=== PATIENT | female | born 1950 | race Caucasian/White ===

== ENCOUNTER 2017-02-10 11:23 | Emergency (ER) | payer MEDICARE ==
[~2017-02-10 11:23] MED LIST: LSNP10T PO
[2017-02-10 11:30] VITALS: BP 0/0
[2017-02-10] MEDS ORDERED: NS IV 1000 ML 1,000 ML ONE (12:08)
[2017-02-10] MEDS ORDERED: ALPR0.25 PO (13:18)
== END 2017-02-10 11:30 | disposition left against medical advice (07) ==
LOC: EDUNIT# 11:23 → ER 11:26
DX: I49.9 Cardiac arrhythmia, unspecified (principal); Z53.21 Procedure and treatment not carried out due to patient leaving prior to being seen by health care provider

== ENCOUNTER 2017-02-10 11:39 | Emergency (ER) | payer MEDICARE ==
[~2017-02-10] VITALS: Ht 175.3 cm; Wt 44.5 kg
--- NOTE | 2017-02-10 12:07 | ED General ---
General Chief Complaint: Cardiac/General Problems Stated Complaint: IRREG HEART RATE/STRESS Source of Information: Patient Exam Limitations: No Limitations History of Present Illness Time Seen by Provider: 12:03 Initial Comments Patient has multiple complaints over a long period of time but what brought her to the emergency department today is her elevated heart rate. She reports being under a lot of stress due to the apartment which she lives. She is on no prescription medicine. She reports 5-10 runny bowel movements per day. She denies hematochezia. She reports significant weight loss of the past year but is uncertain how much. She denies chest pain or abdominal pain. She denies fevers or chills. She denies drug or alcohol use. Allergies and Home Medications Allergies Coded Allergies: Codeine (Verified Allergy, Mild, N/V, PT HAS RECEIVED MORPHINE WITHOUT ISSUE, 02/14/12) PER [facility] (ICU) PT HAS RECEIVED MORPHINE WITHOUT PROBLEMS Cephalexin (Verified Allergy, Unknown, 01/16/06) Diphenhydramine (Verified Allergy, Unknown, 01/16/06) IV Dye, Iodine Containing Contrast (Verified Allergy, Unknown, 01/16/06) Levofloxacin (Verified Allergy, Unknown, 01/16/06) Nitrofurantoin (Verified Allergy, Unknown, 01/16/06) Penicillins (Verified Allergy, Unknown, 01/16/06) Prochlorperazine (Verified Allergy, Unknown, 01/16/06) Sulfa(Sulfonamide Antibiotics) (Verified Allergy, Unknown, 01/16/06) ciprofloxacin (Verified Allergy, Unknown, 01/16/06) citalopram (Verified Allergy, Unknown, 01/16/06) lorazepam (Verified Allergy, Unknown, 01/16/06) metronidazole (Verified Allergy, Unknown, 01/16/06) pseudoephedrine (Verified Allergy, Unknown, 01/16/06) zinc acetate (Verified Allergy, Unknown, 01/16/06) Uncoded Allergies: SOY BEANS (Allergy, 02/10/12) Home Medications Lisinopril 10 Mg Tab, 10 MG PO DAILY, #30 (Reported) Constitutional: No fever, malaise, weakness Respiratory: no symptoms reported Cardiovascular: No chest pain, palpitations Gastrointestinal: No abdominal pain, diarrhea Musculoskeletal: no symptoms reported All Other Systems Reviewed Negative Unless Noted: Yes Past Ahipdle-Wtyxjj-Axhndg Hx Patient Social History Alcohol Use: Denies Use Recreational Drug Use: No Smoking Status: Never a Smoker 2nd Hand Smoke Exposure: No Recent Foreign Travel: No Contact w/Someone Who Travel: No Recent Hopitalizations: No Seasonal Allergies Seasonal Allergies: No Surgeries Surgeries: Section, Gallbladder Cardiovascular Hx Cardiac Disorders: No Gastrointestinal Gastrointestinal Disorders: Gastroesophageal Reflux, Obstructive Bowel HEENT HX ENT Disorders: No Cancer Cancer: Cervical Psychosocial Hx Psychiatric Problems: No Behavioral Health Disorders: Anxiety, Depression Blood Transfusions Adverse Reaction to a Blood Tr: No Reviewed Nursing Assessment Reviewed/Agree w Nursing PMH: Yes Physical Exam Vital Signs Vital Sign - Last 12Hours 02/10/17 11:58 Temp 97.1 Pulse 110 Resp 20 B/P (MAP) 171/117 Pulse Ox 98 O2 Delivery Room Air Capillary Refill : General Appearance: Anxious, Cachetic Eyes: Bilateral Eye EOMI, Bilateral Eye Normal Inspection, Bilateral Eye PERRL HEENT: Pharynx Normal Neck: Supple Respiratory: Lungs Clear, Normal Breath Sounds Cardiovascular: Tachycardia Gastrointestinal: Non Tender, Soft, No Mass Rectal: Deferred Extremity: Normal Inspection, Normal Range of Motion, Non Tender Neurologic/Psychiatric: Alert, No Motor/Sensory Deficits, cocoa bean cleaner II-XII Norm as Tested Skin: Normal Color, Warm/Dry Progress/Results/Core Measures Results/Orders Lab Results Laboratory Tests Test 02/10/17 11:50 02/10/17 12:53 Range/Units White Blood Count 7.4 4.3-11.0 10^3/uL Red Blood Count 4.42 4.35-5.85 10^6/uL Hemoglobin 13.3 11.5-16.0 G/DL Hematocrit 40 35-52 % Mean Corpuscular Volume 91 80-99 FL Mean Corpuscular Hemoglobin 30 25-34 PG Mean Corpuscular Hemoglobin Concent 33 32-36 G/DL Red Cell Distribution Width 13.5 10.0-14.5 % Platelet Count 273 130-400 10^3/uL Mean Platelet Volume 10.7 H 7.4-10.4 FL Neutrophils (%) (Auto) 65 42-75 % Lymphocytes (%) (Auto) 23 12-44 % Monocytes (%) (Auto) 11 0-12 % Eosinophils (%) (Auto) 0 0-10 % Basophils (%) (Auto) 1 0-10 % Neutrophils # (Auto) 4.8 1.8-7.8 X 10^3 Lymphocytes # (Auto) 1.7 1.0-4.0 X 10^3 Monocytes # (Auto) 0.8 0.0-1.0 X 10^3 Eosinophils # (Auto) 0.0 0.0-0.3 10^3/uL Basophils # (Auto) 0.0 0.0-0.1 10^3/uL Prothrombin Time 11.9 L 12.2-14.7 SEC INR Comment 0.9 0.8-1.4 Activated Partial Thromboplast Time 26 24-35 SEC Sodium Level 138 135-145 MMOL/L Potassium Level 3.0 L 3.6-5.0 MMOL/L Chloride Level 97 L 98-107 MMOL/L Carbon Dioxide Level 30 21-32 MMOL/L Anion Gap 11 5-14 MMOL/L Blood Urea Nitrogen 15 7-18 MG/DL Creatinine 1.06 0.60-1.30 MG/DL Estimat Glomerular Filtration Rate 52 BUN/Creatinine Ratio 14 Glucose Level 123 H 70-105 MG/DL Calcium Level 10.0 8.5-10.1 MG/DL Magnesium Level 1.5 L 1.8-2.4 MG/DL Total Bilirubin 0.7 0.1-1.0 MG/DL Aspartate Amino Transf (AST/SGOT) 21 5-34 U/L Alanine Aminotransferase (ALT/SGPT) 16 0-55 U/L Alkaline Phosphatase 71 40-136 U/L Total Protein 7.7 6.4-8.2 G/DL Albumin 4.3 3.2-4.5 G/DL Thyroid Stimulating Hormone (TSH) 2.14 0.35-4.94 UIU/ML Urine Color YELLOW Urine Clarity SLIGHTLY CLOUDY Urine pH 6.5 5-9 Urine Specific Belt 1.010 L 1.016-1.022 Urine Protein NEGATIVE NEGATIVE Urine Glucose (UA) NEGATIVE NEGATIVE Urine Ketones NEGATIVE NEGATIVE Urine Nitrite NEGATIVE NEGATIVE Urine Bilirubin NEGATIVE NEGATIVE Urine Urobilinogen NORMAL NORMAL MG/DL Urine Leukocyte Esterase NEGATIVE NEGATIVE Urine RBC (Auto) 1+ H NEGATIVE Urine RBC RARE /HPF Urine WBC NONE /HPF Urine Squamous Epithelial Cells 0-2 /HPF Urine Crystals NONE /LPF Urine Bacteria NEGATIVE /HPF Urine Casts NONE /LPF Urine Mucus NEGATIVE /LPF Urine Culture Indicated NO My Orders Orders - JUAN WHITFIELD MD Cbc With Automated Diff (02/10/17 11:42) Comprehensive Metabolic Panel (02/10/17 11:42) Magnesium (02/10/17 11:42) Ekg Tracing (02/10/17 11:42) Continuous Ekg Monitoring (02/10/17 11:42) Thyroid Stimulating Hormone (02/10/17 11:48) Chest 1 View, Ap/Pa Only (02/10/17 12:00) Ns Iv 1000 Ml (Sodium Chloride 0.9%) (02/10/17 12:15) Protime With Inr (02/10/17 12:02) Partial Thromboplastin Time (02/10/17 12:02) Ua Culture If Indicated (02/10/17 12:02) Potassium Chloride (Tablet) (Klor Con Ta (02/10/17 13:15) Vital Signs/I&O Vital Sign - Last 12Hours 02/10/17 11:58 Temp 97.1 Pulse 110 Resp 20 B/P (MAP) 171/117 Pulse Ox 98 O2 Delivery Room Air Progress Note : Time: 13:08 Progress Note Heart rate down in the 80s after IV hydration. Patient and daughter advised of test results. Potassium replenished. I strongly advised patient to see a doctor as soon as possible given her history of cancer and weight loss. ECG Initial ECG Rhythm: S.Tach Initial ECG Intervals: Normal Initial ECG Impression: Nonspecific Changes Diagnostic Imaging Comments Date of Exam:02/10/17 CHEST 1 VIEW, AP/PA ONLY EXAMINATION: Portable erect AP chest obtained at 1206h. INDICATION: Irregular heartbeat Heart size is within normal limits and stable when compared to 02/14/12. The chronic pulmonary changes noted on the prior study are again evident and no different. The small area of increased density in the left hemidiaphragm seen previously is also again visualized and unchanged. There is no evidence for failure, pneumonia or for a pleural effusion to suggest an acute abnormality. The mediastinum is not widened. The osseous structures are intact. The NG line and central venous catheter on the left seen on previous exam have been removed. IMPRESSION: There is chronic pulmonary disease but there is no evidence for acute cardiopulmonary abnormality. Departure Impression Impression: Primary Impression: Dehydration Additional Impressions: Malnutrition Hypokalemia Anxiety Disposition: 01 HOME, SELF-CARE Condition: Stable Departure-Patient Inst. Decision time for Depature: 13:16 Referrals: NO,LOCAL PHYSICIAN (PCP/Family) Primary Care Physician Patient Instructions: Dehydration, Adult (DC) Add. Discharge Instructions: Follow-up with a primary care physician as soon as possible. All discharge instructions reviewed with patient and/or family. Voiced understanding. Scripts Alprazolam (Xanax) 0.25 Mg Tablet 0.25 MG PO BID Y for ANXIETY, #20 TAB Prov: JUAN WHITFIELD MD 02/10/17 JUAN WHITFIELD MD Feb 10, 2017 12:07
[2017-02-10 12:09] LABS: BASOPHILS % (AUTO) 1 % (0-10); EOSINOPHILS % (AUTO) 0 % (0-10); LYMPHOCYTES # (AUTO) 1.7 X 10^3 (1.0-4.0); LYMPHOCYTES % (AUTO) 23 % (12-44); MEAN CORPUSCULAR HEMOGLOBIN 30 PG (25-34); MEAN CORPUSCULAR HGB CONC 33 G/DL (32-36); MEAN CORPUSCULAR VOLUME 91 FL (80-99); MEAN PLATELET VOLUME 10.7 FL (7.4-10.4); MONOCYTES # (AUTO) 0.8 X 10^3 (0.0-1.0); MONOCYTES % (AUTO) 11 % (0-12); NEUTROPHILS # (AUTO) 4.8 X 10^3 (1.8-7.8); NEUTROPHILS % (AUTO) 65 % (42-75); PLATELET COUNT 273 10^3/uL (130-400); RED BLOOD COUNT 4.42 10^6/uL (4.35-5.85); RED CELL DISTRIBUTION WIDTH 13.5 % (10.0-14.5); WHITE BLOOD COUNT 7.4 10^3/uL (4.3-11.0)
[2017-02-10] MEDS ORDERED: NS IV 1000 ML 1,000 ML IV SCH (12:15)
[2017-02-10 12:19] LABS: INR 0.9 (0.8-1.4); PROTHROMBIN TIME PATIENT 11.9 SEC (12.2-14.7)
--- NOTE | 2017-02-10 12:26 | Diagnostic Imaging Report ---
EXAMINATION: Portable erect AP chest obtained at 1206h. INDICATION: Irregular heartbeat Heart size is within normal limits and stable when compared to 02/14/12. The chronic pulmonary changes noted on the prior study are again evident and no different. The small area of increased density in the left hemidiaphragm seen previously is also again visualized and unchanged. There is no evidence for failure, pneumonia or for a pleural effusion to suggest an acute abnormality. The mediastinum is not widened. The osseous structures are intact. The NG line and central venous catheter on the left seen on previous exam have been removed. IMPRESSION: There is chronic pulmonary disease but there is no evidence for an acute cardiopulmonary abnormality. Dictated by: Dictated on workstation # [id number]
[2017-02-10 12:29] LABS: ALBUMIN 4.3 G/DL (3.2-4.5); BILIRUBIN,TOTAL 0.7 MG/DL (0.1-1.0); CREATININE SERUM 1.06 MG/DL (0.60-1.30); MAGNESIUM 1.5 MG/DL (1.8-2.4); TOTAL PROTEIN 7.7 G/DL (6.4-8.2)
[2017-02-10 12:48] LABS: THYROID STIMULATING HORMONE 2.14 UIU/ML (0.35-4.94)
[2017-02-10 13:06] LABS: BILIRUBIN,URINE NEGATIVE (NEGATIVE); KETONES,URINE NEGATIVE (NEGATIVE); LEUKOCYTE ESTERASE ,URINE NEGATIVE (NEGATIVE); NITRITE,URINE NEGATIVE (NEGATIVE); PH,URINE 6.5 (5-9); PROTEIN,URINE NEGATIVE (NEGATIVE); UROBILINOGEN,URINE NORMAL (NORMAL)
[2017-02-10 13:12] LABS: SQUAMOUS EPITHELIAL CELL,UR 0-2 /HPF
[2017-02-10] MEDS ORDERED: KCL 10 MEQ TAB (MICRO K) PO ONE (13:15)
[2017-02-10] MEDS ORDERED: ALPR0.25 PO (13:18)
[2017-02-10 13:30] VITALS: BP 156/98
== END 2017-02-10 13:30 | disposition home or self-care (01) ==
LOC: EDUNIT# 11:39 → ER 11:40
DX: E86.0 Dehydration (principal); E46 Unspecified protein-calorie malnutrition; E87.6 Hypokalemia; F41.9 Anxiety disorder, unspecified; R63.4 Abnormal weight loss; K92.9 Disease of digestive system, unspecified; Z85.41 Personal history of malignant neoplasm of cervix uteri
CPT/HCPCS: 36415; 71010; 80053; 81000; 83735; 84443; 85025; 85610; 85730; 93005

== ENCOUNTER 2018-12-26 13:48 | Emergency (ER) | payer MEDICARE, MEDICAID ==
[~2018-12-26] VITALS: Ht 175.3 cm; Wt 57.6 kg
[~2018-12-26 13:48] MED LIST changes: +ALPR0.25 PO
--- OUTSIDE RECORDS SUMMARY | 2018-12-26 13:53 | XMS REPORT | Clinical Summary ---
Author Author [facility] Organization [facility] Address Unknown Phone Unavailable Care Team Providers Care Fire Loss Prevention Engineer Name Role Phone Fadi Moe MD Unavailable Kimber Kendrick MD Unavailable Richard Briseno MD Unavailable Mary Cruz MD PCP Source Comments Some departments are not documenting in the electronic medical record. If you do not see the information that you expected, contact Release of Information in the Health Information Management department at [phone] for further assistance in locating additional records.[facility] Allergies Comments Active Allergy Reactions Severity Noted Date Diphenhydramine-Zinc SHORTNESS OF Medium 12/23/2014 Acetate BREATH Citalopram UNKNOWN Low 12/23/2014 Cephalexin NAUSEA AND Low 12/23/2014 VOMITING Allergy recorded in SMS: Cipro Ciprofloxacin 05/10/2005 Loratadine ANAPHYLAXIS High 12/23/2014 Codeine NAUSEA AND Low 12/23/2014 VOMITING Allergy recorded in SMS: Valium Diazepam 05/10/2005 Iodinated Contrast- Oral VOMITING Low 12/23/2014 And Iv Dye "bleeding" Levofloxacin SEE COMMENTS Low 12/23/2014 Lorazepam UNKNOWN Low 12/23/2014 Nitrofurantoin DIARRHEA Low 12/23/2014 Monohyd/M-Cryst Allergy recorded in SMS: FLAGYL Metronidazole 05/10/2005 "coma" Morphine ANAPHYLAXIS High 12/23/2014 Allergy recorded in SMS: MACROBID Nitrofurantoin 05/10/2005 Macrocrystalline Allergy recorded in SMS: PCN Penicillins HIVES Medium 05/10/2005 Allergy recorded in SMS: Compazine Prochlorperazine ANAPHYLAXIS High 05/10/2005 Soy UNKNOWN Low 12/23/2014 Sulfa (Sulfonamide HIVES Medium 12/23/2014 Antibiotics) Allergy recorded in SMS: TIGAN Trimethobenzamide 05/10/2005 Zinc UNKNOWN Low 12/23/2014 Medications End Date Status Medication Sig Dispensed Refills Start Date Active famotidine (PEPCID) 20 mg Take 20 mg by 0 tablet mouth daily as needed. Active ranitidine(+) (ZANTAC) Take 1 Tab by 180 Tab 3 150 mg tabletIndications: mouth twice 5 Abdominal pain, daily. unspecified abdominal location, Peptic ulcer disease, Weight loss, Diarrhea Active ondansetron (ZOFRAN) 4 mg Take 1 Tab by 30 Tab 0 tabletIndications: mouth every 8 5 Abdominal pain, hours as unspecified abdominal needed for location, Peptic ulcer Nausea. disease, Weight loss, Diarrhea Active ergocalciferol (VITAMIN Take 1 Cap by 12 Cap 0 D-2) 50,000 unit capsule mouth every 7 5 days. Please give her a dye-free formulation if possible Active Miscellaneous Medical Check bp 1 Each 0 Supply misc weekly 5 Active Problems Problem Noted Date Abdominal pain 12/23/2014 Peptic ulcer disease 12/23/2014 Weight loss 12/23/2014 Diarrhea 12/23/2014 Intestinal malabsorption 12/23/2014 Family History Medical History Relation Name Comments Heart Disease Brother Heart Disease Father Cancer Mother breast Diabetes Mother Heart Disease Mother Stroke Mother Relation Name Status Comments Brother heart attack (Age 56) Father heart attack (Age 61) Mother renal failure/diabetes (Age 81) Social History Date Tobacco Use Types Packs/Day Years Used Never Smoker Smokeless Tobacco: Never Used Sex Assigned at Date Recorded Not on file Industry Job Start Date Occupation Not on file Not on file Not on file Travel End Travel History Travel Start No recent travel history available. Last Filed Vital Signs Time Taken Vital Sign Reading 07/04/2015 2:15 PM CDT Blood Pressure 128/88 07/04/2015 2:15 PM CDT Pulse 98 07/04/2015 2:15 PM CDT Temperature 37.1 C (98.8 F) 07/04/2015 2:15 PM CDT Respiratory Rate 20 - Oxygen Saturation - - Inhaled Oxygen - Concentration 07/04/2015 2:15 PM CDT Weight 55.9 kg (123 lb 3.2 oz) 07/04/2015 2:15 PM CDT Height 177.8 cm (5' 10") 07/04/2015 2:15 PM CDT Body Mass Index 17.68 Plan of Treatment Health Maintenance Due Date Last Done Comments HEPATITIS C SCREENING 1950 DTAP/TDAP VACCINES (1 - 1967 Tdap) BREAST CANCER SCREENING 1989 SHINGLES RECOMBINANT 1999 VACCINE (1 of 2) OSTEOPOROSIS 2014 SCREENING/MONITORING PNEUMONIA (PCV13/PPSV23) 2014 VACCINES (1 of 2 - PCV13) PHYSICAL (COMPREHENSIVE) 12/24/2015 12/23/2014 EXAM INFLUENZA VACCINE 04/09/2019 COLORECTAL CANCER 02/07/2022 02/08/2012 (Previously completed) SCREENING Results Not on filefrom Last 3 Months Insurance Type Payer Benefit Subscriber ID Effective Phone Address Plan / Dates Group Medicare MEDICARE MEDICARE xxxxxxxxxx 1996-P PART A AND resent B Medicaid [facility] MEDICAID [facility] xxxxxxxxxxx 2014-P [place]AN [place] Advance Directives Patient has advance care planning documents on file. For more information, please contact: [facility] [address] [place] [address]
--- OUTSIDE RECORDS SUMMARY | 2018-12-26 13:54 | XMS REPORT | Clinical Summary ---
Author Author [facility] Organization [facility] Address Unknown Phone Unavailable Care Team Providers Care Emergency Vehicle Technician Name Role Phone Raciel Epps MD PCP Allergies Active Allergy Reactions Severity Noted Date Comments Lorazepam 03/06/2017 Diphenhydramine Hcl 03/06/2017 Citalopram 03/06/2017 Loratadine-Pseudoephedrin Low 03/12/2017 Pt tolerated regular e claritin Codeine 03/06/2017 Prochlorperazine Anaphylaxis, Shortness Of High 03/06/2017 Breath Reatmqkxqjgtauk-Bh-Aoktdm 03/06/2017 nesin Metronidazole 03/06/2017 Cephalexin 03/06/2017 Levofloxacin 03/06/2017 Nitrofurantoin 03/06/2017 Monohyd/M-Cryst Morphine Hives, Nausea Only 03/06/2017 Other 03/06/2017 IV contrast Penicillins 03/06/2017 Sulfa (Sulfonamide 03/06/2017 Antibiotics) Cetirizine 03/06/2017 Current Medications Prescription Sig. Disp. Refills Start End Date Status Date acetaminophen (TYLENOL) Take 650 mg by mouth Active 325 MG tablet every 4 (four) hours as needed for pain. hydrocortisone (HYTONE) Apply topically 3 (three) Active 2.5 % cream times a day. rectal famotidine (PEPCID) 20 MG Take 20 mg by mouth 2 Active tablet (two) times a day. ondansetron (ZOFRAN) 4 MG Take 4 mg by mouth every Active tablet 8 (eight) hours as needed for nausea. potassium 99 mg Tab Take 1 tablet by mouth Active daily. Active Problems Problem Noted Date Severe protein-calorie malnutrition (HCC) 03/08/2017 Last Assessment & Plan: Acute on chronic Continue supplements Ileus (HCC) 03/08/2017 Last Assessment & Plan: Improved Impaired mobility and ADLs 03/08/2017 Last Assessment & Plan: PT and OT evaluation for discharge planning Anemia 03/07/2017 Last Assessment & Plan: With hematochezia Hgb stable Enterocolitis 03/06/2017 Last Assessment & Plan: Improving slowly Recently treated for Shigella infection Complicated by ileus and hematochezia C diff negative Surgery consulted, no intervention needed. Appears more resolving shigella/improving ileus rather than obstruction Had diarrhea with gatorade but is willing to advance to bland diet. Discharge when tolerating regular diet Hyponatremia 03/06/2017 Last Assessment & Plan: Persistent Improving with IVF Serum osm low, urine osm 178 Urine Na elevated COPD (chronic obstructive pulmonary disease) (HCC) 03/06/2017 Last Assessment & Plan: Continue RT GERD (gastroesophageal reflux disease) 03/06/2017 Last Assessment & Plan: Continue Pepcid Resolved Problems Problem Noted Date Resolved Date Hypokalemia 03/06/2017 03/09/2017 Last Assessment & Plan: Resolved Social History Tobacco Use Types Packs/Day Years Used Date Never Smoker Smokeless Tobacco: Never Used Sex Assigned at Date Recorded Not on file Last Filed Vital Signs Vital Sign Reading Time Taken Blood Pressure 129/79 03/16/2017 5:47 PM CDT Pulse 95 03/16/2017 5:47 PM CDT Temperature 37.3 C (99.1 F) 03/16/2017 5:47 PM CDT Respiratory Rate 16 03/16/2017 5:47 PM CDT Oxygen Saturation 100% 03/16/2017 5:47 PM CDT Inhaled Oxygen - - Concentration Weight 49 kg (108 lb) 03/16/2017 5:47 PM CDT Height 175.3 cm (5' 9") 03/16/2017 5:47 PM CDT Body Mass Index 15.95 03/16/2017 5:47 PM CDT Plan of Treatment Health Maintenance Due Date Last Done Comments Hepatitis C Screen 1950 Medicare Annual Wellness 1950 Spirometry # 1950 Td # 1950 Colorectal Screening via 1999 Colonoscopy Mammogram Screening 1999 Zoster Vaccine# (1 of 2) 1999 Depression Screening 2014 PHQ-9 # Osteoporosis Screening 2014 Pneumococcal Immunization 2014 65+ (1 of 2 - PCV13) Fall Risk Assessment # 03/16/2018 03/16/2017 Influenza Vaccine (Season 07/10/2019 Ended) Results Not on filefrom Last 3 Months
[2018-12-26 14:29] LABS: BASOPHILS # (AUTO) 0.1 10^3/uL (0.0-0.1); BASOPHILS % (AUTO) 1 % (0-10); EOSINOPHILS % (AUTO) 0 % (0-10); HEMATOCRIT 50 % (35-52); HEMOGLOBIN 16.5 G/DL (11.5-16.0); LYMPHOCYTES # (AUTO) 1.4 X 10^3 (1.0-4.0); LYMPHOCYTES % (AUTO) 14 % (12-44); MEAN CORPUSCULAR HEMOGLOBIN 30 PG (25-34); MEAN CORPUSCULAR HGB CONC 33 G/DL (32-36); MEAN CORPUSCULAR VOLUME 92 FL (80-99); MEAN PLATELET VOLUME 10.8 FL (7.4-10.4); MONOCYTES # (AUTO) 1.1 X 10^3 (0.0-1.0); MONOCYTES % (AUTO) 11 % (0-12); NEUTROPHILS # (AUTO) 7.4 X 10^3 (1.8-7.8); NEUTROPHILS % (AUTO) 74 % (42-75); PLATELET COUNT 266 10^3/uL (130-400); RED CELL DISTRIBUTION WIDTH 13.7 % (10.0-14.5)
[2018-12-26] MEDS ORDERED: ONDANSETRON 4 MG/2 ML (SDV) Z0FRAN IVP ONE (14:30)
[2018-12-26] MEDS ORDERED: NS IV 1000 ML 1,000 ML IV SCH (14:45)
[2018-12-26 14:50] LABS: BUN/CREATININE RATIO 27; CARBON DIOXIDE 24 MMOL/L (21-32); CHLORIDE 96 MMOL/L (98-107); CREATININE SERUM 0.94 MG/DL (0.60-1.30); GFR ESTIMATED 59; SODIUM 139 MMOL/L (135-145)
[2018-12-26 14:51] LABS: ALANINE AMINOTRANSFERASE 156 U/L (0-55); ALBUMIN 4.8 GM/DL (3.2-4.5); ALKALINE PHOSPHATASE 100 U/L (40-136); CALCIUM 10.1 MG/DL (8.5-10.1); GLUCOSE 159 MG/DL (70-105); LIPASE 41 U/L (8-78)
--- NOTE | 2018-12-26 14:52 | ED Abdominal Pain ---
General Chief Complaint: Abdominal/GI Problems Stated Complaint: VOMITING Nursing Triage Note: REPORTS SHE HAS HAD A FEW EPIOSODES OF VOMTING OFF AND ON LAST COUPLE DAYS. SHE TOOK A CAB OUT HERE FROM THE CARE HOME. NH ADVISED OF HER PRESENCE. SHE WAS SUPPOSE TO BE AT A DR APPT BUT WAS SENT TO ER THE PT STATES. Sepsis Screen: No Definite Risk Source of Information: Patient History of Present Illness Date Seen by Provider: Dec 26, 2018 Time Seen by Provider: 13:30 Initial Comments Patient is a 68-year-old has no patient presents with multiple medical complaints. Patient reports. Nausea and vomiting since yesterday after eating sour balls and garlic chicken at a local intermediate facility. Patient had an appointment with her primary care physician today but instead took a cab ride to the emergency department. Patient denies chest pain, palpitations, shortness of breath. Denies fevers, chills, sweats. She does report feeling dizzy or lightheaded. No lower abdominal pain, urinary frequency urgency or dysuria. Denies diarrhea. Patient states she has had prior episodes of nausea and vomiting after foods that don't agree with her. Patient resting comfortably at this time. Prior colon surgery due to diverticulitis. Timing/Duration: 12-24 Hours Severity/Quality: Mild Location: Generalized Abdomen Radiation: No Radiation Activities at Onset: None Modifying Factors: Improves With Eating Associated Symptoms: Denies Symptoms Allergies and Home Medications Allergies Coded Allergies: codeine (Verified Allergy, Mild, N/V, PT HAS RECEIVED MORPHINE WITHOUT ISSUE, 12/31/18) PER [facility] (ICU) PT HAS RECEIVED MORPHINE WITHOUT PROBLEMS red (food color) (Verified Allergy, Mild, Shortness of Breath, 01/04/19) Iodinated Contrast- Oral and IV Dye (Verified Allergy, Unknown, 12/31/18) Penicillins (Verified Allergy, Unknown, 12/31/18) Sulfa (Sulfonamide Antibiotics) (Verified Allergy, Unknown, 12/31/18) cephalexin (Verified Allergy, Unknown, 12/31/18) ciprofloxacin (Verified Allergy, Unknown, 12/31/18) citalopram (Verified Allergy, Unknown, 01/16/06) diazepam (Verified Allergy, Unknown, 12/31/18) diphenhydramine (Verified Allergy, Unknown, 01/16/06) hydrocodone (Verified Allergy, Unknown, 12/31/18) levofloxacin (Verified Allergy, Unknown, 01/16/06) loratadine (Verified Allergy, Unknown, 12/31/18) lorazepam (Verified Allergy, Unknown, 01/16/06) metronidazole (Verified Allergy, Unknown, 01/16/06) morphine (Verified Allergy, Unknown, 01/01/19) nitrofurantoin (Verified Allergy, Unknown, 01/16/06) prochlorperazine (Verified Allergy, Unknown, 01/16/06) pseudoephedrine (Verified Allergy, Unknown, 01/16/06) zinc acetate (Verified Allergy, Unknown, 01/16/06) Uncoded Allergies: SOY BEANS (Allergy, Unknown, 12/31/18) Home Medications Acetaminophen 325 Mg Tablet, 650 MG PO Q4H PRN for PAIN-MILD, (Reported) TAKES 2 (325MG) TABLETS Alprazolam 0.5 Mg Tablet, 0.5 MG PO HS, (Reported) Alprazolam 0.5 Mg Tablet, 0.5 MG PO Q8H PRN for ANXIETY, (Reported) Amitriptyline HCl 10 Mg Tablet, 20 MG PO HS, (Reported) TAKES 2 (10MG) TABLETS Apixaban 5 Mg Tablet, 5 MG PO DAILY, (Reported) B Complex with Vitamin C 1 Each Tablet.er, 1 TAB PO DAILY, (Reported) Cefdinir 300 Mg Capsule, 300 MG PO BID Prescribed by: ALONSO VASQUEZ on 01/05/19 1203 Cyanocobalamin (Vitamin B-12) 1,000 Mcg Tablet, 1,000 MCG PO 1700, (Reported) Famotidine 20 Mg Tablet, 20 MG PO 1900, (Reported) Fluticasone/Vilanterol 1 Each Blst.w.dev, 1 PUFF INH DAILY, (Reported) Folic Acid 1 Mg Tablet, 1 MG PO DAILY, (Reported) L.acidoph & Paracasei,B.lactis 1 Each Capsule, 1 CAP PO DAILY, (Reported) Mag Hydrox/Al Hydrox/Simeth 30 Ml Oral.susp, 15 ML PO Q8H PRN for STOMACH UPSET, (Reported) Melatonin 5 Mg Capsule, 5 MG PO HS, (Reported) Metoprolol Tartrate 25 Mg Tablet, 12.5 MG PO BID, (Reported) TAKES 1/2 (25MG) TABLET Multivitamin 1 Each Tablet, 1 TAB PO 1200, (Reported) Ondansetron HCl 4 Mg Tab, 4 MG PO Q8H PRN for NAUSEA/VOMITING-1ST LINE, ( Reported) Potassium Chloride 20 Meq Tab.er.prt, 20 MEQ PO DAILY, (Reported) Patient Home Medication List Home Medication List Reviewed: Yes Review of Systems Review of Systems Constitutional: see HPI EENTM: See HPI Respiratory: See HPI Cardiovascular: See HPI Gastrointestinal: See HPI Genitourinary: See HPI Musculoskeletal: see HPI Skin: see HPI Psychiatric/Neurological: See HPI Endocrine: See HPI Hematologic/Lymphatic: See HPI Past Rjethwt-Xsgdql-Ekapje Hx Patient Social History Alcohol Use: Denies Use Recreational Drug Use: No 2nd Hand Smoke Exposure: No Recent Foreign Travel: No Contact w/Someone Who Travel: No Recent Infectious Disease Expo: No Recent Hopitalizations: No Physical Abuse: No Sexual Abuse: No Mistreated: No Fear: No Seasonal Allergies Seasonal Allergies: No Past Medical History Surgeries: Yes (ORAL, COLON RESECTION) Section, Gallbladder Respiratory: No Cardiac: No Neurological: No Genitourinary: No Gastrointestinal: Yes Gastroesophageal Reflux, Obstructive Bowel Musculoskeletal: No Endocrine: No HEENT: No Cancer: Yes Cervical Did You Recieve Any Treatments: No Psychosocial: Yes Anxiety, Depression Blood Disorders: No Adverse Reaction/Blood Tranf: No Physical Exam Vital Signs Capillary Refill : Less Than 3 Seconds Height/Weight/BMI Height: 5'9.00" Weight: 127lbs. 0.6oz. 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, no motor/sensory deficits, oriented x 3, other (anxious) Focused Exam Sepsis Stage: Ruled Out Progress/Results/Core Measures Results/Orders Lab Results Laboratory Tests Test 12/26/18 14:15 12/26/18 15:57 Range/Units White Blood Count 10.0 4.3-11.0 10^3/uL Red Blood Count 5.45 4.35-5.85 10^6/uL Hemoglobin 16.5 H 11.5-16.0 G/DL Hematocrit 50 35-52 % Mean Corpuscular Volume 92 80-99 FL Mean Corpuscular Hemoglobin 30 25-34 PG Mean Corpuscular Hemoglobin Concent 33 32-36 G/DL Red Cell Distribution Width 13.7 10.0-14.5 % Platelet Count 266 130-400 10^3/uL Mean Platelet Volume 10.8 H 7.4-10.4 FL Neutrophils (%) (Auto) 74 42-75 % Lymphocytes (%) (Auto) 14 12-44 % Monocytes (%) (Auto) 11 0-12 % Eosinophils (%) (Auto) 0 0-10 % Basophils (%) (Auto) 1 0-10 % Neutrophils # (Auto) 7.4 1.8-7.8 X 10^3 Lymphocytes # (Auto) 1.4 1.0-4.0 X 10^3 Monocytes # (Auto) 1.1 H 0.0-1.0 X 10^3 Eosinophils # (Auto) 0.0 0.0-0.3 10^3/uL Basophils # (Auto) 0.1 0.0-0.1 10^3/uL Sodium Level 139 135-145 MMOL/L Potassium Level 5.0 3.6-5.0 MMOL/L Chloride Level 96 L 98-107 MMOL/L Carbon Dioxide Level 24 21-32 MMOL/L Anion Gap 19 H 5-14 MMOL/L Blood Urea Nitrogen 25 H 7-18 MG/DL Creatinine 0.94 0.60-1.30 MG/DL Estimat Glomerular Filtration Rate 59 BUN/Creatinine Ratio 27 Glucose Level 159 H 70-105 MG/DL Calcium Level 10.1 8.5-10.1 MG/DL Corrected Calcium 8.5-10.1 MG/DL Total Bilirubin 1.0 0.1-1.0 MG/DL Aspartate Amino Transf (AST/SGOT) 148 H 5-34 U/L Alanine Aminotransferase (ALT/SGPT) 156 H 0-55 U/L Alkaline Phosphatase 100 40-136 U/L Troponin T 21 H 18 H <=10 NG/L Total Protein 9.0 H 6.4-8.2 GM/DL Albumin 4.8 H 3.2-4.5 GM/DL Lipase 41 8-78 U/L My Orders Orders - BREE ORTIZ DO Cbc With Automated Diff (12/26/18 14:16) Comprehensive Metabolic Panel (12/26/18 14:16) Troponin T (12/26/18 14:16) Lipase (12/26/18 14:16) Ekg Tracing (12/26/18 14:16) Ondansetron Injection (Zofran Injectio (12/26/18 14:30) Ns Iv 1000 Ml (Sodium Chloride 0.9%) (12/26/18 14:45) Troponin T (12/26/18 15:58) Iv Push End [place] Ed (12/26/18 ) Medications Given in ED Vital Signs/I&O Blood Pressure Mean: 112 Departure Communication (Admissions) Abdominal discomfort, nausea improved with treatment. Abdomen soft, nontender. Denies chest pain shortness of breath palpitations. Reports 3 troponins negative. Recommend supportive care with PCP follow-up. Impression Primary Impression: Acute gastritis Disposition: 01 HOME, SELF-CARE Condition: Improved Departure-Patient Inst. Referrals: SELFNEYDA MD (PCP/Family) Primary Care Physician Patient Instructions: Gastritis Add. Discharge Instructions: Please avoid spicy, sour foods and caffeine. Continue home nausea medications and antacids. Follow-up with PCP early next week for reevaluation All discharge instructions reviewed with patient and/or family. Voiced understanding. BREE ORTIZ DO Dec 26, 2018 14:52
[2018-12-26 16:55] VITALS: BP 119/72
[2018-12-31] MEDS ORDERED: AMIT10TA6 PO (19:50)
[2018-12-31] MEDS ORDERED: ALPR0.5T7 PO (19:50)
[2019-01-01] MEDS ORDERED: ONDN4T PO (10:15)
[2019-01-01] MEDS ORDERED: DICY10CA12 PO (10:15)
[2019-01-01] MEDS ORDERED: MELA5CAP PO (10:15)
[2019-01-01] MEDS ORDERED: APIX5TAB PO (10:15)
[2019-01-01] MEDS ORDERED: ALPR0.5T PO (10:15)
[2019-01-01] MEDS ORDERED: LOPE-145 PO (10:15)
[2019-01-01] MEDS ORDERED: ACET325T38 PO (10:15)
[2019-01-01] MEDS ORDERED: FLUT1AER INH (10:15)
[2019-01-01] MEDS ORDERED: MULT1TAB69 PO (10:15)
[2019-01-01] MEDS ORDERED: CYAN10006 PO (10:15)
[2019-01-01] MEDS ORDERED: METO-333 PO (10:15)
[2019-01-01] MEDS ORDERED: FOLI1TAB24 PO (10:15)
[2019-01-01] MEDS ORDERED: VITA1TAB44 PO (10:15)
[2019-01-01] MEDS ORDERED: MAG30ORA2 PO (10:15)
[2019-01-01] MEDS ORDERED: FAMO20TA5 PO (10:15)
[2019-01-01] MEDS ORDERED: POTA20TA15 PO (10:15)
[2019-01-01] MEDS ORDERED: L.AC1CAP6 PO (10:15)
[2019-01-05] MEDS ORDERED: CEFD300C3 PO (12:03)
== END 2018-12-26 16:55 | disposition home or self-care (01) ==
LOC: EDUNIT# 13:48 → ER FS 13:50
DX: K29.00 Acute gastritis without bleeding (principal); K21.9 Gastro-esophageal reflux disease without esophagitis; F41.9 Anxiety disorder, unspecified; F32.9 Major depressive disorder, single episode, unspecified; Z85.41 Personal history of malignant neoplasm of cervix uteri; Z88.5 Allergy status to narcotic agent; Z88.1 Allergy status to other antibiotic agents; Z88.8 Allergy status to other drugs, medicaments and biological substances; Z91.041 Radiographic dye allergy status; Z88.2 Allergy status to sulfonamides; Z88.0 Allergy status to penicillin; Z88.6 Allergy status to analgesic agent; Z87.19 Personal history of other diseases of the digestive system; Z90.49 Acquired absence of other specified parts of digestive tract; Z98.890 Other specified postprocedural states
CPT/HCPCS: 36415; 80053; 83690; 84484; 85025; 93005; 96361; 96374

== ENCOUNTER 2018-12-31 10:53 | Inpatient (IN) | payer MEDICARE, MEDICAID | END 2019-01-05 15:46 | LOC: ER FS 10:53 → 4TH 13:52 | DX: K91.30 Postprocedural intestinal obstruction, unspecified as to partial versus complete (principal); N17.9 Acute kidney failure, unspecified; E87.1 Hypo-osmolality and hyponatremia; E87.8 Other disorders of electrolyte and fluid balance, not elsewhere classified; K21.9 Gastro-esophageal reflux disease without esophagitis; F41.9 Anxiety disorder, unspecified; F32.9 Major depressive disorder, single episode, unspecified; Z90.49 Acquired absence of other specified parts of digestive tract; Z85.41 Personal history of malignant neoplasm of cervix uteri ==

== ENCOUNTER 2019-01-08 13:13 | Inpatient (IN) | payer MEDICARE, MEDICAID ==
[~2019-01-08] VITALS: Ht 175.3 cm; Wt 57.6 kg
[~2019-01-08 13:13] MED LIST changes: +ACET325T38 PO; +ALPR0.5T PO; +ALPR0.5T7 PO; +AMIT10TA6 PO; +APIX5TAB PO; +CEFD300C3 PO; +CYAN10006 PO; +DICY10CA12 PO; +FAMO20TA5 PO; +FLUT1AER INH; +FOLI1TAB24 PO; +L.AC1CAP6 PO; +LOPE-145 PO; +MAG30ORA2 PO; +MELA5CAP PO; +METO-333 PO; +MULT1TAB69 PO; +ONDN4T PO; +POTA20TA15 PO; +VITA1TAB44 PO
[2019-01-08] MEDS ORDERED: FAMOTIDINE 20MG/2ML IV (PEPCID) IVP ONE (13:45)
[2019-01-08] MEDS ORDERED: ONDANSETRON 4 MG/2 ML (SDV) Z0FRAN IVP ONE (13:45)
[2019-01-08 13:50] LABS: HEMATOCRIT 40 % (35-52); HEMOGLOBIN 13.7 G/DL (11.5-16.0); MEAN CORPUSCULAR HEMOGLOBIN 30 PG (25-34); MEAN CORPUSCULAR HGB CONC 34 G/DL (32-36); MEAN CORPUSCULAR VOLUME 89 FL (80-99); MEAN PLATELET VOLUME 9.9 FL (7.4-10.4); PLATELET COUNT 360 10^3/uL (130-400); RED CELL DISTRIBUTION WIDTH 12.8 % (10.0-14.5); WHITE BLOOD COUNT 13.9 10^3/uL (4.3-11.0)
[2019-01-08 13:51] LABS: BASOPHILS # (AUTO) 0.1 10^3/uL (0.0-0.1); BASOPHILS % (AUTO) 1 % (0-10); EOSINOPHILS # (AUTO) 0.1 10^3/uL (0.0-0.3); EOSINOPHILS % (AUTO) 1 % (0-10); LYMPHOCYTES # (AUTO) 1.6 X 10^3 (1.0-4.0); LYMPHOCYTES % (AUTO) 11 % (12-44); MONOCYTES # (AUTO) 1.7 X 10^3 (0.0-1.0); MONOCYTES % (AUTO) 12 % (0-12); NEUTROPHILS # (AUTO) 10.4 X 10^3 (1.8-7.8); NEUTROPHILS % (AUTO) 75 % (42-75)
[2019-01-08] MEDS: NS IV 1000 ML 1,000 ML IV SCH ×2 (13:57→15:11)
[2019-01-08 14:34] LABS: CREATININE SERUM 1.93 MG/DL (0.60-1.30)
[2019-01-08 14:35] LABS: ALBUMIN 3.5 GM/DL (3.2-4.5); BILIRUBIN,TOTAL 0.4 MG/DL (0.1-1.0); CALCIUM 9.4 MG/DL (8.5-10.1); TOTAL PROTEIN 7.5 GM/DL (6.4-8.2)
--- NOTE | 2019-01-08 14:37 | ED Abdominal Pain ---
General Chief Complaint: Abdominal/GI Problems Stated Complaint: VOMITING & DIARRHEA Nursing Triage Note: Started having vomiting, diarrhea, and abdominal pain yesterday. Just got out of the hospital 4 days ago after having a small bowel obstruction. Has not vomited today, but is still having diarrhea. Is rating abdominal pain at 8/10. Sepsis Screen: No Definite Risk Source of Information: Patient Exam Limitations: No Limitations History of Present Illness Date Seen by Provider: January 08, 2019 Time Seen by Provider: 14:20 Initial Comments Patient is a 68-year-old fpc patient easily treated and released from [facility] several days ago for treatment of a small bowel obstruction. Patient reports persistent nausea vomiting, abdominal distention and diarrhea since discharge. No fever chills, sweats. No chest pain shortness of breath. No bloody stools, dark tarry stools. Symptoms feel similar to previous bowel obstruction. Timing/Duration: 1 Week Severity/Quality: Moderate Location: Generalized Abdomen Radiation: No Radiation Activities at Onset: None Modifying Factors: Improves With Eating, Improves With Lying down Associated Symptoms: Nausea/Vomiting Allergies and Home Medications Allergies Coded Allergies: codeine (Verified Allergy, Mild, N/V, PT HAS RECEIVED MORPHINE WITHOUT ISSUE, 12/31/18) PER [facility] (ICU) PT HAS RECEIVED MORPHINE WITHOUT PROBLEMS red (food color) (Verified Allergy, Mild, Shortness of Breath, 01/04/19) Iodinated Contrast- Oral and IV Dye (Verified Allergy, Unknown, 12/31/18) Penicillins (Verified Allergy, Unknown, 12/31/18) Sulfa (Sulfonamide Antibiotics) (Verified Allergy, Unknown, 12/31/18) cephalexin (Verified Allergy, Unknown, 12/31/18) ciprofloxacin (Verified Allergy, Unknown, 12/31/18) citalopram (Verified Allergy, Unknown, 01/16/06) diazepam (Verified Allergy, Unknown, 12/31/18) diphenhydramine (Verified Allergy, Unknown, 01/16/06) hydrocodone (Verified Allergy, Unknown, 12/31/18) levofloxacin (Verified Allergy, Unknown, 01/16/06) loratadine (Verified Allergy, Unknown, 12/31/18) lorazepam (Verified Allergy, Unknown, 01/16/06) metronidazole (Verified Allergy, Unknown, 01/16/06) morphine (Verified Allergy, Unknown, 01/01/19) nitrofurantoin (Verified Allergy, Unknown, 01/16/06) prochlorperazine (Verified Allergy, Unknown, 01/16/06) pseudoephedrine (Verified Allergy, Unknown, 01/16/06) zinc acetate (Verified Allergy, Unknown, 01/16/06) Uncoded Allergies: SOY BEANS (Allergy, Unknown, 12/31/18) Home Medications Acetaminophen 325 Mg Tablet, 650 MG PO Q4H PRN for PAIN-MILD, (Reported) TAKES 2 (325MG) TABLETS Alprazolam 0.5 Mg Tablet, 0.5 MG PO HS, (Reported) Alprazolam 0.5 Mg Tablet, 0.5 MG PO Q8H PRN for ANXIETY, (Reported) Amitriptyline HCl 10 Mg Tablet, 20 MG PO HS, (Reported) TAKES 2 (10MG) TABLETS Apixaban 5 Mg Tablet, 5 MG PO DAILY, (Reported) B Complex with Vitamin C 1 Each Tablet.er, 1 TAB PO DAILY, (Reported) Cefdinir 300 Mg Capsule, 300 MG PO BID Prescribed by: ALONSO VASQUEZ on 01/05/19 1203 Cyanocobalamin (Vitamin B-12) 1,000 Mcg Tablet, 1,000 MCG PO 1700, (Reported) Famotidine 20 Mg Tablet, 20 MG PO 1900, (Reported) Fluticasone/Vilanterol 1 Each Blst.w.dev, 1 PUFF INH DAILY, (Reported) Folic Acid 1 Mg Tablet, 1 MG PO DAILY, (Reported) L.acidoph & Paracasei,B.lactis 1 Each Capsule, 1 CAP PO DAILY, (Reported) Mag Hydrox/Al Hydrox/Simeth 30 Ml Oral.susp, 15 ML PO Q8H PRN for STOMACH UPSET, (Reported) Melatonin 5 Mg Capsule, 5 MG PO HS, (Reported) Metoprolol Tartrate 25 Mg Tablet, 12.5 MG PO BID, (Reported) TAKES 1/2 (25MG) TABLET Multivitamin 1 Each Tablet, 1 TAB PO 1200, (Reported) Ondansetron HCl 4 Mg Tab, 4 MG PO Q8H PRN for NAUSEA/VOMITING-1ST LINE, ( Reported) Potassium Chloride 20 Meq Tab.er.prt, 20 MEQ PO DAILY, (Reported) Patient Home Medication List Home Medication List Reviewed: Yes Review of Systems Review of Systems Constitutional: see HPI EENTM: See HPI Cardiovascular: See HPI Gastrointestinal: See HPI Genitourinary: See HPI Musculoskeletal: see HPI Skin: see HPI Psychiatric/Neurological: See HPI Endocrine: See HPI Hematologic/Lymphatic: See HPI Past Jfgdlhs-Mlszei-Mwmftj Hx Past Med/Social Hx: Reviewed Nursing Past Med/Soc Hx Patient Social History Alcohol Use: Denies Use Recreational Drug Use: No Smoking Status: Never a Smoker 2nd Hand Smoke Exposure: No Recent Foreign Travel: No Contact w/Someone Who Travel: No Recent Infectious Disease Expo: No Recent Hopitalizations: No Physical Abuse: No Sexual Abuse: No Mistreated: No Fear: No Seasonal Allergies Seasonal Allergies: No Past Medical History Surgeries: Yes (ORAL, COLON RESECTION) Section, Gallbladder Respiratory: No Cardiac: No Neurological: No Genitourinary: No Gastrointestinal: Yes Gastroesophageal Reflux, Obstructive Bowel Musculoskeletal: No Endocrine: No HEENT: No Cancer: Yes Cervical Did You Recieve Any Treatments: No Psychosocial: Yes Anxiety, Depression Integumentary: No Blood Disorders: No Adverse Reaction/Blood Tranf: No Family Medical History Heart Disease, Cancer, Diabetes Physical Exam Vital Signs Vital Signs - First Documented 01/08/19 13:25 Temp 97.0 Pulse 120 Resp 14 B/P (MAP) 100/72 (81) Pulse Ox 94 Capillary Refill : Less Than 3 Seconds Height/Weight/BMI Height: 5'9.00" Weight: 126lbs. 5.0oz. 57.823857op; 19.9 BMI Method:Stated General Appearance: WD/WN, no apparent distress HEENT: PERRL/EOMI, normal ENT inspection Neck: non-tender, full range of motion Respiratory: chest non-tender, lungs clear, normal breath sounds Cardiovascular: normal peripheral pulses, regular rate, rhythm Gastrointestinal: soft, abnormal bowel sounds, distended; No guarding, No rebound, No hernia, No mass; other (quite bowel sounds) Extremities: normal range of motion, non-tender, normal inspection Pelvic: normal external exam, normal adnexa Skin: normal color, warm/dry Progress/Results/Core Measures Results/Orders Lab Results Laboratory Tests Test 01/08/19 13:40 01/08/19 14:39 Range/Units White Blood Count 13.9 H 4.3-11.0 10^3/uL Red Blood Count 4.55 4.35-5.85 10^6/uL Hemoglobin 13.7 11.5-16.0 G/DL Hematocrit 40 35-52 % Mean Corpuscular Volume 89 80-99 FL Mean Corpuscular Hemoglobin 30 25-34 PG Mean Corpuscular Hemoglobin Concent 34 32-36 G/DL Red Cell Distribution Width 12.8 10.0-14.5 % Platelet Count 360 130-400 10^3/uL Mean Platelet Volume 9.9 7.4-10.4 FL Neutrophils (%) (Auto) 75 42-75 % Lymphocytes (%) (Auto) 11 L 12-44 % Monocytes (%) (Auto) 12 0-12 % Eosinophils (%) (Auto) 1 0-10 % Basophils (%) (Auto) 1 0-10 % Neutrophils # (Auto) 10.4 H 1.8-7.8 X 10^3 Lymphocytes # (Auto) 1.6 1.0-4.0 X 10^3 Monocytes # (Auto) 1.7 H 0.0-1.0 X 10^3 Eosinophils # (Auto) 0.1 0.0-0.3 10^3/uL Basophils # (Auto) 0.1 0.0-0.1 10^3/uL Sodium Level 127 L 135-145 MMOL/L Potassium Level 4.0 3.6-5.0 MMOL/L Chloride Level 78 L 98-107 MMOL/L Carbon Dioxide Level 35 H 21-32 MMOL/L Anion Gap 14 5-14 MMOL/L Blood Urea Nitrogen 51 H 7-18 MG/DL Creatinine 1.93 H 0.60-1.30 MG/DL Estimat Glomerular Filtration Rate 26 BUN/Creatinine Ratio 26 Glucose Level 138 H 70-105 MG/DL Calcium Level 9.4 8.5-10.1 MG/DL Corrected Calcium 9.8 8.5-10.1 MG/DL Total Bilirubin 0.4 0.1-1.0 MG/DL Aspartate Amino Transf (AST/SGOT) 35 H 5-34 U/L Alanine Aminotransferase (ALT/SGPT) 48 0-55 U/L Alkaline Phosphatase 139 H 40-136 U/L Total Protein 7.5 6.4-8.2 GM/DL Albumin 3.5 3.2-4.5 GM/DL Lipase 135 H 8-78 U/L Urine Color YELLOW Urine Clarity CLEAR Urine pH 5.5 5-9 Urine Specific [place] 1.020 1.016-1.022 Urine Protein NEGATIVE NEGATIVE Urine Glucose (UA) NEGATIVE NEGATIVE Urine Ketones NEGATIVE NEGATIVE Urine Nitrite NEGATIVE NEGATIVE Urine Bilirubin NEGATIVE NEGATIVE Urine Urobilinogen 0.2 NORMAL MG/DL Urine Leukocyte Esterase NEGATIVE NEGATIVE Urine RBC (Auto) NEGATIVE NEGATIVE Urine RBC 0-2 /HPF Urine WBC 5-10 H /HPF Urine Squamous Epithelial Cells 0-2 /HPF Urine Crystals NONE /LPF Urine Bacteria FEW H /HPF Urine Casts PRESENT /LPF Urine Hyaline Casts 2-5 H /LPF Urine Granular Casts 0-2 H /LPF Urine Mucus NONE /LPF Urine Culture Indicated YES My Orders Orders - BREE ORTIZ DO Cbc With Automated Diff (01/08/19 13:35) Comprehensive Metabolic Panel (01/08/19 13:35) Lipase (01/08/19 13:35) Ua Culture If Indicated (01/08/19 13:35) Ns Iv 1000 Ml (Sodium Chloride 0.9%) (01/08/19 13:45) Ondansetron Injection (Zofran Injectio (01/08/19 13:45) Famotidine Injection (Pepcid Injection) (01/08/19 13:45) Ct Abdomen/Pelvis Wo (01/08/19 14:38) Urine Culture (01/08/19 14:39) Ng/Feeding Tube Insertertion (01/08/19 15:39) Fentanyl Injection (Sublimaze Injection (01/08/19 15:45) Medications Given in ED Current Medications Medications Dose Ordered Sig/Bhavna Route Start Time Stop Time Status Last Admin Dose Admin Famotidine 20 mg ONCE ONCE IVP 01/08/19 13:45 01/08/19 13:46 DC 01/08/19 13:57 20 MG Ondansetron HCl 8 mg ONCE ONCE IVP 01/08/19 13:45 01/08/19 13:46 DC 01/08/19 13:57 8 MG Vital Signs/I&O 01/08/19 13:25 Temp 97.0 Pulse 120 Resp 14 B/P (MAP) 100/72 (81) Pulse Ox 94 Blood Pressure Mean: 81 Departure Communication (Admissions) CT abdomen and pelvis shows recurrent small bowel obstruction. NG tube placed connected to wall suction. IV fluids, antiemetics and pain medications given. Dr. Vasquez excepts patient for admission to [facility]. Dr. Batres on- call for general surgery to see in consult. Patient stable at time of transfer. Impression Primary Impression: Small bowel obstruction Additional Impressions: Acute kidney injury Hyponatremia Disposition: ADMITTED INPATIENT Condition: Stable Admissions Decision to Admit Reason: Admit from ER (General) Departure-Patient Inst. Referrals: NEYDA ANDRES MD (PCP/Family) Primary Care Physician BREE ORTIZ DO January 08, 2019 14:37
[2019-01-08 14:54] LABS: BILIRUBIN,URINE NEGATIVE (NEGATIVE); CLARITY,URINE CLEAR; COLOR,URINE YELLOW; GLUCOSE, URINE (UA) NEGATIVE (NEGATIVE); KETONES,URINE NEGATIVE (NEGATIVE); LEUKOCYTE ESTERASE ,URINE NEGATIVE (NEGATIVE); NITRITE,URINE NEGATIVE (NEGATIVE); PH,URINE 5.5 (5-9); PROTEIN,URINE NEGATIVE (NEGATIVE); UROBILINOGEN,URINE 0.2 MG/DL (NORMAL)
[2019-01-08 14:55] LABS: BACTERIA,URINE FEW /HPF; GRANULAR CASTS,URINE 0-2 /LPF; RBC,URINE 0-2 /HPF; SQUAMOUS EPITHELIAL CELL,UR 0-2 /HPF
[2019-01-08] MEDS ORDERED: fentaNYL INJECTION 100 MCG/2 ML AMP IVP ONE (15:45)
--- NOTE | 2019-01-08 15:55 | Diagnostic Imaging Report ---
PROCEDURE: CT abdomen and pelvis without contrast. TECHNIQUE: Multiple contiguous axial images were obtained through the abdomen and pelvis without the use of intravenous contrast. Auto Exposure Controls were utilized during the CT exam to meet ALARA standards for radiation dose reduction. INDICATION: Abdominal pain. FINDINGS: The recent CT abdomen/pelvis exam of 12/31/2018 noted a high-grade distal small bowel obstruction with the transition point at the level of the umbilicus midline adjacent to a surgical opacity. The distal ileum did appear to be decompressed. On this exam, there is still considerable distention of the small bowel by gas and fluid. The transition point noted previously is again evident and does not appear to have changed significantly. The distal ileum remains decompressed. No new abnormality has developed otherwise. The lung bases remain generally clear. The scar formation in the left lung base and the pleural calcification in this area seen previously are again evident and no different. The pulmonary nodules near the right hemidiaphragm seen previously also seem stable. The bone windows show no sign of a fracture or of a destructive lesion. IMPRESSION: 1. There is persistent obstruction of the small bowel. The transition point noted previously is unchanged, and the distal ileum remains decompressed. 2. No new abnormality has developed otherwise. 3. These results were discussed with Dr. Shahram Michele At the time of this dictation. Critical finding Dictated by: Dictated on workstation # [id number]
[2019-01-08] MEDS ORDERED: NS IV 1000 ML 1,000 ML IV SCH (17:15)
--- OUTSIDE RECORDS SUMMARY | 2019-01-08 17:22 | XMS REPORT | Clinical Summary ---
Author Author [facility] Organization 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 If you do not see the information that you expected, contact Release of Information in the Health Information Management department at [phone] for further assistance in locating additional records.[facility] Allergies Comments Active Allergy Reactions Severity Noted [...] PHYSICAL (COMPREHENSIVE) 12/24/2015 12/23/2014 EXAM INFLUENZA VACCINE 06/09/2019 COLORECTAL CANCER 02/07/2022 02/08/2012 (Previously completed) SCREENING Results Not on filefrom Last 3 Months Insurance Type Payer Benefit Subscriber ID Effective Phone Address Plan / Dates Group Medicare MEDICARE MEDICARE xxxxxxxxxx [id number] PART A AND resent B Medicaid [facility] MEDICAID [facility] xxxxxxxxxxx [id number] [employer] [place] Advance Directives Patient has advance care planning documents on file. For more information, please contact: [facility] [address] [place] [address]
--- OUTSIDE RECORDS SUMMARY | 2019-01-08 17:23 | XMS REPORT | Clinical Summary ---
Author Author [facility] Organization [facility] Address Unknown Phone Unavailable Care Team Providers Care Felled Seam Operator Name Role Phone Raciel Epps MD PCP Allergies Active Allergy Reactions Severity Noted Date Comments Lorazepam 03/06/2017 Diphenhydramine Hcl 03/06/2017 Citalopram 03/06/2017 Loratadine-Pseudoephedrin Low 03/12/2017 Pt tolerated regular e claritin Codeine 03/06/2017 Prochlorperazine Anaphylaxis, Shortness Of High 03/06/2017 Breath [id number]-Gawvvk 03/06/2017 nesin Metronidazole 03/06/2017 Cephalexin 03/06/2017 Levofloxacin [...]
--- OUTSIDE RECORDS SUMMARY | 2019-01-08 17:24 | XMS REPORT | Continuity of Care Document ---
Author Organization Unknown Address Unknown Allergies Active Description Code Type Severity Reaction Onset Reported/Identified Relationship to Patient Clinical Status Yes citalopram [id number] Drug Allergy Unknown N/A 01/16/2006 Yes diphenhydramine [id number] Drug Allergy Unknown N/A 01/16/2006 Yes Iodinated Contrast Media - Oral and [id number] Drug Allergy Unknown N/A 06/2006 Yes levofloxacin [id number] Drug Allergy Unknown N/A 01/16/2006 Yes lorazepam [id number] Drug Allergy Unknown N/A 01/16/2006 Yes metronidazole [id number] Drug Allergy Unknown N/A 01/16/2006 Yes nitrofurantoin [id number] Drug Allergy Unknown N/A 01/16/2006 Yes prochlorperazine [id number] Drug Allergy Unknown N/A 01/16/2006 Yes pseudoephedrine [id number] Drug Allergy Unknown N/A 01/16/2006 Yes zinc acetate [id number] Drug Allergy Unknown N/A 01/16/2006 Yes codeine [id number] Drug Allergy Mild N/V, PT HAS REC 12/31/2018 Yes cephalexin [id number] Drug Allergy Unknown N/A 12/31/2018 Yes ciprofloxacin [id number] Drug Allergy Unknown N/A 12/31/2018 Yes diazepam [id number] Drug Allergy Unknown N/A 12/31/2018 Yes hydrocodone [id number] Drug Allergy Unknown N/A 12/31/2018 Yes Iodinated Contrast- Oral and IV Dye [id number] Drug Allergy Unknown N/A Yes loratadine [id number] Drug Allergy Unknown N/A 12/31/2018 Yes Penicillins [id number] Drug Allergy Unknown N/A 12/31/2018 Yes SOY BEANS SOY BEANS Unknown N/A 12/31/2018 Yes Sulfa (Sulfonamide Antibiotics) [id number] Drug Allergy Unknown N/A 2018 Yes morphine [id number] Drug Allergy Unknown N/A 01/01/2019 Medications There is no data. Problems Date Dx Coded Attending Type Code Diagnosis Diagnosed By 02/22/2012 Ot 275.2 DIS MAGNESIUM METABOLISM 02/22/2012 Ot 275.41 HYPOCALCEMIA 02/22/2012 Ot 276.1 HYPOSMOLALITY 02/22/2012 Ot 276.8 HYPOPOTASSEMIA 02/22/2012 Ot 285.9 ANEMIA NOS 02/22/2012 Ot 558.1 RADIATION GASTROENTERIT 02/22/2012 Ot 560.9 INTESTINAL OBSTRUCT NOS 02/22/2012 Ot 783.21 LOSS OF WEIGHT 02/22/2012 Ot V10.41 HX-CERVICAL MALIGNANCY 02/22/2012 Ot V15.3 HX OF IRRADIATION 02/22/2012 Ot V64.41 LAPAROSCOPIC SURGICAL PROC CONVERTED TO 02/22/2012 Ot V87.41 PERSONAL HISTORY OF ANTINEOPLASTIC CHEMO 02/10/2017 JUAN WHITFIELD MD Ot I49.9 CARDIAC ARRHYTHMIA, UNSPECIFIED 02/10/2017 JUAN WHITFIELD MD Ot Z53.21 PROC/TRTMT NOT CRD OUT D/T PT LV BEF SEE 02/10/2017 JUAN WHITFIELD MD Ot E46 UNSPECIFIED PROTEIN-CALORIE MALNUTRITION 02/10/2017 JUAN WHITFIELD MD Ot E86.0 DEHYDRATION 02/10/2017 JUAN WHITFIELD MD Ot E87.6 HYPOKALEMIA 02/10/2017 JUAN WHITFIELD MD Ot F41.9 ANXIETY DISORDER, UNSPECIFIED 02/10/2017 JUAN WHITFIELD MD Ot I49.9 CARDIAC ARRHYTHMIA, UNSPECIFIED 02/10/2017 JUAN WHITFIELD MD Ot K92.9 DISEASE OF DIGESTIVE SYSTEM, UNSPECIFIED 02/10/2017 JUAN WHITFIELD MD Ot R63.4 ABNORMAL WEIGHT LOSS 02/10/2017 JUAN WHITFIELD MD Ot Z85.41 PERSONAL HISTORY OF MALIGNANT NEOPLASM O 02/14/2017 JUAN WHITFIELD MD Ot E46 UNSPECIFIED PROTEIN-CALORIE MALNUTRITION 02/14/2017 JUAN WHITFIELD MD Ot E86.0 DEHYDRATION 02/14/2017 JUAN WHITFIELD MD Ot E87.6 HYPOKALEMIA 02/14/2017 JUAN WHITFIELD MD Ot F41.9 ANXIETY DISORDER, UNSPECIFIED 02/14/2017 NAHID MD, JUAN A Ot I49.9 CARDIAC ARRHYTHMIA, UNSPECIFIED 02/14/2017 NAHID GONZALEZ, JAUN A Ot K92.9 DISEASE OF DIGESTIVE SYSTEM, UNSPECIFIED 02/14/2017 NAHID GONZALEZ, JUAN A Ot R63.4 ABNORMAL WEIGHT LOSS 02/14/2017 NAHID GONZALEZ, JUAN A Ot Z85.41 PERSONAL HISTORY OF MALIGNANT NEOPLASM O 02/21/2017 NAHID GONZALEZ, JUAN A Ot E46 UNSPECIFIED PROTEIN-CALORIE MALNUTRITION 02/21/2017 JUAN WHITFIELD MD A Ot E86.0 DEHYDRATION 02/21/2017 NAHID GONZALEZ, JUAN A Ot E87.6 HYPOKALEMIA 02/21/2017 NAHID GONZALEZ, JUAN A Ot F41.9 ANXIETY DISORDER, UNSPECIFIED 02/21/2017 JUAN WHITFIELD MD A Ot I49.9 CARDIAC ARRHYTHMIA, UNSPECIFIED 02/21/2017 JUAN WHITFIELD MD A Ot K92.9 DISEASE OF DIGESTIVE SYSTEM, UNSPECIFIED 02/21/2017 JUAN WHITFIELD MD A Ot R63.4 ABNORMAL WEIGHT LOSS 02/21/2017 JUAN WHITFIELD MD A Ot Z85.41 PERSONAL HISTORY OF MALIGNANT NEOPLASM O 12/26/2018 ANGEL SAMANO, BREE Ot F32.9 MAJOR DEPRESSIVE DISORDER, SINGLE EPISOD 12/26/2018 ANGEL DO, BREE Ot F41.9 ANXIETY DISORDER, UNSPECIFIED 12/26/2018 ANGEL SAMANO, BREE Ot K21.9 GASTRO-ESOPHAGEAL REFLUX DISEASE WITHOUT 12/26/2018 ANGEL DO, BREE Ot K29.00 ACUTE GASTRITIS WITHOUT BLEEDING 12/26/2018 ANGEL SAMANO, BREE Ot R11.2 NAUSEA WITH VOMITING, UNSPECIFIED 12/26/2018 ANGEL SAMANO, BREE Ot Z85.41 PERSONAL HISTORY OF MALIGNANT NEOPLASM O 12/26/2018 ANGEL SAMANO, BREE Ot Z87.19 PERSONAL HISTORY OF OTHER DISEASES OF TH 12/26/2018 ANGEL SAMANO, BREE Ot Z88.0 ALLERGY STATUS TO PENICILLIN 12/26/2018 ANGEL SAMANO, BREE Ot Z88.1 ALLERGY STATUS TO OTHER ANTIBIOTIC AGENT 12/26/2018 ANGEL SAMANO, BREE Ot Z88.2 ALLERGY STATUS TO SULFONAMIDES STATUS 12/26/2018 ANGEL SAMANO, BREE Ot Z88.5 ALLERGY STATUS TO NARCOTIC AGENT STATUS 12/26/2018 ANEGL SAMANO, BREE Ot Z88.6 ALLERGY STATUS TO ANALGESIC AGENT STATUS 12/26/2018 BREE ORTIZ DO Ot Z88.8 ALLERGY STATUS TO OTH DRUG/MEDS/BIOL SUB 12/26/2018 BREE ORTIZ DO, Ot Z90.49 ACQUIRED ABSENCE OF OTHER SPECIFIED PART 12/26/2018 BREE ORTIZ DO, Ot Z91.041 RADIOGRAPHIC DYE ALLERGY STATUS 12/26/2018 BREE ORTIZ DO, Ot Z98.890 OTHER SPECIFIED POSTPROCEDURAL STATES Procedures Code Description Performed By Performed On 38.93 VENOUS CATHETERIZATION NEC 02/14/2012 45.24 FLEXIBLE SIGMOIDOSCOPY 02/14/2012 45.62 PART SM BOWEL RESECT NEC 02/14/2012 45.90 INTESTINAL ANASTOM NOS 02/14/2012 Results Test Result Range Complete blood count (CBC) with automated white blood cell (WBC) differential - 02/10/17 11:50 Blood leukocytes automated count (number/volume) 7.4 10*3/uL 4.3-11.0 Blood erythrocytes automated count (number/volume) 4.42 10*6/uL 4.35-5.85 Venous blood hemoglobin measurement (mass/volume) 13.3 g/dL 11.5-16.0 Blood hematocrit (volume fraction) 40 % 35-52 Automated erythrocyte mean corpuscular volume 91 [foz_us] 80-99 Automated erythrocyte mean corpuscular hemoglobin (mass per erythrocyte) 30 pg 25-34 Automated erythrocyte mean corpuscular hemoglobin concentration measurement ( mass/volume) 33 g/dL 32-36 Automated erythrocyte distribution width ratio 13.5 % 10.0-14.5 Automated blood platelet count (count/volume) 273 10*3/uL 130-400 Automated blood platelet mean volume measurement 10.7 [foz_us] 7.4-10.4 Automated blood neutrophils/100 leukocytes 65 % 42-75 Automated blood lymphocytes/100 leukocytes 23 % 12-44 Blood monocytes/100 leukocytes 11 % 0-12 Automated blood eosinophils/100 leukocytes 0 % 0-10 Automated blood basophils/100 leukocytes 1 % 0-10 Blood neutrophils automated count (number/volume) 4.8 10*3 1.8-7.8 Blood lymphocytes automated count (number/volume) 1.7 10*3 1.0-4.0 Blood monocytes automated count (number/volume) 0.8 10*3 0.0-1.0 Automated eosinophil count 0.0 10*3/uL 0.0-0.3 Automated blood basophil count (count/volume) 0.0 10*3/uL 0.0-0.1 PT panel in platelet poor plasma by coagulation assay - 02/10/17 11:50 Prothrombin time (PT) in platelet poor plasma by coagulation assay 11.9 s 12.2-14.7 INR in platelet poor plasma or blood by coagulation assay 0.9 0.8-1.4 Activated partial thromboplastin time (aPTT) in platelet poor plasma bycoagulation assay - 02/10/17 11:50 Activated partial thromboplastin time (aPTT) in platelet poor plasma bycoagulation assay 26 s 24-35 Comprehensive metabolic panel - 02/10/17 11:50 Serum or plasma sodium measurement (moles/volume) 138 mmol/L 135-145 Serum or plasma potassium measurement (moles/volume) 3.0 mmol/L 3.6-5.0 Serum or plasma chloride measurement (moles/volume) 97 mmol/L 98-107 Carbon dioxide 30 mmol/L 21-32 Serum or plasma anion gap determination (moles/volume) 11 mmol/L 5-14 Serum or plasma urea nitrogen measurement (mass/volume) 15 mg/dL 7-18 Serum or plasma creatinine measurement (mass/volume) 1.06 mg/dL 0.60-1.30 Serum or plasma urea nitrogen/creatinine mass ratio 14 NRG Serum or plasma creatinine measurement with calculation of estimated glomerular filtration rate 52 NRG Serum or plasma glucose measurement (mass/volume) 123 mg/dL 70-105 Serum or plasma calcium measurement (mass/volume) 10.0 mg/dL 8.5-10.1 Serum or plasma total bilirubin measurement (mass/volume) 0.7 mg/dL 0.1-1.0 Serum or plasma alkaline phosphatase measurement (enzymatic activity/volume) 71 U/L 40-136 Serum or plasma aspartate aminotransferase measurement (enzymatic activity/ volume) 21 U/L 5-34 Serum or plasma alanine aminotransferase measurement (enzymatic activity/volume ) 16 U/L 0-55 Serum or plasma protein measurement (mass/volume) 7.7 g/dL 6.4-8.2 Serum or plasma albumin measurement (mass/volume) 4.3 g/dL 3.2-4.5 Magnesium - 02/10/17 11:50 Magnesium 1.5 mg/dL 1.8-2.4 THYROID STIMULATING HORMONE - 02/10/17 11:50 THYROID STIMULATING HORMONE 2.14 u[iU]/mL 0.35-4.94 Complete urinalysis with reflex to culture - 02/10/17 12:53 Urine color determination YELLOW NRG Urine clarity determination SLIGHTLY CLOUDY NRG Urine pH measurement by test strip 6.5 5-9 Specific gravity of urine by test strip 1.010 1.016- 1.022 Urine protein assay by test strip, semi-quantitative NEGATIVE NEGATIVE Urine glucose detection by automated test strip NEGATIVE NEGATIVE Erythrocytes detection in urine sediment by light microscopy 1+ NEGATIVE Urine ketones detection by automated test strip NEGATIVE NEGATIVE Urine nitrite detection by test strip NEGATIVE NEGATIVE Urine total bilirubin detection by test strip NEGATIVE NEGATIVE Urine urobilinogen measurement by automated test strip (mass/volume) NORMAL NORMAL Urine leukocyte esterase detection by dipstick NEGATIVE NEGATIVE Automated urine sediment erythrocyte count by microscopy (number/high power field) RARE NRG Automated urine sediment leukocyte count by microscopy (number/high power field ) NONE NRG Bacteria detection in urine sediment by light microscopy NEGATIVE NRG Squamous epithelial cells detection in urine sediment by light microscopy 0-2 NRG Crystals detection in urine sediment by light microscopy NONE NRG Casts detection in urine sediment by light microscopy NONE NRG Mucus detection in urine sediment by light microscopy NEGATIVE NRG Complete urinalysis with reflex to culture NO NRG Complete blood count (CBC) with automated white blood cell (WBC) differential - 12/26/18 14:15 Blood leukocytes automated count (number/volume) 10.0 10*3/uL 4.3-11.0 Blood erythrocytes automated count (number/volume) 5.45 10*6/uL 4.35-5.85 Venous blood hemoglobin measurement (mass/volume) 16.5 g/dL 11.5-16.0 Blood hematocrit (volume fraction) 50 % 35-52 Automated erythrocyte mean corpuscular volume 92 [foz_us] 80-99 Automated erythrocyte mean corpuscular hemoglobin (mass per erythrocyte) 30 pg 25-34 Automated erythrocyte mean corpuscular hemoglobin concentration measurement ( mass/volume) 33 g/dL 32-36 Automated erythrocyte distribution width ratio 13.7 % 10.0-14.5 Automated blood platelet count (count/volume) 266 10*3/uL 130-400 Automated blood platelet mean volume measurement 10.8 [foz_us] 7.4-10.4 Automated blood neutrophils/100 leukocytes 74 % 42-75 Automated blood lymphocytes/100 leukocytes 14 % 12-44 Blood monocytes/100 leukocytes 11 % 0-12 Automated blood eosinophils/100 leukocytes 0 % 0-10 Automated blood basophils/100 leukocytes 1 % 0-10 Blood neutrophils automated count (number/volume) 7.4 10*3 1.8-7.8 Blood lymphocytes automated count (number/volume) 1.4 10*3 1.0-4.0 Blood monocytes automated count (number/volume) 1.1 10*3 0.0-1.0 Automated eosinophil count 0.0 10*3/uL 0.0-0.3 Automated blood basophil count (count/volume) 0.1 10*3/uL 0.0-0.1 Comprehensive metabolic panel - 12/26/18 14:15 Serum or plasma sodium measurement (moles/volume) 139 mmol/L 135-145 Serum or plasma potassium measurement (moles/volume) 5.0 mmol/L 3.6-5.0 Serum or plasma chloride measurement (moles/volume) 96 mmol/L 98-107 Carbon dioxide 24 mmol/L 21-32 Serum or plasma anion gap determination (moles/volume) 19 mmol/L 5-14 Serum or plasma urea nitrogen measurement (mass/volume) 25 mg/dL 7-18 Serum or plasma creatinine measurement (mass/volume) 0.94 mg/dL 0.60-1.30 Serum or plasma urea nitrogen/creatinine mass ratio 27 NRG Serum or plasma creatinine measurement with calculation of estimated glomerular filtration rate 59 NRG Serum or plasma glucose measurement (mass/volume) 159 mg/dL 70-105 Serum or plasma calcium measurement (mass/volume) 10.1 mg/dL 8.5-10.1 Serum or plasma total bilirubin measurement (mass/volume) 1.0 mg/dL 0.1-1.0 Serum or plasma alkaline phosphatase measurement (enzymatic activity/volume) 100 U/L 40-136 Serum or plasma aspartate aminotransferase measurement (enzymatic activity/ volume) 148 U/L 5-34 Serum or plasma alanine aminotransferase measurement (enzymatic activity/volume ) 156 U/L 0-55 Serum or plasma protein measurement (mass/volume) 9.0 g/dL 6.4-8.2 Serum or plasma albumin measurement (mass/volume) 4.8 g/dL 3.2-4.5 TROPONIN T - 12/26/18 14:15 TROPONIN T 21 % <=10 Lipase - 12/26/18 14:15 Lipase 41 U/L 8-78 TROPONIN T - 12/26/18 15:57 TROPONIN T 18 % <=10 Complete blood count (CBC) with automated white blood cell (WBC) differential - 12/31/18 11:22 Blood leukocytes automated count (number/volume) 5.3 10*3/uL 4.3-11.0 Blood erythrocytes automated count (number/volume) 5.18 10*6/uL 4.35-5.85 Venous blood hemoglobin measurement (mass/volume) 15.8 g/dL 11.5-16.0 Blood hematocrit (volume fraction) 45 % 35-52 Automated erythrocyte mean corpuscular volume 87 [foz_us] 80-99 Automated erythrocyte mean corpuscular hemoglobin (mass per erythrocyte) 31 pg 25-34 Automated erythrocyte mean corpuscular hemoglobin concentration measurement ( mass/volume) 35 g/dL 32-36 Automated erythrocyte distribution width ratio 12.9 % 10.0-14.5 Automated blood platelet count (count/volume) 256 10*3/uL 130-400 Automated blood platelet mean volume measurement 11.1 [foz_us] 7.4-10.4 Automated blood neutrophils/100 leukocytes 60 % 42-75 Automated blood lymphocytes/100 leukocytes 22 % 12-44 Blood monocytes/100 leukocytes 16 % 0-12 Automated blood eosinophils/100 leukocytes 0 % 0-10 Automated blood basophils/100 leukocytes 1 % 0-10 Blood neutrophils automated count (number/volume) 3.2 10*3 1.8-7.8 Blood lymphocytes automated count (number/volume) 1.2 10*3 1.0-4.0 Blood monocytes automated count (number/volume) 0.9 10*3 0.0-1.0 Automated eosinophil count 0.0 10*3/uL 0.0-0.3 Automated blood basophil count (count/volume) 0.0 10*3/uL 0.0-0.1 Blood manual differential performed detection - 12/31/18 11:22 Blood monocytes/100 leukocytes 27 % NRG Manual blood segmented neutrophils/100 leukocytes 34 % NRG Blood band neutrophils/100 leukocytes 16 % NRG Manual blood lymphocytes/100 leukocytes 19 % NRG Manual eosinophils/100 leukocytes in nose 1 % NRG Manual blood basophils/100 leukocytes 0 % NRG Manual blood lymphocytes variant/100 leukocytes 2 % NRG Blood lymphocytes variant/100 leukocytes 0 % NRG Manual blood metamyelocytes/100 leukocytes 0 % NRG Manual blood myelocytes/100 leukocytes 0 % NRG Manual blood promyelocytes/100 leukocytes 0 % NRG Blood blasts/100 leukocytes 1 % NRG Manual blood prolymphocytes/100 leukocytes 0 % NRG Comprehensive metabolic panel - 12/31/18 11:22 Serum or plasma sodium measurement (moles/volume) 123 mmol/L 135-145 Serum or plasma potassium measurement (moles/volume) 4.1 mmol/L 3.6-5.0 Serum or plasma chloride measurement (moles/volume) 73 mmol/L 98-107 Carbon dioxide 30 mmol/L 21-32 Serum or plasma anion gap determination (moles/volume) 20 mmol/L 5-14 Serum or plasma urea nitrogen measurement (mass/volume) 104 mg/dL 7-18 Serum or plasma creatinine measurement (mass/volume) 2.22 mg/dL 0.60-1.30 Serum or plasma urea nitrogen/creatinine mass ratio 47 NRG Serum or plasma creatinine measurement with calculation of estimated glomerular filtration rate 22 NRG Serum or plasma glucose measurement (mass/volume) 147 mg/dL 70-105 Serum or plasma calcium measurement (mass/volume) 8.9 mg/dL 8.5-10.1 Serum or plasma total bilirubin measurement (mass/volume) 0.6 mg/dL 0.1-1.0 Serum or plasma alkaline phosphatase measurement (enzymatic activity/volume) 95 U/L 40-136 Serum or plasma aspartate aminotransferase measurement (enzymatic activity/ volume) 43 U/L 5-34 Serum or plasma alanine aminotransferase measurement (enzymatic activity/volume ) 43 U/L 0-55 Serum or plasma protein measurement (mass/volume) 8.1 g/dL 6.4-8.2 Serum or plasma albumin measurement (mass/volume) 4.3 g/dL 3.2-4.5 CALCIUM CORRECTED 8.7 mg/dL 8.5-10.1 TROPONIN T - 12/31/18 11:22 TROPONIN T 29 % <=10 Lipase - 12/31/18 11:22 Lipase 367 U/L 8-78 Complete urinalysis with reflex to culture - 12/31/18 13:39 Urine color determination YELLOW NRG Urine clarity determination SLT CLOUDY NRG Urine pH measurement by test strip 5.5 5-9 Specific gravity of urine by test strip 1.015 1.016- 1.022 Urine protein assay by test strip, semi-quantitative NEGATIVE NEGATIVE Urine glucose detection by automated test strip NEGATIVE NEGATIVE Erythrocytes detection in urine sediment by light microscopy 2+ NEGATIVE Urine ketones detection by automated test strip 1+ NEGATIVE Urine nitrite detection by test strip NEGATIVE NEGATIVE Urine total bilirubin detection by test strip 1+ NEGATIVE Urine urobilinogen measurement by automated test strip (mass/volume) 0.2 mg/dL NORMAL Urine leukocyte esterase detection by dipstick TRACE NEGATIVE Automated urine sediment erythrocyte count by microscopy (number/high power field) [HPF] NRG Automated urine sediment leukocyte count by microscopy (number/high power field ) [HPF] NRG Bacteria detection in urine sediment by light microscopy LARGE NRG Squamous epithelial cells detection in urine sediment by light microscopy 0-2 NRG Crystals detection in urine sediment by light microscopy PRESENT NRG Casts detection in urine sediment by light microscopy NONE NRG Mucus detection in urine sediment by light microscopy NONE NRG Complete urinalysis with reflex to culture YES NRG Amorphous sediment detection in urine sediment by light microscopy FEW TONIA URATES NRG Bacterial urine culture - 12/31/18 13:39 Bacterial urine culture [id number] NRG COLONY COUNT >100,000/ML NRG FTX;REPORTABLE SUSCEPTIBILITY TO FOLLOW NRG FREE TEXT ENTRY 3 ORGANISM ID REPORT RCD 10:05 NRG Whole blood basic metabolic panel - 12/31/18 15:36 Serum or plasma sodium measurement (moles/volume) 128 mmol/L 135-145 Serum or plasma potassium measurement (moles/volume) 3.8 mmol/L 3.6-5.0 Serum or plasma chloride measurement (moles/volume) 79 mmol/L 98-107 Carbon dioxide 31 mmol/L 21-32 Serum or plasma anion gap determination (moles/volume) 18 mmol/L 5-14 Serum or plasma urea nitrogen measurement (mass/volume) 92 mg/dL 7-18 Serum or plasma creatinine measurement (mass/volume) 1.96 mg/dL 0.60-1.30 Serum or plasma urea nitrogen/creatinine mass ratio 47 NRG Serum or plasma creatinine measurement with calculation of estimated glomerular filtration rate 25 NRG Serum or plasma glucose measurement (mass/volume) 102 mg/dL 70-105 Serum or plasma calcium measurement (mass/volume) 8.8 mg/dL 8.5-10.1 Whole blood basic metabolic panel - 12/31/18 21:10 Serum or plasma sodium measurement (moles/volume) 129 mmol/L 135-145 Serum or plasma potassium measurement (moles/volume) 3.7 mmol/L 3.6-5.0 Serum or plasma chloride measurement (moles/volume) 83 mmol/L 98-107 Carbon dioxide 26 mmol/L -32 Serum or plasma anion gap determination (moles/volume) 20 mmol/L 5-14 Serum or plasma urea nitrogen measurement (mass/volume) 85 mg/dL 7-18 Serum or plasma creatinine measurement (mass/volume) 1.64 mg/dL 0.60-1.30 Serum or plasma urea nitrogen/creatinine mass ratio 52 NRG Serum or plasma creatinine measurement with calculation of estimated glomerular filtration rate 31 NRG Serum or plasma glucose measurement (mass/volume) 103 mg/dL 70-105 Serum or plasma calcium measurement (mass/volume) 9.1 mg/dL 8.5-10.1 Whole blood basic metabolic panel - 01/01/19 04:05 Serum or plasma sodium measurement (moles/volume) 133 mmol/L 135-145 Serum or plasma potassium measurement (moles/volume) 3.6 mmol/L 3.6-5.0 Serum or plasma chloride measurement (moles/volume) 87 mmol/L 98-107 Carbon dioxide 27 mmol/L -32 Serum or plasma anion gap determination (moles/volume) 19 mmol/L 5-14 Serum or plasma urea nitrogen measurement (mass/volume) 71 mg/dL 7-18 Serum or plasma creatinine measurement (mass/volume) 1.44 mg/dL 0.60-1.30 Serum or plasma urea nitrogen/creatinine mass ratio 49 NRG Serum or plasma creatinine measurement with calculation of estimated glomerular filtration rate 36 NRG Serum or plasma glucose measurement (mass/volume) 96 mg/dL 70-105 Serum or plasma calcium measurement (mass/volume) 9.1 mg/dL 8.5-10.1 Whole blood basic metabolic panel - 01/01/19 15:50 Serum or plasma sodium measurement (moles/volume) 136 mmol/L 135-145 Serum or plasma potassium measurement (moles/volume) 3.4 mmol/L 3.6-5.0 Serum or plasma chloride measurement (moles/volume) 93 mmol/L 98-107 Carbon dioxide 25 mmol/L - Serum or plasma anion gap determination (moles/volume) 18 mmol/L 5-14 Serum or plasma urea nitrogen measurement (mass/volume) 49 mg/dL 7-18 Serum or plasma creatinine measurement (mass/volume) 1.11 mg/dL 0.60-1.30 Serum or plasma urea nitrogen/creatinine mass ratio 44 NRG Serum or plasma creatinine measurement with calculation of estimated glomerular filtration rate 49 NRG Serum or plasma glucose measurement (mass/volume) 93 mg/dL 70-105 Serum or plasma calcium measurement (mass/volume) 8.6 mg/dL 8.5-10.1 Complete blood count (CBC) with automated white blood cell (WBC) differential - 01/03/19 05:10 Blood leukocytes automated count (number/volume) 7.5 10*3/uL 4.3-11.0 Blood erythrocytes automated count (number/volume) 3.84 10*6/uL 4.35-5.85 Venous blood hemoglobin measurement (mass/volume) 11.6 g/dL 11.5-16.0 Blood hematocrit (volume fraction) 36 % 35-52 Automated erythrocyte mean corpuscular volume 93 [foz_us] 80-99 Automated erythrocyte mean corpuscular hemoglobin (mass per erythrocyte) 30 pg 25-34 Automated erythrocyte mean corpuscular hemoglobin concentration measurement ( mass/volume) 33 g/dL 32-36 Automated erythrocyte distribution width ratio 13.3 % 10.0-14.5 Automated blood platelet count (count/volume) 215 10*3/uL 130-400 Automated blood platelet mean volume measurement 10.5 [foz_us] 7.4-10.4 Automated blood neutrophils/100 leukocytes 61 % 42-75 Automated blood lymphocytes/100 leukocytes 17 % 12-44 Blood monocytes/100 leukocytes 19 % 0-12 Automated blood eosinophils/100 leukocytes 2 % 0-10 Automated blood basophils/100 leukocytes 0 % 0-10 Blood neutrophils automated count (number/volume) 4.6 10*3 1.8-7.8 Blood lymphocytes automated count (number/volume) 1.3 10*3 1.0-4.0 Blood monocytes automated count (number/volume) 1.4 10*3 0.0-1.0 Automated eosinophil count 0.2 10*3/uL 0.0-0.3 Automated blood basophil count (count/volume) 0.0 10*3/uL 0.0-0.1 Comprehensive metabolic panel - 01/03/19 05:10 Serum or plasma sodium measurement (moles/volume) 134 mmol/L 135-145 Serum or plasma potassium measurement (moles/volume) 3.9 mmol/L 3.6-5.0 Serum or plasma chloride measurement (moles/volume) 99 mmol/L 98-107 Carbon dioxide 25 mmol/L 21-32 Serum or plasma anion gap determination (moles/volume) 10 mmol/L 5-14 Serum or plasma urea nitrogen measurement (mass/volume) 22 mg/dL 7-18 Serum or plasma creatinine measurement (mass/volume) 0.77 mg/dL 0.60-1.30 Serum or plasma urea nitrogen/creatinine mass ratio 29 NRG Serum or plasma creatinine measurement with calculation of estimated glomerular filtration rate > NRG Serum or plasma glucose measurement (mass/volume) 147 mg/dL 70-105 Serum or plasma calcium measurement (mass/volume) 8.2 mg/dL 8.5-10.1 Serum or plasma total bilirubin measurement (mass/volume) 0.3 mg/dL 0.1-1.0 Serum or plasma alkaline phosphatase measurement (enzymatic activity/volume) 76 U/L 40-136 Serum or plasma aspartate aminotransferase measurement (enzymatic activity/ volume) 25 U/L 5-34 Serum or plasma alanine aminotransferase measurement (enzymatic activity/volume ) 23 U/L 0-55 Serum or plasma protein measurement (mass/volume) 5.8 g/dL 6.4-8.2 Serum or plasma albumin measurement (mass/volume) 3.1 g/dL 3.2-4.5 CALCIUM CORRECTED 8.9 mg/dL 8.5-10.1 Encounters ACCT No. Visit Date/Time Discharge Status Pt. Type Provider Facility Loc./Unit Complaint [id number] 12/26/2018 13:50:00 12/26/2018 16:55:00 DIS Emergency BREE ORTIZ DO [facility] ER FS VOMITING [id number] 02/10/2017 11:40:00 02/10/2017 13:30:00 DIS Emergency JUAN WHITFIELD MD [facility] ER IRREG HEART RATE/STRESS [id number] 02/10/2017 11:26:00 02/10/2017 11:30:00 DIS Emergency JUAN WHITFIELD MD [facility] ER IRREG HEART RATE [id number] 12/31/2018 13:52:00 ACT Inpatient ELVA MACDONALD DO [facility] 4TH ABD PAIN; N V [id number] 02/10/2017 11:31:00 Document Registration [id number] 02/10/2012 20:08:00 Document Registration
[2019-01-08] MEDS ORDERED: ONDANSETRON 4 MG/2 ML (SDV) Z0FRAN ONE (18:44)
--- NOTE | 2019-01-08 18:47 | CONSULTATION REPORT ---
DATE OF SERVICE: 01/08/2019 ATTENDING PRIMARY CARE PHYSICIAN: Dr. Gamino. ADMITTING PHYSICIAN: Dr. Mckenna. HISTORY OF PRESENT ILLNESS: The patient is a 68-year-old female who was discharged from the hospital approximately one week ago. She had developed abdominal distention, pain, nausea and vomiting. She was treated conservatively with nasogastric decompression and had done well with bowel function with multiple loose bowel movements, abdominal decompression and was started on a clear liquid diet and advanced without any difficulty. The previous CT scan that showed some level of transition point as well as dilated loops of bowel; however, clinically she had resolved. She is status post open colon resection from what she reports as some type of iatrogenic perforation, which sounds like from a colonoscopy requiring surgery and this was approximately two years ago. She has a lower midline incision. She will return to [facility] with similar symptoms of abdominal distention, nausea and vomiting as well as abdominal pain. Another CT scan was performed, which again did show dilated loops of small bowel. PAST MEDICAL HISTORY: Gastroesophageal reflux disease, anxiety, depression, hypertension. PAST SURGICAL HISTORY: section, laparoscopic cholecystectomy, open partial colon resection. ALLERGIES: CODEINE, IODINATED CONTRAST, PENICILLIN, SULFA, CEPHALEXIN, CIPROFLOXACIN, CITALOPRAM, DIAZEPAM, DIPHENHYDRAMINE, HYDROCODONE, LEVOFLOXACIN, LORATADINE, LORAZEPAM, METRONIDAZOLE, MORPHINE, NITROFURANTOIN, PROCHLORPERAZINE, PSEUDOEPHEDRINE, ZINC ACETATE. MEDICATIONS: Alprazolam 0.25 mg b.i.d. p.r.n., lisinopril 10 mg daily. SOCIAL HISTORY: Negative smoke, negative alcohol. FAMILY HISTORY: Mother, heart disease and diabetes. VITAL SIGNS: Temperature 97.0, blood pressure 100/72, pulse 128, respirations 14, pulse ox 94% on room air. REVIEW OF SYSTEMS: A well-nourished female currently guarded secondary to the abdominal distention and nausea. She is not experiencing any shortness of breath or difficulty breathing. No chest pain, palpitations, diaphoresis. She did have an episode of nausea as well as vomiting, undigested food as well as bilious contents. No hematemesis, no coffee ground emesis. She did have bowel movements; however, the last one was greater than 24 hours ago. No previous red blood per rectum, no dark tarry stools. No fever or chills. No recent inadvertent weight loss. All other review of systems negative. PHYSICAL EXAMINATION: CHEST: Clear. Good breath sounds bilaterally. HEART: Regular, no murmurs. EXTREMITIES: No lower extremity edema, negative Homans sign. HEENT: No scleral icterus. NECK: No cervical lymphadenopathy. ABDOMEN: Distended, slightly tympanitic as well with mild diffuse tenderness. No peritoneal signs. No hernias palpable. There were no peritoneal signs. SKIN: Warm and dry. LABORATORY DATA: WBC 13.9, hemoglobin 13.7, hematocrit 40, platelets 360. BUN 51, creatinine 1.93. ASSESSMENT AND PLAN: A 68-year-old female with recurrent partial small-bowel obstruction. At this time, we will again proceed with conservative management with a bowel rest, possible NG tube decompression as well as IV hydration and antipain and nausea medications. It does appear that she most likely does have some transition point likely from adhesion tissue from her colon resection, which seems to be lower end in the pelvis. At some time after she is fully resuscitated, more than likely this does warrant diagnostic laparoscopy as well as possible lysis of adhesions. Job ID: [id number] DocumentID: [id number] Dictated Date: 01/08/2019 18:05:04 Finance Attorney Date: 01/08/2019 18:47:01 Dictated By: YESICA GODINEZ MD
[2019-01-08] MEDS ORDERED: fentaNYL INJECTION 100 MCG/2 ML AMP IVP STA (20:21)
[2019-01-08 21:46] VITALS: BP 140/67
[2019-01-08] MEDS ORDERED: D5 1/2 NS 1000 ML IV SOLUTION 1,000 ML IV SCH ×2 (22:30→22:45)
[2019-01-08] MEDS ORDERED: fentaNYL INJECTION 100 MCG/2 ML AMP IV PRN (22:45)
[2019-01-09 00:46] VITALS: BP 140/67
[2019-01-09 04:00] VITALS: BP 117/58
[2019-01-09 04:55] LABS: BASOPHILS % (AUTO) 0 % (0-10); EOSINOPHILS # (AUTO) 0.1 10^3/uL (0.0-0.3); EOSINOPHILS % (AUTO) 2 % (0-10); HEMATOCRIT 32 % (35-52); HEMOGLOBIN 10.6 G/DL (11.5-16.0); LYMPHOCYTES # (AUTO) 1.3 X 10^3 (1.0-4.0); LYMPHOCYTES % (AUTO) 15 % (12-44); MEAN CORPUSCULAR HEMOGLOBIN 30 PG (25-34); MEAN CORPUSCULAR HGB CONC 33 G/DL (32-36); MEAN CORPUSCULAR VOLUME 92 FL (80-99); MEAN PLATELET VOLUME 10.1 FL (7.4-10.4); MONOCYTES # (AUTO) 1.4 X 10^3 (0.0-1.0); MONOCYTES % (AUTO) 16 % (0-12); NEUTROPHILS % (AUTO) 68 % (42-75); PLATELET COUNT 274 10^3/uL (130-400); RED CELL DISTRIBUTION WIDTH 13.2 % (10.0-14.5); WHITE BLOOD COUNT 8.9 10^3/uL (4.3-11.0)
[2019-01-09 05:16] LABS: ALBUMIN 2.8 GM/DL (3.2-4.5); BILIRUBIN,TOTAL 0.4 MG/DL (0.1-1.0); CREATININE SERUM 1.09 MG/DL (0.60-1.30); POTASSIUM 3.2 MMOL/L (3.6-5.0); TOTAL PROTEIN 5.5 GM/DL (6.4-8.2)
[2019-01-09] MEDS: NS IV 1000 ML 1,000 ML IV SCH ×3 (05:38→21:15)
[2019-01-09] MEDS: ONDANSETRON 4 MG/2 ML (SDV) Z0FRAN IV PRN ×3 (05:38→21:17)
[2019-01-09 08:00] VITALS: BP 108/64
--- NOTE | 2019-01-09 08:09 | History & Physicial (CHS) ---
HPI History of Present Illness: 68 yo female who was just discharged on 01/05 after treatment for SBO. She was tolerating diet and passing stool at that time. She states at home she started having vomiting and diarrhea and thought it was related to the antibiotic for her UTI but it kept getting worse. CT in the ER showed similar findings to prior admission with high grade SBO. This am she feels a little better. Date seen by provider: January 09, 2019 Time Seen by Provider: 06:00 Attending Physician Alonso Mckenna MD PCP Self,Js GONZALEZ Consult Date of Admission January 08, 2019 at 14:00 Home Medications Home Medications Reviewed patient Home Medication Reconciliation performed by pharmacy medication reconciliations community service technician and/or nursing. Patients Allergies have been reviewed. Allergies Coded Allergies: codeine (Verified Allergy, Mild, N/V, PT HAS RECEIVED MORPHINE WITHOUT ISSUE, 12/31/18) PER [facility] (ICU) PT HAS RECEIVED MORPHINE WITHOUT PROBLEMS red (food color) (Verified Allergy, Mild, Shortness of Breath, 01/04/19) Iodinated Contrast- Oral and IV Dye (Verified Allergy, Unknown, 12/31/18) Penicillins (Verified Allergy, Unknown, 12/31/18) Sulfa (Sulfonamide Antibiotics) (Verified Allergy, Unknown, 12/31/18) cephalexin (Verified Allergy, Unknown, 12/31/18) ciprofloxacin (Verified Allergy, Unknown, 12/31/18) citalopram (Verified Allergy, Unknown, 01/16/06) diazepam (Verified Allergy, Unknown, 12/31/18) diphenhydramine (Verified Allergy, Unknown, 01/16/06) hydrocodone (Verified Allergy, Unknown, 12/31/18) levofloxacin (Verified Allergy, Unknown, 01/16/06) loratadine (Verified Allergy, Unknown, 12/31/18) lorazepam (Verified Allergy, Unknown, 01/16/06) metronidazole (Verified Allergy, Unknown, 01/16/06) morphine (Verified Allergy, Unknown, 01/01/19) nitrofurantoin (Verified Allergy, Unknown, 01/16/06) prochlorperazine (Verified Allergy, Unknown, 01/16/06) pseudoephedrine (Verified Allergy, Unknown, 01/16/06) zinc acetate (Verified Allergy, Unknown, 01/16/06) Uncoded Allergies: SOY BEANS (Allergy, Unknown, 12/31/18) XET-Cxdxmy-Rjdhnt Hx Patient Social History Alcohol Use: Denies Use Recreational Drug Use: No Smoking Status: Never a Smoker 2nd Hand Smoke Exposure: No Recent Foreign Travel: No Contact w/other who traveled: No Recent Hopitalizations: Yes Recent Infectious Disease Expo: No Physical Abuse Screen: No Sexual Abuse: No Past Medical History PMHx: Anxiety Recurrent SBO HLD COPD HTN SurgHx: Colon surgery Family Medical History Significant Family History: Heart Disease, Cancer, Diabetes Review of Systems (CHC) Constitutional: see HPI Respiratory: short of breath Cardiovascular: no symptoms reported Gastrointestinal: see HPI Genitourinary: no symptoms reported Musculoskeletal: no symptoms reported Skin: no symptoms reported Psychiatric/Neurological: Anxiety Reviewed Test Results Reviewed Test Results Lab Laboratory Tests Test 01/08/19 13:40 01/08/19 14:39 01/09/19 04:40 Range/Units White Blood Count 13.9 H 8.9 4.3-11.0 10^3/uL Red Blood Count 4.55 3.54 L 4.35-5.85 10^6/uL Hemoglobin 13.7 10.6 #L 11.5-16.0 G/DL Hematocrit 40 32 L 35-52 % Mean Corpuscular Volume 89 92 80-99 FL Mean Corpuscular Hemoglobin 30 30 25-34 PG Mean Corpuscular Hemoglobin Concent 34 33 32-36 G/DL Red Cell Distribution Width 12.8 13.2 10.0-14.5 % Platelet Count 360 274 130-400 10^3/uL Mean Platelet Volume 9.9 10.1 7.4-10.4 FL Neutrophils (%) (Auto) 75 68 42-75 % Lymphocytes (%) (Auto) 11 L 15 12-44 % Monocytes (%) (Auto) 12 16 H 0-12 % Eosinophils (%) (Auto) 1 2 0-10 % Basophils (%) (Auto) 1 0 0-10 % Neutrophils # (Auto) 10.4 H 6.0 1.8-7.8 X 10^3 Lymphocytes # (Auto) 1.6 1.3 1.0-4.0 X 10^3 Monocytes # (Auto) 1.7 H 1.4 H 0.0-1.0 X 10^3 Eosinophils # (Auto) 0.1 0.1 0.0-0.3 10^3/uL Basophils # (Auto) 0.1 0.0 0.0-0.1 10^3/uL Sodium Level 127 L 129 L 135-145 MMOL/L Potassium Level 4.0 3.2 L 3.6-5.0 MMOL/L Chloride Level 78 L 94 L 98-107 MMOL/L Carbon Dioxide Level 35 H 25 21-32 MMOL/L Anion Gap 14 10 5-14 MMOL/L Blood Urea Nitrogen 51 H 35 H 7-18 MG/DL Creatinine 1.93 H 1.09 0.60-1.30 MG/DL Estimat Glomerular Filtration Rate 26 50 BUN/Creatinine Ratio 26 32 Glucose Level 138 H 150 H 70-105 MG/DL Calcium Level 9.4 8.0 L 8.5-10.1 MG/DL Corrected Calcium 9.8 9.0 8.5-10.1 MG/DL Total Bilirubin 0.4 0.4 0.1-1.0 MG/DL Aspartate Amino Transf (AST/SGOT) 35 H 23 5-34 U/L Alanine Aminotransferase (ALT/SGPT) 48 35 0-55 U/L Alkaline Phosphatase 139 H 103 40-136 U/L Total Protein 7.5 5.5 L 6.4-8.2 GM/DL Albumin 3.5 2.8 L 3.2-4.5 GM/DL Lipase 135 H 8-78 U/L Urine Color YELLOW Urine Clarity CLEAR Urine pH 5.5 5-9 Urine Specific [place] 1.020 1.016-1.022 Urine Protein NEGATIVE NEGATIVE Urine Glucose (UA) NEGATIVE NEGATIVE Urine Ketones NEGATIVE NEGATIVE Urine Nitrite NEGATIVE NEGATIVE Urine Bilirubin NEGATIVE NEGATIVE Urine Urobilinogen 0.2 NORMAL MG/DL Urine Leukocyte Esterase NEGATIVE NEGATIVE Urine RBC (Auto) NEGATIVE NEGATIVE Urine RBC 0-2 /HPF Urine WBC 5-10 H /HPF Urine Squamous Epithelial Cells 0-2 /HPF Urine Crystals NONE /LPF Urine Bacteria FEW H /HPF Urine Casts PRESENT /LPF Urine Hyaline Casts 2-5 H /LPF Urine Granular Casts 0-2 H /LPF Urine Mucus NONE /LPF Urine Culture Indicated YES Radiology CT ab/pelvis 01/09: IMPRESSION: 1. There is persistent obstruction of the small bowel. The transition point noted previously is unchanged, and the distal ileum remains decompressed. 2. No new abnormality has developed otherwise. Physical Exam-([facility]) Physical Exam Vital Signs VS - Last 72 Hours, by Label 01/08/19 01/08/19 01/08/19 01/08/19 13:25 17:53 21:46 22:00 Temp 97.0 98.5 Pulse 120 100 103 Resp 14 18 18 B/P (MAP) 100/72 (81) 109/56 (73) 140/67 Pulse Ox 94 96 96 96 O2 Delivery Room Air Room Air 01/09/19 01/09/19 00:46 04:00 Temp 98.5 98.6 Pulse 103 89 Resp 18 18 B/P (MAP) 140/67 (91) 117/58 (77) Pulse Ox 96 97 Capillary Refill : Less Than 3 Seconds General Appearance: no apparent distress Respiratory: lungs clear, normal breath sounds Cardiovascular: regular rate, rhythm, no murmur Gastrointestinal: soft, abnormal bowel sounds (hypoactive) Extremities: no pedal edema Neurologic/Psychiatric: alert, normal mood/affect Skin: normal color, warm/dry Assessment/Plan Assessment/Plan Admission Status: Inpatient Order (span 2 midnights) Reason for Inpatient Admission: Recurrent Significant SBO, need for NG drainage and NPO status, anticipate 2 nights or more for resolution (1) Small bowel obstruction Status: Acute Assessment & Plan: NG tube, NPO, Surgery consulted. IVF. (2) Hyponatremia Status: Acute Assessment & Plan: Suspect hypovolemic, change IVF to NS. (3) Acute kidney injury Status: Resolved Assessment & Plan: Hypovolemic. (4) History of DVT (deep vein thrombosis) Status: Chronic Assessment & Plan: Therapeutic enoxaparin while NPO (5) Anxiety Status: Chronic (6) Hypertension Status: Chronic (7) COPD (chronic obstructive pulmonary disease) Status: Chronic (8) Hyperlipidemia Status: Chronic (9) DVT prophylaxis Status: Acute Assessment & Plan: On chronic anticoagulation, therapeutic enoxaparin while NPO Clinical Quality Measures DVT/VTE Risk/Contraindication: Risk Factor Score Per Nursin RFS Level Per Nursing on Admit: 2=Moderate ALONSO MCKENNA MD January 09, 2019 08:09
[2019-01-09] MEDS ORDERED: ENOXAPARIN 100 MG/1 ML (LOVENOX) SYR SC SCH (08:30)
[2019-01-09] MEDS ORDERED: CATHETER FLUSH 10 ML SYR IV PRN (08:45)
--- NOTE | 2019-01-09 10:50 | NUR ---
REVIEWED MED REC IT WAS ORDERED UPON DISCHARGE. I ALSO VERIFIED WITH THE LIST SENT OVER FROM [facility]. THEY HAD TWO ENTRIES FOR ANTIBIOTICS ON THAT LIST, CEFDINIR 200MG BID X 8 DOSES AND CEFTIN 300MG BID, NO OTHER INFORMATION ON START AND STOP TIMES, THE CEFDINIR WAS THE ONLY ONE ORDERED AT DISCHARGE SO IS THE ONLY ONE I LEFT ON THE MED REC AT THIS TIME. PATIENT WAS NOT ON CEFTIN WHEN SHE WAS ADMITTED LAST TIME.
[2019-01-09 11:33] VITALS: BP 99/65
[2019-01-09] MEDS: ENOXAPARIN 60 MG/0.6 ML (LOVENOX) SYR SC SCH ×2 (11:38→21:15)
--- NOTE | 2019-01-09 12:08 | Diagnostic Imaging Report ---
EXAMINATION: Abdomen supine erect at 710h. INDICATION: Bowel obstruction The CT abdomen/pelvis exam of 01/08/19 indicated a small bowel obstruction. In the interval since the prior study an NG line has been inserted. The tip of line overlies the gastric body/fundus and seems to be in good position. There is less distention of both the large and small bowel by gas than noted on the prior abdomen exam of 01/02/2019. There still appears to be several air-fluid levels present on the erect film however. There is no mass or organomegaly appreciated. There is no sign of a pneumoperitoneum. The osseous structures are intact. IMPRESSION: The appearance of the abdomen has improved somewhat since the prior exam following the insertion of the NG line as there does seem to be less distention of both large and small bowel by gas. A followup exam would be recommended for continued evaluation. Dictated by: Dictated on workstation # [id number]
[2019-01-09 15:44] VITALS: BP 105/65
[2019-01-09] MEDS: fentaNYL INJECTION 100 MCG/2 ML AMP IVP PRN ×2 (17:51→21:17)
[2019-01-09 20:25] VITALS: BP 131/70
[2019-01-09] MEDS: CIPROFLOXACIN IV 400MG/200ML 200 ML IV SCH (21:15)
[2019-01-09] MEDS: LORazepam INJ 2 MG/ML (ATIVAN) VIAL IVP PRN (21:15)
[2019-01-10 00:52] VITALS: BP 146/64
[2019-01-10 04:00] VITALS: BP 143/67
[2019-01-10] MEDS: NS IV 1000 ML 1,000 ML IV SCH (04:45)
[2019-01-10 05:14] LABS: HEMOGLOBIN 10.4 G/DL (11.5-16.0); MEAN PLATELET VOLUME 9.9 FL (7.4-10.4); RED CELL DISTRIBUTION WIDTH 13.2 % (10.0-14.5); WHITE BLOOD COUNT 7.5 10^3/uL (4.3-11.0)
[2019-01-10 05:39] LABS: BUN/CREATININE RATIO 21; CALCIUM 8.3 MG/DL (8.5-10.1); CARBON DIOXIDE 26 MMOL/L (21-32); CHLORIDE 100 MMOL/L (98-107); CREATININE SERUM 0.76 MG/DL (0.60-1.30); GFR ESTIMATED > 60; GLUCOSE 91 MG/DL (70-105); MAGNESIUM 1.4 MG/DL (1.8-2.4); POTASSIUM 3.5 MMOL/L (3.6-5.0); SODIUM 139 MMOL/L (135-145)
[2019-01-10 08:00] VITALS: BP 143/85
[2019-01-10] MEDS: ENOXAPARIN 60 MG/0.6 ML (LOVENOX) SYR SC SCH ×2 (08:29→21:34)
[2019-01-10] MEDS: CIPROFLOXACIN IV 400MG/200ML 200 ML IV SCH ×2 (08:30→21:32)
--- NOTE | 2019-01-10 08:37 | Progress Note (SOAP) ---
Subjective Subjective/Events-last exam Patient currently lying in bed comfortably with NG tube in place. She is very talkative and does not voice any current pain. Apparently her stools have changed for more liquidy to a pasty movement. Review of Systems Date Seen by Provider: January 10, 2019 Time Seen by Provider: 07:20 Objective Exam Last Set of Vital Signs Vital Signs Date Time Temp Pulse Resp B/P (MAP) Pulse Ox O2 Delivery O2 Flow Rate FiO2 01/10/19 08:00 98.5 108 20 143/85 (104) 98 Room Air Capillary Refill : Less Than 3 Seconds I&O Intake and Output 01/10/19 00:00 Intake Total 4000 ml Output Total 2650 ml Balance 1350 ml Intake Oral 0 ml IV Total 4000 ml Output Urine Total 1200 ml Gastric Drainage Total 1450 ml # Voids 1 # Bowel Movements 1 General: No Acute Distress HEENT: Other (NG tube in place) Lungs: Clear to Auscultation Heart: Regular Rate Abdomen: Soft Results/Procedures Lab Laboratory Tests 01/10/19 05:02: White Blood Count 7.5, Red Blood Count 3.45L, Hemoglobin 10.4L, Hematocrit 32L, Mean Corpuscular Volume 94, Mean Corpuscular Hemoglobin 30, Mean Corpuscular Hemoglobin Concent 32, Red Cell Distribution Width 13.2, Platelet Count 242, Mean Platelet Volume 9.9, Sodium Level 139, Potassium Level 3.5L, Chloride Level 100, Carbon Dioxide Level 26, Anion Gap 13, Blood Urea Nitrogen 16, Creatinine 0.76, Estimat Glomerular Filtration Rate > 60, BUN/Creatinine Ratio 21, Glucose Level 91, Calcium Level 8.3L, Magnesium Level 1.4L Radiology CT ab/pelvis 01/09: IMPRESSION: 1. There is persistent obstruction of the small bowel. The transition point noted previously is unchanged, and the distal ileum remains decompressed. 2. No new abnormality has developed otherwise. Assessment/Plan Assessment/Plan (1) Small bowel obstruction Status: Acute Assessment & Plan: NG tube, NPO, Surgery consulted. IVF. 01/10 IV fluids decreased to 125 mL per hour. The IV fluids were changed to with potassium 20 mEq -Dr. Avina also following this weekend. (2) Hyponatremia Status: Acute Assessment & Plan: Suspect hypovolemic, change IVF to NS. (3) Acute kidney injury Status: Resolved Assessment & Plan: Hypovolemic. (4) History of DVT (deep vein thrombosis) Status: Chronic Assessment & Plan: Therapeutic enoxaparin while NPO (5) Anxiety Status: Chronic (6) Hypertension Status: Chronic (7) COPD (chronic obstructive pulmonary disease) Status: Chronic (8) Hyperlipidemia Status: Chronic (9) DVT prophylaxis Status: Acute Assessment & Plan: On chronic anticoagulation, therapeutic enoxaparin while NPO Clinical Quality Measures DVT/VTE Risk/Contraindication: Risk Factor Score Per Nursin RFS Level Per Nursing on Admit: 2=Moderate PAYAL STRATTON MD January 10, 2019 08:37
[2019-01-10] MEDS: NS W/KCL 20 MEQ/L 1,000 ML IV SCH ×2 (09:36→16:30)
--- NOTE | 2019-01-10 09:45 | NUR ---
Reviewed patient's allergy list and noted that she has allergy to Cipro. Asked patient about allergy and the fact that she has it listed on her allergy list and she said that she is just going to take it anyway. She denies any allergy at this time and infusion is almost completed and this is the second bag of antibiotic. Instructed Patient to notify staff if she starts feeling bad or starts a rash. She verbalized understanding.
[2019-01-10 12:00] VITALS: BP 151/78
--- NOTE | 2019-01-10 12:04 | Progress Note ---
Subjective Date Seen by a Provider: January 10, 2019 Time Seen by a Provider: 11:58 Subjective/Events-last exam Patient laying in bed. She states having several bowel movements now. She is not having any abdominal pain. Not having any nausea. NG tube and NPO at this time. Objective Exam Vital Signs Date Time Temp Pulse Resp B/P (MAP) Pulse Ox O2 Delivery O2 Flow Rate FiO2 01/10/19 08:00 98 Room Air 01/10/19 08:00 98.5 108 20 143/85 (104) 98 Room Air 01/10/19 04:00 99.9 100 18 143/67 (92) 97 Room Air 01/10/19 00:52 99.4 98 18 146/64 (91) 99 Room Air 01/09/19 20:25 99.6 105 20 131/70 (90) 94 Room Air 01/09/19 20:00 95 Room Air 01/09/19 15:44 100.7 99 18 105/65 (78) 95 Room Air I & O 01/10/19 07:00 Intake Total 4000 ml Output Total 1900 ml Balance 2100 ml Capillary Refill : Less Than 3 Seconds General Appearance: No Apparent Distress, Thin HEENT: PERRL/EOMI, Normal ENT Inspection Neck: Full Range of Motion, Normal Inspection, Non Tender, Supple Respiratory: Chest Non Tender, No Accessory Muscle Use, No Respiratory Distress Cardiovascular: Regular Rate, Rhythm, No Edema, No JVD, Normal Peripheral Pulses Gastrointestinal: non tender, soft, abnormal bowel sounds (hypoactive) Extremity: Normal Capillary Refill, Normal Inspection, Normal Range of Motion, No Pedal Edema Neurologic/Psychiatric: Alert, Oriented x3, 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 Norm as Tested Skin: Normal Color, Warm/Dry Lymphatic: No Adenopathy Results Lab Laboratory Tests 01/10/19 05:02: White Blood Count 7.5, Red Blood Count 3.45L, Hemoglobin 10.4L, Hematocrit 32L, Mean Corpuscular Volume 94, Mean Corpuscular Hemoglobin 30, Mean Corpuscular Hemoglobin Concent 32, Red Cell Distribution Width 13.2, Platelet Count 242, Mean Platelet Volume 9.9, Sodium Level 139, Potassium Level 3.5L, Chloride Level 100, Carbon Dioxide Level 26, Anion Gap 13, Blood Urea Nitrogen 16, Creatinine 0.76, Estimat Glomerular Filtration Rate > 60, BUN/Creatinine Ratio 21, Glucose Level 91, Calcium Level 8.3L, Magnesium Level 1.4L Assessment/Plan Assessment/Plan Assessment/Plan PSBO Passing flatus and stool Remove NG Tube (discussed with patient the possibility of re-insertion of NGT if needed) Advance diet to CLD Monitor Clinical Quality Measures DVT/VTE Risk/Contraindication: Risk Factor Score Per Nursin RFS Level Per Nursing on Admit: 2=Moderate LORI HO DO January 10, 2019 12:03
[2019-01-10] MEDS ORDERED: POTASSIUM CL 10MEQ/50ML IVPB 50 ML IV ONE (12:30)
[2019-01-10] MEDS ORDERED: MAGNESIUM 1 GM/100 ML IVPB 100 ML IV ONE (12:30)
[2019-01-10 16:00] VITALS: BP 147/75
[2019-01-10] MEDS: ONDANSETRON 4 MG/2 ML (SDV) Z0FRAN IV PRN (16:13)
[2019-01-10 20:00] VITALS: BP 128/74
[2019-01-10] MEDS: LORazepam INJ 2 MG/ML (ATIVAN) VIAL IVP PRN (21:43)
[2019-01-10] MEDS: fentaNYL INJECTION 100 MCG/2 ML AMP IVP PRN (21:43)
--- NOTE | 2019-01-10 22:09 | NUR ---
REFUSED IV SITE CHANGE Addendum: 01/10/19 at 2210 by ZHOU BANERJEE RN Amended: Links added.
[2019-01-11 00:20] VITALS: BP 115/68
[2019-01-11] MEDS: NS W/KCL 20 MEQ/L 1,000 ML IV SCH ×3 (01:12→20:57)
[2019-01-11 06:40] LABS: BASOPHILS % (AUTO) 0 % (0-10); EOSINOPHILS # (AUTO) 0.1 10^3/uL (0.0-0.3); EOSINOPHILS % (AUTO) 2 % (0-10); HEMATOCRIT 31 % (35-52); HEMOGLOBIN 9.8 G/DL (11.5-16.0); LYMPHOCYTES # (AUTO) 0.9 X 10^3 (1.0-4.0); LYMPHOCYTES % (AUTO) 16 % (12-44); MEAN CORPUSCULAR HEMOGLOBIN 30 PG (25-34); MEAN CORPUSCULAR HGB CONC 32 G/DL (32-36); MEAN CORPUSCULAR VOLUME 95 FL (80-99); MEAN PLATELET VOLUME 10.3 FL (7.4-10.4); MONOCYTES # (AUTO) 0.6 X 10^3 (0.0-1.0); MONOCYTES % (AUTO) 11 % (0-12); NEUTROPHILS # (AUTO) 3.8 X 10^3 (1.8-7.8); NEUTROPHILS % (AUTO) 71 % (42-75); PLATELET COUNT 319 10^3/uL (130-400); RED CELL DISTRIBUTION WIDTH 13.4 % (10.0-14.5); WHITE BLOOD COUNT 5.3 10^3/uL (4.3-11.0)
[2019-01-11 07:01] LABS: BUN/CREATININE RATIO 10; CALCIUM 7.9 MG/DL (8.5-10.1); CARBON DIOXIDE 21 MMOL/L (21-32); CHLORIDE 106 MMOL/L (98-107); CREATININE SERUM 0.72 MG/DL (0.60-1.30); GFR ESTIMATED > 60; GLUCOSE 95 MG/DL (70-105); MAGNESIUM 1.3 MG/DL (1.8-2.4); POTASSIUM 3.5 MMOL/L (3.6-5.0); SODIUM 136 MMOL/L (135-145)
[2019-01-11 07:56] VITALS: BP 129/59
[2019-01-11] MEDS: CIPROFLOXACIN IV 400MG/200ML 200 ML IV SCH ×2 (08:54→20:43)
[2019-01-11] MEDS: ENOXAPARIN 60 MG/0.6 ML (LOVENOX) SYR SC SCH ×2 (08:55→20:43)
[2019-01-11] MEDS ORDERED: CALCIUM CARBONATE 600 MG (CALCARB) TAB PO ONE (09:00)
--- NOTE | 2019-01-11 09:05 | Progress Note (SOAP) ---
Subjective Subjective/Events-last exam Patient now is without NG tube. She has been taking water and she describes sipping. She would like to also advanced to having coffee and possibly scrambled eggs. She does not admit to any abdominal discomfort currently. She has still been having bowel movements regularly. Review of Systems Date Seen by Provider: January 11, 2019 Time Seen by Provider: 07:30 Objective Exam Last Set of Vital Signs Vital Signs Date Time Temp Pulse Resp B/P (MAP) Pulse Ox O2 Delivery O2 Flow Rate FiO2 01/11/19 07:56 99.2 92 18 129/59 (82) 98 Room Air Capillary Refill : Less Than 3 Seconds I&O Intake and Output 01/11/19 00:00 Intake Total 1400 ml Output Total 1200 ml Balance 200 ml Intake Oral 400 ml IV Total 1000 ml Output Urine Total 850 ml Gastric Drainage Total 350 ml # Voids 3 # Bowel Movements 11 General: No Acute Distress Lungs: Clear to Auscultation Heart: Regular Rate Abdomen: Soft Skin: No Rashes Neuro: Normal Speech Results/Procedures Lab Laboratory Tests 01/11/19 05:51: White Blood Count 5.3, Red Blood Count 3.25L, Hemoglobin 9.8L, Hematocrit 31L, Mean Corpuscular Volume 95, Mean Corpuscular Hemoglobin 30, Mean Corpuscular Hemoglobin Concent 32, Red Cell Distribution Width 13.4, Platelet Count 319, Mean Platelet Volume 10.3, Neutrophils (%) (Auto) 71, Lymphocytes (%) (Auto) 16 , Monocytes (%) (Auto) 11, Eosinophils (%) (Auto) 2, Basophils (%) (Auto) 0, Neutrophils # (Auto) 3.8, Lymphocytes # (Auto) 0.9L, Monocytes # (Auto) 0.6, Eosinophils # (Auto) 0.1, Basophils # (Auto) 0.0, Sodium Level 136, Potassium Level 3.5L, Chloride Level 106, Carbon Dioxide Level 21, Anion Gap 9, Blood Urea Nitrogen 7, Creatinine 0.72, Estimat Glomerular Filtration Rate > 60, BUN/ Creatinine Ratio 10, Glucose Level 95, Calcium Level 7.9L, Magnesium Level 1.3L Microbiology 01/08/19 Urine Culture - Preliminary, Resulted Enterococcus faecalis Radiology CT ab/pelvis 01/09: IMPRESSION: 1. There is persistent obstruction of the small bowel. The transition point noted previously is unchanged, and the distal ileum remains decompressed. 2. No new abnormality has developed otherwise. Assessment/Plan Assessment/Plan (1) Small bowel obstruction Status: Acute Assessment & Plan: NG tube, NPO, Surgery consulted. IVF. 5/4 IV fluids decreased to 125 mL per hour. The IV fluids were changed to with potassium 20 mEq -Dr. Avina also following this weekend. 5/5 -NG tube is now out. -Her IV fluids to be decreased to 100 mL/h since she is now taking oral fluids. (2) Hyponatremia Status: Acute Assessment & Plan: Suspect hypovolemic, change IVF to NS. (3) Acute kidney injury Status: Resolved Assessment & Plan: Hypovolemic. (4) History of DVT (deep vein thrombosis) Status: Chronic Assessment & Plan: Therapeutic enoxaparin while NPO (5) Anxiety Status: Chronic (6) Hypertension Status: Chronic (7) COPD (chronic obstructive pulmonary disease) Status: Chronic (8) Hyperlipidemia Status: Chronic (9) DVT prophylaxis Status: Acute Assessment & Plan: On chronic anticoagulation, therapeutic enoxaparin while NPO Clinical Quality Measures DVT/VTE Risk/Contraindication: Risk Factor Score Per Nursin RFS Level Per Nursing on Admit: 2=Moderate PAYAL STRATTON MD January 11, 2019 09:05
[2019-01-11] MEDS: MAGNESIUM 1 GM/100 ML IVPB 100 ML IV SCH ×2 (10:52→12:50)
--- NOTE | 2019-01-11 15:36 | Progress Note ---
Subjective Date Seen by a Provider: January 11, 2019 Time Seen by a Provider: 15:30 Subjective/Events-last exam Patient seen and examined at bedside this morning with no acute events overnight. Patient had NG tube removed yesterday and continues to improve. She continues to tolerate clear liquids. She reports that she has been able to pass gas and has had 1 bowel movement this morning. She denies current abdominal pain , nausea, vomiting, headache, shortness of breath and chest pain. Patient has an appetite and is asking if she can eat. Objective Exam Vital Signs Date Time Temp Pulse Resp B/P (MAP) Pulse Ox O2 Delivery O2 Flow Rate FiO2 01/11/19 08:00 98 Room Air 01/11/19 07:56 99.2 92 18 129/59 (82) 98 Room Air 01/11/19 00:20 97.6 89 21 115/68 (84) 100 Room Air 01/10/19 21:13 98 Room Air 01/10/19 20:00 99.8 94 18 128/74 (92) 97 Room Air 01/10/19 16:00 97.8 91 20 147/75 (99) 99 Room Air I & O 01/11/19 07:00 Intake Total 2600 ml Output Total 1050 ml Balance 1550 ml Capillary Refill : Less Than 3 Seconds General Appearance: No Apparent Distress, Thin HEENT: PERRL/EOMI, Normal ENT Inspection Neck: Full Range of Motion, Normal Inspection, Non Tender, Supple Respiratory: Chest Non Tender, No Accessory Muscle Use, No Respiratory Distress Cardiovascular: Regular Rate, Rhythm, No Edema, No JVD, Normal Peripheral Pulses Gastrointestinal: non tender, soft Extremity: Normal Capillary Refill, Normal Inspection, Normal Range of Motion, No Pedal Edema Neurologic/Psychiatric: Alert, Oriented x3, carpenter's assistant II-XII Norm as Tested Skin: Normal Color, Warm/Dry Lymphatic: No Adenopathy Results Lab Laboratory Tests 01/11/19 05:51: White Blood Count 5.3, Red Blood Count 3.25L, Hemoglobin 9.8L, Hematocrit 31L, Mean Corpuscular Volume 95, Mean Corpuscular Hemoglobin 30, Mean Corpuscular Hemoglobin Concent 32, Red Cell Distribution Width 13.4, Platelet Count 319, Mean Platelet Volume 10.3, Neutrophils (%) (Auto) 71, Lymphocytes (%) (Auto) 16 , Monocytes (%) (Auto) 11, Eosinophils (%) (Auto) 2, Basophils (%) (Auto) 0, Neutrophils # (Auto) 3.8, Lymphocytes # (Auto) 0.9L, Monocytes # (Auto) 0.6, Eosinophils # (Auto) 0.1, Basophils # (Auto) 0.0, Sodium Level 136, Potassium Level 3.5L, Chloride Level 106, Carbon Dioxide Level 21, Anion Gap 9, Blood Urea Nitrogen 7, Creatinine 0.72, Estimat Glomerular Filtration Rate > 60, BUN/ Creatinine Ratio 10, Glucose Level 95, Calcium Level 7.9L, Magnesium Level 1.3L Microbiology 01/08/19 Urine Culture - Preliminary, Resulted Enterococcus faecalis Assessment/Plan Assessment/Plan Assessment/Plan PSBO Passing flatus and stool No abdominal pain Tolerating CLD will advance diet to dysphasia 2 diet Monitor Clinical Quality Measures DVT/VTE Risk/Contraindication: Risk Factor Score Per Nursin RFS Level Per Nursing on Admit: 2=Moderate LORI HO DO January 11, 2019 15:35
[2019-01-11 16:00] VITALS: BP 149/79
[2019-01-11] MEDS: fentaNYL INJECTION 100 MCG/2 ML AMP IVP PRN (20:54)
[2019-01-12 00:18] VITALS: BP 132/76
[2019-01-12] MEDS: LORazepam INJ 2 MG/ML (ATIVAN) VIAL IVP PRN (02:28)
[2019-01-12] MEDS: NS W/KCL 20 MEQ/L 1,000 ML IV SCH ×3 (08:12→20:35)
[2019-01-12] MEDS: CIPROFLOXACIN IV 400MG/200ML 200 ML IV SCH ×2 (08:12→20:36)
[2019-01-12] MEDS: ENOXAPARIN 60 MG/0.6 ML (LOVENOX) SYR SC SCH ×2 (08:12→20:36)
--- NOTE | 2019-01-12 10:07 | Progress Note-Hospitalist ---
Subjective HPI/CC On Admission Date Seen by Provider: January 12, 2019 Time Seen by Provider: 09:30 Subjective/Events-last exam Pt is back on ice chips only due to the recurrence of the small bowel obstruction Reviewed general surgery notes Denies any significant pain but she did a sickened stomach after she ate a little bit of turkey last night with brown gravy Pt only went home for a couple of days after she was discharged last week for a small bowel obstruction Very difficult case, unsure if she will require surgery or not but very difficult considering the recurrence of the small bowel obstructions in such a recent time frame Review of Systems Gastrointestinal: Nausea Objective Exam Vital Signs Vital Signs Date Time Temp Pulse Resp B/P (MAP) Pulse Ox O2 Delivery O2 Flow Rate FiO2 01/12/19 16:00 99.7 92 22 147/75 (99) 97 Room Air Capillary Refill : Less Than 3 Seconds General Appearance: No Apparent Distress, Thin HEENT: PERRL/EOMI, Normal ENT Inspection Neck: Full Range of Motion, Normal Inspection, Non Tender, Supple Respiratory: Chest Non Tender, No Accessory Muscle Use, No Respiratory Distress Cardiovascular: Regular Rate, Rhythm, No Edema, No JVD, Normal Peripheral Pulses Gastrointestinal: Abnormal Bowel Sounds, Distended, Tenderness Extremity: Normal Capillary Refill, Normal Inspection, Normal Range of Motion, No Pedal Edema Neurologic/Psychiatric: Alert, Oriented x3, rope tow operator II-XII Norm as Tested Skin: Normal Color, Warm/Dry Lymphatic: No Adenopathy Results/Procedures Lab Patient resulted labs reviewed. 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 DVT PPx Anemia UTI Plan: Monitor SBO Appreciate Dr Weston Diagnosis/Problems Diagnosis/Problems (1) Small bowel obstruction Status: Acute (2) Frailty Status: Chronic (3) History of DVT (deep vein thrombosis) Status: Chronic (4) Hypertension Status: Chronic Qualifiers: Hypertension type: essential hypertension Qualified Codes: I10 - Essential (primary) hypertension (5) Anxiety Status: Chronic (6) COPD (chronic obstructive pulmonary disease) Status: Chronic Qualifiers: COPD type: unspecified COPD Qualified Codes: J44.9 - Chronic obstructive pulmonary disease, unspecified (7) Hyperlipidemia Status: Chronic Qualifiers: Hyperlipidemia type: mixed hyperlipidemia Qualified Codes: E78.2 - Mixed hyperlipidemia (8) Hyponatremia Status: Resolved Resolution Date/Time: 01/12/19 @ 20:13 Clinical Quality Measures DVT/VTE Risk/Contraindication: Risk Factor Score Per Nursin RFS Level Per Nursing on Admit: 2=Moderate ELVA MACDONALD DO January 12, 2019 10:07
--- NOTE | 2019-01-12 14:00 | NUR ---
Pastoral care visit.
[2019-01-12] MEDS ORDERED: DIAZEPAM 2 MG (VALIUM) TAB PO PRN (15:30)
--- NOTE | 2019-01-12 15:50 | Progress Note (SOAP) ---
Subjective Date Seen by a Provider: January 12, 2019 Time Seen by a Provider: 15:45 Subjective/Events-last exam doing better. tolerating diet and having bowel fxn. Objective Exam Vital Signs Date Time Temp Pulse Resp B/P (MAP) Pulse Ox O2 Delivery O2 Flow Rate FiO2 01/12/19 08:00 Room Air 01/12/19 02:58 98.6 01/12/19 00:18 99.5 95 18 132/76 (94) 98 Room Air 01/11/19 20:00 Room Air 01/11/19 16:00 98.9 100 20 149/79 (102) 98 Room Air I & O 01/12/19 07:00 Intake Total 1042 ml Output Total 1800 ml Balance -758 ml Capillary Refill : Less Than 3 Seconds General Appearance: No Apparent Distress HEENT: PERRL/EOMI Neck: Full Range of Motion Respiratory: Chest Non Tender, Lungs Clear, Normal Breath Sounds Gastrointestinal: normal bowel sounds, non tender, soft Extremity: Normal Capillary Refill Neurologic/Psychiatric: Alert, Oriented x3 Skin: Normal Color Lymphatic: No Adenopathy Results Lab Microbiology 01/08/19 Urine Culture - Final, Complete Enterococcus faecalis Assessment/Plan Assessment/Plan Assess & Plan/Chief Complaint recurrent PSBO secondary adhesions. again resolving however transition point detected on [address] scans. may continue with conservative management vs diagnostic laparoscopy and SYEDA. Clinical Quality Measures DVT/VTE Risk/Contraindication: Risk Factor Score Per Nursin RFS Level Per Nursing on Admit: 2=Moderate YESICA GODINEZ MD January 12, 2019 15:50
[2019-01-12 16:00] VITALS: BP 147/75
[2019-01-12] MEDS: DIAZEPAM 5 MG (VALIUM) TABLET PO PRN (16:02)
[2019-01-12] MEDS: ACETAMINOPHEN 325 MG TABLET PO PRN (16:02)
--- NOTE | 2019-01-12 17:57 | Discharge Inst-Surgical ---
D/C Lap Instructions-HERBERT Scheduled for outpatient surgery on (01/15). Diagnostic laparoscopy, lysis of adhesions, possible bowel resection. Resume previous home meds, however hold eliquis. clear liquid/low residue diet until time of surgery. Activity as tolerated No driving for 24 hours No driving while on pain medications Avoid Alcohol, Caffeine, Spicy Rives and Acid foods. Drink 64 fluid oz or more of fluids per day. Symptoms to Report: Fever over 101 degree F, Nausea/Vomiting If any problems/questions: Contact your physician or go to Emergency Room YESICA GODINEZ MD January 12, 2019 17:57
[2019-01-12] MEDS: ONDANSETRON 4 MG/2 ML (SDV) Z0FRAN IV PRN (20:41)
[2019-01-13 00:22] VITALS: BP 117/59
[2019-01-13] MEDS: ACETAMINOPHEN 325 MG TABLET PO PRN (00:28)
[2019-01-13] MEDS: DIAZEPAM 5 MG (VALIUM) TABLET PO PRN (03:56)
[2019-01-13 05:51] LABS: BASOPHILS % (AUTO) 1 % (0-10); EOSINOPHILS # (AUTO) 0.2 10^3/uL (0.0-0.3); EOSINOPHILS % (AUTO) 4 % (0-10); HEMATOCRIT 31 % (35-52); HEMOGLOBIN 10.3 G/DL (11.5-16.0); LYMPHOCYTES # (AUTO) 0.8 X 10^3 (1.0-4.0); LYMPHOCYTES % (AUTO) 16 % (12-44); MEAN CORPUSCULAR HEMOGLOBIN 30 PG (25-34); MEAN CORPUSCULAR HGB CONC 33 G/DL (32-36); MEAN CORPUSCULAR VOLUME 92 FL (80-99); MEAN PLATELET VOLUME 9.8 FL (7.4-10.4); MONOCYTES # (AUTO) 0.5 X 10^3 (0.0-1.0); MONOCYTES % (AUTO) 11 % (0-12); NEUTROPHILS # (AUTO) 3.4 X 10^3 (1.8-7.8); NEUTROPHILS % (AUTO) 69 % (42-75); PLATELET COUNT 354 10^3/uL (130-400); RED CELL DISTRIBUTION WIDTH 13.5 % (10.0-14.5); WHITE BLOOD COUNT 4.9 10^3/uL (4.3-11.0)
[2019-01-13 06:01] LABS: ALANINE AMINOTRANSFERASE 37 U/L (0-55); ALBUMIN 2.9 GM/DL (3.2-4.5); ALKALINE PHOSPHATASE 110 U/L (40-136); BILIRUBIN,TOTAL 0.2 MG/DL (0.1-1.0); BUN/CREATININE RATIO 4; CALCIUM 7.8 MG/DL (8.5-10.1); CARBON DIOXIDE 21 MMOL/L (21-32); CHLORIDE 109 MMOL/L (98-107); CREATININE SERUM 0.81 MG/DL (0.60-1.30); GFR ESTIMATED > 60; GLUCOSE 107 MG/DL (70-105); POTASSIUM 3.3 MMOL/L (3.6-5.0); SODIUM 137 MMOL/L (135-145); TOTAL PROTEIN 5.3 GM/DL (6.4-8.2)
[2019-01-13] MEDS: NS W/KCL 20 MEQ/L 1,000 ML IV SCH (07:59)
[2019-01-13 08:00] VITALS: BP 147/78
[2019-01-13] MEDS: ENOXAPARIN 60 MG/0.6 ML (LOVENOX) SYR SC SCH ×2 (08:59→20:00)
--- NOTE | 2019-01-13 09:42 | Progress Note-Hospitalist ---
Subjective HPI/CC On Admission Date Seen by Provider: January 13, 2019 Time Seen by Provider: 09:00 Subjective/Events-last exam Pt is now having a lot of loose stools that are watery. Antibiotics were discontinued due to no severe UTI noted on assessment from recent tests. She is having some nausea and vomiting. Pt overall does not feel comfortable returning to [facility] in [place] and wondering if Dr. Weston will perform surgery on the recurrent small bowel obstruction that she has. Denies any pain. Overall feeling about the same. Overall prognosis very poor and considering she is such a chronic frail state we need to assure oral nutrition returns back to normal to decrease complications. PICC line will be placed per Dr Weston and TPN will be started and surgery is scheduled for Review of Systems General: Fatigue Gastrointestinal: Nausea, Vomiting, Abdominal Pain, Diarrhea Objective Exam Vital Signs Vital Signs Date Time Temp Pulse Resp B/P (MAP) Pulse Ox O2 Delivery O2 Flow Rate FiO2 01/13/19 16:00 99.6 97 20 136/68 (90) 96 Room Air Capillary Refill : Less Than 3 Seconds General Appearance: No Apparent Distress, Thin HEENT: PERRL/EOMI, Normal ENT Inspection Neck: Full Range of Motion, Normal Inspection, Non Tender, Supple Respiratory: Chest Non Tender, No Accessory Muscle Use, No Respiratory Distress Cardiovascular: Regular Rate, Rhythm, No Edema, No JVD, Normal Peripheral Pulses Gastrointestinal: Abnormal Bowel Sounds, Distended, Tenderness Extremity: Normal Capillary Refill, Normal Inspection, Normal Range of Motion, No Pedal Edema Neurologic/Psychiatric: Alert, Oriented x3, 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 DVT PPx Anemia Chronic UTI no need for treatment Poor nutrition requiring TPN Plan: Monitor SBO Appreciate Dr Weston PICC TPN OR Diagnosis/Problems Diagnosis/Problems (1) Small bowel obstruction Status: Acute (2) Frailty Status: Chronic (3) History of DVT (deep vein thrombosis) Status: Chronic (4) Hypertension Status: Chronic Qualifiers: Hypertension type: essential hypertension Qualified Codes: I10 - Essential (primary) hypertension (5) Anxiety Status: Chronic (6) COPD (chronic obstructive pulmonary disease) Status: Chronic Qualifiers: COPD type: unspecified COPD Qualified Codes: J44.9 - Chronic obstructive pulmonary disease, unspecified (7) Hyperlipidemia Status: Chronic Qualifiers: Hyperlipidemia type: mixed hyperlipidemia Qualified Codes: E78.2 - Mixed hyperlipidemia (8) Hyponatremia Status: Resolved Resolution Date/Time: 01/12/19 @ 20:13 Clinical Quality Measures DVT/VTE Risk/Contraindication: Risk Factor Score Per Nursin RFS Level Per Nursing on Admit: 2=Moderate ELVA MACDONALD DO January 13, 2019 09:42
[2019-01-13] MEDS ORDERED: TPN IV SCH (12:00)
[2019-01-13 12:16] LABS: MAGNESIUM 1.2 MG/DL (1.8-2.4); PHOSPHORUS 1.7 MG/DL (2.3-4.7)
--- NOTE | 2019-01-13 12:55 | Progress Note (SOAP) ---
Subjective Date Seen by a Provider: January 13, 2019 Time Seen by a Provider: 12:50 Subjective/Events-last exam doing ok. tolerating clears and having loose BM's. no abdominal pain. Objective Exam Vital Signs Date Time Temp Pulse Resp B/P (MAP) Pulse Ox O2 Delivery O2 Flow Rate FiO2 01/13/19 08:10 Room Air 01/13/19 08:00 99.6 102 20 147/78 (101) 98 Room Air 01/13/19 00:22 98.6 96 22 117/59 (78) 96 Room Air 01/12/19 20:00 Room Air 01/12/19 16:00 99.7 92 22 147/75 (99) 97 Room Air I & O 01/13/19 07:00 Intake Total 4295 ml Balance 4295 ml Capillary Refill : Less Than 3 Seconds General Appearance: No Apparent Distress HEENT: PERRL/EOMI Neck: Full Range of Motion Respiratory: Chest Non Tender, Lungs Clear, Normal Breath Sounds Cardiovascular: Regular Rate, Rhythm Gastrointestinal: normal bowel sounds, soft Extremity: Normal Capillary Refill Neurologic/Psychiatric: Alert, Oriented x3 Skin: Normal Color Lymphatic: No Adenopathy Results Lab Laboratory Tests 01/13/19 05:15: White Blood Count 4.9, Red Blood Count 3.39L, Hemoglobin 10.3L, Hematocrit 31L, Mean Corpuscular Volume 92, Mean Corpuscular Hemoglobin 30, Mean Corpuscular Hemoglobin Concent 33, Red Cell Distribution Width 13.5, Platelet Count 354, Mean Platelet Volume 9.8, Neutrophils (%) (Auto) 69, Lymphocytes (%) (Auto) 16, Monocytes (%) (Auto) 11, Eosinophils (%) (Auto) 4, Basophils (%) (Auto) 1, Neutrophils # (Auto) 3.4, Lymphocytes # (Auto) 0.8L, Monocytes # (Auto) 0.5, Eosinophils # (Auto) 0.2, Basophils # (Auto) 0.0, Sodium Level 137, Potassium Level 3.3L, Chloride Level 109H, Carbon Dioxide Level 21, Anion Gap 7, Blood Urea Nitrogen 3L, Creatinine 0.81, Estimat Glomerular Filtration Rate > 60, BUN/ Creatinine Ratio 4, Glucose Level 107H, Calcium Level 7.8L, Corrected Calcium 8.7, Phosphorus Level 1.7L, Magnesium Level 1.2L, Total Bilirubin 0.2, Aspartate Amino Transf (AST/SGOT) 39H, Alanine Aminotransferase (ALT/SGPT) 37, Alkaline Phosphatase 110, Total Protein 5.3L, Albumin 2.9L Microbiology 01/08/19 Urine Culture - Final, Complete Enterococcus faecalis Assessment/Plan Assessment/Plan Assess & Plan/Chief Complaint recurrent PSBO secondary adhesions. again resolving however transition point detected on [address] scans. will plan diagnostic laparoscopy and SYEDA on (01/15). will get PICC and start TPN to increase protein Clinical Quality Measures DVT/VTE Risk/Contraindication: Risk Factor Score Per Nursin RFS Level Per Nursing on Admit: 2=Moderate YESICA GODINEZ MD January 13, 2019 12:55
[2019-01-13] MEDS: NS IV 1000 ML 1,000 ML IV SCH (13:38)
[2019-01-13] MEDS: MAGNESIUM SULFATE IV SCH ×4 (13:38→19:00)
[2019-01-13] MEDS: POTASSIUM PHOSPHATE IV SCH ×4 (13:38→19:00)
[2019-01-13] MEDS: NS IV SCH ×4 (13:38→19:00)
--- NOTE | 2019-01-13 13:43 | NUR ---
TPN: LABS; K 3.3, PHOS 1.7, MG 1.2. Due to low levels, will bolus potassium phosphate with magnesium sulfate today. Recheck labs in am, start TPN 01/12/2019 pending labs.
--- NOTE | 2019-01-13 14:50 | Diagnostic Imaging Report ---
INDICATION: PICC line placement. COMPARISON: 02/10/2017. FINDINGS: Single frontal radiographic view of the chest was obtained and demonstrates interval placement of right upper extremity PICC line, tip of which terminates at the cavoatrial junction. Cardiac silhouette and pulmonary vasculature are within normal limits. Lungs are clear. There is no focal consolidation, large effusion, or pneumothorax. Bony structures show no gross acute abnormalities. IMPRESSION: 1. Right upper extremity PICC line with tip at the cavoatrial junction. 2. No new acute cardiopulmonary process. Dictated by: Dictated on workstation # [id number]
[2019-01-13] MEDS ORDERED: ZINC OXIDE 16% OINT (BUTT PASTE) 113 GM TUBE TOP PRN (15:00)
[2019-01-13 16:00] VITALS: BP 136/68
[2019-01-13] MEDS: ONDANSETRON 4 MG/2 ML (SDV) Z0FRAN IV PRN (17:22)
[2019-01-13] MEDS: LORazepam INJ 2 MG/ML (ATIVAN) VIAL IVP PRN (17:47)
[2019-01-13] MEDS: fentaNYL INJECTION 100 MCG/2 ML AMP IVP PRN (20:11)
[2019-01-14] MEDS: NS IV 1000 ML 1,000 ML IV SCH ×2 (00:36→14:11)
[2019-01-14 00:42] VITALS: BP 112/58
[2019-01-14] MEDS: ACETAMINOPHEN 325 MG TABLET PO PRN ×2 (00:46→20:03)
[2019-01-14] MEDS: LORazepam INJ 2 MG/ML (ATIVAN) VIAL IVP PRN ×3 (01:09→16:15)
[2019-01-14 05:09] LABS: ALANINE AMINOTRANSFERASE 37 U/L (0-55); ALBUMIN 2.4 GM/DL (3.2-4.5); ALKALINE PHOSPHATASE 89 U/L (40-136); BILIRUBIN,TOTAL 0.2 MG/DL (0.1-1.0); BUN/CREATININE RATIO 8; CALCIUM 7.4 MG/DL (8.5-10.1); CARBON DIOXIDE 21 MMOL/L (21-32); CHLORIDE 112 MMOL/L (98-107); CREATININE SERUM 0.66 MG/DL (0.60-1.30); GFR ESTIMATED > 60; GLUCOSE 94 MG/DL (70-105); MAGNESIUM 1.8 MG/DL (1.8-2.4); PHOSPHORUS 2.1 MG/DL (2.3-4.7); POTASSIUM 3.4 MMOL/L (3.6-5.0); SODIUM 138 MMOL/L (135-145); TOTAL PROTEIN 4.3 GM/DL (6.4-8.2); TRIGLYCERIDES 79 MG/DL (<150)
[2019-01-14 08:00] VITALS: BP 134/75
--- NOTE | 2019-01-14 08:00 | NUR ---
TPN: LABS; K 3.4, PHOS 2.1, MG 1.8. MG WNL, WILL BOLUS 34 MM KPHOS OVER 5 HOURS. PLAN START TPN AT 1700 TODAY.
[2019-01-14] MEDS: POTASSIUM PHOSPHATE INJ 6.8 MM in NS (IVPB) 50 ML IV SCH ×5 (09:22→14:11)
[2019-01-14] MEDS: ENOXAPARIN 60 MG/0.6 ML (LOVENOX) SYR SC SCH ×2 (09:22→20:00)
--- NOTE | 2019-01-14 09:38 | Progress Note-Hospitalist ---
Subjective HPI/CC On Admission Date Seen by Provider: January 14, 2019 Time Seen by Provider: 09:00 Subjective/Events-last exam Loose watery stools continue and she is quit chapped in the [place] area Surgery is scheduled for tomorrow and she is very nervous about it PICC line is placed TPN was delayed in starting due to electrolyte abnormalities Overall doing well but pt is very frail, has lost a lot of reserve and very thin , poor nutritional status to begin with so monitor that closely Review of Systems General: Fatigue Gastrointestinal: Diarrhea Neurological: Weakness Objective Exam Vital Signs Vital Signs Date Time Temp Pulse Resp B/P (MAP) Pulse Ox O2 Delivery O2 Flow Rate FiO2 01/14/19 16:05 98.0 90 24 141/65 (90) 99 Room Air Capillary Refill : Less Than 3 SecondsLess Than 3 Seconds General Appearance: No Apparent Distress, Thin HEENT: PERRL/EOMI, Normal ENT Inspection Neck: Full Range of Motion, Normal Inspection, Non Tender, Supple Respiratory: Chest Non Tender, Lungs Clear, No Accessory Muscle Use, No Respiratory Distress Cardiovascular: Regular Rate, Rhythm, No Edema, No JVD, Normal Peripheral Pulses Gastrointestinal: Abnormal Bowel Sounds, Distended, Tenderness Extremity: Normal Capillary Refill, Normal Inspection, Normal Range of Motion, No Pedal Edema Neurologic/Psychiatric: Alert, Oriented x3, follow up clerk II-XII Norm as Tested Skin: Normal Color, Warm/Dry Lymphatic: No Adenopathy Results/Procedures Lab Laboratory Tests 01/14/19 04:45 Patient resulted labs reviewed. 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 DVT PPx Anemia Chronic UTI no need for treatment Poor nutrition requiring TPN Plan: Monitor SBO Appreciate Dr Weston PICC TPN OR Diagnosis/Problems Diagnosis/Problems (1) Small bowel obstruction Status: Acute (2) Frailty Status: Chronic (3) History of DVT (deep vein thrombosis) Status: Chronic (4) Hypertension Status: Chronic Qualifiers: Hypertension type: essential hypertension Qualified Codes: I10 - Essential (primary) hypertension (5) Anxiety Status: Chronic (6) COPD (chronic obstructive pulmonary disease) Status: Chronic Qualifiers: COPD type: unspecified COPD Qualified Codes: J44.9 - Chronic obstructive pulmonary disease, unspecified (7) Hyperlipidemia Status: Chronic Qualifiers: Hyperlipidemia type: mixed hyperlipidemia Qualified Codes: E78.2 - Mixed hyperlipidemia (8) Hyponatremia Status: Resolved Resolution Date/Time: 01/12/19 @ 20:13 Clinical Quality Measures DVT/VTE Risk/Contraindication: Risk Factor Score Per Nursin RFS Level Per Nursing on Admit: 2=Moderate ELVA MACDONALD DO January 14, 2019 09:38
--- NOTE | 2019-01-14 13:13 | NUR ---
TPN: 68 Y/O F, HT 69 INCHES, ABW 57 KG, IBW 66 KG, BMI 18.6. ALLERGIES; CODEINE, RED DYE, IODINATED CONTRAST, SULFA, SOYBEANS , OTHERS..., CC; SBO ACUTE ON CURRENT. DIET; DYS II CONSUMING 66%. CALCULATED METABOLIC NEEDS; [id number] KCAL WITH 70-85 GM PROTEIN. LABS; K 3.4, CL, 112, PHOS 2.1. PLAN; KPHOS BOLUSES GIVEN. TPN TO START AT 54 ML/HR PROVIDING 960 KCAL WITH 70 GM PROTEIN. NO LIPIDS AT THIS TIME. BECAUSE PT. LIST ALLERGY TO SOY BEANS, LIPIDS ARE MADE FROM SOY MENON OIL. WITH PT. CONSUMING GREATER THAN 60% OF MEALS MAY CONSIDER STOPPING TPN. MONITOR LABS AND ADJUST NEEDED.
--- NOTE | 2019-01-14 13:56 | Progress Note (SOAP) ---
Subjective Date Seen by a Provider: January 14, 2019 Time Seen by a Provider: 13:30 Subjective/Events-last exam doing ok. no recurrent abd distention/nausea/vomiting. started on TPN due to malnutrition. Objective Exam Vital Signs Date Time Temp Pulse Resp B/P (MAP) Pulse Ox O2 Delivery O2 Flow Rate FiO2 01/14/19 08:10 Room Air 01/14/19 08:00 98.8 87 18 134/75 (94) 99 Room Air 01/14/19 00:42 99.8 98 22 112/58 (76) 96 Room Air 01/13/19 22:29 Room Air 01/13/19 22:17 Room Air 01/13/19 16:00 99.6 97 20 136/68 (90) 96 Room Air I & O 01/14/19 07:00 Intake Total 2754.26 ml Output Total 600 ml Balance 2154.26 ml Capillary Refill : Less Than 3 SecondsLess Than 3 Seconds General Appearance: No Apparent Distress HEENT: PERRL/EOMI Neck: Full Range of Motion Respiratory: Chest Non Tender, Lungs Clear, Normal Breath Sounds Cardiovascular: Regular Rate, Rhythm Gastrointestinal: normal bowel sounds, non tender, soft Extremity: Normal Capillary Refill Neurologic/Psychiatric: Alert, Oriented x3 Skin: Normal Color Lymphatic: No Adenopathy Results Lab Laboratory Tests 01/14/19 04:45: Sodium Level 138, Potassium Level 3.4L, Chloride Level 112H, Carbon Dioxide Level 21, Anion Gap 5, Blood Urea Nitrogen 5L, Creatinine 0.66, Estimat Glomerular Filtration Rate > 60, BUN/Creatinine Ratio 8, Glucose Level 94, Calcium Level 7.4L, Corrected Calcium 8.7, Phosphorus Level 2.1L, Magnesium Level 1.8, Total Bilirubin 0.2, Aspartate Amino Transf (AST/SGOT) 40H, Alanine Aminotransferase (ALT/SGPT) 37, Alkaline Phosphatase 89, Total Protein 4.3L, Albumin 2.4L, Triglycerides Level 79 Microbiology 01/08/19 Urine Culture - Final, Complete Enterococcus faecalis Assessment/Plan Assessment/Plan Assess & Plan/Chief Complaint recurrent PSBO secondary adhesions. again resolving however transition point detected on [address] scans. will plan diagnostic laparoscopy and SYEDA on (01/15). will get PICC and start TPN to increase protein Clinical Quality Measures DVT/VTE Risk/Contraindication: Risk Factor Score Per Nursin RFS Level Per Nursing on Admit: 2=Moderate YESICA GODINEZ MD January 14, 2019 13:56
--- NOTE | 2019-01-14 13:57 | Progress Note-Pre Operative ---
Pre-Operative Progress Note H&P Reviewed The H&P was reviewed, patient examined and no changes noted. Date Seen by Provider: January 14, 2019 Time Seen by Provider: 13:30 Date H&P Reviewed: January 14, 2019 Time H&P Reviewed: 13:30 Pre-Operative Diagnosis: recurrent sx PSBO secondary adhesions. YESICA GODINEZ MD January 14, 2019 13:57
[2019-01-14 16:05] VITALS: BP 141/65
[2019-01-14] MEDS ORDERED: SODIUM PHOSPHATE IV SCH ×9 (17:00)
[2019-01-14] MEDS ORDERED: SODIUM ACETATE IV SCH ×9 (17:00)
[2019-01-14] MEDS ORDERED: [UNRECOGNIZED DRUG - OTHER] IV SCH ×9 (17:00)
[2019-01-14] MEDS ORDERED: POTASSIUM CHLORIDE IV SCH ×9 (17:00)
[2019-01-14] MEDS: ONDANSETRON 4 MG/2 ML (SDV) Z0FRAN IV PRN (18:48)
[2019-01-15] VITALS (10 sets, daily range): BP systolic 111–142; BP diastolic 51–69
[2019-01-15 06:49] LABS: ALANINE AMINOTRANSFERASE 43 U/L (0-55); ALBUMIN 2.5 GM/DL (3.2-4.5); ALKALINE PHOSPHATASE 102 U/L (40-136); BILIRUBIN,TOTAL 0.2 MG/DL (0.1-1.0); BUN/CREATININE RATIO 11; CALCIUM 7.6 MG/DL (8.5-10.1); CARBON DIOXIDE 23 MMOL/L (21-32); CHLORIDE 108 MMOL/L (98-107); CREATININE SERUM 0.65 MG/DL (0.60-1.30); GFR ESTIMATED > 60; GLUCOSE 120 MG/DL (70-105); MAGNESIUM 1.6 MG/DL (1.8-2.4); PHOSPHORUS 2.5 MG/DL (2.3-4.7); POTASSIUM 3.7 MMOL/L (3.6-5.0); SODIUM 137 MMOL/L (135-145); TOTAL PROTEIN 4.8 GM/DL (6.4-8.2)
[2019-01-15] MEDS: MAGNESIUM 1 GM/100 ML IVPB 100 ML IV SCH ×2 (09:04→09:05)
[2019-01-15] MEDS: ENOXAPARIN 60 MG/0.6 ML (LOVENOX) SYR SC SCH ×2 (09:05→19:46)
[2019-01-15] MEDS: NS IV 1000 ML 1,000 ML IV SCH ×2 (09:05→17:05)
--- NOTE | 2019-01-15 10:01 | Progress Note-Hospitalist ---
Subjective HPI/CC On Admission Date Seen by Provider: January 15, 2019 Time Seen by Provider: 09:00 Subjective/Events-last exam Pt anxious about OR today at 11:[address] Weston for small bowel obstruction management TPN maintained Very poor prognosis considering her frail status but will try to be aggressive as possible to get her back on track Review of Systems Gastrointestinal: Nausea, Vomiting, Abdominal Pain Objective Exam Vital Signs Vital Signs Date Time Temp Pulse Resp B/P (MAP) Pulse Ox O2 Delivery O2 Flow Rate FiO2 01/15/19 16:50 99.4 16 96 Room Air 01/15/19 16:40 3 01/15/19 08:00 94 142/69 (93) Capillary Refill : Less Than 3 SecondsLess Than 3 Seconds General Appearance: No Apparent Distress, Anxious, Chronically ill, Thin HEENT: PERRL/EOMI, Normal ENT Inspection Neck: Full Range of Motion, Normal Inspection, Non Tender, Supple Respiratory: Chest Non Tender, Lungs Clear, No Accessory Muscle Use, No Respiratory Distress Cardiovascular: Regular Rate, Rhythm, No Edema, No JVD, Normal Peripheral Pulses Gastrointestinal: Abnormal Bowel Sounds, Distended, Tenderness Extremity: Normal Capillary Refill, Normal Inspection, Normal Range of Motion, No Pedal Edema Neurologic/Psychiatric: Alert, Oriented x3, cut off saw 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 DVT PPx Anemia Chronic UTI no need for treatment Poor nutrition requiring TPN Plan: Monitor SBO Appreciate Dr Weston [facility] TPN OR today Diagnosis/Problems Diagnosis/Problems (1) Small bowel obstruction Status: Acute (2) Frailty Status: Chronic (3) History of DVT (deep vein thrombosis) Status: Chronic (4) Hypertension Status: Chronic Qualifiers: Hypertension type: essential hypertension Qualified Codes: I10 - Essential (primary) hypertension (5) Anxiety Status: Chronic (6) COPD (chronic obstructive pulmonary disease) Status: Chronic Qualifiers: COPD type: unspecified COPD Qualified Codes: J44.9 - Chronic obstructive pulmonary disease, unspecified (7) Hyperlipidemia Status: Chronic Qualifiers: Hyperlipidemia type: mixed hyperlipidemia Qualified Codes: E78.2 - Mixed hyperlipidemia (8) Hyponatremia Status: Resolved Resolution Date/Time: 01/12/19 @ 20:13 Clinical Quality Measures DVT/VTE Risk/Contraindication: Risk Factor Score Per Nursin RFS Level Per Nursing on Admit: 2=Moderate ELVA MACDONALD DO January 15, 2019 10:01
[2019-01-15] MEDS ORDERED: proPOfol 200 MG/20 ML (DIPRIVAN) VIAL IV ONE (12:11)
[2019-01-15] MEDS ORDERED: SUCCINYLCHOLINE INJ 100 MG/5 ML SYR ONE (12:11)
[2019-01-15] MEDS ORDERED: SEVOFLURANE (ULTANE) 15 ML INHAL SOLN ONE ×7 (12:11→16:02)
[2019-01-15] MEDS ORDERED: ONDANSETRON 4 MG/2 ML (SDV) Z0FRAN ONE ×2 (12:11→15:18)
[2019-01-15] MEDS ORDERED: DEXAMETHASONE 10 MG/ML (DECADRON) 1 ML VIAL ONE (12:11)
[2019-01-15] MEDS ORDERED: LIDOCAINE PF 2% 5 ML (XYLOCAINE) VIAL ONE (12:11)
[2019-01-15] MEDS ORDERED: ROCURONIUM 10 MG/ML 5 ML SYRINGE IV ONE (12:11)
[2019-01-15] MEDS ORDERED: MIDAZOLAM 2 MG/2 ML (VERSED) VIAL ONE (12:12)
[2019-01-15] MEDS ORDERED: fentaNYL INJECTION 250 MCG/5 ML AMP ONE (12:12)
[2019-01-15] MEDS ORDERED: BUP/EPI 0.5% 1:200,000 (SENSORCAINE) 30 ML VIAL ONE (12:44)
--- NOTE | 2019-01-15 13:08 | NUR ---
TPN: LABS; K 3.7, PHOS 2.5 WNL, MG 1.6, WILL BOLUS. PT NPO. TPN ADVANCED TO 1130 KCAL WITH 70 GM PROTEIN. LIPIDS BEING HELD DUE TO PT;S ALLERGY TO SOY BEANS.
--- NOTE | 2019-01-15 13:30 | NUR ---
Patient to surgery at this time via cart.
[2019-01-15] MEDS ORDERED: CLINDAMYCIN 600 MG/4ML (CLEOCIN) VIAL ONE (13:33)
[2019-01-15] MEDS ORDERED: NS (IVPB) 50 ML ONE (13:33)
[2019-01-15] MEDS: LACTATED RINGERS 1,000 ML IV PRN ×2 (13:44→14:48)
[2019-01-15] MEDS ORDERED: FAMOTIDINE 20MG/2ML IV (PEPCID) ONE (13:46)
[2019-01-15] MEDS ORDERED: PHENYLEPHRINE 100 MCG/ML 10 ML (ANESTHESIA) SYR ONE ×2 (14:23→15:08)
[2019-01-15] MEDS ORDERED: ESMOLOL 100 MG/10 ML (BREVIBLOC) VIAL ONE (14:23)
[2019-01-15] MEDS ORDERED: GLYCOPYRROLATE 0.2 MG/ML (ROBINUL) 2 ML VIAL ONE (14:52)
[2019-01-15] MEDS ORDERED: NEOSTIGMINE 1 MG/ML 5 ML SYRINGE ONE (14:52)
[2019-01-15] MEDS ORDERED: CLINDAMYCIN 600 MG/50 ML IVPB 50 ML IV NR (15:00)
[2019-01-15] MEDS ORDERED: HYDROmorphone 2 MG/ML VIAL (DILAUDID) ONE (15:23)
--- NOTE | 2019-01-15 15:41 | Progress Note-Post Operative ---
Post-Operative Progess Note Surgeon (s)/Platform Consultant (s) Surgeon YESICA GODINEZ MD Platform Consultant: melania bolton [employer] Pre-Operative Diagnosis recurrent sx PSBO secondary adhesions. 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 Anesthesia Type GET Estimated Blood Loss Estimated blood loss (mL): minimal Specimens/Packing Specimens Removed none YESICA GODINEZ MD January 15, 2019 15:41
[2019-01-15] MEDS ORDERED: fentaNYL INJECTION 100 MCG/2 ML AMP IVP ONE (16:00)
[2019-01-15] MEDS ORDERED: ONDANSETRON 4 MG/2 ML (SDV) Z0FRAN IVP PRN (16:00)
[2019-01-15] MEDS ORDERED: SODIUM ACETATE IV SCH ×11 (17:00)
[2019-01-15] MEDS ORDERED: [UNRECOGNIZED DRUG - OTHER] IV SCH ×11 (17:00)
[2019-01-15] MEDS ORDERED: SODIUM CHLORIDE IV SCH ×11 (17:00)
[2019-01-15] MEDS: fentaNYL INJECTION 100 MCG/2 ML AMP IVP PRN ×2 (17:16→19:51)
--- NOTE | 2019-01-15 17:25 | NUR ---
patient arrived back on floor at 1655 via cart from surgical procedure. report received from JOHN Sanchez. 4 lap sites present open to air, on patient's abdomen.ice applied to surgical sites. will continue to monitor.
--- NOTE | 2019-01-15 22:26 | OPERATIVE REPORT ---
DATE OF SERVICE: 01/15/2019 PREOPERATIVE DIAGNOSIS: Recurrent symptomatic partial small bowel obstruction. POSTOPERATIVE DIAGNOSES: Intra-abdominal adhesions, internal hernia from a large defect in the small bowel mesentery from previous small bowel resection. PROCEDURE: Diagnostic laparoscopy, lysis of adhesions, reduction and repair of internal mesenteric herniation. SURGEON: Yesica Godinez MD. ARCHITECTURE INSTRUCTOR: Dale Taveras APRN. ANESTHESIA: General endotracheal. ESTIMATED BLOOD LOSS: Minimal. FINDINGS: Significant colonic adhesions along the right colon as well as the proximal transverse colon. There was an internal hernia of the distal ileum along the previous small bowel resection margin line. There was a dilated small bowel followed by a compressed distal ileum. The ovaries were intact; however, the uterus appeared to be surgically removed. There also appeared to be a previous low anterior colorectal resection. DISPOSITION: The patient tolerated the procedure well. INDICATIONS: The patient is a 68-year-old female who was discharged from the hospital one week ago. She developed abdominal distention, pain and nausea and vomiting. She was treated conservatively nasogastric tube decompression and had done well with bowel function with multiple loose bowel movements. She also had significant abdominal decompression and was started on clear liquid diet and advanced without any difficulty. The CT scan done during that admission did show some level transition point as well as dilated loops of small bowel and a distal compressed bowel; however, clinically she had resolved. She is status post open colon resection as well as small bowel resection, which she states that the open colon resection was done approximately three years ago and the small bowel resection years before that. She has also reported to have a previous history of cervical cancer and status post radiation therapy as well as radiation seed implantation. She returned to [facility] 5 days after discharge with recurrent symptoms with significant abdominal distention, nausea and vomiting and abdominal pain. Another CT scan was performed, which did show very similar findings with dilated loops of small bowel as well as the transition area consistent with a small-bowel obstruction. DESCRIPTION OF PROCEDURE: The patient was brought to the operating room, laid supine on the table. After adequate IV pain and sedative medications and general endotracheal intubation, the abdomen was prepped and draped in standard surgical fashion. A 0.5% Marcaine with epinephrine was used to anesthetize overlying skin in the left upper abdominal quadrant and a transverse skin incision was made using 15 blade. An 0 silk suture was applied to the medial aspect of the incision for traction and a Veress needle was inserted with a low opening pressure of 0 mmHg. The abdomen was insufflated to 15 mmHg pressure. The Veress needle was removed and a 5 mm Xcel trocar was placed followed by a 5 mm 45-degree angle laparoscope visualizing the peritoneal cavity. A 4-quadrant abdominal exploration was performed. The liver, stomach appeared normal. There were adhesions towards the anterior abdominal wall, majority along the cecum as well as the ascending colon to the mid transverse colon. There were a few small bowel adhesions as well; however, not severe. We then proceed to place two 5 mm left lateral ports under direct visualization after the skin and peritoneal lining were anesthetized using 0.5% Marcaine and a transverse skin incision was made using 15 blade. The patient was then placed in a Trendelenburg position. We then began to run the entire small bowel from the ligament of Treitz distally. The proximal bowel was distended and as we were entering the terminal ileum, staple line anastomosis was identified and just inferior to this was a defect within the mesentery with small bowel within this and this was followed by a compressed small bowel distally. The internal hernia was reduced with no signs of ischemia. The remainder of the terminal ileum as well as the colon appeared normal. 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 There also appeared to be a previous low anterior resection with an EEA type of stapled anastomosis near the rectum. This was intact. The upper left 5 mm port was then switched over to a 10 mm port and another 5 mm port was placed in the right upper abdominal quadrant. We then proceeded to close the mesenteric defect after reduction of the hernia using 2-0 Vicryl running suture using EndoStitch device. The bowel again had herniated through was visualized and well perfused. No signs of ischemia. We then decided to proceed with lysis of the colonic adhesions using the Sonicision towards the anterior abdominal wall. This took approximately 45 to 60 minutes. Good hemostasis was observed. The entirety of the colon was ran and the majority of the colon appeared to be intact; however, there appeared to be a segmental sigmoid colon resection and a low anterior colorectal resection by an EEA stapler. The previous small bowel anastomosis was examined as well and it appeared to be widely patent. The 10 mm port site fascia and peritoneum were then closed under direct visualization using a Wale-Loly device and 0 Vicryl suture. The abdomen was desufflated and the remaining ports were removed. All skin incisions were closed using 4-0 Monocryl running subcuticular sutures. Wounds were then cleaned and covered with Dermabond. The patient tolerated the procedure well. We will start IV normal pain medication as well as a clear liquid diet. Once she is tolerating clears, has good pain control with oral pain medication and is ambulating well, we will discharge her home. Job ID: [id number] DocumentID: [id number] Dictated Date: 01/15/2019 16:00:30 Actuarial Associate Date: 01/15/2019 22:25:12 Dictated By: YESICA GODINEZ MD
[2019-01-16 00:38] VITALS: BP 135/61
[2019-01-16] MEDS: fentaNYL INJECTION 100 MCG/2 ML AMP IVP PRN ×5 (03:25→20:49)
[2019-01-16 06:36] LABS: ALANINE AMINOTRANSFERASE 51 U/L (0-55); ALBUMIN 2.6 GM/DL (3.2-4.5); ALKALINE PHOSPHATASE 114 U/L (40-136); BILIRUBIN,TOTAL 0.1 MG/DL (0.1-1.0); BUN/CREATININE RATIO 13; CALCIUM 7.9 MG/DL (8.5-10.1); CARBON DIOXIDE 27 MMOL/L (21-32); CHLORIDE 104 MMOL/L (98-107); CREATININE SERUM 0.64 MG/DL (0.60-1.30); GFR ESTIMATED > 60; GLUCOSE 122 MG/DL (70-105); MAGNESIUM 1.8 MG/DL (1.8-2.4); PHOSPHORUS 2.2 MG/DL (2.3-4.7); POTASSIUM 3.9 MMOL/L (3.6-5.0); SODIUM 138 MMOL/L (135-145)
[2019-01-16 08:00] VITALS: BP 158/84
[2019-01-16] MEDS ORDERED: SODIUM PHOSPHATE INJ 30 MM in NS (IVPB) 250 ML INJ ONE (08:00)
--- NOTE | 2019-01-16 08:07 | NUR ---
TPN: PHOS 2.2, WILL BOLUS 30 MM NAPHOS, ADJUST PHOS IN NEXT TPN.
[2019-01-16] MEDS: ENOXAPARIN 60 MG/0.6 ML (LOVENOX) SYR SC SCH ×2 (08:31→20:43)
[2019-01-16] MEDS: LORazepam INJ 2 MG/ML (ATIVAN) VIAL IVP PRN ×2 (08:53→17:34)
--- NOTE | 2019-01-16 09:59 | Anesthesia-General Post-Op ---
General Patient Condition Mental Status/LOC: Same as Preop Cardiovascular: Satisfactory Nausea/Vomiting: Absent Respiratory: Satisfactory Pain: Controlled Complications: Absent Post Op Complications Complications None Follow Up Care/Instructions Patient Instructions None needed. Anesthesia/Patient Condition Patient Condition Patient is doing well, no complaints, stable vital signs, no apparent adverse anesthesia problems. No complications reported per nursing. COMFORT SINGH CRNA January 16, 2019 09:59
--- NOTE | 2019-01-16 10:26 | Progress Note-Hospitalist ---
Subjective HPI/CC On Admission Date Seen by Provider: January 16, 2019 Time Seen by Provider: 09:30 Subjective/Events-last exam Patient is sleeping soundly during my exam Reviewed op report: Diagnostic laparoscopy, lysis of adhesions, reduction and repair of internal mesenteric herniation POD # 1 Patient denies sob to RN Pain is about expected Review of Systems Gastrointestinal: Nausea, Abdominal Pain Objective Exam Vital Signs Vital Signs Date Time Temp Pulse Resp B/P (MAP) Pulse Ox O2 Delivery O2 Flow Rate FiO2 01/16/19 08:00 98 Room Air 01/16/19 08:00 99.0 84 20 158/84 (108) 01/15/19 16:40 3 Capillary Refill : Less Than 3 SecondsLess Than 3 Seconds General Appearance: No Apparent Distress, Chronically ill, Thin HEENT: PERRL/EOMI, Normal ENT Inspection Neck: Full Range of Motion, Normal Inspection, Non Tender, Supple Respiratory: Chest Non Tender, Lungs Clear, No Accessory Muscle Use, No Respiratory Distress Cardiovascular: Regular Rate, Rhythm, No Edema, No JVD, Normal Peripheral Pulses Gastrointestinal: Abnormal Bowel Sounds, Distended, Tenderness Extremity: Normal Capillary Refill, Normal Inspection, Normal Range of Motion, No Pedal Edema Neurologic/Psychiatric: Other (sleeping) Skin: Normal Color, Warm/Dry Lymphatic: No Adenopathy Results/Procedures Lab Laboratory Tests 01/16/19 05:55 Patient resulted labs reviewed. Assessment/Plan Assessment and Plan Assess & Plan/Chief Complaint Assessment: Diagnostic laparoscopy, lysis of adhesions, reduction and repair of internal mesenteric herniation POD # [address] Enrico DOMINGO acute on recurrent Frail status DVT PPx Anemia Chronic UTI no need for treatment Poor nutrition requiring TPN Plan: Monitor SBO Appreciate Dr Weston PICC TPN Diagnosis/Problems Diagnosis/Problems (1) Small bowel obstruction Status: Acute (2) Frailty Status: Chronic (3) History of DVT (deep vein thrombosis) Status: Chronic (4) Hypertension Status: Chronic Qualifiers: Hypertension type: essential hypertension Qualified Codes: I10 - Essential (primary) hypertension (5) Anxiety Status: Chronic (6) COPD (chronic obstructive pulmonary disease) Status: Chronic Qualifiers: COPD type: unspecified COPD Qualified Codes: J44.9 - Chronic obstructive pulmonary disease, unspecified (7) Hyperlipidemia Status: Chronic Qualifiers: Hyperlipidemia type: mixed hyperlipidemia Qualified Codes: E78.2 - Mixed hyperlipidemia (8) Hyponatremia Status: Resolved Resolution Date/Time: 01/12/19 @ 20:13 Clinical Quality Measures DVT/VTE Risk/Contraindication: Risk Factor Score Per Nursin RFS Level Per Nursing on Admit: 2=Moderate ELVA MACDONALD DO January 16, 2019 10:26
--- NOTE | 2019-01-16 14:41 | Progress Note (SOAP) ---
Subjective Date Seen by a Provider: January 16, 2019 Time Seen by a Provider: 14:00 Subjective/Events-last exam doing well. tolerating clears. having BM's. states abdominal pain on ambulation but expected. Objective Exam Vital Signs Date Time Temp Pulse Resp B/P (MAP) Pulse Ox O2 Delivery O2 Flow Rate FiO2 01/16/19 08:00 98 Room Air 01/16/19 08:00 99.0 84 20 158/84 (108) 98 Room Air 01/16/19 00:38 98.0 92 18 135/61 (85) 99 Room Air 01/15/19 20:00 Room Air 01/15/19 16:59 95.9 95 18 127/60 (82) 95 Room Air 01/15/19 16:50 99.4 16 96 Room Air 01/15/19 16:40 16 98 OxyMask 3 01/15/19 16:30 16 100 10 01/15/19 16:20 16 100 OxyMask 10 01/15/19 16:10 16 100 OxyMask 10 01/15/19 16:00 16 100 OxyMask 10 01/15/19 15:51 98.8 17 100 OxyMask 10 I & O 01/16/19 07:00 Intake Total 5004 ml Output Total 2400 ml Balance 2604 ml Capillary Refill : Less Than 3 SecondsLess Than 3 Seconds General Appearance: No Apparent Distress HEENT: PERRL/EOMI Neck: Full Range of Motion Respiratory: Chest Non Tender, Lungs Clear Cardiovascular: Regular Rate, Rhythm Gastrointestinal: normal bowel sounds, soft, other (inc clean\dry) Extremity: Normal Capillary Refill Neurologic/Psychiatric: Alert Skin: Normal Color Lymphatic: No Adenopathy Results Lab Laboratory Tests 01/16/19 05:55: Sodium Level 138, Potassium Level 3.9, Chloride Level 104, Carbon Dioxide Level 27, Anion Gap 7, Blood Urea Nitrogen 8, Creatinine 0.64, Estimat Glomerular Filtration Rate > 60, BUN/Creatinine Ratio 13, Glucose Level 122H, Calcium Level 7.9L, Corrected Calcium 9.0, Phosphorus Level 2.2L, Magnesium Level 1.8, Total Bilirubin 0.1, Aspartate Amino Transf (AST/SGOT) 42H, Alanine Aminotransferase (ALT/SGPT) 51, Alkaline Phosphatase 114, Total Protein 5.0L, Albumin 2.6L Microbiology 01/14/19 MRSA Screen - Final, Complete MRSA not isolated 01/08/19 Urine Culture - Final, Complete Enterococcus faecalis Assessment/Plan Assessment/Plan Assess & Plan/Chief Complaint recurrent PSBO secondary adhesions. again resolving however transition point detected on [address] scans. s/p lap reduction and repair internal hernia. ambulate. advance diet. d/c TPN after current one hanging done. Clinical Quality Measures DVT/VTE Risk/Contraindication: Risk Factor Score Per Nursin RFS Level Per Nursing on Admit: 2=Moderate YESICA GODINEZ MD January 16, 2019 14:41
[2019-01-16 16:00] VITALS: BP 154/90
[2019-01-16] MEDS: NS IV 1000 ML 1,000 ML IV SCH (16:53)
[2019-01-16] MEDS ORDERED: SODIUM ACETATE IV SCH ×10 (17:00)
[2019-01-16] MEDS ORDERED: [UNRECOGNIZED DRUG - OTHER] IV SCH ×10 (17:00)
[2019-01-16] MEDS ORDERED: SODIUM CHLORIDE IV SCH ×10 (17:00)
--- NOTE | 2019-01-16 18:31 | NUR ---
PATIENT REPORTED THAT SHE IS PASSING GAS TODAY BUT HAS NOT HAD A BM OF THIS TIME
[2019-01-16] MEDS: ACETAMINOPHEN 325 MG TABLET PO PRN (23:53)
[2019-01-17 00:09] VITALS: BP 144/82
[2019-01-17 08:00] VITALS: BP 161/82
[2019-01-17] MEDS: ENOXAPARIN 60 MG/0.6 ML (LOVENOX) SYR SC SCH (08:11)
[2019-01-17] MEDS: ONDANSETRON 4 MG/2 ML (SDV) Z0FRAN IV PRN ×2 (09:57→15:26)
[2019-01-17] MEDS: fentaNYL INJECTION 100 MCG/2 ML AMP IVP PRN (09:59)
[2019-01-17] MEDS: LORazepam INJ 2 MG/ML (ATIVAN) VIAL IVP PRN (10:01)
--- NOTE | 2019-01-17 10:43 | Progress Note (SOAP) ---
Subjective Date Seen by a Provider: January 17, 2019 Time Seen by a Provider: 09:20 Subjective/Events-last exam Patient seen with Dr. Weston. Patient reports doing ok but having abdominal pain and nausea, but no vomiting. Tolerating diet. Patient says she is passing gas. No Fever/chills. Objective Exam Vital Signs Date Time Temp Pulse Resp B/P (MAP) Pulse Ox O2 Delivery O2 Flow Rate FiO2 01/17/19 08:20 Room Air 01/17/19 08:00 99.4 107 18 161/82 (108) 95 Room Air 01/17/19 00:09 98.7 114 20 144/82 (102) 96 Room Air 01/16/19 20:00 Room Air 01/16/19 16:00 97.3 99 18 154/90 (111) 97 Room Air I & O 01/17/19 07:00 Intake Total 4494.5 ml Output Total 2700 ml Balance 1794.5 ml Capillary Refill : Less Than 3 SecondsLess Than 3 Seconds General Appearance: No Apparent Distress, WD/WN Neck: Full Range of Motion, Normal Inspection, Non Tender, Supple Respiratory: Lungs Clear, No Accessory Muscle Use, No Respiratory Distress Cardiovascular: Regular Rate, Rhythm, No Edema Gastrointestinal: normal bowel sounds, soft, tenderness Extremity: Normal Capillary Refill, Non Tender, Pedal Edema (1+) Neurologic/Psychiatric: Alert, Oriented x3 Skin: Normal Color, Warm/Dry, Other (Lap incisions C/D/I) Results Lab Microbiology 01/14/19 MRSA Screen - Final, Complete MRSA not isolated 01/08/19 Urine Culture - Final, Complete Enterococcus faecalis Assessment/Plan Assessment/Plan Assess & Plan/Chief Complaint recurrent PSBO secondary adhesions. again resolving however transition point detected on [address] scans. s/p lap reduction and repair internal hernia. Continue with diet Ambulation. Will start PO pain meds. OK to DC. Clinical Quality Measures DVT/VTE Risk/Contraindication: Risk Factor Score Per Nursin RFS Level Per Nursing on Admit: 2=Moderate CHARLOTTE TAYLOR REPORTS DEVELOPER January 17, 2019 10:43
--- NOTE | 2019-01-17 10:48 | Progress Note-Hospitalist ---
Subjective HPI/CC On Admission Date Seen by Provider: January 17, 2019 Time Seen by Provider: 11:00 Objective Exam Vital Signs Vital Signs Date Time Temp Pulse Resp B/P (MAP) Pulse Ox O2 Delivery O2 Flow Rate FiO2 01/17/19 08:20 Room Air 01/17/19 08:00 99.4 107 18 161/82 (108) 95 01/15/19 16:40 3 Capillary Refill : Less Than 3 SecondsLess Than 3 Seconds General Appearance: No Apparent Distress, WD/WN HEENT: PERRL/EOMI, Normal ENT Inspection Neck: Full Range of Motion, Normal Inspection, Non Tender, Supple Respiratory: Lungs Clear, No Accessory Muscle Use, No Respiratory Distress Cardiovascular: Regular Rate, Rhythm, No Edema Gastrointestinal: Abnormal Bowel Sounds, Distended, Tenderness Extremity: Normal Capillary Refill, Non Tender, Pedal Edema (1+) Neurologic/Psychiatric: Alert, Oriented x3 Skin: Normal Color, Warm/Dry, Other (Lap incisions C/D/I) Lymphatic: No Adenopathy Results/Procedures Lab Patient resulted labs reviewed. Assessment/Plan Assessment and Plan Assess & Plan/Chief Complaint Assessment: Diagnostic laparoscopy, lysis of adhesions, reduction and repair of internal mesenteric herniation POD # [address] Weston SBLuz [place] acute on recurrent Frail status DVT PPx Anemia Chronic UTI no need for treatment Poor nutrition requiring TPN Plan: Monitor SBO Appreciate Dr Weston PICC TPN Diagnosis/Problems Diagnosis/Problems (1) Small bowel obstruction Status: Acute (2) Frailty Status: Chronic (3) History of DVT (deep vein thrombosis) Status: Chronic (4) Hypertension Status: Chronic Qualifiers: Hypertension type: essential hypertension Qualified Codes: I10 - Essential (primary) hypertension (5) Anxiety Status: Chronic (6) COPD (chronic obstructive pulmonary disease) Status: Chronic Qualifiers: COPD type: unspecified COPD Qualified Codes: J44.9 - Chronic obstructive pulmonary disease, unspecified (7) Hyperlipidemia Status: Chronic Qualifiers: Hyperlipidemia type: mixed hyperlipidemia Qualified Codes: E78.2 - Mixed hyperlipidemia (8) Hyponatremia Status: Resolved Resolution Date/Time: 01/12/19 @ 20:13 Clinical Quality Measures DVT/VTE Risk/Contraindication: Risk Factor Score Per Nursin RFS Level Per Nursing on Admit: 2=Moderate ELVA MACDONALD DO January 17, 2019 10:48
--- NOTE | 2019-01-17 11:44 | Discharge Summary-Hospitalist ---
Diagnosis/Chief Complaint Date of Admission January 08, 2019 at 14:00 Date of Discharge Discharge Date: January 17, 2019 Discharge Diagnosis (1) Small bowel obstruction Status: Resolved (2) Frailty Status: Chronic (3) History of DVT (deep vein thrombosis) Status: Chronic (4) Hypertension Status: Chronic (5) Anxiety Status: Chronic (6) COPD (chronic obstructive pulmonary disease) Status: Chronic (7) Hyperlipidemia Status: Chronic (8) Hyponatremia Status: Resolved Discharge Summary Discharge Physical Exam Allergies: Coded Allergies: codeine (Verified Allergy, Mild, N/V, PT HAS RECEIVED MORPHINE WITHOUT ISSUE, 12/31/18) PER [facility] (ICU) PT HAS RECEIVED MORPHINE WITHOUT PROBLEMS red (food color) (Verified Allergy, Mild, Shortness of Breath, 01/04/19) Iodinated Contrast- Oral and IV Dye (Verified Allergy, Unknown, 12/31/18) Penicillins (Verified Allergy, Unknown, 12/31/18) Sulfa (Sulfonamide Antibiotics) (Verified Allergy, Unknown, 12/31/18) cephalexin (Verified Allergy, Unknown, 12/31/18) citalopram (Verified Allergy, Unknown, 01/16/06) diphenhydramine (Verified Allergy, Unknown, 01/16/06) hydrocodone (Verified Allergy, Unknown, 12/31/18) levofloxacin (Verified Allergy, Unknown, 01/16/06) loratadine (Verified Allergy, Unknown, 12/31/18) metronidazole (Verified Allergy, Unknown, 01/16/06) morphine (Verified Allergy, Unknown, 01/01/19) nitrofurantoin (Verified Allergy, Unknown, 01/16/06) prochlorperazine (Verified Allergy, Unknown, 01/16/06) pseudoephedrine (Verified Allergy, Unknown, 01/16/06) soybean (Unverified Allergy, Unknown, 01/14/19) FROM UNCODED ALLERGIES zinc acetate (Verified Allergy, Unknown, 01/16/06) Vitals & I&Os Vital Signs Date Time Temp Pulse Resp B/P (MAP) Pulse Ox O2 Delivery O2 Flow Rate FiO2 01/17/19 08:20 Room Air 01/17/19 08:00 99.4 107 18 161/82 (108) 95 01/15/19 16:40 3 General Appearance: No Apparent Distress, WD/WN, Chronically ill Respiratory: Chest Non Tender, Lungs Clear, Normal Breath Sounds, No Accessory Muscle Use, No Respiratory Distress Cardiovascular: Regular Rate, Rhythm, No Edema, No Gallop, No JVD, No Murmur, Normal Peripheral Pulses Neurologic/Psychiatric: Alert, Oriented x3, No Motor/Sensory Deficits, Normal Mood/Affect Hospital Course Was the Problem List Reviewed?: Yes Hospital course: Patient had a lengthy hospital course for 10 days due to recurrent small bowel obstruction. She was placed on TPN. Supportive care provided to Dr. Weston was consulted. Overall patient remained very frail as she was before admission but did undergo a small bowel obstruction surgical procedure by Dr. Weston that was uncomplicated. TPN was maintained and transition to oral nutrition. Overall patient made a dramatic improvement and was able to be discharged with close follow-up with primary care provider and Dr. Weston. Daughter at the bedside understood and agreed with the plan. Labs (last 24 hrs) Microbiology 01/14/19 MRSA Screen - Final, Complete MRSA not isolated 01/08/19 Urine Culture - Final, Complete Enterococcus faecalis Patient resulted labs reviewed. Discussion & Recommendations Discharge Planning: <30 minutes discharge planning Discharge Home Medications: Active Scripts Active Cefdinir 300 Mg Capsule 300 Mg PO BID Reported Tylenol (Acetaminophen) 325 Mg Tablet 650 Mg PO Q4H PRN TAKES 2 (325MG) TABLETS Melatonin 5 Mg Capsule 5 Mg PO HS Zofran (Ondansetron HCl) 4 Mg Tab 4 Mg PO Q8H PRN Mylanta Suspension (Al Hydrox/Mg Hydrox/Simethicone) 30 Ml Oral.susp 15 Ml PO Q8H PRN Xanax (Alprazolam) 0.5 Mg Tablet 0.5 Mg PO Q8H PRN Breo Ellipta 100-25 Mcg INH (Fluticasone/Vilanterol) 1 Each Blst.w.dev 1 Puff INH DAILY Probiotic (L.acidoph & Paracasei,B.lactis) 1 Each Capsule 1 Cap PO DAILY Vitamin B-12 (Cyanocobalamin (Vitamin B-12)) 1,000 Mcg Tablet 1,000 Mcg PO 1700 Folic Acid 1 Mg Tablet 1 Mg PO DAILY Multivitamins (Multivitamin) 1 Each Tablet 1 Tab PO 1200 Potassium Chloride 20 Meq Tab.er.prt 20 Meq PO DAILY Famotidine 20 Mg Tablet 20 Mg PO 1900 Metoprolol Tartrate 25 Mg Tablet 12.5 Mg PO BID TAKES 1/2 (25MG) TABLET Vitamin B-Complex & C (B Complex with Vitamin C) 1 Each Tablet.er 1 Tab PO DAILY Eliquis (Apixaban) 5 Mg Tablet 5 Mg PO DAILY Alprazolam 0.5 Mg Tablet 0.5 Mg PO HS Amitriptyline HCl 10 Mg Tablet 20 Mg PO HS TAKES 2 (10MG) TABLETS Instructions to patient/family Please see electronic discharge instructions given to patient. Clinical Quality Measures DVT/VTE Risk/Contraindication: Risk Factor Score Per Nursin RFS Level Per Nursing on Admit: 2=Moderate Problem Qualifiers (1) Hypertension: Hypertension type: essential hypertension Qualified Codes: I10 - Essential ( primary) hypertension (2) COPD (chronic obstructive pulmonary disease): COPD type: unspecified COPD Qualified Codes: J44.9 - Chronic obstructive pulmonary disease, unspecified (3) Hyperlipidemia: Hyperlipidemia type: mixed hyperlipidemia Qualified Codes: E78.2 - Mixed hyperlipidemia ELVA MACDONALD DO January 17, 2019 11:44
[2019-01-17 16:30] VITALS: BP 161/82
--- NOTE | 2019-01-17 16:30 | NUR ---
Discharge instructions given to patient and daughter. Both verbalize understanding. IV removed. PCT assisted patient to vehicle in wheelchair.
== END 2019-01-17 16:30 | disposition home or self-care (01) | DRG 357 ==
LOC: EDUNIT# 13:13 → ER FS 13:15 → 4TH 14:00
PROVIDERS: ADMIT Family Medicine; ATTEND Family Medicine
PROC: 0D9670Z Drainage of Stomach with Drainage Device, Via Natural or Artificial Opening (ICD-10-PCS; 2019-01-08)
PROC: 0DQV4ZZ Repair Mesentery, Percutaneous Endoscopic Approach (ICD-10-PCS; principal; 2019-01-15 14:06)
DX: K45.0 Other specified abdominal hernia with obstruction, without gangrene (principal); N17.9 Acute kidney failure, unspecified; E87.1 Hypo-osmolality and hyponatremia; E46 Unspecified protein-calorie malnutrition; E83.42 Hypomagnesemia; K21.9 Gastro-esophageal reflux disease without esophagitis; E87.6 Hypokalemia; I10 Essential (primary) hypertension; F41.9 Anxiety disorder, unspecified; F32.9 Major depressive disorder, single episode, unspecified; E78.5 Hyperlipidemia, unspecified; J44.9 Chronic obstructive pulmonary disease, unspecified; Z90.49 Acquired absence of other specified parts of digestive tract; Z85.41 Personal history of malignant neoplasm of cervix uteri
CPT/HCPCS: 36415; 36569; 71045; 74019; 74176; 76937; 80048; 80053; 81000; 83690; 83735; 84100; 84134; 84478; 85025; 85027; 87077; 87081; 87088; 87186; 96361; 96374; 96375; 96376

== ENCOUNTER 2019-01-25 10:06 | Emergency (ER) | payer MEDICARE, MEDICAID ==
[~2019-01-25] VITALS: Ht 175.3 cm; Wt 54.4 kg
--- NOTE | 2019-01-25 10:54 | ED Abdominal Pain ---
General Chief Complaint: Abdominal/GI Problems Stated Complaint: PT THINKS SHE IS DEHYDRATED Nursing Triage Note: Patient reports she was discharged from [facility] in [place] on January 17 after a laproscopic abdominal surgery. She reports she had diarrhea following surgery until Saturday, has not had bowel movement since Saturday. She reports she drank prune juice this morning because she believes she is constipated. She also believes she is dehydrated and that her electrolytes are "out of whack." States she has been eating and drinking well, denies any nausea/vomiting, reports diffuse abdominal tenderness/soreness, lap sites x 4 pink, dry, and intact. Sepsis Screen: Possible Sepsis Risk History of Present Illness Date Seen by Provider: January 25, 2019 Time Seen by Provider: 10:51 Initial Comments Patient is a 68-year-old female who comes to the emergency department today complaining of some nausea and feeling dehydrated. She has had some dizziness and feeling lightheaded over the last 24 hours. The patient has recent history of surgery. She was discharged from another hospital in [place] a days earlier after she underwent laparoscopic takedown of adhesions. She does have a remote history of some colon surgery. Patient states she has been doing well at home until the last couple of days. She has had some nausea but no emesis. She is passing stool and flatus. No fever or chills. No chest pain or shortness of breath. Allergies and Home Medications Allergies Coded Allergies: codeine (Verified Allergy, Mild, N/V, PT HAS RECEIVED MORPHINE WITHOUT ISSUE, 12/31/18) PER [facility] (ICU) PT HAS RECEIVED MORPHINE WITHOUT PROBLEMS red (food color) (Verified Allergy, Mild, Shortness of Breath, 01/04/19) Iodinated Contrast- Oral and IV Dye (Verified Allergy, Unknown, 12/31/18) Penicillins (Verified Allergy, Unknown, 12/31/18) Sulfa (Sulfonamide Antibiotics) (Verified Allergy, Unknown, 12/31/18) cephalexin (Verified Allergy, Unknown, 12/31/18) citalopram (Verified Allergy, Unknown, 01/16/06) diphenhydramine (Verified Allergy, Unknown, 01/16/06) hydrocodone (Verified Allergy, Unknown, 12/31/18) levofloxacin (Verified Allergy, Unknown, 01/16/06) loratadine (Verified Allergy, Unknown, 12/31/18) metronidazole (Verified Allergy, Unknown, 01/16/06) morphine (Verified Allergy, Unknown, 01/01/19) nitrofurantoin (Verified Allergy, Unknown, 01/16/06) prochlorperazine (Verified Allergy, Unknown, 01/16/06) pseudoephedrine (Verified Allergy, Unknown, 01/16/06) soybean (Unverified Allergy, Unknown, 01/14/19) FROM UNCODED ALLERGIES zinc acetate (Verified Allergy, Unknown, 01/16/06) Home Medications Acetaminophen 325 Mg Tablet, 650 MG PO Q4H PRN for PAIN-MILD, (Reported) TAKES 2 (325MG) TABLETS Alprazolam 0.5 Mg Tablet, 0.5 MG PO HS, (Reported) Alprazolam 0.5 Mg Tablet, 0.5 MG PO Q8H PRN for ANXIETY, (Reported) Amitriptyline HCl 10 Mg Tablet, 20 MG PO HS, (Reported) TAKES 2 (10MG) TABLETS Apixaban 5 Mg Tablet, 5 MG PO DAILY, (Reported) B Complex with Vitamin C 1 Each Tablet.er, 1 TAB PO DAILY, (Reported) Cefdinir 300 Mg Capsule, 300 MG PO BID Prescribed by: ALONSO VASQUEZ on 01/05/19 1203 Cyanocobalamin (Vitamin B-12) 1,000 Mcg Tablet, 1,000 MCG PO 1700, (Reported) Docusate Sodium 100 Mg Capsule, 100 MG PO BID Prescribed by: ESPERANZA RIVERA on 01/25/19 1311 Famotidine 20 Mg Tablet, 20 MG PO 1900, (Reported) Fluticasone/Vilanterol 1 Each Blst.w.dev, 1 PUFF INH DAILY, (Reported) Folic Acid 1 Mg Tablet, 1 MG PO DAILY, (Reported) L.acidoph & Paracasei,B.lactis 1 Each Capsule, 1 CAP PO DAILY, (Reported) Mag Hydrox/Al Hydrox/Simeth 30 Ml Oral.susp, 15 ML PO Q8H PRN for STOMACH UPSET, (Reported) Melatonin 5 Mg Capsule, 5 MG PO HS, (Reported) Metoprolol Tartrate 25 Mg Tablet, 12.5 MG PO BID, (Reported) TAKES 1/2 (25MG) TABLET Multivitamin 1 Each Tablet, 1 TAB PO 1200, (Reported) Ondansetron HCl 4 Mg Tab, 4 MG PO Q8H PRN for NAUSEA/VOMITING-1ST LINE, (Reported) Potassium Chloride 20 Meq Tab.er.prt, 20 MEQ PO DAILY, (Reported) Patient Home Medication List Home Medication List Reviewed: Yes Review of Systems Review of Systems Constitutional: dizziness, weakness Respiratory: No Symptoms Reported Cardiovascular: No Symptoms Reported Gastrointestinal: Abdomen Distended Genitourinary: No Symptoms Reported Musculoskeletal: no symptoms reported Skin: no symptoms reported All Other Systems Reviewed Negative Unless Noted: Yes Past Rejthqv-Dfihjo-Tsooyq Hx Patient Social History 2nd Hand Smoke Exposure: No Recent Foreign Travel: No Contact w/Someone Who Travel: No Recent Infectious Disease Expo: Yes Recent Hopitalizations: Yes Seasonal Allergies Seasonal Allergies: No Past Medical History Surgeries: Yes (ORAL, COLON RESECTION) Section, Gallbladder Respiratory: No Cardiac: No Neurological: No Genitourinary: No Gastrointestinal: Yes Gastroesophageal Reflux, Obstructive Bowel Musculoskeletal: No Endocrine: No HEENT: No Cancer: Yes Cervical Did You Recieve Any Treatments: No Psychosocial: Yes Anxiety, Depression Integumentary: No Blood Disorders: No Adverse Reaction/Blood Tranf: No Family Medical History Heart Disease, Cancer, Diabetes Physical Exam Vital Signs Vital Signs - First Documented 01/25/19 10:32 Temp 100.3 Pulse 111 Resp 18 B/P (MAP) 166/99 (121) Pulse Ox 98 O2 Delivery Room Air Capillary Refill : Less Than 3 Seconds Height/Weight/BMI Height: 5'9.00" Weight: 120lbs. 0.0oz. [id number]; 18.6 BMI Method:Stated General Appearance: WD/WN, no apparent distress HEENT: normal ENT inspection, TMs normal, pharynx normal Neck: full range of motion Respiratory: chest non-tender Cardiovascular: regular rate, rhythm Gastrointestinal: normal bowel sounds, non tender, soft (well healing incisions from laparoscopic surgery. No local erythema or drainage or dehiscence) Extremities: normal range of motion Back: normal inspection Neurologic/Psychiatric: normal mood/affect, oriented x 3 Skin: normal color Progress/Results/Core Measures Results/Orders Lab Results Laboratory Tests Test 01/25/19 12:00 01/25/19 12:15 Range/Units Urine Color YELLOW Urine Clarity CLEAR Urine pH 5.5 5-9 Urine Specific [place] 1.010 L 1.016-1.022 Urine Protein NEGATIVE NEGATIVE Urine Glucose (UA) NEGATIVE NEGATIVE Urine Ketones NEGATIVE NEGATIVE Urine Nitrite NEGATIVE NEGATIVE Urine Bilirubin NEGATIVE NEGATIVE Urine Urobilinogen 0.2 NORMAL MG/DL Urine Leukocyte Esterase NEGATIVE NEGATIVE Urine RBC (Auto) NEGATIVE NEGATIVE Urine RBC NONE /HPF Urine WBC 0-2 /HPF Urine Squamous Epithelial Cells RARE /HPF Urine Crystals NONE /LPF Urine Bacteria TRACE /HPF Urine Casts NONE /LPF Urine Mucus NEGATIVE /LPF Urine Culture Indicated NO White Blood Count 7.6 4.3-11.0 10^3/uL Red Blood Count 4.00 L 4.35-5.85 10^6/uL Hemoglobin 12.3 11.5-16.0 G/DL Hematocrit 38 35-52 % Mean Corpuscular Volume 96 80-99 FL Mean Corpuscular Hemoglobin 31 25-34 PG Mean Corpuscular Hemoglobin Concent 32 32-36 G/DL Red Cell Distribution Width 15.2 H 10.0-14.5 % Platelet Count 462 H 130-400 10^3/uL Mean Platelet Volume 10.2 7.4-10.4 FL Neutrophils (%) (Auto) 69 42-75 % Lymphocytes (%) (Auto) 18 12-44 % Monocytes (%) (Auto) 10 0-12 % Eosinophils (%) (Auto) 2 0-10 % Basophils (%) (Auto) 1 0-10 % Neutrophils # (Auto) 5.3 1.8-7.8 X 10^3 Lymphocytes # (Auto) 1.4 1.0-4.0 X 10^3 Monocytes # (Auto) 0.8 0.0-1.0 X 10^3 Eosinophils # (Auto) 0.1 0.0-0.3 10^3/uL Basophils # (Auto) 0.1 0.0-0.1 10^3/uL Sodium Level 140 135-145 MMOL/L Potassium Level 4.3 3.6-5.0 MMOL/L Chloride Level 98 98-107 MMOL/L Carbon Dioxide Level 29 21-32 MMOL/L Anion Gap 13 5-14 MMOL/L Blood Urea Nitrogen 15 7-18 MG/DL Creatinine 0.73 0.60-1.30 MG/DL Estimat Glomerular Filtration Rate > 60 BUN/Creatinine Ratio 21 Glucose Level 110 H 70-105 MG/DL Calcium Level 9.4 8.5-10.1 MG/DL Corrected Calcium 9.2 8.5-10.1 MG/DL Total Bilirubin 0.3 0.1-1.0 MG/DL Aspartate Amino Transf (AST/SGOT) 43 H 5-34 U/L Alanine Aminotransferase (ALT/SGPT) 33 0-55 U/L Alkaline Phosphatase 127 40-136 U/L Total Protein 7.6 6.4-8.2 GM/DL Albumin 4.2 3.2-4.5 GM/DL My Orders Orders - ESPERANZA RIVERA DO Cbc With Automated Diff (01/25/19 10:50) Lipase (01/25/19 10:50) Urinalysis (01/25/19 10:50) Ondansetron Injection (Zofran Injectio (01/25/19 11:00) Ct Abdomen/Pelvis Wo (01/25/19 10:56) Comprehensive Metabolic Panel (01/25/19 10:50) Ns Iv 1000 Ml (Sodium Chloride 0.9%) (01/25/19 12:45) Acetaminophen Tablet (Tylenol Tablet) (01/25/19 13:30) Medications Given in ED Current Medications Medications Dose Ordered Sig/Bhavna Route Start Time Stop Time Status Last Admin Dose Admin Ondansetron HCl 4 mg ONCE ONCE IVP 01/25/19 11:00 01/25/19 11:01 DC 01/25/19 12:24 4 MG Vital Signs/I&O 01/25/19 10:32 Temp 100.3 Pulse 111 Resp 18 B/P (MAP) 166/99 (121) Pulse Ox 98 O2 Delivery Room Air Blood Pressure Mean: 121 Progress Progress Note : Time: 10:54 Progress Note Patient is seen and examined. Overall, she is very well appearing. Her abdomen is soft and nontender to manipulation or palpation. Her incisions are well- appearing. Today, will check CT scan as the patient fears she is having a recurrence of small bowel obstruction. We'll also check basic labs and give IV fluids. Zofran for nausea. 12:55: Patient currently feeling improved. She has received some IV fluids and some Zofran. Her workup today does not reveal any leukocytosis. Her CT scan is normal postoperative changes with possibly some constipation. I discussed all the findings with the patient. The patient primarily has a lot of anxiety about her health conditions but she does not have any acute findings today that would warrant admission to the hospital. I discussed with her about constipation and things to do to help this. She was noted to have a mild elevated temperature during the ER course but her white blood cell count was normal, she was nontoxic appearing. Her urinalysis is normal. Her lungs are clear and she has no respiratory complaints. Her abdomen is soft and nontender and her CT scan does not reveal any acute findings. She will be discharged from the ER today with some Colace to take twice daily over the next 5-7 days. Her incisions are very well appearing. She is advised also to follow up with her surgeon and primary care doctor as directed. Departure Impression Primary Impression: Abdominal wall pain Disposition: 01 HOME, SELF-CARE Condition: Improved Departure-Patient Inst. Referrals: SELF,NEYDA GONZALEZ (PCP/Family) Primary Care Physician Scripts Docusate Sodium (Docusate Sodium) 100 Mg Capsule 100 MG PO BID for 15 Days, CAP Prov: ESPERANZA RIVERA DO 01/25/19 ESPERANZA RIVERA DO January 25, 2019 10:54
[2019-01-25] MEDS ORDERED: ONDANSETRON 4 MG/2 ML (SDV) Z0FRAN IVP ONE (11:00)
--- NOTE | 2019-01-25 11:45 | Diagnostic Imaging Report ---
PROCEDURE: CT abdomen and pelvis without contrast. TECHNIQUE: Multiple contiguous axial images were obtained through the abdomen and pelvis without the use of intravenous contrast. Auto Exposure Controls were utilized during the CT exam to meet ALARA standards for radiation dose reduction. INDICATION: Abdominal pain with nausea and vomiting. Previous laparoscopic abdominal surgery. Evaluate for small bowel obstruction. Past surgical history of laparoscopy, cholecystectomy, bladder surgery, and colonic resection. COMPARISON: Comparison is made with a prior CT study from December 31, 2018 and abdominal films from January 09, 2019. FINDINGS: The lung bases demonstrate a stable granuloma at the left lower lobe with some adjacent pleural thickening. There is no new infiltrate or evidence of an effusion. Noncontrast appearance of the liver remains unremarkable. There are surgical clips related to previous cholecystectomy. The spleen is normal in size. The pancreas is unremarkable. There are no findings of an adrenal mass. There is a punctate calcification in the right kidney. There is no hydronephrosis. The prior comparison examination demonstrated a small bowel obstruction with an apparent transition within the left pelvis at the level of prior anastomotic sutures. The sutures are no longer present on today's examination, and there are new small bowel chain sutures now demonstrated within the right pelvis. There is some mild prominence and fecalization of loops of small bowel on today's examination, though these are improved from the prior examination, and there is now a very large degree of stool demonstrated throughout the colon with fluid-filled stool contents throughout the right colon and transverse colon, and a large degree of stool within the colon to the level of the rectum. There is no definable abscess or free fluid. There is no pneumatosis or evidence of free air. Patient is status post hysterectomy. Urinary bladder is mildly distended. There are no pathologically enlarged lymph nodes evident. There are advanced degenerative features present within the spine without evidence of an acute or suspicious osseous abnormality. IMPRESSION: 1. There are new small bowel anastomotic sutures now demonstrated within the right hemipelvis. The prior surgical sutures within the left pelvis which were believed to be the level of obstruction on the prior comparison examination are no longer evident. The small bowel remains mildly prominent on today's study proximal to these new sutures, but the degree of small bowel dilatation is significantly diminished from the previous exam. There is now a large degree of both liquid and formed stool demonstrated throughout the colon with marked colonic distention. There is no abnormal colonic thickening. The findings suggest severe constipation, and the prominence of the small bowel may reflect some fecalization of small bowel loops due to delayed enteric transit. There are no definitive findings of a high-grade small bowel obstruction on today's exam. There is no evidence to suggest free air, free fluid, abscess, or pneumatosis. Dictated by: Dictated on workstation # [id number]
[2019-01-25 12:13] LABS: BACTERIA,URINE TRACE /HPF; BILIRUBIN,URINE NEGATIVE (NEGATIVE); CLARITY,URINE CLEAR; COLOR,URINE YELLOW; GLUCOSE, URINE (UA) NEGATIVE (NEGATIVE); KETONES,URINE NEGATIVE (NEGATIVE); LEUKOCYTE ESTERASE ,URINE NEGATIVE (NEGATIVE); NITRITE,URINE NEGATIVE (NEGATIVE); PH,URINE 5.5 (5-9); PROTEIN,URINE NEGATIVE (NEGATIVE); SQUAMOUS EPITHELIAL CELL,UR RARE /HPF; UROBILINOGEN,URINE 0.2 MG/DL (NORMAL); WBC,URINE 0-2 /HPF
[2019-01-25 12:30] LABS: HEMATOCRIT 38 % (35-52); HEMOGLOBIN 12.3 G/DL (11.5-16.0); MEAN CORPUSCULAR HEMOGLOBIN 31 PG (25-34); MEAN CORPUSCULAR HGB CONC 32 G/DL (32-36); MEAN CORPUSCULAR VOLUME 96 FL (80-99); MEAN PLATELET VOLUME 10.2 FL (7.4-10.4); NEUTROPHILS % (AUTO) 69 % (42-75); PLATELET COUNT 462 10^3/uL (130-400); RED CELL DISTRIBUTION WIDTH 15.2 % (10.0-14.5); WHITE BLOOD COUNT 7.6 10^3/uL (4.3-11.0)
[2019-01-25 12:31] LABS: BASOPHILS # (AUTO) 0.1 10^3/uL (0.0-0.1); BASOPHILS % (AUTO) 1 % (0-10); EOSINOPHILS # (AUTO) 0.1 10^3/uL (0.0-0.3); EOSINOPHILS % (AUTO) 2 % (0-10); LYMPHOCYTES # (AUTO) 1.4 X 10^3 (1.0-4.0); LYMPHOCYTES % (AUTO) 18 % (12-44); MONOCYTES # (AUTO) 0.8 X 10^3 (0.0-1.0); MONOCYTES % (AUTO) 10 % (0-12); NEUTROPHILS # (AUTO) 5.3 X 10^3 (1.8-7.8)
[2019-01-25] MEDS ORDERED: NS IV 1000 ML 1,000 ML IV SCH (12:45)
[2019-01-25 12:49] LABS: ALANINE AMINOTRANSFERASE 33 U/L (0-55); ALKALINE PHOSPHATASE 127 U/L (40-136); BILIRUBIN,TOTAL 0.3 MG/DL (0.1-1.0); BUN/CREATININE RATIO 21; CALCIUM 9.4 MG/DL (8.5-10.1); CARBON DIOXIDE 29 MMOL/L (21-32); CHLORIDE 98 MMOL/L (98-107); CREATININE SERUM 0.73 MG/DL (0.60-1.30); GFR ESTIMATED > 60; GLUCOSE 110 MG/DL (70-105); POTASSIUM 4.3 MMOL/L (3.6-5.0); SODIUM 140 MMOL/L (135-145)
[2019-01-25 12:50] LABS: ALBUMIN 4.2 GM/DL (3.2-4.5); TOTAL PROTEIN 7.6 GM/DL (6.4-8.2)
[2019-01-25] MEDS ORDERED: DOCU100C37 PO (13:11)
[2019-01-25 13:19] LABS: LIPASE 44 U/L (8-78)
[2019-01-25] MEDS ORDERED: ACETAMINOPHEN 500 MG TAB (TYLENOL) PO ONE (13:30)
[2019-01-25 14:30] VITALS: BP 146/93
== END 2019-01-25 14:30 | disposition home or self-care (01) ==
LOC: EDUNIT# 10:06 → ER FS 10:07
DX: R10.9 Unspecified abdominal pain (principal); K21.9 Gastro-esophageal reflux disease without esophagitis; F41.9 Anxiety disorder, unspecified; F32.9 Major depressive disorder, single episode, unspecified; Z85.41 Personal history of malignant neoplasm of cervix uteri; Z87.19 Personal history of other diseases of the digestive system; Z88.5 Allergy status to narcotic agent; Z88.0 Allergy status to penicillin; Z91.041 Radiographic dye allergy status; Z90.49 Acquired absence of other specified parts of digestive tract; Z88.2 Allergy status to sulfonamides; Z88.8 Allergy status to other drugs, medicaments and biological substances; Z79.01 Long term (current) use of anticoagulants; Z79.51 Long term (current) use of inhaled steroids; Z98.890 Other specified postprocedural states
CPT/HCPCS: 36415; 74176; 80053; 81000; 83690; 85025; 96361; 96374

== ENCOUNTER 2019-01-29 18:06 | Emergency (ER) | payer MEDICARE, MEDICAID ==
[~2019-01-29] VITALS: Ht 175.3 cm; Wt 53.1 kg
[~2019-01-29 18:06] MED LIST changes: +DOCU100C37 PO
--- NOTE | 2019-01-29 19:08 | ED Head Injury ---
General Chief Complaint: Trauma-Non Activation Stated Complaint: LT SIDE OF HEAD INJ Source: patient, family Exam Limitations: other (meomory impairment) History of Present Illness Date Seen by Provider: January 29, 2019 Time Seen by Provider: 19:03 Initial Comments Patient is a 68-year-old retirement patient well-known to this facility who presents with head injury and neck pain after following at local retirement. Patient does not recall when she fell at the cause of fall. She did fall striking her head and has a large contusion over her right forehead. She reports mild headache. Patient does suffer from chronic nausea and vomiting and has vomited once prior to today. She denies focal extremity weakness or loss of sensation. She denies midline neck pain bony tenderness and midline back pain. No history of seizure disorder. Patient is currently on Eliquis. Patient is recovering from recent abdominal laparoscopic surgery for treatment of small bowel obstruction with lysis of adhesions. Patient denies empties or complaints related to surgery. Additional history obtained by the patient's daughter who is present at bedside. Occurred: yesterday Severity: mild Location: frontal Method of Injury: fell Loss of Consciousness: no loss of consciousness Associated Systoms: No Chest Pain, No Cough, No Diaphoresis; Headaches; No Loss of Appetite, No Malaise; Nausea/Vomiting; No Seizure, No Shortness of Air, No Weakness Allergies and Home Medications Allergies Coded Allergies: codeine (Verified Allergy, Mild, N/V, PT HAS RECEIVED MORPHINE WITHOUT ISSUE, 12/31/18) PER [facility] (ICU) PT HAS RECEIVED MORPHINE WITHOUT PROBLEMS red (food color) (Verified Allergy, Mild, Shortness of Breath, 01/04/19) Iodinated Contrast- Oral and IV Dye (Verified Allergy, Unknown, 12/31/18) Penicillins (Verified Allergy, Unknown, 12/31/18) Sulfa (Sulfonamide Antibiotics) (Verified Allergy, Unknown, 12/31/18) cephalexin (Verified Allergy, Unknown, 12/31/18) citalopram (Verified Allergy, Unknown, 01/16/06) diphenhydramine (Verified Allergy, Unknown, 01/16/06) hydrocodone (Verified Allergy, Unknown, 12/31/18) levofloxacin (Verified Allergy, Unknown, 01/16/06) loratadine (Verified Allergy, Unknown, 12/31/18) metronidazole (Verified Allergy, Unknown, 01/16/06) morphine (Verified Allergy, Unknown, 01/01/19) nitrofurantoin (Verified Allergy, Unknown, 01/16/06) prochlorperazine (Verified Allergy, Unknown, 01/16/06) pseudoephedrine (Verified Allergy, Unknown, 01/16/06) soybean (Unverified Allergy, Unknown, 01/14/19) FROM UNCODED ALLERGIES zinc acetate (Verified Allergy, Unknown, 01/16/06) Home Medications Acetaminophen 325 Mg Tablet, 650 MG PO Q4H PRN for PAIN-MILD, (Reported) TAKES 2 (325MG) TABLETS Alprazolam 0.5 Mg Tablet, 0.5 MG PO HS, (Reported) Alprazolam 0.5 Mg Tablet, 0.5 MG PO Q8H PRN for ANXIETY, (Reported) Amitriptyline HCl 10 Mg Tablet, 20 MG PO HS, (Reported) TAKES 2 (10MG) TABLETS Apixaban 5 Mg Tablet, 5 MG PO DAILY, (Reported) B Complex with Vitamin C 1 Each Tablet.er, 1 TAB PO DAILY, (Reported) Cefdinir 300 Mg Capsule, 300 MG PO BID Prescribed by: ALONSO VASQUEZ on 01/05/19 1203 Cyanocobalamin (Vitamin B-12) 1,000 Mcg Tablet, 1,000 MCG PO 1700, (Reported) Docusate Sodium 100 Mg Capsule, 100 MG PO BID Prescribed by: ESPERANZA RIVERA on 01/25/19 1311 Famotidine 20 Mg Tablet, 20 MG PO 1900, (Reported) Fluticasone/Vilanterol 1 Each Blst.w.dev, 1 PUFF INH DAILY, (Reported) Folic Acid 1 Mg Tablet, 1 MG PO DAILY, (Reported) L.acidoph & Paracasei,B.lactis 1 Each Capsule, 1 CAP PO DAILY, (Reported) Mag Hydrox/Al Hydrox/Simeth 30 Ml Oral.susp, 15 ML PO Q8H PRN for STOMACH UPSET, (Reported) Melatonin 5 Mg Capsule, 5 MG PO HS, (Reported) Metoprolol Tartrate 25 Mg Tablet, 12.5 MG PO BID, (Reported) TAKES 1/2 (25MG) TABLET Multivitamin 1 Each Tablet, 1 TAB PO 1200, (Reported) Ondansetron HCl 4 Mg Tab, 4 MG PO Q8H PRN for NAUSEA/VOMITING-1ST LINE, (Reported) Potassium Chloride 20 Meq Tab.er.prt, 20 MEQ PO DAILY, (Reported) Patient Home Medication List Home Medication List Reviewed: Yes Review of Systems Review of Systems Constitutional: no symptoms reported Eyes: No Symptoms Reported Ears, Nose, Mouth, Throat: no symptoms reported Respiratory: no symptoms reported Cardiovascular: no symptoms reported Gastrointestinal: nausea, vomiting Genitourinary: no symptoms reported Musculoskeletal: muscle pain, neck pain Psychiatric/Neurological: No Symptoms Reported Endocrine: No Symptoms Reported Hematologic/Lymphatic: No Symptoms Reported Past Gxeuaxa-Kabcaq-Njbbyr Hx Past Med/Social Hx: Reviewed Nursing Past Med/Soc Hx Patient Social History 2nd Hand Smoke Exposure: No Recent Foreign Travel: No Contact w/Someone Who Travel: No Recent Hopitalizations: Yes Seasonal Allergies Seasonal Allergies: No Past Medical History Surgeries: Yes (ORAL, COLON RESECTION) Section, Gallbladder Respiratory: No Cardiac: No Neurological: No Genitourinary: No Gastrointestinal: Yes Gastroesophageal Reflux, Obstructive Bowel Musculoskeletal: No Endocrine: No HEENT: No Cancer: Yes Cervical Did You Recieve Any Treatments: No Psychosocial: Yes Anxiety, Depression Integumentary: No Blood Disorders: No Adverse Reaction/Blood Tranf: No Family Medical History Heart Disease, Cancer, Diabetes Physical Exam Vital Signs Vital Signs - First Documented 01/29/19 18:46 Temp 96.7 Pulse 121 Resp 20 B/P (MAP) 175/98 (123) Pulse Ox 95 O2 Delivery Room Air Capillary Refill : Height, Weight, BMI Height: 5'9.00" Weight: 120lbs. 0.0oz. [id number]; 18.6 BMI Method:Stated General Appearance: WD/WN, no apparent distress HEENT: PERRL/EOMI, normal ENT inspection, TMs normal, pharynx normal Neck: non-tender, full range of motion, supple, other (R sided forehead contusion) Cardiovascular: normal peripheral pulses, regular rate, rhythm Respiratory: chest non-tender, lungs clear, normal breath sounds Gastrointestinal: normal bowel sounds, soft Back: no CVA tenderness, no vertebral tenderness Extremities: normal range of motion, non-tender Psychiatric: alert Coordination/Gait: normal gait Motor/Sensory: no motor deficit, no sensory deficit Progress/Results/Core Measures Results/Orders Lab Results Laboratory Tests Test 01/29/19 19:09 Range/Units Glucometer 112 H 70-110 MG/DL My Orders Orders - BREE ORTIZ DO Ct Head/Cervical Spine Wo (01/29/19 19:02) Accucheck Achs ACHS (01/29/19 19:31) Vital Signs/I&O 01/29/19 18:46 Temp 96.7 Pulse 121 Resp 20 B/P (MAP) 175/98 (123) Pulse Ox 95 O2 Delivery Room Air Departure Communication (Admissions) CT head and cervical spine do not show acute intracranial or cervical spine injury. Patient ambulates with steady gait. Will discharge to retirement facility with neuro checks over the next 24 hours with PCP follow-up the next 1- 2 days. Return precautions reviewed Impression Primary Impression: Concussion Additional Impression: Minor closed head injury Disposition: 01 HOME, SELF-CARE Condition: Stable/Unchanged Departure-Patient Inst. Decision time for Depature: 19:55 Referrals: SELFNEYDA MD (PCP/Family) Primary Care Physician Patient Instructions: Concussion, Adult (DC), Head Injury Observation (DC) Add. Discharge Instructions: was evaluated in the emergency department for head injury. CT head and neck were performed and do not show evidence of intracranial head or cervical spine injury. Please preform neuro-checks on every 4 hours for the next 24 hours and follow-up with her retirement attending in the next 1-2 days for reevaluation. All discharge instructions reviewed with patient and/or family. Voiced understanding. BREE ORTIZ DO January 29, 2019 19:08
--- NOTE | 2019-01-29 19:48 | Diagnostic Imaging Report ---
CLINICAL INDICATION: Patient has hematoma to left side of forehead. Patient does not remember what happened but states she did not fall or get hit with anything. Exam: Head CT without IV contrast. Axial CT scan of the cervical spine with sagittal and coronal reformations. Comparison: None. Findings: Head CT: There is skull streak artifact which obscures portions of brainstem and posterior fossa and portions of the brain and skull base. There is no evidence of acute cerebral infarct, intracranial hemorrhage, or gross mass effect. The brain parenchymal volume appears appropriate for patient's age. There is subtle patchy areas of low-attenuation white matter changes involving both cerebral hemispheres, likely representing chronic small vessel ischemic disease. There is normal aguilera-white matter distinction. There is no significant midline shift or herniation. There is no evidence of hydrocephalus. The basal cisterns are unremarkable. There is a small area of extracranial soft tissue swelling in the left lateral frontal region. There is no skull fracture. Otherwise, the skull, extracranial soft tissue, and orbits are unremarkable. The paranasal sinuses are unremarkable. Temporal bones show no significant abnormality. Cervical spine: There is motion artifact which obscures portions of the upper cervical spine. There is no acute cervical spine fracture or dislocation. There is abnormal straightening of the cervical spine posture which may be related to patient positioning or muscle spasms. There is cervical spine degenerative disease with vertebral body spurs and facet arthropathy. There is mild to moderate bilateral neural foramen narrowing at the C3-C4 and moderate to severe narrowing involving the right C6-C7 neural foramina region due to uncinate spurs. There is multilevel central canal narrowing due to diffuse disc bulges seen throughout cervical spine. There is left curvature of the cervical spine centered at the C3-C4 level. The neck soft tissue structures show no significant abnormality. Visualized upper lung gates show bilateral apical pleural-parenchymal thickening/scarring. Impression: 1: Limited evaluation of the head and cervical spine due to skull streak artifact and motion artifact. 2: There is no gross evidence of acute intracranial process. 3: There is a small area of extracranial soft tissue swelling in the left lateral frontal region. There is no skull fracture. 4: Cervical spine degenerative disease with no acute fracture or dislocation. Dictated by: Dictated on workstation # [id number]
--- NOTE | 2019-01-29 20:10 | NUR ---
[facility] was called and informed about discharge inst. They were informed discharge packet was being sent for them and one was given to pt/daughter.
[2019-01-29 20:12] VITALS: BP 197/110
--- NOTE | 2019-01-29 20:12 | NUR ---
Vital signs 97.8 temp, 128 pulse, SPO2 99%, 20 resp, bp 197/110. Dr. Golden notified about pulse.
--- NOTE | 2019-01-29 20:15 | NUR ---
Amy hahn in EDM - 01/29/19 at 2015 by [id number] Report was given to [facility] at this time. Care was transferred at this time.
--- NOTE | 2019-01-29 20:18 | NUR ---
Angela (daughter) was called and informed that patient was being discharged.
[2019-01-29] MEDS ORDERED: ALPRAZolam 0.5 MG (XANAX) TAB PO STA (20:25)
[2019-01-29] MEDS ORDERED: ATENOLOL 25 MG (TENORMIN) TAB ONE (20:26)
--- NOTE | 2019-01-29 20:27 | NUR ---
At discharge, pulse rate was noted to be 128. Physician was notified and when checked pt pulse, ordered EKG and asked patient. Pt stated she missed evening meds, so physician is ordering.
[2019-01-29] MEDS ORDERED: ATENOLOL 50 MG (TENORMIN) TAB PO ONE (20:30)
--- NOTE | 2019-01-29 20:39 | NUR ---
Pt's daughter was informed of what was going on and we were going to wait 20 minutes to see how she does. Daughter stated she understood and was going to go grab something to eat.
[2019-01-29 21:00] VITALS: BP 179/100
--- NOTE | 2019-01-29 21:08 | NUR ---
Daughter was called letting her know patient is being discharged and stated she was pulling in now.
--- NOTE | 2019-01-29 21:10 | NUR ---
Kathya [facility] wheeled patient to daughters car at this time.
--- NOTE | 2019-01-29 21:10 | NUR ---
[facility] was called and given update on patient at this time.
--- OUTSIDE RECORDS SUMMARY | 2019-01-29 23:36 | XMS REPORT | Clinical Summary ---
Author Author [facility] Organization [facility] Address Unknown Phone Unavailable Care Team Providers Care Scaffold Builder Name Role Phone Fadi Moe MD Unavailable Kimber Kendrick MD Unavailable Richard Briseno MD Unavailable Mary Cruz MD PCP Source Comments Some departments are not documenting in the electronic medical record. If you d o not see the information that you expected, contact Release of Information in [facility] [employer] Information Management department at [phone] for further assistan ce in locating additional records.[facility] [...] 1996-P PART A AND resent B Medicaid [facility] MEDICAID [facility] xxxxxxxxxxx 2014-P COMMUNITY resent PLAN [place] Advance Directives Patient has advance care planning documents on file. For more information, jin bowers contact: [facility] [address] [place] [address]
--- OUTSIDE RECORDS SUMMARY | 2019-01-29 23:36 | XMS REPORT | Clinical Summary ---
Author Author [facility] Organization [facility] Address Unknown Phone Unavailable Care Team Providers Care Separator Inserter Name Role Phone Raciel Epps MD PCP Allergies Active Allergy Reactions Severity Noted Date Comments Lorazepam 03/06/2017 Diphenhydramine Hcl 03/06/2017 Citalopram 03/06/2017 Loratadine-Pseudoephedrin Low 03/12/2017 Pt tolerated regular e claritin Codeine 03/06/2017 Prochlorperazine Anaphylaxis, Shortness Of High 03/06/2017 Breath Gonckgjofythzcs-Io-Yspnew 03/06/2017 nesin Metronidazole 03/06/2017 Cephalexin 03/06/2017 Levofloxacin [...]
--- OUTSIDE RECORDS SUMMARY | 2019-01-29 23:38 | XMS REPORT | Continuity of Care Document ---
Author Organization Unknown Address Unknown Allergies Active Description Code Type Severity Reaction Onset Reported/Identified Relationship to Patient Clinical Status Yes citalopram [id number] Drug Allergy Unknown N/A 01/16/2006 Yes diphenhydramine [id number] Drug Allergy Unknown N/A 01/16/2006 Yes Iodinated Contrast Media - Oral and [id number] Drug Allergy Unknown N/A 01/16/2006 Yes levofloxacin [id number] Drug Allergy Unknown N/A 01/16/2006 Yes lorazepam [id number] Drug Allergy Unknown N/A 01/16/2006 Yes metronidazole [id number] Drug Allergy Unknown N/A 01/16/2006 Yes nitrofurantoin [id number] Drug Allergy Unknown N/A 01/16/2006 Yes prochlorperazine [id number] Drug Allergy Unknown N/A 01/16/2006 Yes pseudoephedrine [id number] Drug Allergy Unknown N/A 01/16/2006 Yes zinc acetate [id number] Drug Allergy Unknown N/A 01/16/2006 Yes codeine [id number] Drug Allergy Mild N/V, PT HAS REC 12/31/2018 Yes cephalexin [id number] Drug Allergy Unknown N/A 12/31/2018 Yes ciprofloxacin [id number] Drug Allergy Unknown N/A 12/31/2018 Yes diazepam [id number] Drug Allergy Unknown N/A 12/31/2018 Yes hydrocodone [id number] Drug Allergy Unknown N/A 12/31/2018 Yes Iodinated Contrast- Oral and IV Dye [id number] Drug Allergy Unknown N/A 12/31/2018 Yes loratadine [id number] Drug Allergy Unknown N/A 12/31/2018 Yes Penicillins [id number] Drug Allergy Unknown N/A 12/31/2018 Yes SOY BEANS SOY BEANS Unknown N/A 12/31/2018 Yes Sulfa (Sulfonamide Antibiotics) [id number] Drug Allergy Unknown N/A 12/31/2018 Yes morphine [id number] Drug Allergy Unknown N/A 01/01/2019 Yes red (food color) [id number] Drug Allergy Mild Shortness of Br 01/04/2019 Yes soybean [id number] Drug Allergy Unknown N/A 01/14/2019 Medications There is no data. Problems Date [...] JUAN WHITFIELD MD Ot E86.0 DEHYDRATION 02/14/2017 NAHID MD, JUAN A Ot E87.6 HYPOKALEMIA 02/14/2017 NAHID GONZALEZ, JUAN A Ot F41.9 ANXIETY DISORDER, UNSPECIFIED 02/14/2017 NAHID GONZALEZ, JUAN A Ot I49.9 CARDIAC ARRHYTHMIA, UNSPECIFIED 02/14/2017 NAHID GONZALEZ, JUAN A Ot K92.9 DISEASE OF DIGESTIVE SYSTEM, UNSPECIFIED 02/14/2017 BINH WHITFIELD MDNT A Ot R63.4 ABNORMAL WEIGHT LOSS 02/14/2017 NAHID GONZALEZ, JUAN A Ot Z85.41 PERSONAL HISTORY OF MALIGNANT NEOPLASM O 02/21/2017 NAHID GONZALEZ, JUAN A Ot E46 UNSPECIFIED PROTEIN-CALORIE MALNUTRITION 02/21/2017 NAHID GONZALEZ, JUAN A Ot E86.0 DEHYDRATION 02/21/2017 BINH WHITFIELD MDNT A Ot E87.6 HYPOKALEMIA 02/21/2017 JUAN WHITFIELD MD A Ot F41.9 ANXIETY DISORDER, UNSPECIFIED 02/21/2017 BINH WHITFIELD MDNT A Ot I49.9 CARDIAC ARRHYTHMIA, UNSPECIFIED 02/21/2017 BINH WHITFIELD MDNT A Ot K92.9 DISEASE OF DIGESTIVE SYSTEM, UNSPECIFIED 02/21/2017 BINH WHITFIELD MDNT A Ot R63.4 ABNORMAL WEIGHT LOSS 02/21/2017 BINH WHITFIELD MDNT A Ot Z85.41 PERSONAL HISTORY OF MALIGNANT NEOPLASM O 12/26/2018 BREE ORTIZ DO Ot F32.9 MAJOR DEPRESSIVE DISORDER, SINGLE EPISOD 12/26/2018 ANGEL SAMANO, BREE Ot F41.9 ANXIETY DISORDER, UNSPECIFIED 12/26/2018 ANGEL ASMANO, BREE Ot K21.9 GASTRO- ESOPHAGEAL REFLUX DISEASE WITHOUT 12/26/2018 ANGEL SAMANO, BREE Ot K29.00 ACUTE GASTRITIS WITHOUT BLEEDING 12/26/2018 ANGEL SAMANO BREE Ot R11.2 NAUSEA WITH VOMITING, UNSPECIFIED 12/26/2018 BREE ORTIZ DO Ot Z85.41 PERSONAL HISTORY OF MALIGNANT NEOPLASM O 12/26/2018 ANGEL SAMANO, BREE Ot Z87.19 PERSONAL HISTORY OF OTHER DISEASES OF TH 12/26/2018 BREE ORTIZ DO Ot Z88.0 ALLERGY STATUS TO PENICILLIN 12/26/2018 ANGEL SAMANO, BREE Ot Z88.1 ALLERGY STATUS TO OTHER ANTIBIOTIC AGENT 12/26/2018 BREE ORTIZ DO Ot Z88.2 ALLERGY STATUS TO SULFONAMIDES STATUS 12/26/2018 BREE ORTIZ DO Ot Z88.5 ALLERGY STATUS TO NARCOTIC AGENT STATUS 12/26/2018 BREE ORTIZ DO Ot Z88.6 ALLERGY STATUS TO ANALGESIC AGENT STATUS 12/26/2018 ANGEL SAMANO, BREE Ot Z88.8 ALLERGY STATUS TO OTH DRUG/MEDS/BIOL SUB 12/26/2018 ANGEL SAMANO BREE Ot Z90.49 ACQUIRED ABSENCE OF OTHER SPECIFIED PART 12/26/2018 ANGEL SAMANO BREE Ot Z91.041 RADIOGRAPHIC DYE ALLERGY STATUS 12/26/2018 ANGEL SAMANO BREE Ot Z98.890 OTHER SPECIFIED POSTPROCEDURAL STATES 01/04/2019 ALONSO VASQUEZ MD Ot E87.1 HYPO-OSMOLALITY AND HYPONATREMIA 01/04/2019 ALONSO VASQUEZ MD Ot E87.8 OTH DISORDERS OF ELECTROLYTE AND FLUID B 01/04/2019 ALONSO VASQUEZ MD Ot F32.9 MAJOR DEPRESSIVE DISORDER, SINGLE EPISOD 01/04/2019 ALONSO VASQUEZ MD Ot F41.9 ANXIETY DISORDER, UNSPECIFIED 01/04/2019 ALONSO VASQUEZ MD Ot K21.9 GASTRO-ESOPHAGEAL REFLUX DISEASE WITHOUT 01/04/2019 ALONSO VASQUEZ MD Ot 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, 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 01/04/2019 ALONSO VASQUEZ MD Ot N17.9 ACUTE KIDNEY FAILURE, UNSPECIFIED 01/04/2019 ALONSO VASQUEZ MD Ot Z85.41 PERSONAL HISTORY OF MALIGNANT NEOPLASM O 01/04/2019 ALONSO VASQUEZ MD Ot Z90.49 ACQUIRED ABSENCE OF OTHER SPECIFIED PART 01/05/2019 ALONSO VASQUEZ MD Ot E87.1 HYPO-OSMOLALITY AND HYPONATREMIA 01/05/2019 ALONSO VASQUEZ MD Ot E87.8 OT DISORDERS OF ELECTROLYTE AND FLUID B 01/05/2019 ALONSO VASQUEZ MD Ot F32.9 MAJOR DEPRESSIVE DISORDER, SINGLE EPISOD 01/05/2019 ALONSO VASQUEZ MD Ot F41.9 ANXIETY DISORDER, UNSPECIFIED 01/05/2019 ALONSO VASQUEZ MD Ot K21.9 GASTRO-ESOPHAGEAL REFLUX DISEASE WITHOUT 01/05/2019 ALONSO VASQUEZ MD Ot 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, 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 01/05/2019 ALONSO VASQUEZ MD Ot N17.9 ACUTE KIDNEY FAILURE, UNSPECIFIED 01/05/2019 ALONSO VASQUEZ MD, Ot Z85.41 PERSONAL HISTORY OF MALIGNANT NEOPLASM O 01/05/2019 ALONSO VASQUEZ MD, Ot Z90.49 ACQUIRED ABSENCE OF OTHER SPECIFIED PART 01/05/2019 ALONSO VASQUEZ MD Ot B96.20 UNSP ESCHERICHIA COLI THE CAUSE OF DI 01/05/2019 ALONSO VASQUEZ MD Ot E46 UNSPECIFIED PROTEIN-CALORIE MALNUTRITION 01/05/2019 ALONSO AVSQUEZ MD Ot E87.1 HYPO-OSMOLALITY AND HYPONATREMIA 01/05/2019 ALONSO VASQUEZ MD Ot E87.6 HYPOKALEMIA 01/05/2019 ALONSO VASQUEZ MD Ot E87.8 OTH DISORDERS OF ELECTROLYTE AND FLUID B 01/05/2019 ALONSO VASQUEZ MD Ot F32.9 MAJOR DEPRESSIVE DISORDER, SINGLE EPISOD 01/05/2019 ALONSO VASQUEZ MD, Ot F41.9 ANXIETY DISORDER, UNSPECIFIED 01/05/2019 ALONSO VASQUEZ MD, Ot K21.9 GASTRO-ESOPHAGEAL REFLUX DISEASE WITHOUT 01/05/2019 ALONSO VASQUEZ MD Ot K56.51 INTESTINAL ADHESIONS [BANDS], WITH PARTI 01/05/2019 ALONSO VASQUEZ MD Ot 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, 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 01/05/2019 ALONSO VASQUEZ MD Ot N17.9 ACUTE KIDNEY FAILURE, UNSPECIFIED 01/05/2019 ALONSO VASQUEZ MD Ot N39.0 URINARY TRACT INFECTION, SITE NOT SPECIF 01/05/2019 ALONSO VASQUEZ MD Ot Z85.41 PERSONAL HISTORY OF MALIGNANT NEOPLASM O 01/05/2019 ALONSO VASQUEZ MD Ot Z90.49 ACQUIRED ABSENCE OF OTHER SPECIFIED PART 01/09/2019 ALONSO VASQUEZ MD Ot E87.1 HYPO-OSMOLALITY AND HYPONATREMIA 01/09/2019 ALONSO VASQUEZ MD Ot F32.9 MAJOR DEPRESSIVE DISORDER, SINGLE EPISOD 01/09/2019 ALONSO VASQUEZ MD Ot F41.9 ANXIETY DISORDER, UNSPECIFIED 01/09/2019 ALONSO VASQUEZ MD Ot I10 ESSENTIAL (PRIMARY) HYPERTENSION 01/09/2019 PEDRO MD, ALONSO N Ot K21.9 GASTRO-ESOPHAGEAL REFLUX DISEASE WITHOUT 01/09/2019 ALONSO VASQUEZ MD Ot K56.51 INTESTINAL ADHESIONS [BANDS], WITH PARTI 01/09/2019 ALONSO VASQUEZ MD Ot N17.9 ACUTE KIDNEY FAILURE, UNSPECIFIED 01/09/2019 ALONSO VASQUEZ MD Ot Z85.41 PERSONAL HISTORY OF MALIGNANT NEOPLASM O 01/09/2019 ALONSO VASQUEZ MD Ot Z90.49 ACQUIRED ABSENCE OF OTHER SPECIFIED PART 01/12/2019 ALONSO VASQUEZ MD Ot E87.1 HYPO-OSMOLALITY AND HYPONATREMIA 01/12/2019 ALONSO VASQUEZ MD Ot F32.9 MAJOR DEPRESSIVE DISORDER, SINGLE EPISOD 01/12/2019 ALONSO VASQUEZ MD Ot F41.9 ANXIETY DISORDER, UNSPECIFIED 01/12/2019 ALONSO VASQUEZ MD N Ot I10 ESSENTIAL (PRIMARY) HYPERTENSION 01/12/2019 ALONSO VASQUEZ MD Ot K21.9 GASTRO-ESOPHAGEAL REFLUX DISEASE WITHOUT 01/12/2019 ALONSO VASQUEZ MD Ot K56.51 INTESTINAL ADHESIONS [BANDS], WITH PARTI 01/12/2019 ALONSO VASQUEZ MD Ot N17.9 ACUTE KIDNEY FAILURE, UNSPECIFIED 01/12/2019 ALONSO VASQUEZ MD Ot Z85.41 PERSONAL HISTORY OF MALIGNANT NEOPLASM O 01/12/2019 ALONSO VASQUEZ MD Ot Z90.49 ACQUIRED ABSENCE OF OTHER SPECIFIED PART 01/14/2019 ALONSO VASQUEZ MD Ot E87.1 HYPO-OSMOLALITY AND HYPONATREMIA 01/14/2019 ALONSO VASQUEZ MD Ot F32.9 MAJOR DEPRESSIVE DISORDER, SINGLE EPISOD 01/14/2019 ALONSO VASQUEZ MD Ot F41.9 ANXIETY DISORDER, UNSPECIFIED 01/14/2019 ALONSO VASQUEZ MD Ot I10 ESSENTIAL (PRIMARY) HYPERTENSION 01/14/2019 ALONSO VASQUEZ MD Ot K21.9 GASTRO-ESOPHAGEAL REFLUX DISEASE WITHOUT 01/14/2019 ALONSO VASQUEZ MD N Ot K56.51 INTESTINAL ADHESIONS [BANDS], WITH PARTI 01/14/2019 ALONSO VASQUEZ MD Ot N17.9 ACUTE KIDNEY FAILURE, UNSPECIFIED 01/14/2019 ALONSO VASQUEZ MD Ot Z85.41 PERSONAL HISTORY OF MALIGNANT NEOPLASM O 01/14/2019 ALONSO VASQUEZ MD Ot Z90.49 ACQUIRED ABSENCE OF OTHER SPECIFIED PART 01/14/2019 ALONSO VASQUEZ MD Ot E87.1 HYPO-OSMOLALITY AND HYPONATREMIA 01/14/2019 ALONSO VASQUEZ MD Ot F32.9 MAJOR DEPRESSIVE DISORDER, SINGLE EPISOD 01/14/2019 ALONSO VASQUEZ MD Ot F41.9 ANXIETY DISORDER, UNSPECIFIED 01/14/2019 ALONSO VASQUEZ MD Ot I10 ESSENTIAL (PRIMARY) HYPERTENSION 01/14/2019 ALONSO VASQUEZ MD Ot K21.9 GASTRO-ESOPHAGEAL REFLUX DISEASE WITHOUT 01/14/2019 ALONSO VASQUEZ MD Ot K56.51 INTESTINAL ADHESIONS [BANDS], WITH PARTI 01/14/2019 ALONSO VASQUEZ MD Ot N17.9 ACUTE KIDNEY FAILURE, UNSPECIFIED 01/14/2019 ALONSO VASQUEZ MD Ot Z85.41 PERSONAL HISTORY OF MALIGNANT NEOPLASM O 01/14/2019 ALONSO VASQUEZ MD Ot Z90.49 ACQUIRED ABSENCE OF OTHER SPECIFIED PART 01/14/2019 ALONSO VASQUEZ MD Ot E87.1 HYPO-OSMOLALITY AND HYPONATREMIA 01/14/2019 ALONSO VASQUEZ MD Ot F32.9 MAJOR DEPRESSIVE DISORDER, SINGLE EPISOD 01/14/2019 ALONSO VASQUEZ MD Ot F41.9 ANXIETY DISORDER, UNSPECIFIED 01/14/2019 ALONSO VASQUEZ MD Ot I10 ESSENTIAL (PRIMARY) HYPERTENSION 01/14/2019 ALONSO VASQUEZ MD Ot K21.9 GASTRO-ESOPHAGEAL REFLUX DISEASE WITHOUT 01/14/2019 ALONSO VASQUEZ MD Ot K56.51 INTESTINAL ADHESIONS [BANDS], WITH PARTI 01/14/2019 ALONSO VASQUEZ MD Ot N17.9 ACUTE KIDNEY FAILURE, UNSPECIFIED 01/14/2019 ALONSO VASQUEZ MD Ot Z85.41 PERSONAL HISTORY OF MALIGNANT NEOPLASM O 01/14/2019 ALONSO VASQUEZ MD Ot Z90.49 ACQUIRED ABSENCE OF OTHER SPECIFIED PART 01/15/2019 ALONSO VASQUEZ MD Ot E87.1 HYPO-OSMOLALITY AND HYPONATREMIA 01/15/2019 ALONSO VASQUEZ MD Ot F32.9 MAJOR DEPRESSIVE DISORDER, SINGLE EPISOD 01/15/2019 ALONSO VASQUEZ MD Ot F41.9 ANXIETY DISORDER, UNSPECIFIED 01/15/2019 ALONSO VASQUEZ MD Ot I10 ESSENTIAL (PRIMARY) HYPERTENSION 01/15/2019 ALONSO VASQUEZ MD Ot K21.9 GASTRO-ESOPHAGEAL REFLUX DISEASE WITHOUT 01/15/2019 ALONSO VASQUEZ MD Ot K56.51 INTESTINAL ADHESIONS [BANDS], WITH PARTI 01/15/2019 ALONSO VASQUEZ MD Ot N17.9 ACUTE KIDNEY FAILURE, UNSPECIFIED 01/15/2019 ALONSO VASQUEZ MD Ot Z85.41 PERSONAL HISTORY OF MALIGNANT NEOPLASM O 01/15/2019 ALONSO VASQUEZ MD Ot Z90.49 ACQUIRED ABSENCE OF OTHER SPECIFIED PART 01/16/2019 ALONSO VASUQEZ MD Ot E87.1 HYPO-OSMOLALITY AND HYPONATREMIA 01/16/2019 ALONSO VASQUEZ MD Ot F32.9 MAJOR DEPRESSIVE DISORDER, SINGLE EPISOD 01/16/2019 ALONSO VASQUEZ MD Ot F41.9 ANXIETY DISORDER, UNSPECIFIED 01/16/2019 ALONSO VASQUEZ MD Ot I10 ESSENTIAL (PRIMARY) HYPERTENSION 01/16/2019 ALONSO VASQUEZ MD Ot K21.9 GASTRO-ESOPHAGEAL REFLUX DISEASE WITHOUT 01/16/2019 ALONSO VASQUEZ MD Ot K56.51 INTESTINAL ADHESIONS [BANDS], WITH PARTI 01/16/2019 ALONSO VASQUEZ MD Ot N17.9 ACUTE KIDNEY FAILURE, UNSPECIFIED 01/16/2019 ALONSO VASQUEZ MD Ot Z85.41 PERSONAL HISTORY OF MALIGNANT NEOPLASM O 01/16/2019 ALONSO VASQUEZ MD Ot Z90.49 ACQUIRED ABSENCE OF OTHER SPECIFIED PART 01/17/2019 ALONSO VASQUEZ MD Ot E46 UNSPECIFIED PROTEIN-CALORIE MALNUTRITION 01/17/2019 ALONSO VASQUEZ MD Ot E78.5 HYPERLIPIDEMIA, UNSPECIFIED 01/17/2019 ALONSO VASQUEZ MD Ot E83.42 HYPOMAGNESEMIA 01/17/2019 ALONSO VASQUEZ MD Ot E87.1 HYPO-OSMOLALITY AND HYPONATREMIA 01/17/2019 ALONSO VASQUEZ MD Ot E87.6 HYPOKALEMIA 01/17/2019 ALONSO VASQUEZ MD, Ot F32.9 MAJOR DEPRESSIVE DISORDER, SINGLE EPISOD 01/17/2019 ALONSO VASQUEZ MD, Ot F41.9 ANXIETY DISORDER, UNSPECIFIED 01/17/2019 ALONSO VASQUEZ MD Ot I10 ESSENTIAL (PRIMARY) HYPERTENSION 01/17/2019 ALONSO VASQUEZ MD, Ot J44.9 CHRONIC OBSTRUCTIVE PULMONARY DISEASE, U 01/17/2019 ALONSO VASQUEZ MD, Ot K21.9 GASTRO-ESOPHAGEAL REFLUX DISEASE WITHOUT 01/17/2019 ALONSO VASQUEZ MD Ot K45.0 OTH ABDOMINAL HERNIA WITH OBSTRUCTION, W 01/17/2019 ALONSO VASQUEZ MD Ot K56.51 INTESTINAL ADHESIONS [BANDS], WITH PARTI 01/17/2019 ALONSO VASQUEZ MD, Ot N17.9 ACUTE KIDNEY FAILURE, UNSPECIFIED 01/17/2019 ALONSO VASQUEZ MD, Ot Z85.41 PERSONAL HISTORY OF MALIGNANT NEOPLASM O 01/17/2019 ALONSO VASQUEZ MD, Ot Z90.49 ACQUIRED ABSENCE OF OTHER SPECIFIED PART 01/28/2019 ESPERANZA RIVERA DO Ot F32.9 MAJOR DEPRESSIVE DISORDER, SINGLE EPISOD 01/28/2019 ESPERANZA RIVERA DO Ot F41.9 ANXIETY DISORDER, UNSPECIFIED 01/28/2019 ESPERANZA RIVERA DO, Ot K21.9 GASTRO-ESOPHAGEAL REFLUX DISEASE WITHOUT 01/28/2019 ESPERANZA RIVERA DO Ot R10.9 UNSPECIFIED ABDOMINAL PAIN 01/28/2019 ESPERANZA RIVERA DO Ot R11.0 NAUSEA 01/28/2019 ESPERANZA RIVERA DO Ot Z79.01 SNF (CURRENT) USE OF ANTICOAGULANT 01/28/2019 ESPERANZA RIVERA DO Ot Z79.51 SNF (CURRENT) USE OF INHALED STERO 01/28/2019 ESPERANZA RIVERA DO Ot Z85.41 PERSONAL HISTORY OF MALIGNANT NEOPLASM O 01/28/2019 ESPERANZA RIVERA DO Ot Z87.19 PERSONAL HISTORY OF OTHER DISEASES OF TH 01/28/2019 ESPERANZA RIVERA DO Ot Z88.0 ALLERGY STATUS TO PENICILLIN 01/28/2019 ESPERANZA RIVERA DO, Ot Z88.2 ALLERGY STATUS TO SULFONAMIDES STATUS 01/28/2019 ESPERANZA RIVERA DO Lisa Ot Z88.5 ALLERGY STATUS TO NARCOTIC AGENT STATUS 01/28/2019 ESPERANZA RIVERA DO Ot Z88.8 ALLERGY STATUS TO OTH DRUG/MEDS/BIOL SUB 01/28/2019 ESPERANZA RIVERA DO Lisa Ot Z90.49 ACQUIRED ABSENCE OF OTHER SPECIFIED PART 01/28/2019 ESPERANAZ RIVERA DO Lisa Ot Z91.041 RADIOGRAPHIC DYE ALLERGY STATUS 01/28/2019 MIGUEL SAMANO ESPERANZA Gonzalez Ot Z98.890 OTHER SPECIFIED POSTPROCEDURAL STATES Procedures Code Description Performed By Performed On 38.93 VENOUS CATHETERIZATION NEC 02/14/2012 45.24 FLEXIBLE SIGMOIDOSCOPY 02/14/2012 45.62 PART SM BOWEL RESECT NEC 02/14/2012 45.90 INTESTINAL ANASTOM NOS 02/14/2012 [id number] DRAINAGE OF STOMACH WITH DRAINAGE DEVICE 01/08/2019 [id number] REPAIR MESENTERY, PERCUTANEOUS ENDOSCOPI 01/15/2019 Results Test Result Range Complete blood count [...] Automated erythrocyte mean corpuscular hemoglobin concentration measurement (mass/volume) 33 g/dL 32-36 Automated erythrocyte distribution width ratio 13.5 % 10.0- 14.5 Automated blood platelet count (count/volume) 273 10*3/uL [...] Blood monocytes automated count (number/volume) 0.8 10*3 0.0- 1.0 Automated eosinophil count 0.0 10*3/uL 0.0-0.3 Automated [...] Serum or plasma aspartate aminotransferase measurement (enzymatic activity/volume) 21 U/L 5-34 Serum or plasma alanine aminotransferase measurement (enzymatic activity/volume) 16 U/L 0-55 Serum or plasma protein [...] gravity of urine by test strip 1.010 1.016-1.022 Urine protein assay by test strip, semi-quantitative [...] sediment leukocyte count by microscopy (number/high power field) NONE NRG Bacteria detection in urine sediment [...] Automated erythrocyte mean corpuscular hemoglobin concentration measurement (mass/volume) 33 g/dL 32-36 Automated erythrocyte distribution width ratio 13.7 % 10.0- 14.5 Automated blood platelet count (count/volume) 266 10*3/uL [...] Blood monocytes automated count (number/volume) 1.1 10*3 0.0- 1.0 Automated eosinophil count 0.0 10*3/uL 0.0-0.3 Automated [...] Serum or plasma aspartate aminotransferase measurement (enzymatic activity/volume) 148 U/L 5-34 Serum or plasma alanine aminotransferase measurement (enzymatic activity/volume) 156 U/L 0-55 Serum or plasma protein [...] Automated erythrocyte mean corpuscular hemoglobin concentration measurement (mass/volume) 35 g/dL 32-36 Automated erythrocyte distribution width ratio 12.9 % 10.0- 14.5 Automated blood platelet count (count/volume) 256 10*3/uL [...] Blood monocytes automated count (number/volume) 0.9 10*3 0.0- 1.0 Automated eosinophil count 0.0 10*3/uL 0.0-0.3 Automated [...] Serum or plasma aspartate aminotransferase measurement (enzymatic activity/volume) 43 U/L 5-34 Serum or plasma alanine aminotransferase measurement (enzymatic activity/volume) 43 U/L 0-55 Serum or plasma protein [...] gravity of urine by test strip 1.015 1.016-1.022 Urine protein assay by test strip, semi-quantitative [...] sediment leukocyte count by microscopy (number/high power field) [HPF] NRG Bacteria detection in urine sediment [...] culture - 12/31/18 13:39 Bacterial urine culture [id number] NRG COLONY COUNT >100,000/ML NRG FTX;REPORTABLE ID/SUSCEPTIBILITY REPORTED 01/03 9:05 NRG FREE TEXT ENTRY 3 ORGANISM ID REPORT RCD 01/02 10:05 NR RML Sensitivity Panel - 12/31/18 13:39 Gentamicin susceptibility test by minimum inhibitory concentration <= NRG Trimethoprim/sulfamethoxazole susceptibility test by minimum inhibitoryconcentration <= NRG Levofloxacin susceptibility test by minimum inhibitory concentration <= NRG Ampicillin susceptibility test by minimum inhibitory concentration <= NRG Cefazolin susceptibility test by minimum inhibitory concentration <= NRG Ceftriaxone susceptibility test by minimum inhibitory concentration <= NRG Ciprofloxacin susceptibility test by minimum inhibitory concentration <= NRG Meropenem susceptibility test by minimum inhibitory concentration <= NRG Nitrofurantoin susceptibility test by minimum inhibitory concentration <= NRG Amoxicillin and clavulanate potassium susc BRITTON = NRG RML Sensitivity Panel - 12/31/18 13:39 Gentamicin susceptibility test by minimum inhibitory concentration <= NRG Trimethoprim/sulfamethoxazole susceptibility test by minimum inhibitoryconcentration <= NRG Levofloxacin susceptibility test by minimum inhibitory concentration <= NRG Ampicillin susceptibility test by minimum inhibitory concentration <= NRG Cefazolin susceptibility test by minimum inhibitory concentration 2 NRG Ceftriaxone susceptibility test by minimum inhibitory concentration <= NRG Ciprofloxacin susceptibility test by minimum inhibitory concentration <= NRG Meropenem susceptibility test by minimum inhibitory concentration <= NRG Nitrofurantoin susceptibility test by minimum inhibitory concentration <= NRG Amoxicillin and clavulanate potassium susc BRITTON <= NRG Whole blood basic metabolic panel - [...] 83 mmol/L 98-107 Carbon dioxide 26 mmol/L 21-32 Serum or plasma anion gap [...] 87 mmol/L 98-107 Carbon dioxide 27 mmol/L 21-32 Serum or plasma anion gap [...] 93 mmol/L 98-107 Carbon dioxide 25 mmol/L -32 Serum or plasma anion gap [...] Automated erythrocyte mean corpuscular hemoglobin concentration measurement (mass/volume) 33 g/dL 32-36 Automated erythrocyte distribution width ratio 13.3 % 10.0- 14.5 Automated blood platelet count (count/volume) 215 10*3/uL [...] Blood monocytes automated count (number/volume) 1.4 10*3 0.0- 1.0 Automated eosinophil count 0.2 10*3/uL 0.0-0.3 Automated [...] Serum or plasma aspartate aminotransferase measurement (enzymatic activity/volume) 25 U/L 5-34 Serum or plasma alanine aminotransferase measurement (enzymatic activity/volume) 23 U/L 0-55 Serum or plasma protein measurement (mass/volume) 5.8 g/dL 6.4-8.2 Serum or plasma albumin measurement (mass/volume) 3.1 g/dL 3.2-4.5 CALCIUM CORRECTED 8.9 mg/dL 8.5-10.1 Complete blood count (CBC) with automated white blood cell (WBC) differential - 01/08/19 13:40 Blood leukocytes automated count (number/volume) 13.9 10*3/uL 4.3-11.0 Blood erythrocytes automated count (number/volume) 4.55 10*6/uL 4.35-5.85 Venous blood hemoglobin measurement (mass/volume) 13.7 g/dL 11.5-16.0 Blood hematocrit (volume fraction) 40 % 35-52 Automated erythrocyte mean corpuscular volume 89 [foz_us] 80-99 Automated erythrocyte mean corpuscular hemoglobin (mass per erythrocyte) 30 pg 25-34 Automated erythrocyte mean corpuscular hemoglobin concentration measurement (mass/volume) 34 g/dL 32-36 Automated erythrocyte distribution width ratio 12.8 % 10.0- 14.5 Automated blood platelet count (count/volume) 360 10*3/uL 130-400 Automated blood platelet mean volume measurement 9.9 [foz_us] 7.4-10.4 Automated blood neutrophils/100 leukocytes 75 % 42-75 Automated blood lymphocytes/100 leukocytes 11 % 12-44 Blood monocytes/100 leukocytes 12 % 0-12 Automated blood eosinophils/100 leukocytes 1 % 0-10 Automated blood basophils/100 leukocytes 1 % 0-10 Blood neutrophils automated count (number/volume) 10.4 10*3 1.8-7.8 Blood lymphocytes automated count (number/volume) 1.6 10*3 1.0-4.0 Blood monocytes automated count (number/volume) 1.7 10*3 0.0- 1.0 Automated eosinophil count 0.1 10*3/uL 0.0-0.3 Automated blood basophil count (count/volume) 0.1 10*3/uL 0.0-0.1 Comprehensive metabolic panel - 01/08/19 13:40 Serum or plasma sodium measurement (moles/volume) 127 mmol/L 135-145 Serum or plasma potassium measurement (moles/volume) 4.0 mmol/L 3.6-5.0 Serum or plasma chloride measurement (moles/volume) 78 mmol/L 98-107 Carbon dioxide 35 mmol/L 21-32 Serum or plasma anion gap determination (moles/volume) 14 mmol/L 5-14 Serum or plasma urea nitrogen measurement (mass/volume) 51 mg/dL 7-18 Serum or plasma creatinine measurement (mass/volume) 1.93 mg/dL 0.60-1.30 Serum or plasma urea nitrogen/creatinine mass ratio 26 NRG Serum or plasma creatinine measurement with calculation of estimated glomerular filtration rate 26 NRG Serum or plasma glucose measurement (mass/volume) 138 mg/dL 70-105 Serum or plasma calcium measurement (mass/volume) 9.4 mg/dL 8.5-10.1 Serum or plasma total bilirubin measurement (mass/volume) 0.4 mg/dL 0.1-1.0 Serum or plasma alkaline phosphatase measurement (enzymatic activity/volume) 139 U/L 40-136 Serum or plasma aspartate aminotransferase measurement (enzymatic activity/volume) 35 U/L 5-34 Serum or plasma alanine aminotransferase measurement (enzymatic activity/volume) 48 U/L 0-55 Serum or plasma protein measurement (mass/volume) 7.5 g/dL 6.4-8.2 Serum or plasma albumin measurement (mass/volume) 3.5 g/dL 3.2-4.5 CALCIUM CORRECTED 9.8 mg/dL 8.5-10.1 Lipase - 01/08/19 13:40 Lipase 135 U/L 8-78 Complete urinalysis with reflex to culture - 01/08/19 14:39 Urine color determination YELLOW NRG Urine clarity determination CLEAR NRG Urine pH measurement by test strip 5.5 5-9 Specific gravity of urine by test strip 1.020 1.016-1.022 Urine protein assay by test strip, semi-quantitative NEGATIVE NEGATIVE Urine glucose detection by automated test strip NEGATIVE NEGATIVE Erythrocytes detection in urine sediment by light microscopy NEGATIVE NEGATIVE Urine ketones detection by automated test [...] sediment leukocyte count by microscopy (number/high power field) [HPF] NRG Bacteria detection in urine sediment by light microscopy FEW NRG Squamous epithelial cells detection in urine sediment by light microscopy 0-2 NRG Crystals detection in urine sediment by light microscopy NONE NRG Casts detection in urine sediment by light microscopy PRESENT NRG Mucus detection in urine sediment by light microscopy NONE NRG Complete urinalysis with reflex to culture YES NRG Hyaline casts detection in urine sediment by light microscopy 2-5 NRG Granular casts detection in urine sediment by light microscopy 0-2 NRG Bacterial urine culture - 01/08/19 14:39 Bacterial urine culture [id number] NRG COLONY COUNT 30,000 CFU/ML NRG FTX;REPORTABLE SUSCEPTIBILITY REPORTED [id number]. NR RML Sensitivity Panel - 01/08/19 14:39 Vancomycin susceptibility test by minimum inhibitory concentration 1 NRG Levofloxacin susceptibility test by minimum inhibitory concentration > NRG Ampicillin susceptibility test by minimum inhibitory concentration 2 NRG Nitrofurantoin susceptibility test by minimum inhibitory concentration <= NRG Linezolid susceptibility test by minimum inhibitory concentration 2 NRG Daptomycin susc BRITTON 2 NRG Complete blood count (CBC) with automated white blood cell (WBC) differential - 01/09/19 04:40 Blood leukocytes automated count (number/volume) 8.9 10*3/uL 4.3-11.0 Blood erythrocytes automated count (number/volume) 3.54 10*6/uL 4.35-5.85 Venous blood hemoglobin measurement (mass/volume) 10.6 g/dL 11.5-16.0 Blood hematocrit (volume fraction) 32 % 35-52 Automated erythrocyte mean corpuscular volume 92 [foz_us] 80-99 Automated erythrocyte mean corpuscular hemoglobin (mass per erythrocyte) 30 pg 25-34 Automated erythrocyte mean corpuscular hemoglobin concentration measurement (mass/volume) 33 g/dL 32-36 Automated erythrocyte distribution width ratio 13.2 % 10.0- 14.5 Automated blood platelet count (count/volume) 274 10*3/uL 130-400 Automated blood platelet mean volume measurement 10.1 [foz_us] 7.4-10.4 Automated blood neutrophils/100 leukocytes 68 % 42-75 Automated blood lymphocytes/100 leukocytes 15 % 12-44 Blood monocytes/100 leukocytes 16 % 0-12 Automated blood eosinophils/100 leukocytes 2 % 0-10 Automated blood basophils/100 leukocytes 0 % 0-10 Blood neutrophils automated count (number/volume) 6.0 10*3 1.8-7.8 Blood lymphocytes automated count (number/volume) 1.3 10*3 1.0-4.0 Blood monocytes automated count (number/volume) 1.4 10*3 0.0- 1.0 Automated eosinophil count 0.1 10*3/uL 0.0-0.3 Automated blood basophil count (count/volume) 0.0 10*3/uL 0.0-0.1 Comprehensive metabolic panel - 01/09/19 04:40 Serum or plasma sodium measurement (moles/volume) 129 mmol/L 135-145 Serum or plasma potassium measurement (moles/volume) 3.2 mmol/L 3.6-5.0 Serum or plasma chloride measurement (moles/volume) 94 mmol/L 98-107 Carbon dioxide 25 mmol/L 21-32 Serum or plasma anion gap determination (moles/volume) 10 mmol/L 5-14 Serum or plasma urea nitrogen measurement (mass/volume) 35 mg/dL 7-18 Serum or plasma creatinine measurement (mass/volume) 1.09 mg/dL 0.60-1.30 Serum or plasma urea nitrogen/creatinine mass ratio 32 NRG Serum or plasma creatinine measurement with calculation of estimated glomerular filtration rate 50 NRG Serum or plasma glucose measurement (mass/volume) 150 mg/dL 70-105 Serum or plasma calcium measurement (mass/volume) 8.0 mg/dL 8.5-10.1 Serum or plasma total bilirubin measurement (mass/volume) 0.4 mg/dL 0.1-1.0 Serum or plasma alkaline phosphatase measurement (enzymatic activity/volume) 103 U/L 40-136 Serum or plasma aspartate aminotransferase measurement (enzymatic activity/volume) 23 U/L 5-34 Serum or plasma alanine aminotransferase measurement (enzymatic activity/volume) 35 U/L 0-55 Serum or plasma protein measurement (mass/volume) 5.5 g/dL 6.4-8.2 Serum or plasma albumin measurement (mass/volume) 2.8 g/dL 3.2-4.5 CALCIUM CORRECTED 9.0 mg/dL 8.5-10.1 Automated blood complete blood count (hemogram) panel - 01/10/19 05:02 Blood leukocytes automated count (number/volume) 7.5 10*3/uL 4.3-11.0 Blood erythrocytes automated count (number/volume) 3.45 10*6/uL 4.35-5.85 Venous blood hemoglobin measurement (mass/volume) 10.4 g/dL 11.5-16.0 Blood hematocrit (volume fraction) 32 % 35-52 Automated erythrocyte mean corpuscular volume 94 [foz_us] 80-99 Automated erythrocyte mean corpuscular hemoglobin (mass per erythrocyte) 30 pg 25-34 Automated erythrocyte mean corpuscular hemoglobin concentration measurement (mass/volume) 32 g/dL 32-36 Automated erythrocyte distribution width ratio 13.2 % 10.0- 14.5 Automated blood platelet count (count/volume) 242 10*3/uL 130-400 Automated blood platelet mean volume measurement 9.9 [foz_us] 7.4-10.4 Whole blood basic metabolic panel - 01/10/19 05:02 Serum or plasma sodium measurement (moles/volume) 139 mmol/L 135-145 Serum or plasma potassium measurement (moles/volume) 3.5 mmol/L 3.6-5.0 Serum or plasma chloride measurement (moles/volume) 100 mmol/L 98-107 Carbon dioxide 26 mmol/L 21-32 Serum or plasma anion gap determination (moles/volume) 13 mmol/L 5-14 Serum or plasma urea nitrogen measurement (mass/volume) 16 mg/dL 7-18 Serum or plasma creatinine measurement (mass/volume) 0.76 mg/dL 0.60-1.30 Serum or plasma urea nitrogen/creatinine mass ratio 21 NRG Serum or plasma creatinine measurement with calculation of estimated glomerular filtration rate > NRG Serum or plasma glucose measurement (mass/volume) 91 mg/dL 70-105 Serum or plasma calcium measurement (mass/volume) 8.3 mg/dL 8.5-10.1 Magnesium - 01/10/19 05:02 Magnesium 1.4 mg/dL 1.8-2.4 Complete blood count (CBC) with automated white blood cell (WBC) differential - 01/11/19 05:51 Blood leukocytes automated count (number/volume) 5.3 10*3/uL 4.3-11.0 Blood erythrocytes automated count (number/volume) 3.25 10*6/uL 4.35-5.85 Venous blood hemoglobin measurement (mass/volume) 9.8 g/dL 11.5-16.0 Blood hematocrit (volume fraction) 31 % 35-52 Automated erythrocyte mean corpuscular volume 95 [foz_us] 80-99 Automated erythrocyte mean corpuscular hemoglobin (mass per erythrocyte) 30 pg 25-34 Automated erythrocyte mean corpuscular hemoglobin concentration measurement (mass/volume) 32 g/dL 32-36 Automated erythrocyte distribution width ratio 13.4 % 10.0- 14.5 Automated blood platelet count (count/volume) 319 10*3/uL 130-400 Automated blood platelet mean volume measurement 10.3 [foz_us] 7.4-10.4 Automated blood neutrophils/100 leukocytes 71 % 42-75 Automated blood lymphocytes/100 leukocytes 16 % 12-44 Blood monocytes/100 leukocytes 11 % 0-12 Automated blood eosinophils/100 leukocytes 2 % 0-10 Automated blood basophils/100 leukocytes 0 % 0-10 Blood neutrophils automated count (number/volume) 3.8 10*3 1.8-7.8 Blood lymphocytes automated count (number/volume) 0.9 10*3 1.0-4.0 Blood monocytes automated count (number/volume) 0.6 10*3 0.0- 1.0 Automated eosinophil count 0.1 10*3/uL 0.0-0.3 Automated blood basophil count (count/volume) 0.0 10*3/uL 0.0-0.1 Whole blood basic metabolic panel - 01/11/19 05:51 Serum or plasma sodium measurement (moles/volume) 136 mmol/L 135-145 Serum or plasma potassium measurement (moles/volume) 3.5 mmol/L 3.6-5.0 Serum or plasma chloride measurement (moles/volume) 106 mmol/L 98-107 Carbon dioxide 21 mmol/L 21-32 Serum or plasma anion gap determination (moles/volume) 9 mmol/L 5-14 Serum or plasma urea nitrogen measurement (mass/volume) 7 mg/dL 7-18 Serum or plasma creatinine measurement (mass/volume) 0.72 mg/dL 0.60-1.30 Serum or plasma urea nitrogen/creatinine mass ratio 10 NRG Serum or plasma creatinine measurement with calculation of estimated glomerular filtration rate > NRG Serum or plasma glucose measurement (mass/volume) 95 mg/dL 70-105 Serum or plasma calcium measurement (mass/volume) 7.9 mg/dL 8.5-10.1 Magnesium - 01/11/19 05:51 Magnesium 1.3 mg/dL 1.8-2.4 Complete blood count (CBC) with automated white blood cell (WBC) differential - 01/13/19 05:15 Blood leukocytes automated count (number/volume) 4.9 10*3/uL 4.3-11.0 Blood erythrocytes automated count (number/volume) 3.39 10*6/uL 4.35-5.85 Venous blood hemoglobin measurement (mass/volume) 10.3 g/dL 11.5-16.0 Blood hematocrit (volume fraction) 31 % 35-52 Automated erythrocyte mean corpuscular volume 92 [foz_us] 80-99 Automated erythrocyte mean corpuscular hemoglobin (mass per erythrocyte) 30 pg 25-34 Automated erythrocyte mean corpuscular hemoglobin concentration measurement (mass/volume) 33 g/dL 32-36 Automated erythrocyte distribution width ratio 13.5 % 10.0- 14.5 Automated blood platelet count (count/volume) 354 10*3/uL 130-400 Automated blood platelet mean volume measurement 9.8 [foz_us] 7.4-10.4 Automated blood neutrophils/100 leukocytes 69 % 42-75 Automated blood lymphocytes/100 leukocytes 16 % 12-44 Blood monocytes/100 leukocytes 11 % 0-12 Automated blood eosinophils/100 leukocytes 4 % 0-10 Automated blood basophils/100 leukocytes 1 % 0-10 Blood neutrophils automated count (number/volume) 3.4 10*3 1.8-7.8 Blood lymphocytes automated count (number/volume) 0.8 10*3 1.0-4.0 Blood monocytes automated count (number/volume) 0.5 10*3 0.0- 1.0 Automated eosinophil count 0.2 10*3/uL 0.0-0.3 Automated blood basophil count (count/volume) 0.0 10*3/uL 0.0-0.1 Comprehensive metabolic panel - 01/13/19 05:15 Serum or plasma sodium measurement (moles/volume) 137 mmol/L 135-145 Serum or plasma potassium measurement (moles/volume) 3.3 mmol/L 3.6-5.0 Serum or plasma chloride measurement (moles/volume) 109 mmol/L 98-107 Carbon dioxide 21 mmol/L 21-32 Serum or plasma anion gap determination (moles/volume) 7 mmol/L 5-14 Serum or plasma urea nitrogen measurement (mass/volume) 3 mg/dL 7-18 Serum or plasma creatinine measurement (mass/volume) 0.81 mg/dL 0.60-1.30 Serum or plasma urea nitrogen/creatinine mass ratio 4 NRG Serum or plasma creatinine measurement with calculation of estimated glomerular filtration rate > NRG Serum or plasma glucose measurement (mass/volume) 107 mg/dL 70-105 Serum or plasma calcium measurement (mass/volume) 7.8 mg/dL 8.5-10.1 Serum or plasma total bilirubin measurement (mass/volume) 0.2 mg/dL 0.1-1.0 Serum or plasma alkaline phosphatase measurement (enzymatic activity/volume) 110 U/L 40-136 Serum or plasma aspartate aminotransferase measurement (enzymatic activity/volume) 39 U/L 5-34 Serum or plasma alanine aminotransferase measurement (enzymatic activity/volume) 37 U/L 0-55 Serum or plasma protein measurement (mass/volume) 5.3 g/dL 6.4-8.2 Serum or plasma albumin measurement (mass/volume) 2.9 g/dL 3.2-4.5 CALCIUM CORRECTED 8.7 mg/dL 8.5-10.1 Serum or plasma phosphate measurement (mass/volume) - 01/13/19 05:15 Serum or plasma phosphate measurement (mass/volume) 1.7 mg/dL 2.3-4.7 Magnesium - 01/13/19 05:15 Magnesium 1.2 mg/dL 1.8-2.4 Serum or plasma triglyceride measurement (mass/volume) - 01/13/19 05:15 Serum or plasma triglyceride measurement (mass/volume) 65 mg/dL <150 PREALBUMIN - 01/13/19 13:28 PREALBUM 9.9 % 18.0-37.0 Comprehensive metabolic panel - 01/14/19 04:45 Serum or plasma sodium measurement (moles/volume) 138 mmol/L 135-145 Serum or plasma potassium measurement (moles/volume) 3.4 mmol/L 3.6-5.0 Serum or plasma chloride measurement (moles/volume) 112 mmol/L 98-107 Carbon dioxide 21 mmol/L 21-32 Serum or plasma anion gap determination (moles/volume) 5 mmol/L 5-14 Serum or plasma urea nitrogen measurement (mass/volume) 5 mg/dL 7-18 Serum or plasma creatinine measurement (mass/volume) 0.66 mg/dL 0.60-1.30 Serum or plasma urea nitrogen/creatinine mass ratio 8 NRG Serum or plasma creatinine measurement with calculation of estimated glomerular filtration rate > NRG Serum or plasma glucose measurement (mass/volume) 94 mg/dL 70-105 Serum or plasma calcium measurement (mass/volume) 7.4 mg/dL 8.5-10.1 Serum or plasma total bilirubin measurement (mass/volume) 0.2 mg/dL 0.1-1.0 Serum or plasma alkaline phosphatase measurement (enzymatic activity/volume) 89 U/L 40-136 Serum or plasma aspartate aminotransferase measurement (enzymatic activity/volume) 40 U/L 5-34 Serum or plasma alanine aminotransferase measurement (enzymatic activity/volume) 37 U/L 0-55 Serum or plasma protein measurement (mass/volume) 4.3 g/dL 6.4-8.2 Serum or plasma albumin measurement (mass/volume) 2.4 g/dL 3.2-4.5 CALCIUM CORRECTED 8.7 mg/dL 8.5-10.1 Serum or plasma phosphate measurement (mass/volume) - 01/14/19 04:45 Serum or plasma phosphate measurement (mass/volume) 2.1 mg/dL 2.3-4.7 Magnesium - 01/14/19 04:45 Magnesium 1.8 mg/dL 1.8-2.4 Serum or plasma triglyceride measurement (mass/volume) - 01/14/19 04:45 Serum or plasma triglyceride measurement (mass/volume) 79 mg/dL <150 PREALBUMIN - 01/14/19 04:45 PREALBUM 8.5 % 18.0-37.0 Methicillin resistant Staphylococcus aureus (MRSA) screening culture - 01/14/19 07:30 Methicillin resistant Staphylococcus aureus (MRSA) screening culture NEG [facility] Comprehensive metabolic panel - 01/15/19 05:50 Serum or plasma sodium measurement (moles/volume) 137 mmol/L 135-145 Serum or plasma potassium measurement (moles/volume) 3.7 mmol/L 3.6-5.0 Serum or plasma chloride measurement (moles/volume) 108 mmol/L 98-107 Carbon dioxide 23 mmol/L 21-32 Serum or plasma anion gap determination (moles/volume) 6 mmol/L 5-14 Serum or plasma urea nitrogen measurement (mass/volume) 7 mg/dL 7-18 Serum or plasma creatinine measurement (mass/volume) 0.65 mg/dL 0.60-1.30 Serum or plasma urea nitrogen/creatinine mass ratio 11 NRG Serum or plasma creatinine measurement with calculation of estimated glomerular filtration rate > NRG Serum or plasma glucose measurement (mass/volume) 120 mg/dL 70-105 Serum or plasma calcium measurement (mass/volume) 7.6 mg/dL 8.5-10.1 Serum or plasma total bilirubin measurement (mass/volume) 0.2 mg/dL 0.1-1.0 Serum or plasma alkaline phosphatase measurement (enzymatic activity/volume) 102 U/L 40-136 Serum or plasma aspartate aminotransferase measurement (enzymatic activity/volume) 33 U/L 5-34 Serum or plasma alanine aminotransferase measurement (enzymatic activity/volume) 43 U/L 0-55 Serum or plasma protein measurement (mass/volume) 4.8 g/dL 6.4-8.2 Serum or plasma albumin measurement (mass/volume) 2.5 g/dL 3.2-4.5 CALCIUM CORRECTED 8.8 mg/dL 8.5-10.1 Serum or plasma phosphate measurement (mass/volume) - 01/15/19 05:50 Serum or plasma phosphate measurement (mass/volume) 2.5 mg/dL 2.3-4.7 Magnesium - 01/15/19 05:50 Magnesium 1.6 mg/dL 1.8-2.4 Comprehensive metabolic panel - 01/16/19 05:55 Serum or plasma sodium measurement (moles/volume) 138 mmol/L 135-145 Serum or plasma potassium measurement (moles/volume) 3.9 mmol/L 3.6-5.0 Serum or plasma chloride measurement (moles/volume) 104 mmol/L 98-107 Carbon dioxide 27 mmol/L 21-32 Serum or plasma anion gap determination (moles/volume) 7 mmol/L 5-14 Serum or plasma urea nitrogen measurement (mass/volume) 8 mg/dL 7-18 Serum or plasma creatinine measurement (mass/volume) 0.64 mg/dL 0.60-1.30 Serum or plasma urea nitrogen/creatinine mass ratio 13 NRG Serum or plasma creatinine measurement with calculation of estimated glomerular filtration rate > NRG Serum or plasma glucose measurement (mass/volume) 122 mg/dL 70-105 Serum or plasma calcium measurement (mass/volume) 7.9 mg/dL 8.5-10.1 Serum or plasma total bilirubin measurement (mass/volume) 0.1 mg/dL 0.1-1.0 Serum or plasma alkaline phosphatase measurement (enzymatic activity/volume) 114 U/L 40-136 Serum or plasma aspartate aminotransferase measurement (enzymatic activity/volume) 42 U/L 5-34 Serum or plasma alanine aminotransferase measurement (enzymatic activity/volume) 51 U/L 0-55 Serum or plasma protein measurement (mass/volume) 5.0 g/dL 6.4-8.2 Serum or plasma albumin measurement (mass/volume) 2.6 g/dL 3.2-4.5 CALCIUM CORRECTED 9.0 mg/dL 8.5-10.1 Serum or plasma phosphate measurement (mass/volume) - 01/16/19 05:55 Serum or plasma phosphate measurement (mass/volume) 2.2 mg/dL 2.3-4.7 Magnesium - 01/16/19 05:55 Magnesium 1.8 mg/dL 1.8-2.4 Complete urinalysis with reflex to culture - 01/25/19 12:00 Urine color determination YELLOW NRG Urine clarity determination CLEAR NRG Urine pH measurement by test strip 5.5 5-9 Specific gravity of urine by test strip 1.010 1.016-1.022 Urine protein assay by test strip, semi-quantitative NEGATIVE NEGATIVE Urine glucose detection by automated test strip NEGATIVE NEGATIVE Erythrocytes detection in urine sediment by light microscopy NEGATIVE NEGATIVE Urine ketones detection by automated test strip NEGATIVE NEGATIVE Urine nitrite detection by test strip NEGATIVE NEGATIVE Urine total bilirubin detection by test strip NEGATIVE NEGATIVE Urine urobilinogen measurement by automated test strip (mass/volume) 0.2 mg/dL NORMAL Urine leukocyte esterase detection by dipstick NEGATIVE NEGATIVE Automated urine sediment erythrocyte count by microscopy (number/high power field) NONE NRG Automated urine sediment leukocyte count by microscopy (number/high power field) [HPF] NRG Bacteria detection in urine sediment by light microscopy TRACE NRG Squamous epithelial cells detection in urine sediment by light microscopy RARE NRG Crystals detection in urine sediment by light microscopy NONE NRG Casts detection in urine sediment by light microscopy NONE NRG Mucus detection in urine sediment by light microscopy NEGATIVE NRG Complete urinalysis with reflex to culture NO NRG Complete blood count (CBC) with automated white blood cell (WBC) differential - 01/25/19 12:15 Blood leukocytes automated count (number/volume) 7.6 10*3/uL 4.3-11.0 Blood erythrocytes automated count (number/volume) 4.00 10*6/uL 4.35-5.85 Venous blood hemoglobin measurement (mass/volume) 12.3 g/dL 11.5-16.0 Blood hematocrit (volume fraction) 38 % 35-52 Automated erythrocyte mean corpuscular volume 96 [foz_us] 80-99 Automated erythrocyte mean corpuscular hemoglobin (mass per erythrocyte) 31 pg 25-34 Automated erythrocyte mean corpuscular hemoglobin concentration measurement (mass/volume) 32 g/dL 32-36 Automated erythrocyte distribution width ratio 15.2 % 10.0- 14.5 Automated blood platelet count (count/volume) 462 10*3/uL 130-400 Automated blood platelet mean volume measurement 10.2 [foz_us] 7.4-10.4 Automated blood neutrophils/100 leukocytes 69 % 42-75 Automated blood lymphocytes/100 leukocytes 18 % 12-44 Blood monocytes/100 leukocytes 10 % 0-12 Automated blood eosinophils/100 leukocytes 2 % 0-10 Automated blood basophils/100 leukocytes 1 % 0-10 Blood neutrophils automated count (number/volume) 5.3 10*3 1.8-7.8 Blood lymphocytes automated count (number/volume) 1.4 10*3 1.0-4.0 Blood monocytes automated count (number/volume) 0.8 10*3 0.0- 1.0 Automated eosinophil count 0.1 10*3/uL 0.0-0.3 Automated blood basophil count (count/volume) 0.1 10*3/uL 0.0-0.1 Comprehensive metabolic panel - 01/25/19 12:15 Serum or plasma sodium measurement (moles/volume) 140 mmol/L 135-145 Serum or plasma potassium measurement (moles/volume) 4.3 mmol/L 3.6-5.0 Serum or plasma chloride measurement (moles/volume) 98 mmol/L 98-107 Carbon dioxide 29 mmol/L 21-32 Serum or plasma anion gap determination (moles/volume) 13 mmol/L 5-14 Serum or plasma urea nitrogen measurement (mass/volume) 15 mg/dL 7-18 Serum or plasma creatinine measurement (mass/volume) 0.73 mg/dL 0.60-1.30 Serum or plasma urea nitrogen/creatinine mass ratio 21 NRG Serum or plasma creatinine measurement with calculation of estimated glomerular filtration rate > NRG Serum or plasma glucose measurement (mass/volume) 110 mg/dL 70-105 Serum or plasma calcium measurement (mass/volume) 9.4 mg/dL 8.5-10.1 Serum or plasma total bilirubin measurement (mass/volume) 0.3 mg/dL 0.1-1.0 Serum or plasma alkaline phosphatase measurement (enzymatic activity/volume) 127 U/L 40-136 Serum or plasma aspartate aminotransferase measurement (enzymatic activity/volume) 43 U/L 5-34 Serum or plasma alanine aminotransferase measurement (enzymatic activity/volume) 33 U/L 0-55 Serum or plasma protein measurement (mass/volume) 7.6 g/dL 6.4-8.2 Serum or plasma albumin measurement (mass/volume) 4.2 g/dL 3.2-4.5 CALCIUM CORRECTED 9.2 mg/dL 8.5-10.1 Lipase - 01/25/19 12:15 Lipase 44 U/L 8-78 Capillary blood glucose measurement by glucometer (mass/volume) - 01/29/19 19:09 Capillary blood glucose measurement by glucometer (mass/volume) 112 mg/dL 70-110 Encounters ACCT No. Visit Date/Time Discharge Status Pt. Type Provider Facility Loc./Unit Complaint [id number] 01/25/2019 10:07:00 01/25/2019 14:30:00 DIS Outpatient ESPERANZA RIVERA DO [facility] ER FS PT THINKS SHE IS DEHYDRATED [id number] 01/08/2019 14:00:00 01/17/2019 16:30:00 DIS Outpatient ALONSO VASQUEZ MD [facility] 4TH SMALL BOWEL OBSTRUCTION [id number] 12/31/2018 13:52:00 01/05/2019 15:46:00 DIS Inpatient ALONSO VASQUEZ MD [facility] 4TH ABD PAIN; N V [id number] 12/26/2018 13:50:00 12/26/2018 16:55:00 DIS Emergency BREE ORTIZ DO [facility] ER FS VOMITING [id number] 02/10/2017 11:40:00 02/10/2017 13:30:00 DIS Emergency JUAN WHITFIELD MD [facility] ER IRREG HEART RATE/STRESS [id number] 02/10/2017 11:26:00 02/10/2017 11:30:00 DIS Emergency JUAN WHITFIELD MD [facility] ER IRREG HEART RATE [id number] 01/29/2019 19:16:00 Document Registration [id number] 02/10/2017 11:31:00 Document Registration [id number] 02/10/2012 20:08:00 Document Registration
== END 2019-01-29 21:10 | disposition home or self-care (01) ==
LOC: EDUNIT# 18:06 → ER FS 18:08
DX: S06.0X9A Concussion with loss of consciousness of unspecified duration, initial encounter (principal); K21.9 Gastro-esophageal reflux disease without esophagitis; K58.9 Irritable bowel syndrome, unspecified; F41.9 Anxiety disorder, unspecified; F32.9 Major depressive disorder, single episode, unspecified; Z88.5 Allergy status to narcotic agent; Z91.041 Radiographic dye allergy status; Z88.2 Allergy status to sulfonamides; Z88.0 Allergy status to penicillin; Z88.1 Allergy status to other antibiotic agents; Z88.6 Allergy status to analgesic agent; Z88.8 Allergy status to other drugs, medicaments and biological substances; Z79.01 Long term (current) use of anticoagulants; Z85.41 Personal history of malignant neoplasm of cervix uteri; W01.198A Fall on same level from slipping, tripping and stumbling with subsequent striking against other object, initial encounter; Y92.129 Unspecified place in nursing home as the place of occurrence of the external cause
CPT/HCPCS: 70450; 72125; 82962; 93005

== ENCOUNTER → 2019-03-06 | Outpatient (CLI) | payer MEDICARE, MEDICAID ==
--- NOTE | 2019-03-06 10:53 | Diagnostic Imaging Report ---
INDICATION: Left foot injury 3 views of the left foot show no fracture, dislocation or other acute abnormalities. IMPRESSION: Negative left foot Dictated by: Dictated on workstation # [id number]
== END ==
LOC: RAD FS 10:20
PROVIDERS: ATTEND Nurse Practitioner Family
DX: S99.922D Unspecified injury of left foot, subsequent encounter (principal)
CPT/HCPCS: 73630

== ENCOUNTER 2019-03-13 08:45 | Emergency (ER) | payer MEDICARE, MEDICAID ==
[~2019-03-13] VITALS: Ht 172.7 cm; Wt 52.6 kg
--- OUTSIDE RECORDS SUMMARY | 2019-03-13 08:52 | XMS REPORT | Clinical Summary ---
Author Author [facility] Organization [facility] Address Unknown Phone Unavailable Care Team Providers Care Staff Attorney Name Role Phone Fadi Moe MD Unavailable Kimber Kendrick MD Unavailable Richard Briseno MD Unavailable Mary Cruz MD PCP Source Comments Some departments are not documenting in the electronic medical record. If you d o not see the information that you expected, contact Release of Information in [facility] [place] Information Management department at [phone] for further assistan ce in locating additional records.[facility] Allergies Comments Active Allergy Reactions Severity Noted [...] Used Never Smoker Smokeless Tobacco: Never Used Drinks/Week oz/Week Comments Alcohol Use Not Asked Sex Assigned at Date Recorded Not on file Industry Job Start Date Occupation Not on file Not on file Not on file Travel End Travel History Travel Start No recent travel history available. Last Filed Vital Signs Reading Time Taken Comments Vital Sign 128/88 07/04/2015 2:15 PM CDT Blood Pressure 98 07/04/2015 2:15 PM CDT Pulse 37.1 C (98.8 F) 07/04/2015 2:15 PM CDT Temperature 20 07/04/2015 2:15 PM CDT Respiratory Rate - - Oxygen Saturation - - Inhaled Oxygen Concentration 55.9 kg (123 lb 3.2 oz) 07/04/2015 2:15 PM CDT Weight 177.8 cm (5' 10") 07/04/2015 2:15 PM CDT Height 17.68 07/04/2015 2:15 PM CDT Body Mass Index Plan of Treatment Health Maintenance Due Date [...] 1996-P PART A AND resent B Medicaid [facility] MEDICAID [facility] xxxxxxxxxxx 2014-P [place] 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
--- OUTSIDE RECORDS SUMMARY | 2019-03-13 08:52 | XMS REPORT | Clinical Summary ---
Author Author [facility] Organization [facility] Address Unknown Phone Unavailable Care Team Providers Care Nursing Unit Coordinator Name Role Phone Raciel Epps MD PCP Allergies Active Allergy Reactions Severity Noted Date Comments Lorazepam 03/06/2017 Diphenhydramine Hcl 03/06/2017 Citalopram 03/06/2017 Loratadine-Pseudoephedrin Low 03/12/2017 Pt tolerated regular e claritin Codeine 03/06/2017 Prochlorperazine Anaphylaxis, Shortness Of High 03/06/2017 Breath [id number]-[id number] 03/06/2017 nesin Metronidazole 03/06/2017 Cephalexin 03/06/2017 Levofloxacin [...] Risk Assessment # 03/16/2018 03/16/2017 Influenza Vaccine (#1) 2019 Results Not on filefrom Last 3 Months
--- OUTSIDE RECORDS SUMMARY | 2019-03-13 08:54 | XMS REPORT | Continuity of Care Document ---
Author Organization Unknown Address Unknown Allergies Active Description Code Type Severity Reaction Onset Reported/Identified Relationship to Patient Clinical Status Yes ATIVAN UNKNOWN UNKNOWN Yes CITALOPRAM UNKNOWN UNKNOWN Yes CLARITIN UNKNOWN UNKNOWN Yes HYDROCODONE-ACETAMINOPHEN UNKNOWN UNKNOWN Yes IV CONTRAST UNKNOWN UNKNOWN Yes LEVAQUIN UNKNOWN UNKNOWN Yes METRONIDAZOLE UNKNOWN UNKNOWN Yes MORPHINE MILD MILD Yes NITROFURANTOIN MACROCRYSTAL UNKNOWN UNKNOWN Yes OTHER UNKNOWN UNKNOWN Yes PENICILLINS UNKNOWN UNKNOWN Yes PSEUDOEPHEDRINE HCL UNKNOWN UNKNOWN Yes SULFA (SULFONAMIDE ANTIBIOTICS) UNKNOWN UNKNOWN Yes VALIUM UNKNOWN UNKNOWN Yes citalopram [id number] Drug Allergy Unknown N/A 01/16/2006 Yes diphenhydramine [id number] Drug Allergy Unknown N/A 01/16/2006 Yes Iodinated Contrast Media - Oral and [id number] Drug Allergy Unknown N/A 01/16/2006 Yes levofloxacin [id number] Drug Allergy Unknown N/A 01/16/2006 Yes lorazepam [id number] Drug Allergy Unknown N/A 01/16/2006 Yes metronidazole [id number] Drug Allergy Unknown N/A 01/16/2006 Yes nitrofurantoin [id number] Drug Allergy Unknown N/A 01/16/2006 Yes prochlorperazine [id number] Drug Allergy Unknown N/A 01/16/2006 Yes pseudoephedrine [id number] Drug Allergy Unknown N/A 01/16/2006 Yes zinc acetate [id number] Drug Allergy Unknown N/A 01/16/2006 Yes codeine [id number] Drug Allergy Mild N/V, PT HAS REC 12/31/2018 Yes cephalexin [id number] Drug Allergy Unknown N/A 12/31/2018 Yes ciprofloxacin [id number] Drug Allergy Unknown N/A 12/31/2018 Yes diazepam [id number] Drug Allergy Unknown N/A 12/31/2018 Yes hydrocodone [id number] Drug Allergy Unknown N/A 12/31/2018 Yes Iodinated Contrast- Oral and IV Dye [id number] Drug Allergy Unknown N/A 12/31/2018 Yes loratadine [id number] Drug Allergy Unknown N/A 12/31/2018 Yes Penicillins [id number] Drug Allergy Unknown N/A 12/31/2018 Yes SOY BEANS SOY BEANS Unknown N/A 12/31/2018 Yes Sulfa (Sulfonamide Antibiotics) [id number] Drug Allergy Unknown N/A 12/31/2018 Yes morphine [id number] Drug Allergy Unknown N/A 01/01/2019 Yes red (food color) [id number] Drug Allergy Mild Shortness of Br 01/04/2019 Yes soybean [id number] Drug Allergy Unknown N/A 01/14/2019 Medications Medication Packaging Start Date Stop Date Route Dosage Sig ACETAMINOPHEN ORAL TABLET 325mg(Tylenol) MG 02/03/2019 03/05/2019 PRN EVERY 6 Hour NORMAL SALINE 1000CC IV BAG INJ 0.9 % (NS 1000CC IV BAG) ml 02/03/2019 02/18/2019 CONTINUOUSEVERY 0 Hour MELATONIN TAB 3 MG (MELATONIN) MG 02/03/2019 02/09/2019 PRN QHS ACETAMINOPHEN SUPPOS SUP 650 MG (TYLENOL) MG 02/03/2019 02/10/2019 PRN Q4H ONDANSETRON VIAL INJ 4 MG/2CC (ZOFRAN 2CC VIAL) MG 02/03/2019 02/10/2019 PRN Q4H ALUM/MAG/SIMETH 30CC LIQ (MYLANTA PLUS) cc 02/03/2019 02/13/2019 PRN Q4H GUAIFENESIN - DM LIQ (ROBITUSSIN DM) MLS 02/03/2019 02/10/2019 PRN Q4H ALPRAZOLAM TAB 0.25 MG (XANAX) MG 02/03/2019 02/13/2019 PRN Q6H TRAMADOL TAB 50 MG (ULTRAM) MG 02/03/2019 02/13/2019 PRN Q6H CLONIDINE TAB 0.1 MG (CATAPRES) MG 02/03/2019 02/10/2019 PRN Q6H CALCIUM CARBONATE TAB 500 MG (TUMS) MG 02/03/2019 02/10/2019 PRN Q6H DIPHENHYDRAMINE CAP 25 MG (BENADRYL) MG 02/03/2019 02/10/2019 PRN Q6H HYDROCODONE/APAP 5MG/325MG TAB 5 MG/325MG (ROBERTO-TAB 5/325) TAB 02/03/2019 02/13/2019 PRN Q6H CALMOSEPTINE OINT TUBE (RISAMINE OINT) herbie 02/04/2019 02/11/2019 PRN QID METOPROLOL TAB 25 MG (LOPRESSOR) MG 02/04/2019 02/10/2019 BID&0800,2000 APIXABAN TAB 5 MG (ELIQUIS) MG 02/04/2019 02/10/2019 QAM&0800 PANTOPRAZOLE VIAL INJ 40 MG (PROTONIX IV) MG 02/04/2019 02/13/2019 Daily&0900 MILK OF MAGNALEXANDR LIQ ml 02/04/2019 03/05/2019 PRN Daily FLUTICASONE/SALMETEROL MDI 100 /50MCG (ADVAIR DISKUS) PUFF 02/04/2019 02/04/2019 ONCE&1109 TRAMADOL TAB 50 MG (ULTRAM) MG 02/04/2019 03/06/2019 PRN Q6H ACETAMINOPHEN ORAL TABLET 325mg(Tylenol) MG 02/04/2019 03/06/2019 PRN EVERY 6 Hour Ondansetron 4mg oral DissolveTab (Zofran) MG 02/04/2019 03/06/2019 PRN Q8H ALPRAZOLAM TAB 0.5 MG (XANAX) MG 02/04/2019 03/06/2019 PRN Q8H ACETAMINOPHEN ORAL TABLET 325mg(Tylenol) MG 02/04/2019 03/06/2019 PRN Q4H ALUM/MAG/SIMETH 30CC LIQ (MYLANTA PLUS) cc 02/04/2019 02/14/2019 PRN Q4H POLYETHYLENE GLYCOL POWDER UD PWD (MIRALAX 17GM UNIT DOSE PAKS) gm 02/04/2019 02/14/2019 PRN Q3H LOPERAMIDE CAP 2 MG (IMMODIUM) MG 02/04/2019 02/11/2019 PRN QID CALMOSEPTINE OINT TUBE (RISAMINE OINT) herbie 02/04/2019 03/06/2019 PRN QID METOPROLOL TAB 25 MG (LOPRESSOR) MG 02/04/2019 03/06/2019 BID&0800,1999 FLUTICASONE/SALMETEROL MDI 100 /50MCG (ADVAIR DISKUS) PUFF 02/04/2019 03/06/2019 BID&0800,2000 ALPRAZOLAM TAB 0.5 MG (XANAX) MG 02/04/2019 03/05/2019 QHS&2100 Clonazepam Oral Dissolve Tab 0.25mg (Klonopin) MG 02/04/2019 03/05/2019 QHS&2100 AMITRIPTYLINE TAB 10 MG (ELAVIL) MG 02/04/2019 03/05/2019 QHS&2100 MIRTAZAPINE TAB 15 MG (REMERON) MG 02/04/2019 03/05/2019 QHS&2100 PANTOPRAZOLE VIAL INJ 40 MG (PROTONIX IV) MG 02/04/2019 02/13/2019 Daily&2100 Bfmfgivc-axaz-xea-folic acid) tab,CHEWable (Centrum) TAB 02/05/2019 03/06/2019 Daily&0800 APIXABAN TAB 5 MG (ELIQUIS) MG 02/05/2019 03/06/2019 QAM&0800 LACTOBACILLUS BULGARIS TAB (LACTINEX BULGARIS) tab 02/05/2019 03/06/2019 Daily&0900 POTASSIUM CHLORIDE TAB 20 MEQ (K-DUR) MEQ 02/05/2019 03/06/2019 Daily&0900 FOLIC ACID TAB 1 MG MG 02/05/2019 03/06/2019 Daily&0900 FAMOTIDINE TAB 20 MG (PEPCID) MG 02/05/2019 03/06/2019 Daily&0900 VITAMIN B COMPLEX TAB (B COMPLEX) cap 02/05/2019 03/06/2019 Daily&0900 CYANOCOBALAMIN TAB 1000 MCG (VIT B 12) MCG 02/05/2019 03/06/2019 Daily&0900 CALMOSEPTINE OINT TUBE (RISAMINE OINT) herbie 02/05/2019 03/07/2019 BID&0800,2000 VENLAFAXINE XR CAP 75 MG (EFFEXOR XR) MG 02/06/2019 03/07/2019 Daily&0900 SERTRALINE TAB 50 MG (ZOLOFT) MG 02/06/2019 03/07/2019 Daily&0900 SERTRALINE TAB 25 MG (ZOLOFT) MG 02/07/2019 03/08/2019 Daily&0900 RISPERIDONE DISSOLVETAB TAB 0.25 MG (RISPERDAL M-TAB) MG 02/07/2019 03/09/2019 TID&0800,1400,2000 CHOLESTYRAMINE PKT 4 GM (QUESTRAN SHANNON) GM 02/08/2019 03/10/2019 TID&0700,1200,1730 HALOPERIDOL VIAL INJ 5 MG/CC (HALDOL 1CC VIAL) MG 02/08/2019 02/08/2019 PRN ONCE CHOLESTYRAMINE PKT 4 GM (QUESTRAN SHANNON) GM 02/09/2019 02/16/2019 PRN TID RISPERIDONE TAB 0.5 MG (RISPERDAL) MG 02/09/2019 03/11/2019 TID&0800,1400,2000 FLUVOXAMINE TAB 50 MG (LUVOX) MG 02/09/2019 03/11/2019 BID&0800,2000 hydrocortisone cream 2.5% rectal (Anusol HC) HERBIE 02/12/2019 02/22/2019 PRN TID FLUVOXAMINE TAB 50 MG (LUVOX) MG 02/13/2019 02/13/2019 ONCE&0812 LOPERAMIDE CAP 2 MG (IMMODIUM) MG 02/13/2019 02/20/2019 PRN QID FLUVOXAMINE TAB 50 MG (LUVOX) MG 02/13/2019 03/15/2019 BID&0800,2000 HALOPERIDOL TAB 5 MG (HALDOL) MG 02/15/2019 03/17/2019 Q8H&0600,1400,2200 HALOPERIDOL VIAL INJ 5 MG/CC (HALDOL 1CC VIAL) MG 02/15/2019 02/22/2019 PRN Q4H Problems Date Dx Coded Attending Type Code [...] CARDIAC ARRHYTHMIA, UNSPECIFIED 02/10/2017 JUAN WHITFIELD MD A Ot Z53.21 PROC/TRTMT NOT CRD OUT D/T PT LV BEF SEE 02/10/2017 JUAN WHITFIELD MD A Ot E46 UNSPECIFIED PROTEIN-CALORIE MALNUTRITION 02/10/2017 JUAN WHITFIELD MD A Ot E86.0 DEHYDRATION 02/10/2017 JUAN WHITFIELD MD A Ot E87.6 HYPOKALEMIA 02/10/2017 JUAN WHITFIELD MD A Ot F41.9 ANXIETY DISORDER, UNSPECIFIED 02/10/2017 JUAN WHITFIELD MD A Ot I49.9 CARDIAC ARRHYTHMIA, UNSPECIFIED 02/10/2017 JUAN WHITFIELD MD A Ot K92.9 DISEASE OF DIGESTIVE SYSTEM, UNSPECIFIED 02/10/2017 BINH WHITFIELD MDNT A Ot R63.4 ABNORMAL WEIGHT LOSS 02/10/2017 JUAN WHITFIELD MD A Ot Z85.41 PERSONAL HISTORY OF MALIGNANT NEOPLASM O 02/14/2017 JUAN WHITFIELD MD A Ot E46 UNSPECIFIED PROTEIN-CALORIE MALNUTRITION 02/14/2017 BINH WHITFIELD MDNT A Ot E86.0 DEHYDRATION 02/14/2017 BINH WHITFIELD MDNT A Ot E87.6 HYPOKALEMIA 02/14/2017 JUAN WHITFIELD MD A Ot F41.9 ANXIETY DISORDER, UNSPECIFIED 02/14/2017 BINH WHITFIELD MDNT A Ot I49.9 CARDIAC ARRHYTHMIA, UNSPECIFIED 02/14/2017 BINH WHITFIELD MDNT A Ot K92.9 DISEASE OF DIGESTIVE SYSTEM, UNSPECIFIED 02/14/2017 BINH WHITFIELD MDNT A Ot R63.4 ABNORMAL WEIGHT LOSS 02/14/2017 BINH WHITFIELD MDNT A Ot Z85.41 PERSONAL HISTORY OF MALIGNANT NEOPLASM O 02/21/2017 JUAN WHITFIELD MD A Ot E46 UNSPECIFIED PROTEIN-CALORIE MALNUTRITION 02/21/2017 JUAN WHITFIELD MD A Ot E86.0 DEHYDRATION 02/21/2017 BINH WHITFIELD MDNT A Ot E87.6 HYPOKALEMIA 02/21/2017 NAHID GONZALEZ, JUAN Gonzales Ot F41.9 ANXIETY DISORDER, UNSPECIFIED 02/21/2017 NAHID GONZALEZ, JUAN Gonzales Ot I49.9 CARDIAC ARRHYTHMIA, UNSPECIFIED 02/21/2017 NAHID GONZALEZ, JUAN Gonzales Ot K92.9 DISEASE OF DIGESTIVE SYSTEM, UNSPECIFIED 02/21/2017 NAHID GONZALEZ, JUAN Gonzales Ot R63.4 ABNORMAL WEIGHT LOSS 02/21/2017 NAHID GONZALEZ, JUAN Gonzales Ot Z85.41 PERSONAL HISTORY OF MALIGNANT NEOPLASM O 12/26/2018 ORTIZ DO, BREE Ot F32.9 MAJOR DEPRESSIVE DISORDER, SINGLE EPISOD 12/26/2018 ORTIZ DO, BREE Ot F41.9 ANXIETY DISORDER, UNSPECIFIED 12/26/2018 ORTIZ DO, BREE Ot K21.9 GASTRO- ESOPHAGEAL REFLUX DISEASE WITHOUT 12/26/2018 ORTIZ DO, BREE Ot K29.00 ACUTE GASTRITIS WITHOUT BLEEDING 12/26/2018 ORTIZ DO, BREE Ot R11.2 NAUSEA WITH VOMITING, UNSPECIFIED 12/26/2018 ORTIZ DO, BREE Ot Z85.41 PERSONAL HISTORY OF MALIGNANT NEOPLASM O 12/26/2018 ORTIZ DO, BREE Ot Z87.19 PERSONAL HISTORY OF OTHER DISEASES OF TH 12/26/2018 ANGEL DO, BREE Ot Z88.0 ALLERGY STATUS TO PENICILLIN 12/26/2018 ANGEL DO, BREE Ot Z88.1 ALLERGY STATUS TO OTHER ANTIBIOTIC AGENT 12/26/2018 ANGEL DO, BREE Ot Z88.2 ALLERGY STATUS TO SULFONAMIDES STATUS 12/26/2018 ANGEL DO, BREE Ot Z88.5 ALLERGY STATUS TO NARCOTIC AGENT STATUS 12/26/2018 ANGEL DO, BREE Ot Z88.6 ALLERGY STATUS TO ANALGESIC AGENT STATUS 12/26/2018 ANGEL DO, BREE Ot Z88.8 ALLERGY STATUS TO [facility] DRUG/MEDS/BIOL SUB 12/26/2018 ANGEL DO, BREE Ot Z90.49 ACQUIRED ABSENCE OF OTHER SPECIFIED PART 12/26/2018 ANGEL SAMANO, BREE Ot Z91.041 RADIOGRAPHIC DYE ALLERGY STATUS 12/26/2018 ANGEL SAMANO, BREE Ot Z98.890 OTHER SPECIFIED POSTPROCEDURAL STATES 01/04/2019 ALONSO VASQUEZ MD, Ot E87.1 HYPO-OSMOLALITY AND HYPONATREMIA 01/04/2019 ALONSO VASQUEZ MD, Ot E87.8 [facility] DISORDERS OF ELECTROLYTE AND FLUID B 01/04/2019 PEDRO MD, ALONSO N Ot F32.9 MAJOR DEPRESSIVE DISORDER, SINGLE EPISOD 01/04/2019 ALONSO VASQUEZ MD Ot F41.9 ANXIETY DISORDER, UNSPECIFIED 01/04/2019 ALONSO VASQUEZ MD Ot K21.9 GASTRO-ESOPHAGEAL REFLUX DISEASE WITHOUT 01/04/2019 ALONSO VASQUEZ MD Ot 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, 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 01/04/2019 ALONSO VASQUEZ MD, Ot N17.9 ACUTE KIDNEY FAILURE, UNSPECIFIED 01/04/2019 ALONSO VASQUEZ MD Ot Z85.41 PERSONAL HISTORY OF MALIGNANT NEOPLASM O 01/04/2019 ALONSO VASQUEZ MD Ot Z90.49 ACQUIRED ABSENCE OF OTHER SPECIFIED PART 01/05/2019 ALONSO VASQUEZ MD Ot E87.1 HYPO-OSMOLALITY AND HYPONATREMIA 01/05/2019 ALONSO VASQUEZ MD Ot E87.8 OTH [...] FAILURE, UNSPECIFIED 01/05/2019 ALONSO VASQUEZ MD Ot Z85.41 PERSONAL HISTORY OF MALIGNANT NEOPLASM O 01/05/2019 ALONSO VASQUEZ MD Ot Z90.49 ACQUIRED ABSENCE OF OTHER SPECIFIED PART 01/05/2019 ALONSO VASQUEZ MD Ot B96.20 UNSP ESCHERICHIA COLI THE CAUSE OF DI 01/05/2019 ALONSO VASQUEZ MD Ot E46 UNSPECIFIED PROTEIN-CALORIE MALNUTRITION 01/05/2019 ALONSO VASQUEZ MD Ot E87.1 HYPO-OSMOLALITY AND HYPONATREMIA 01/05/2019 ALONSO VASQUEZ MD Ot E87.6 HYPOKALEMIA 01/05/2019 ALONSO VASQUEZ MD Ot E87.8 OTH DISORDERS OF ELECTROLYTE AND FLUID B 01/05/2019 ALONSO VASQUEZ MD, Ot F32.9 MAJOR DEPRESSIVE DISORDER, SINGLE EPISOD 01/05/2019 ALONSO VASQUEZ MD, Ot F41.9 ANXIETY DISORDER, UNSPECIFIED 01/05/2019 ALONSO VASQUEZ MD, Ot K21.9 GASTRO-ESOPHAGEAL REFLUX DISEASE WITHOUT 01/05/2019 ALONSO VASQUEZ MD Ot K56.51 INTESTINAL ADHESIONS [BANDS], WITH PARTI 01/05/2019 ALONSO VASQUEZ MD, Ot 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, 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 01/05/2019 ALONSO VASQUEZ MD, Ot N17.9 ACUTE KIDNEY FAILURE, UNSPECIFIED 01/05/2019 ALONSO VASQUEZ MD, Ot N39.0 URINARY TRACT INFECTION, SITE NOT SPECIF 01/05/2019 ALONSO VASQUEZ MD, Ot Z85.41 PERSONAL HISTORY OF MALIGNANT NEOPLASM O 01/05/2019 ALONSO VASQUEZ MD, Ot Z90.49 ACQUIRED ABSENCE OF OTHER SPECIFIED PART 01/09/2019 ALONSO VASQUEZ MD Ot E87.1 HYPO-OSMOLALITY AND HYPONATREMIA 01/09/2019 ALONSO VASQUEZ MD, Ot F32.9 MAJOR DEPRESSIVE DISORDER, SINGLE EPISOD 01/09/2019 ALONSO VASQUEZ MD, Ot F41.9 ANXIETY DISORDER, UNSPECIFIED 01/09/2019 ALONSO VASQUEZ MD Ot I10 ESSENTIAL (PRIMARY) HYPERTENSION 01/09/2019 ALONSO VASQUEZ MD, Ot K21.9 GASTRO-ESOPHAGEAL REFLUX DISEASE WITHOUT 01/09/2019 [...] ANXIETY DISORDER, UNSPECIFIED 01/12/2019 ALONSO VASQUEZ MD Ot I10 ESSENTIAL (PRIMARY) HYPERTENSION 01/12/2019 ALONSO [...] ABSENCE OF OTHER SPECIFIED PART 01/16/2019 ALONSO VASQUEZ MD Ot E87.1 HYPO-OSMOLALITY AND HYPONATREMIA 01/16/2019 [...] ALONSO VASQUEZ MD Ot E87.6 HYPOKALEMIA 01/17/2019 ALOSNO VASQUEZ MD Ot F32.9 MAJOR DEPRESSIVE DISORDER, SINGLE EPISOD 01/17/2019 ALONSO VASQUEZ MD Ot F41.9 ANXIETY DISORDER, UNSPECIFIED 01/17/2019 ALONSO VASQUEZ MD Ot I10 ESSENTIAL (PRIMARY) HYPERTENSION 01/17/2019 ALONSO VASQUEZ MD Ot J44.9 CHRONIC OBSTRUCTIVE PULMONARY DISEASE, U 01/17/2019 ALONSO VASQUEZ MD Ot K21.9 GASTRO-ESOPHAGEAL REFLUX DISEASE WITHOUT 01/17/2019 ALONSO VASQUEZ MD Ot K45.0 OTH ABDOMINAL HERNIA WITH OBSTRUCTION, W 01/17/2019 ALONSO VASQUEZ MD Ot K56.51 INTESTINAL ADHESIONS [BANDS], WITH PARTI 01/17/2019 ALONSO VASQUEZ MD, Ot N17.9 ACUTE KIDNEY FAILURE, UNSPECIFIED 01/17/2019 ALONSO VASQUEZ MD Ot Z85.41 PERSONAL HISTORY OF MALIGNANT NEOPLASM O 01/17/2019 ALOSNO VASQUEZ MD Ot Z90.49 ACQUIRED ABSENCE OF OTHER SPECIFIED PART 01/25/2019 ESPERANZA RIVERA DO Ot F32.9 MAJOR DEPRESSIVE DISORDER, SINGLE EPISOD 01/25/2019 ESPERANZA RIVERA DO, Ot F41.9 ANXIETY DISORDER, UNSPECIFIED 01/25/2019 ESPERANZA RIVERA DO Ot K21.9 GASTRO-ESOPHAGEAL REFLUX DISEASE WITHOUT 01/25/2019 ESPERANZA RIVERA DO Ot R10.9 UNSPECIFIED ABDOMINAL PAIN 01/25/2019 ESPERANZA RIVERA DO Ot R11.0 NAUSEA 01/25/2019 ESPERANZA RIVERA DO Ot Z79.01 [facility] (CURRENT) USE OF ANTICOAGULANT 01/25/2019 ESPERANZA RIVERA DO Ot 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 STERO 01/25/2019 ESPERANZA RIVERA DO Ot Z85.41 PERSONAL HISTORY OF MALIGNANT NEOPLASM O 01/25/2019 ESPERANZA RIVERA DO Ot Z87.19 PERSONAL HISTORY OF OTHER DISEASES OF TH 01/25/2019 ESPERANZA RIVERA DO Ot Z88.0 ALLERGY STATUS TO PENICILLIN 01/25/2019 ESPERANZA RIVERA DO Ot Z88.2 ALLERGY STATUS TO SULFONAMIDES STATUS 01/25/2019 ESPERANZA RIVERA DO Ot Z88.5 ALLERGY STATUS TO NARCOTIC AGENT STATUS 01/25/2019 ESPERANZA RIVERA DO Ot Z88.8 ALLERGY STATUS TO [facility] DRUG/MEDS/BIOL SUB 01/25/2019 ESPERANZA RIVERA DO Ot Z90.49 ACQUIRED ABSENCE OF OTHER SPECIFIED PART 01/25/2019 ESPERANZA RIVERA DO Ot Z91.041 RADIOGRAPHIC DYE ALLERGY STATUS 01/25/2019 ESPERANZA RIVERA DO Ot Z98.890 OTHER SPECIFIED POSTPROCEDURAL STATES 01/28/2019 ESPERANZA RIVERA DO Ot F32.9 MAJOR DEPRESSIVE DISORDER, SINGLE EPISOD 01/28/2019 ESPERANZA RIVERA DO, Ot F41.9 ANXIETY DISORDER, UNSPECIFIED 01/28/2019 RIVERA ESPERANZA SAMANO Ot K21.9 GASTRO-ESOPHAGEAL REFLUX DISEASE WITHOUT 01/28/2019 ESPERANZA RIVERA DO, Ot R10.9 UNSPECIFIED ABDOMINAL PAIN 01/28/2019 ESPERANZA RIVERA DO, Ot R11.0 NAUSEA 01/28/2019 RIVERA ESPERANZA SAMANO Ot 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 01/28/2019 ESPERANZA RIVERA DO, Ot 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 STERO 01/28/2019 ESPERANZA RIVERA DO Ot Z85.41 PERSONAL HISTORY OF MALIGNANT NEOPLASM O 01/28/2019 ESPERANZA RIVERA DO, Ot Z87.19 PERSONAL HISTORY OF OTHER DISEASES OF TH 01/28/2019 ESPERANZA RIVERA DO, Ot Z88.0 ALLERGY STATUS TO PENICILLIN 01/28/2019 ESPERANZA RIVERA DO, Ot Z88.2 ALLERGY STATUS TO SULFONAMIDES STATUS 01/28/2019 ESPERANZA RIVERA DO, Ot Z88.5 ALLERGY STATUS TO NARCOTIC AGENT STATUS 01/28/2019 ESPERANZA RIVERA DO, Ot Z88.8 ALLERGY STATUS TO [facility] DRUG/MEDS/BIOL SUB 01/28/2019 ESPERANZA RIVERA DO, Ot Z90.49 ACQUIRED ABSENCE OF OTHER SPECIFIED PART 01/28/2019 ESPERANZA RIVERA DO, Ot Z91.041 RADIOGRAPHIC DYE ALLERGY STATUS 01/28/2019 ESPERANZA RIVERA DO, Ot Z98.890 OTHER SPECIFIED POSTPROCEDURAL STATES 01/29/2019 BREE ORTIZ DO, Ot F32.9 MAJOR DEPRESSIVE DISORDER, SINGLE EPISOD 01/29/2019 BREE ORTIZ DO, Ot F41.9 ANXIETY DISORDER, UNSPECIFIED 01/29/2019 BREE ORTIZ DO, Ot K21.9 GASTRO- ESOPHAGEAL REFLUX DISEASE WITHOUT 01/29/2019 BREE ORTIZ DO, Ot K58.9 IRRITABLE BOWEL SYNDROME WITHOUT DIARRHE 01/29/2019 BREE ORTIZ DO, Ot S06.0X9A CONCUSSION W LOSS OF CONSCIOUSNESS OF UN 01/29/2019 BREE ORTIZ DO, Ot S09.90XA UNSPECIFIED INJURY OF HEAD, INITIAL ENCO 01/29/2019 BREE ORTIZ DO, Ot W01.198A FALL SAME LEV FROM SLIP/TRIP W STRIKE AG 01/29/2019 BREE ORTIZ DO, Ot Y92.[address] IN SENIOR CARE PLACE 01/29/2019 BREE ORTIZ DO Ot 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 01/29/2019 BREE ORTIZ DO Ot Z85.41 PERSONAL HISTORY OF MALIGNANT NEOPLASM O 01/29/2019 ANGEL SAMANO, BREE Ot Z88.0 ALLERGY STATUS TO PENICILLIN 01/29/2019 ANGEL SAMANO, BREE Ot Z88.1 ALLERGY STATUS TO OTHER ANTIBIOTIC AGENT 01/29/2019 ANGEL SAMANO, BREE Ot Z88.2 ALLERGY STATUS TO SULFONAMIDES STATUS 01/29/2019 ORTIZ DO, BREE Ot Z88.5 ALLERGY STATUS TO NARCOTIC AGENT STATUS 01/29/2019 ORTIZ DO, BREE Ot Z88.6 ALLERGY STATUS TO ANALGESIC AGENT STATUS 01/29/2019 ORTIZ , BREE Ot Z88.8 ALLERGY STATUS TO OTH DRUG/MEDS/BIOL SUB 01/29/2019 BREE ORTIZ DO Ot Z91.041 RADIOGRAPHIC DYE ALLERGY STATUS 01/31/2019 ESPERANZA RIVERA DO Ot F32.9 MAJOR DEPRESSIVE DISORDER, SINGLE EPISOD 01/31/2019 ESPERANZA RIVERA DO, Ot F41.9 ANXIETY DISORDER, UNSPECIFIED 01/31/2019 ESPERANZA RIVERA DO Ot K21.9 GASTRO-ESOPHAGEAL REFLUX DISEASE WITHOUT 01/31/2019 ESPERANZA RIVERA DO Ot R10.9 UNSPECIFIED ABDOMINAL PAIN 01/31/2019 ESPERANZA RIVERA DO Ot R11.0 NAUSEA 01/31/2019 ESPERANZA RIVERA DO, Ot 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 01/31/2019 ESPERANZA RIVERA DO Ot 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 01/31/2019 ESPERANZA RIVERA DO Ot Z85.41 PERSONAL HISTORY OF MALIGNANT NEOPLASM O 01/31/2019 ESPERANZA RIVERA DO Ot Z87.19 PERSONAL HISTORY OF OTHER DISEASES OF TH 01/31/2019 ESPERANZA RIVERA DO Ot Z88.0 ALLERGY STATUS TO PENICILLIN 01/31/2019 ESPERANZA RIVERA DO Ot Z88.2 ALLERGY STATUS TO SULFONAMIDES STATUS 01/31/2019 ESPERANZA RIVERA DO Ot Z88.5 ALLERGY STATUS TO NARCOTIC AGENT STATUS 01/31/2019 ESPERANZA RIVERA DO Ot Z88.8 ALLERGY STATUS TO OTH DRUG/MEDS/BIOL SUB 01/31/2019 MIGUEL SAMANO ESPERANZA Lisa Ot Z90.49 ACQUIRED ABSENCE OF OTHER SPECIFIED PART 01/31/2019 MIGUEL SAMANO ESPERANZA Lisa Ot Z91.041 RADIOGRAPHIC DYE ALLERGY STATUS 01/31/2019 MIGUEL SAMANO ESPERANZA Lisa Ot Z98.890 OTHER SPECIFIED POSTPROCEDURAL STATES 02/03/2019 BREE ORTIZ DO Ot F32.9 MAJOR DEPRESSIVE DISORDER, SINGLE EPISOD 02/03/2019 ANGEL SAMANO, BREE Ot F41.9 ANXIETY DISORDER, UNSPECIFIED 02/03/2019 ORTIZ , BREE Ot K21.9 GASTRO- ESOPHAGEAL REFLUX DISEASE WITHOUT 02/03/2019 [facility], BREE Ot K58.9 IRRITABLE BOWEL SYNDROME WITHOUT DIARRHE 02/03/2019 ANGEL SAMANO, BREE Ot S06.0X9A CONCUSSION W LOSS OF CONSCIOUSNESS OF UN 02/03/2019 ANGEL SAMANO, BREE Ot S09.90XA UNSPECIFIED INJURY OF HEAD, INITIAL ENCO 02/03/2019 ANGEL SAMANO, BREE Ot W01.198A FALL SAME LEV FROM SLIP/TRIP W STRIKE AG 02/03/2019 BREE ORTIZ DO Ot Y92.[address] IN SENIOR CARE PLACE 02/03/2019 ANGEL SAMANO, BREE Ot Z79.01 [facility] (CURRENT) USE OF ANTICOAGULANT 02/03/2019 BREE ORTIZ DO Ot Z85.41 PERSONAL HISTORY OF MALIGNANT NEOPLASM O 02/03/2019 BREE ORTIZ DO Ot Z88.0 ALLERGY STATUS TO PENICILLIN 02/03/2019 BREE ORTIZ DO Ot Z88.1 ALLERGY STATUS TO OTHER ANTIBIOTIC AGENT 02/03/2019 BREE ORTIZ DO Ot Z88.2 ALLERGY STATUS TO SULFONAMIDES STATUS 02/03/2019 BREE ORTIZ DO Ot Z88.5 ALLERGY STATUS TO NARCOTIC AGENT STATUS 02/03/2019 BREE ORTIZ DO Ot Z88.6 ALLERGY STATUS TO ANALGESIC AGENT STATUS 02/03/2019 ANGEL SAMANO, BREE Ot Z88.8 ALLERGY STATUS TO OTH DRUG/MEDS/BIOL SUB 02/03/2019 BREE ORTIZ DO Ot Z91.041 RADIOGRAPHIC DYE ALLERGY STATUS 02/03/2019 Leeann Christiansen W 290.40 VASCULAR DEMENTIA, UNCOMPLICATED 02/03/2019 Leeann Christiansen W F01.50 VASCULAR DEMENTIA WITHOUT BEHAVIORAL DISTURBANCE 02/03/2019 Leeann Christiansen W 290.40 VASCULAR DEMENTIA, UNCOMPLICATED 02/03/2019 Leeann Christiansen W F01.50 VASCULAR DEMENTIA WITHOUT BEHAVIORAL DISTURBANCE 02/03/2019 Serina Christianseni W 276.51 DEHYDRATION 02/03/2019 Елена Leeann W 290.40 VASCULAR DEMENTIA, UNCOMPLICATED 02/03/2019 Елена Leeann W 584.9 ACUTE KIDNEY FAILURE, UNSPECIFIED 02/03/2019 Christiansen, Leeann W 780.2 SYNCOPE AND COLLAPSE 02/03/2019 Christiansen, Leeann W 787.91 DIARRHEA 02/03/2019 Serina Christianseni W E86.0 DEHYDRATION 02/03/2019 Елена Leeann W F01.50 VASCULAR DEMENTIA WITHOUT BEHAVIORAL DISTURBANCE 02/03/2019 Serina Christianseni W N17.9 ACUTE KIDNEY FAILURE, UNSPECIFIED 02/03/2019 Leeann Christiansen W R19.7 DIARRHEA, UNSPECIFIED 02/03/2019 Елена Leeann W R55 SYNCOPE AND COLLAPSE 02/04/2019 Елена Leeann W 276.51 DEHYDRATION 02/04/2019 Christiansen, Leeann W 290.40 VASCULAR DEMENTIA, UNCOMPLICATED 02/04/2019 Елена Leeann W 584.9 ACUTE KIDNEY FAILURE, UNSPECIFIED 02/04/2019 Елена Leeann W 780.2 SYNCOPE AND COLLAPSE 02/04/2019 Елеан Leeann W 787.91 DIARRHEA 02/04/2019 Елена Leeann W E86.0 DEHYDRATION 02/04/2019 Елена Leeann W F01.50 VASCULAR DEMENTIA WITHOUT BEHAVIORAL DISTURBANCE 02/04/2019 Елена Leeann W N17.9 ACUTE KIDNEY FAILURE, UNSPECIFIED 02/04/2019 Leeann Christiansen W R19.7 DIARRHEA, UNSPECIFIED 02/04/2019 Leeann Christiansen W R55 SYNCOPE AND COLLAPSE 02/07/2019 BREE ORTIZ DO, Ot F32.9 MAJOR DEPRESSIVE DISORDER, SINGLE EPISOD 02/07/2019 BREE ORTIZ DO, Ot F41.9 ANXIETY DISORDER, UNSPECIFIED 02/07/2019 BREE ORTIZ DO, Ot K21.9 GASTRO- ESOPHAGEAL REFLUX DISEASE WITHOUT 02/07/2019 BREE ORTIZ DO, Ot K58.9 IRRITABLE BOWEL SYNDROME WITHOUT DIARRHE 02/07/2019 BREE ORTIZ DO, Ot S06.0X9A CONCUSSION W LOSS OF CONSCIOUSNESS OF UN 02/07/2019 BREE ORTIZ DO, Ot S09.90XA UNSPECIFIED INJURY OF HEAD, INITIAL ENCO 02/07/2019 BREE ORTIZ DO, Ot W01.198A FALL SAME LEV FROM SLIP/TRIP W STRIKE AG 02/07/2019 ANGEL SAMANOBREE Ot Y92.[address] IN SENIOR CARE PLACE 02/07/2019 ANGEL BREE Ot Z79.01 [facility] (CURRENT) USE OF ANTICOAGULANT 02/07/2019 ORTIZ BREE Ot Z85.41 PERSONAL HISTORY OF MALIGNANT NEOPLASM O 02/07/2019 ORTIZ BREE Ot Z88.0 ALLERGY STATUS TO PENICILLIN 02/07/2019 ANGEL BREE Ot Z88.1 ALLERGY STATUS TO OTHER ANTIBIOTIC AGENT 02/07/2019 ANGEL BREE Ot Z88.2 ALLERGY STATUS TO SULFONAMIDES STATUS 02/07/2019 ORTIZ BREE Ot Z88.5 ALLERGY STATUS TO NARCOTIC AGENT STATUS 02/07/2019 ORTIZ BREE Ot Z88.6 ALLERGY STATUS TO ANALGESIC AGENT STATUS 02/07/2019 ORTIZ BREE Ot Z88.8 ALLERGY STATUS TO OTH DRUG/MEDS/BIOL SUB 02/07/2019 ORTIZ BREE Ot Z91.041 RADIOGRAPHIC DYE ALLERGY STATUS 03/07/2019 JOSE MANUEL YAO APRN Ot S99.922D UNSPECIFIED INJURY OF LEFT FOOT, SUBSEQU Procedures Code Description Performed By Performed On 38.93 VENOUS CATHETERIZATION NEC 02/14/2012 45.24 FLEXIBLE SIGMOIDOSCOPY 02/14/2012 45.62 PART SM BOWEL RESECT NEC 02/14/2012 45.90 INTESTINAL ANASTOM NOS 02/14/2012 [id number] DRAINAGE OF STOMACH WITH DRAINAGE DEVICE 01/08/2019 [id number] REPAIR MESENTERY, PERCUTANEOUS ENDOSCOPI 01/15/2019 Results Test [...] culture - 12/31/18 13:39 Bacterial urine culture [id number] NRG COLONY COUNT >100,000/ML NRG FTX;REPORTABLE ID/SUSCEPTIBILITY REPORTED 01/03 9:05 NRG FREE TEXT ENTRY 3 ORGANISM ID REPORT RCD 01/02 10:05 NRG RM Sensitivity Panel - 12/31/18 13:39 Gentamicin susceptibility [...] and clavulanate potassium susc [place] = NRG RM Sensitivity Panel - 12/31/18 13:39 Gentamicin susceptibility [...] 93 mmol/L 98-107 Carbon dioxide 25 mmol/L 21-32 [...] culture - 01/08/19 14:39 Bacterial urine culture [id number] NRG COLONY COUNT 30,000 CFU/ML NR FTX;REPORTABLE SUSCEPTIBILITY REPORTED 01-12-2019, 1005. [facility] RML Sensitivity Panel - 01/08/19 14:39 Vancomycin [...] resistant Staphylococcus aureus (MRSA) screening culture NEG [facility] Comprehensive metabolic panel - 01/15/19 05:50 [...] or plasma urea nitrogen/creatinine mass ratio 11 [facility] Serum or plasma creatinine measurement with calculation of estimated glomerular filtration rate > [facility] Serum or plasma glucose measurement (mass/volume) 120 [...] measurement by glucometer (mass/volume) 112 mg/dL 70-110 Troponin I - 02/03/19 18:15 Troponin <0.020 ng/mL 0.0-0.4 MRSA Screen - 02/03/19 18:15 FINAL CULTURE RESULTS MRSA Negative Nasal Culture MEDIA PLATED Setup at 18:37 on 02/03/2019 EKG - 02/03/19 19:48 EKG Complete Urine Culture - 02/03/19 19:53 PRELIM CULTURE RESULTS 10,000-20,000 Gram Negative BRITTON / ID to Follow MEDIA PLATED Setup at 20:33 on 02/03/2019 CULTURE SOURCE CATHETER Urine Culture - 02/03/19 19:53 PRELIM CULTURE RESULTS 10,000-20,000 Gram Negative BRITTON / ID to Follow MEDIA PLATED Setup at 20:33 on 02/03/2019 CULTURE SOURCE CATHETER Sensi - 02/03/19 19:53 FINAL CULTURE RESULTS Klebsiella pneumoniae (Isolate 1) Ampicillin/Sulbactam <=8/4 Ampicillin >16 Amoxicillin/K Clavulanate <=8/4 Ceftriaxone <=8 Ciprofloxacin <=1 Nitrofurantoin <=32 Gentamicin <=4 Levofloxacin <=2 Trimethoprim/ Sulfamethoxazole <=2/38 Tetracycline <=4 Amikacin <=16 Aztreonam <=8 Ceftazidime <=1 Ceftazidime/K Clavulanate <=0.25 Cephalothin <=8 Cefotaxime <=2 Cefotaxime/K Clavulanate <=0.5 Cefoxitin <=8 Cefazolin <=8 Cefepime <=8 Cefuroxime <=4 Ertapenem <=1 Imipenem <=4 Meropenem <=4 Piperacillin/Tazobactam <=16 Piperacillin <=16 Tigecycline <=2 Tobramycin <=4 Rapid Drug Screen + ETOH,Medical - 02/03/19 20:25 Amphetamine NEGATIVE NEGATIVE Barbiturates NEGATIVE NEGATIVE Benzodiazepines POSITIVE NEGATIVE Cocaine NEGATIVE NEGATIVE Ethanol, Urine <10.00 mg/dL 20.00-80.00 Marijuana NEGATIVE NEGATIVE Methylenedioxymethamphetamine NEGATIVE NEGATIVE Opiates NEGATIVE NEGATIVE Oxycodone NEGATIVE NEGATIVE Phencyclidine NEGATIVE NEGATIVE Propoxyphene NEGATIVE NEGATIVE Tricyclic Antidepressant POSITIVE NEGATIVE C.difficile, DNA Amplification - 02/04/19 04:59 C.difficile, DNA Amplification NEGATIVE: No DNA evidence of toxogenic C. difficile detected. Negative Comprehensive Metabolic Panel - 02/04/19 05:43 Albumin 3.5 g/dL 3.6-5.1 ALP 77 U/L 35-130 ALT 47 U/L 6-45 Anion Gap 14 6-14 AST 33 U/L 2-40 BUN 23 mg/dL 5-25 Calcium 8.3 mg/dL 8.3-10.4 Chloride 112 mmol/L 95-114 CO2 18 mEq/L 22-33 Creat 0.86 mg/dL 0.50-1.50 eGFR 65 mL/min/1.73m2 >59 Globulin 2.3 g/dL 2.3-3.5 Glucose 95 mg/dL 70-110 Osmo 292 280-295 Potassium 3.7 mmol/L 3.5-5.3 Sodium 140 mmol/L 134-148 TBil 0.4 mg/dL 0.2-1.2 TP 5.8 g/dL 6.0-8.3 Comprehensive Metabolic Panel - 02/11/19 05:20 Albumin 3.3 g/dL 3.6-5.1 ALP 88 U/L 35-130 ALT 28 U/L 6-45 Anion Gap 12 6-14 AST 20 U/L 2-40 BUN 10 mg/dL 5-25 Calcium 7.7 mg/dL 8.3-10.4 Chloride 104 mmol/L 95-114 CO2 27 mEq/L 22-33 Creat 0.73 mg/dL 0.50-1.50 eGFR 79 mL/min/1.73m2 >59 Globulin 2.1 g/dL 2.3-3.5 Glucose 98 mg/dL 70-110 Osmo 288 280-295 Potassium 3.4 mmol/L 3.5-5.3 Sodium 140 mmol/L 134-148 TBil 0.2 mg/dL 0.2-1.2 TP 5.4 g/dL 6.0-8.3 Comprehensive Metabolic Panel - 02/16/19 07:17 Albumin 4.0 g/dL 3.6-5.1 ALP 109 U/L 35-130 ALT 23 U/L 6-45 Anion Gap 16 6-14 AST 24 U/L 2-40 BUN 10 mg/dL 5-25 Calcium 8.4 mg/dL 8.3-10.4 Chloride 106 mmol/L 95-114 CO2 24 mEq/L 22-33 Creat 0.74 mg/dL 0.50-1.50 eGFR 78 mL/min/1.73m2 >59 Globulin 3.0 g/dL 2.3-3.5 Glucose 102 mg/dL 70-110 Osmo 294 280-295 Potassium 3.4 mmol/L 3.5-5.3 Sodium 143 mmol/L 134-148 TBil 0.4 mg/dL 0.2-1.2 TP 7.0 g/dL 6.0-8.3 Encounters ACCT No. Visit Date/Time Discharge Status Pt. Type Provider Facility Loc./Unit Complaint [id number] 02/04/2019 10:15:00 02/16/2019 10:00:00 [id number] 02/03/2019 20:59:00 02/04/2019 10:20:00 [id number] 02/03/2019 20:52:45 Document Registration [id number] 03/06/2019 10:20:00 03/06/2019 23:59:59 CLS Outpatient JOSE MANUEL YAO APRN [facility] RAD FS [id number] 01/29/2019 18:08:00 01/29/2019 21:10:00 DIS Emergency BREE ORTIZ DO [facility] ER FS LT SIDE OF HEAD INJ [id number] 01/25/2019 10:07:00 01/25/2019 14:30:00 DIS Emergency RIVERA JOSIE SAMANORADHA Gonzalez [facility] ER FS PT THINKS SHE IS DEHYDRATED [id number] 01/08/2019 14:00:00 01/17/2019 16:30:00 DIS Inpatient ALONSO VASQUEZ MD [facility] 4TH SMALL BOWEL OBSTRUCTION [id number] 12/31/2018 13:52:00 01/05/2019 15:46:00 DIS Inpatient ALONSO VASQUEZ MD [facility] 4TH ABD PAIN; N V [id number] 12/26/2018 13:50:00 12/26/2018 16:55:00 DIS Emergency BREE ORTIZ DO [facility] ER FS VOMITING [id number] 02/10/2017 11:40:00 02/10/2017 13:30:00 DIS Emergency JUAN WHITFIELD MD [facility] ER IRREG HEART RATE/STRESS [id number] 02/10/2017 11:26:00 02/10/2017 11:30:00 DIS Emergency JUAN WHITFIELD MD [facility] ER IRREG HEART RATE [id number] 02/10/2017 11:31:00 Document Registration [id number] 02/10/2012 20:08:00 Document Registration [id number] 02/04/2019 10:15:00 Document Registration [id number] 02/03/2019 20:59:00 Document Registration
--- NOTE | 2019-03-13 09:07 | ED Chest Pain ---
General Chief Complaint: Chest Pain Stated Complaint: CHEST PAIN Source: patient, RN notes reviewed, old records Exam Limitations: no limitations History of Present Illness Date Seen by Provider: Mar 13, 2019 Time Seen by Provider: 09:06 Initial Comments [place] checked apparently for a DVT c/ the c/o chest pain that she states radiates to under her left arm. Started approximately 15' CEO ZIFF DAVIS. Admits to being anxious and thinks it may be a factor. Timing/Duration: 1/2 hour Severity/Quality: mild (3/10) Location: substernal Radiation: other (under left arm) Activities at Onset: other (having an US done on her RLE ) Prior CP/Workup: no prior cardiac workup Modifying Factors: improves with other (none) ASA po CEO ZIFF DAVIS: No NTG SL CEO ZIFF DAVIS: No Associated Symptoms: denies symptoms (x/ as noted.) Allergies and Home Medications Allergies Coded Allergies: codeine (Verified Allergy, Mild, N/V, PT HAS RECEIVED MORPHINE WITHOUT ISSUE, 12/31/18) PER [facility] (ICU) PT HAS RECEIVED MORPHINE WITHOUT PROBLEMS red (food color) (Verified Allergy, Mild, Shortness of Breath, 01/04/19) Iodinated Contrast- Oral and IV Dye (Verified Allergy, Unknown, 12/31/18) Penicillins (Verified Allergy, Unknown, 12/31/18) Sulfa (Sulfonamide Antibiotics) (Verified Allergy, Unknown, 12/31/18) cephalexin (Verified Allergy, Unknown, 12/31/18) citalopram (Verified Allergy, Unknown, 01/16/06) diphenhydramine (Verified Allergy, Unknown, 01/16/06) hydrocodone (Verified Allergy, Unknown, 12/31/18) levofloxacin (Verified Allergy, Unknown, 01/16/06) loratadine (Verified Allergy, Unknown, 12/31/18) metronidazole (Verified Allergy, Unknown, 01/16/06) morphine (Verified Allergy, Unknown, 01/01/19) nitrofurantoin (Verified Allergy, Unknown, 01/16/06) prochlorperazine (Verified Allergy, Unknown, 01/16/06) pseudoephedrine (Verified Allergy, Unknown, 01/16/06) soybean (Unverified Allergy, Unknown, 01/14/19) FROM UNCODED ALLERGIES zinc acetate (Verified Allergy, Unknown, 01/16/06) Home Medications Acetaminophen 325 Mg Tablet, 650 MG PO Q4H PRN for PAIN-MILD, (Reported) TAKES 2 (325MG) TABLETS Alprazolam 0.5 Mg Tablet, 0.5 MG PO HS, (Reported) Alprazolam 0.5 Mg Tablet, 0.5 MG PO Q8H PRN for ANXIETY, (Reported) Amitriptyline HCl 10 Mg Tablet, 20 MG PO HS, (Reported) TAKES 2 (10MG) TABLETS Apixaban 5 Mg Tablet, 5 MG PO DAILY, (Reported) B Complex with Vitamin C 1 Each Tablet.er, 1 TAB PO DAILY, (Reported) Cefdinir 300 Mg Capsule, 300 MG PO BID Prescribed by: ALONSO VASQUEZ on 01/05/19 1203 Ciprofloxacin HCl 500 Mg Tablet, 500 MG PO BID Prescribed by: LIDIA ASENCIO on 03/13/19 1029 Cyanocobalamin (Vitamin B-12) 1,000 Mcg Tablet, 1,000 MCG PO 1700, (Reported) Docusate Sodium 100 Mg Capsule, 100 MG PO BID Prescribed by: ESPERANZA RIVERA on 01/25/19 1311 Famotidine 20 Mg Tablet, 20 MG PO 1900, (Reported) Fluticasone/Vilanterol 1 Each Blst.w.dev, 1 PUFF INH DAILY, (Reported) Folic Acid 1 Mg Tablet, 1 MG PO DAILY, (Reported) L.acidoph & Paracasei,B.lactis 1 Each Capsule, 1 CAP PO DAILY, (Reported) Mag Hydrox/Al Hydrox/Simeth 30 Ml Oral.susp, 15 ML PO Q8H PRN for STOMACH UPSET, (Reported) Magnesium Oxide 400 Mg Tablet, 400 MG PO BID Prescribed by: LIDIA ASENCIO on 03/13/19 1029 Melatonin 5 Mg Capsule, 5 MG PO HS, (Reported) Metoprolol Tartrate 25 Mg Tablet, 12.5 MG PO BID, (Reported) TAKES 1/2 (25MG) TABLET Multivitamin 1 Each Tablet, 1 TAB PO 1200, (Reported) Ondansetron HCl 4 Mg Tab, 4 MG PO Q8H PRN for NAUSEA/VOMITING-1ST LINE, (Reported) Potassium Chloride 20 Meq Tab.er.prt, 20 MEQ PO DAILY, (Reported) Potassium Chloride 10 Meq Tablet.er, 10 MEQ PO DAILY Prescribed by: LIDIA ASENCIO on 03/13/19 1029 Patient Home Medication List Home Medication List Reviewed: Yes Review of Systems Review of Systems Constitutional: see HPI Cardiovascular: See HPI, Chest Pain All Other Systems Reviewed Negative Unless Noted: Yes (Negative excepted noted.) Past Lswqnei-Guslzp-Fftscx Hx Patient Social History 2nd Hand Smoke Exposure: No Recent Hopitalizations: Yes Seasonal Allergies Seasonal Allergies: No Past Medical History Surgeries: Yes (ORAL, COLON RESECTION) Section, Gallbladder Respiratory: No Cardiac: No Neurological: No Genitourinary: No Gastrointestinal: Yes Gastroesophageal Reflux, Obstructive Bowel Musculoskeletal: No Endocrine: No HEENT: No Cancer: Yes Cervical Did You Recieve Any Treatments: No Psychosocial: Yes Anxiety, Depression Integumentary: No Blood Disorders: No Adverse Reaction/Blood Tranf: No Family Medical History Heart Disease, Cancer, Diabetes Physical Exam Vital Signs Vital Signs - First Documented 03/13/19 09:06 Temp 98.0 Pulse 95 Resp 16 B/P (MAP) 176/96 (122) Pulse Ox 98 O2 Delivery Room Air Capillary Refill : Height, Weight, BMI Height: 5'9.00" Weight: 117lbs. 0oz. 53.599181rz; 18.6 BMI Method:Stated General Appearance: No Apparent Distress, Anxious, Thin HEENT: Normal ENT Inspection Neck: Normal Inspection Respiratory: No Respiratory Distress Cardiovascular: Regular Rate, Rhythm Rectal: Deferred Neurologic/Psychiatric: Alert, Oriented x3, No Motor/Sensory Deficits, Other (Patient is very anxious. Worried about pretty much everything.) Skin: Warm/Dry Progress/Results/Core Measures Results/Orders Lab Results Laboratory Tests Test 03/13/19 09:21 03/13/19 09:50 Range/Units White Blood Count 5.5 4.3-11.0 10^3/uL Red Blood Count 3.75 L 4.35-5.85 10^6/uL Hemoglobin 11.6 11.5-16.0 G/DL Hematocrit 36 35-52 % Mean Corpuscular Volume 96 80-99 FL Mean Corpuscular Hemoglobin 31 25-34 PG Mean Corpuscular Hemoglobin Concent 32 32-36 G/DL Red Cell Distribution Width 14.4 10.0-14.5 % Platelet Count 183 130-400 10^3/uL Mean Platelet Volume 11.2 H 7.4-10.4 FL Neutrophils (%) (Auto) 60 42-75 % Lymphocytes (%) (Auto) 29 12-44 % Monocytes (%) (Auto) 10 0-12 % Eosinophils (%) (Auto) 0 0-10 % Basophils (%) (Auto) 1 0-10 % Neutrophils # (Auto) 3.3 1.8-7.8 X 10^3 Lymphocytes # (Auto) 1.6 1.0-4.0 X 10^3 Monocytes # (Auto) 0.5 0.0-1.0 X 10^3 Eosinophils # (Auto) 0.0 0.0-0.3 10^3/uL Basophils # (Auto) 0.0 0.0-0.1 10^3/uL Prothrombin Time 13.4 12.2-14.7 SEC INR Comment 1.0 0.8-1.4 Activated Partial Thromboplast Time 27 24-35 SEC Sodium Level 141 135-145 MMOL/L Potassium Level 3.4 L 3.6-5.0 MMOL/L Chloride Level 98 98-107 MMOL/L Carbon Dioxide Level 26 21-32 MMOL/L Anion Gap 17 H 5-14 MMOL/L Blood Urea Nitrogen 18 7-18 MG/DL Creatinine 0.83 0.60-1.30 MG/DL Estimat Glomerular Filtration Rate > 60 BUN/Creatinine Ratio 22 Glucose Level 109 H 70-105 MG/DL Calcium Level 8.7 8.5-10.1 MG/DL Corrected Calcium 8.5 8.5-10.1 MG/DL Magnesium Level 0.9 *L 1.8-2.4 MG/DL Total Bilirubin 0.6 0.1-1.0 MG/DL Aspartate Amino Transf (AST/SGOT) 25 5-34 U/L Alanine Aminotransferase (ALT/SGPT) 21 0-55 U/L Alkaline Phosphatase 78 40-136 U/L Troponin I < 0.30 <0.30 NG/ML Pro-B-Type Natriuretic Peptide 358.3 H <75.0 PG/ML Total Protein 7.4 6.4-8.2 GM/DL Albumin 4.3 3.2-4.5 GM/DL Lipase 41 8-78 U/L Urine Color PALE YELLOW Urine Clarity CLEAR Urine pH 6.0 5-9 Urine Specific [place] 1.010 L 1.016-1.022 Urine Protein NEGATIVE NEGATIVE Urine Glucose (UA) NEGATIVE NEGATIVE Urine Ketones TRACE H NEGATIVE Urine Nitrite POSITIVE H NEGATIVE Urine Bilirubin NEGATIVE NEGATIVE Urine Urobilinogen 0.2 NORMAL MG/DL Urine Leukocyte Esterase NEGATIVE NEGATIVE Urine RBC (Auto) 1+ H NEGATIVE Urine RBC RARE /HPF Urine WBC 2-5 /HPF Urine Squamous Epithelial Cells 0-2 /HPF Urine Crystals NONE /LPF Urine Bacteria LARGE H /HPF Urine Casts NONE /LPF Urine Mucus NONE /LPF Urine Culture Indicated YES My Orders Orders - LIDIA ASENCIO DO Ed Iv/Invasive Line Start (03/13/19 09:07) Ekg Tracing (03/13/19 09:07) Cbc With Automated Diff (03/13/19 09:07) Comprehensive Metabolic Panel (03/13/19 09:07) Lipase (03/13/19 09:07) Magnesium (03/13/19 09:07) Protime With Inr (03/13/19 09:07) Partial Thromboplastin Time (03/13/19 09:07) Troponin I (03/13/19 09:07) Ua Culture If Indicated (03/13/19 09:07) Probnp Fs (03/13/19 09:07) Chest 1 View Ap/Pa Only (03/13/19 09:07) Alprazolam Tablet (Xanax Tablet) (03/13/19 09:45) Magnesium Oxide Tablet (Mag Ox Tablet) (03/13/19 10:15) Magnesium 1 Gm/100 Ml Ivpb (Magnesium Zimmerman (03/13/19 10:15) Potassium Chloride (Tablet) (K Dur Table (03/13/19 10:15) Urine Culture (03/13/19 09:50) Medications Given in ED Current Medications Medications Dose Ordered Sig/Bhavna Route Start Time Stop Time Status Last Admin Dose Admin Alprazolam 0.25 mg ONCE ONCE PO 03/13/19 09:45 03/13/19 09:46 DC 03/13/19 09:53 0.25 MG Magnesium Oxide 800 mg ONCE ONCE PO 03/13/19 10:15 03/13/19 10:16 DC 03/13/19 10:22 800 MG Magnesium Sulfate/ Dextrose 100 ml @ 100 mls/hr ONCE ONCE IV 03/13/19 10:15 03/13/19 11:20 DC 03/13/19 10:22 100 MLS/HR Potassium Chloride 20 meq ONCE ONCE PO 03/13/19 10:15 03/13/19 10:16 DC 03/13/19 10:22 20 MEQ Vital Signs/I&O 03/13/19 09:06 Temp 98.0 Pulse 95 Resp 16 B/P (MAP) 176/96 (122) Pulse Ox 98 O2 Delivery Room Air Progress Progress Note : Progress Note Seems a little better p/ the Xanax. Initial ECG Impression Date: Mar 13, 2019 Initial ECG Impression Time: 08:55 Initial ECG Rate: 112 Initial ECG Rhythm: S.Tach Initial ECG Impression: Nonspecific Changes (Biatrial enlargement) Diagnostic Imaging Diagonstic Imaging: Xray Plain Films/CT/US/NM/MRI: chest (negative study) Departure Impression Primary Impression: Anxiety related chest pain Additional Impressions: UTI (urinary tract infection) Hypomagnesemia Hypokalemia Disposition: 01 HOME, SELF-CARE Condition: Improved Departure-Patient Inst. Referrals: SELF,NEYDA GONZALEZ (PCP/Family) Primary Care Physician Patient Instructions: Chest Pain That Is Not Caused by the Heart (DC), Low Magnesium Level (DC), Urinary Tract Infection, Adult (DC), Hypokalemia (DC) Scripts Ciprofloxacin HCl (Ciprofloxacin HCl) 500 Mg Tablet 500 MG PO BID for UTI for 7 Days, #14 TAB 0 Refills Prov: LIDIA ASENCIO DO 03/13/19 Potassium Chloride (K-Tab ER) 10 Meq Tablet.er 10 MEQ PO DAILY for 90 Days, #90 TAB 2 Refills Prov: LIDIA ASENCIO DO 03/13/19 Magnesium Oxide (Magox 400) 400 Mg Tablet 400 MG PO BID for 90 Days, #180 TAB 2 Refills Prov: LIDIA ASENCIO DO 03/13/19 LIDIA ASENCIO DO Mar 13, 2019 09:07
--- NOTE | 2019-03-13 09:10 | NUR ---
DAUGHTER RICK CONTACTED PER PT'S REQUEST.
--- NOTE | 2019-03-13 09:15 | NUR ---
LAB IN ROOM AT THIS TIME.
--- NOTE | 2019-03-13 09:32 | Diagnostic Imaging Report ---
Indication: Chest pain. Portable chest 9:08 AM Heart size and pulmonary vascularity are normal. Lungs are clear. There are no effusions or pneumothoraces. Impression: Negative chest. Dictated by: Dictated on workstation # [id number]
[2019-03-13 09:35] LABS: HEMATOCRIT 36 % (35-52); HEMOGLOBIN 11.6 G/DL (11.5-16.0); MEAN CORPUSCULAR HEMOGLOBIN 31 PG (25-34); MEAN CORPUSCULAR VOLUME 96 FL (80-99); WHITE BLOOD COUNT 5.5 10^3/uL (4.3-11.0)
[2019-03-13 09:36] LABS: BASOPHILS % (AUTO) 1 % (0-10); EOSINOPHILS % (AUTO) 0 % (0-10); LYMPHOCYTES # (AUTO) 1.6 X 10^3 (1.0-4.0); LYMPHOCYTES % (AUTO) 29 % (12-44); MEAN CORPUSCULAR HGB CONC 32 G/DL (32-36); MEAN PLATELET VOLUME 11.2 FL (7.4-10.4); MONOCYTES # (AUTO) 0.5 X 10^3 (0.0-1.0); MONOCYTES % (AUTO) 10 % (0-12); NEUTROPHILS # (AUTO) 3.3 X 10^3 (1.8-7.8); NEUTROPHILS % (AUTO) 60 % (42-75); PLATELET COUNT 183 10^3/uL (130-400); RED CELL DISTRIBUTION WIDTH 14.4 % (10.0-14.5)
--- NOTE | 2019-03-13 09:37 | NUR ---
IN TO SEE PT. PT VERY ANXIOUS. WORRIED ABOUT DAILY MEDS. NOTIFEID HER WE WOULD NOT BE GIVING DAILY MEDS HERE BUT WE COULD PROBALBLY GIVE HER SOMETHING FOR HER NERVES.
[2019-03-13] MEDS ORDERED: ALPRAZolam 0.25 MG (XANAX) TAB PO ONE (09:45)
[2019-03-13 09:46] LABS: PROTHROMBIN TIME PATIENT 13.4 SEC (12.2-14.7)
--- NOTE | 2019-03-13 09:56 | NUR ---
PT CONSTANTLY WORRIED ABOUT HER BP CUFF AND MONITOR. BOTH TAKEN OFF WITH DR'S PERMISSION.
--- NOTE | 2019-03-13 09:59 | NUR ---
PT IN HALLWAY ASKING DR QUESTIONS HE WALKS BY.
[2019-03-13 10:01] LABS: BUN/CREATININE RATIO 22; CALCIUM 8.7 MG/DL (8.5-10.1); CARBON DIOXIDE 26 MMOL/L (21-32); CHLORIDE 98 MMOL/L (98-107); CREATININE SERUM 0.83 MG/DL (0.60-1.30); GFR ESTIMATED > 60; GLUCOSE 109 MG/DL (70-105); POTASSIUM 3.4 MMOL/L (3.6-5.0); SODIUM 141 MMOL/L (135-145)
--- NOTE | 2019-03-13 10:02 | NUR ---
PT USING PHONE TO CALL DAUGHTER.
[2019-03-13 10:03] LABS: ALANINE AMINOTRANSFERASE 21 U/L (0-55); ALKALINE PHOSPHATASE 78 U/L (40-136); BILIRUBIN,TOTAL 0.6 MG/DL (0.1-1.0); MAGNESIUM 0.9 MG/DL (1.8-2.4); TOTAL PROTEIN 7.4 GM/DL (6.4-8.2)
[2019-03-13 10:04] LABS: ALBUMIN 4.3 GM/DL (3.2-4.5); LIPASE 41 U/L (8-78)
[2019-03-13 10:08] LABS: CLARITY,URINE CLEAR; COLOR,URINE PALE YELLOW
[2019-03-13 10:09] LABS: BACTERIA,URINE LARGE /HPF; BILIRUBIN,URINE NEGATIVE (NEGATIVE); GLUCOSE, URINE (UA) NEGATIVE (NEGATIVE); KETONES,URINE TRACE (NEGATIVE); LEUKOCYTE ESTERASE ,URINE NEGATIVE (NEGATIVE); NITRITE,URINE POSITIVE (NEGATIVE); PROTEIN,URINE NEGATIVE (NEGATIVE); RBC,URINE RARE /HPF; SQUAMOUS EPITHELIAL CELL,UR 0-2 /HPF; UROBILINOGEN,URINE 0.2 MG/DL (NORMAL)
[2019-03-13] MEDS ORDERED: MAGNESIUM OXIDE (MAG-OX)400 MG TAB PO ONE (10:15)
[2019-03-13] MEDS ORDERED: MAGNESIUM 1 GM/100 ML IVPB 100 ML IV ONE (10:15)
[2019-03-13] MEDS ORDERED: KCL 20 MEQ TAB (K-DUR) PO ONE (10:15)
--- NOTE | 2019-03-13 10:22 | NUR ---
DAUGHTER CALLED ET STATES PT CAN TAKE CIPRO FOR HER ABX. NOTIFIED.
[2019-03-13] MEDS ORDERED: POTA10TA PO (10:29)
[2019-03-13] MEDS ORDERED: MAGN400T29 PO (10:29)
[2019-03-13] MEDS ORDERED: CIPR500T4 PO (10:29)
[2019-03-13 11:23] VITALS: BP 151/76
== END 2019-03-13 11:23 | disposition home or self-care (01) ==
LOC: EDUNIT# 08:45 → ER FS 08:47
DX: F41.9 Anxiety disorder, unspecified (principal); N39.0 Urinary tract infection, site not specified; E87.6 Hypokalemia; E83.42 Hypomagnesemia; K21.9 Gastro-esophageal reflux disease without esophagitis; F32.9 Major depressive disorder, single episode, unspecified; Z85.41 Personal history of malignant neoplasm of cervix uteri; Z88.5 Allergy status to narcotic agent; Z91.041 Radiographic dye allergy status; Z88.2 Allergy status to sulfonamides; Z88.1 Allergy status to other antibiotic agents; Z88.6 Allergy status to analgesic agent; Z88.8 Allergy status to other drugs, medicaments and biological substances; Z79.51 Long term (current) use of inhaled steroids; Z82.49 Family history of ischemic heart disease and other diseases of the circulatory system
CPT/HCPCS: 36415; 71045; 80053; 81000; 83690; 83735; 83880; 84484; 85025; 85610; 85730; 87077; 87088; 87186; 93005; 96374

== ENCOUNTER 2019-06-05 08:06 | Inpatient (IN) | payer MEDICARE, MEDICAID ==
[~2019-06-05] VITALS: Ht 172.7 cm; Wt 50.9 kg
[2019-06-05] VITALS (9 sets, daily range): BP systolic 105–148; BP diastolic 35–88
[~2019-06-05 08:06] MED LIST changes: +CIPR500T4 PO; +CYAN-41 PO; -CYAN10006 PO; +MAGN400T29 PO; +POTA10TA PO
[2019-06-05] MEDS ORDERED: LACTATED RINGERS 1,000 ML IV STA (08:24)
[2019-06-05] MEDS ORDERED: ONDANSETRON 4 MG/2 ML (SDV) Z0FRAN IVP ONE (08:30)
[2019-06-05] MEDS ORDERED: fentaNYL INJECTION 100 MCG/2 ML AMP IVP ONE (08:45)
[2019-06-05] MEDS ORDERED: RT-ALBUTEROL/IPRATROPIUM 3 ML (DUONEB) VIAL INH ONE (08:45)
[2019-06-05 08:48] LABS: HEMATOCRIT 50 % (35-52); HEMOGLOBIN 16.6 G/DL (11.5-16.0); LYMPHOCYTES % (AUTO) 9 % (12-44); MEAN CORPUSCULAR HEMOGLOBIN 31 PG (25-34); MEAN CORPUSCULAR HGB CONC 33 G/DL (32-36); MEAN CORPUSCULAR VOLUME 92 FL (80-99); MEAN PLATELET VOLUME 11.1 FL (7.4-10.4); MONOCYTES % (AUTO) 10 % (0-12); NEUTROPHILS % (AUTO) 80 % (42-75); PLATELET COUNT 384 10^3/uL (130-400); RED CELL DISTRIBUTION WIDTH 13.9 % (10.0-14.5); WHITE BLOOD COUNT 10.3 10^3/uL (4.3-11.0)
[2019-06-05 08:49] LABS: BASOPHILS % (AUTO) 0 % (0-10); EOSINOPHILS % (AUTO) 0 % (0-10); NEUTROPHILS # (AUTO) 8.3 X 10^3 (1.8-7.8)
--- NOTE | 2019-06-05 08:50 | ED Abdominal Pain ---
General Chief Complaint: Abdominal/GI Problems Stated Complaint: VOMITING, DIARRHEA Nursing Triage Note: Patient reports nausea/vomiting/diarrhea for two days. Patient has hx of IBS and small bowel obstruction in January 2019. Sepsis Screen: No Definite Risk History of Present Illness Date Seen by Provider: Jun 05, 2019 Time Seen by Provider: 08:30 Initial Comments The patient is a 69-year-old female who resides in a nursing facility and has a history of hypertension, hyperlipidemia, history of DVT on Eliquis, COPD, irritable bowel syndrome and recurrent small bowel obstructions over the last year. She presents with concern for acute onset of copious nonbloody vomiting over the last 2 days, with greater than 10 episodes each day. Associated minimal watery diarrhea as well. Associated generalized achy mid-abdominal discomfort. Patient states that symptoms feel very similar to prior episodes of bowel obstruction. Patient reports some mild dysuria as well as decreased urination recently. No associated fevers, chest pain, flank pain, back pain, recent antibiotic use. Patient is alert and oriented and appropriately interactive and in no significant distress upon initial evaluation in the emergency department. Mucous membranes appear quite dry. Allergies and Home Medications Allergies Coded Allergies: codeine (Verified Allergy, Mild, N/V, PT HAS RECEIVED MORPHINE WITHOUT ISSUE, 12/31/18) PER [facility] (ICU) PT HAS RECEIVED MORPHINE WITHOUT PROBLEMS red (food color) (Verified Allergy, Mild, Shortness of Breath, 01/04/19) Iodinated Contrast Media (Verified Allergy, Unknown, 12/31/18) Penicillins (Verified Allergy, Unknown, 12/31/18) Sulfa (Sulfonamide Antibiotics) (Verified Allergy, Unknown, 12/31/18) cephalexin (Verified Allergy, Unknown, 12/31/18) citalopram (Verified Allergy, Unknown, 01/16/06) diazepam (Unverified Allergy, Unknown, 06/05/19) diphenhydramine (Verified Allergy, Unknown, 01/16/06) hydrocodone (Verified Allergy, Unknown, 12/31/18) levofloxacin (Verified Allergy, Unknown, 01/16/06) loratadine (Verified Allergy, Unknown, 12/31/18) lorazepam (Unverified Allergy, Unknown, 06/05/19) metronidazole (Verified Allergy, Unknown, 01/16/06) morphine (Verified Allergy, Unknown, 01/01/19) nitrofurantoin (Verified Allergy, Unknown, 01/16/06) prochlorperazine (Verified Allergy, Unknown, 01/16/06) pseudoephedrine (Verified Allergy, Unknown, 01/16/06) soybean (Unverified Allergy, Unknown, 01/14/19) FROM UNCODED ALLERGIES zinc acetate (Verified Allergy, Unknown, 01/16/06) Home Medications Acetaminophen 325 Mg Tablet, 650 MG PO Q4H PRN for PAIN-MILD, (Reported) TAKES 2 (325MG) TABLETS Alprazolam 0.5 Mg Tablet, 0.5 MG PO HS, (Reported) Alprazolam 0.5 Mg Tablet, 0.5 MG PO Q8H PRN for ANXIETY, (Reported) Amitriptyline HCl 10 Mg Tablet, 20 MG PO HS, (Reported) TAKES 2 (10MG) TABLETS Apixaban 5 Mg Tablet, 5 MG PO DAILY, (Reported) B Complex with Vitamin C 1 Each Tablet.er, 1 TAB PO DAILY, (Reported) Cefdinir 300 Mg Capsule, 300 MG PO BID Prescribed by: ALONSO VASQUEZ on 01/05/19 1203 Ciprofloxacin HCl 500 Mg Tablet, 500 MG PO BID Prescribed by: LIDIA ASENCIO on 03/13/19 1029 Cyanocobalamin (Vitamin B-12) 1,000 Mcg Tablet, 1,000 MCG PO 1700, (Reported) Docusate Sodium 100 Mg Capsule, 100 MG PO BID Prescribed by: ESPERANZA RIVERA on 01/25/19 1311 Famotidine 20 Mg Tablet, 20 MG PO 1900, (Reported) Fluticasone/Vilanterol 1 Each Blst.w.dev, 1 PUFF INH DAILY, (Reported) Folic Acid 1 Mg Tablet, 1 MG PO DAILY, (Reported) L.acidoph & Paracasei,B.lactis 1 Each Capsule, 1 CAP PO DAILY, (Reported) Mag Hydrox/Al Hydrox/Simeth 30 Ml Oral.susp, 15 ML PO Q8H PRN for STOMACH UPSET, (Reported) Magnesium Oxide 400 Mg Tablet, 400 MG PO BID Prescribed by: LIDIA ASENCIO on 03/13/19 1029 Melatonin 5 Mg Capsule, 5 MG PO HS, (Reported) Metoprolol Tartrate 25 Mg Tablet, 12.5 MG PO BID, (Reported) TAKES 1/2 (25MG) TABLET Multivitamin 1 Each Tablet, 1 TAB PO 1200, (Reported) Ondansetron HCl 4 Mg Tab, 4 MG PO Q8H PRN for NAUSEA/VOMITING-1ST LINE, (Reported) Potassium Chloride 20 Meq Tab.er.prt, 20 MEQ PO DAILY, (Reported) Potassium Chloride 10 Meq Tablet.er, 10 MEQ PO DAILY Prescribed by: LIDIA ASENCIO on 03/13/19 1029 Patient Home Medication List Home Medication List Reviewed: Yes Review of Systems Review of Systems Constitutional: see HPI All Other Systems Reviewed Negative Unless Noted: Yes (Negative excepted noted.) Past Isvwvtw-Uoexks-Qprimh Hx Past Med/Social Hx: Reviewed Nursing Past Med/Soc Hx Patient Social History 2nd Hand Smoke Exposure: No Recent Foreign Travel: No Contact w/Someone Who Travel: No Recent Infectious Disease Expo: No Recent Hopitalizations: Yes Seasonal Allergies Seasonal Allergies: No Past Medical History Surgeries: Yes (ORAL, COLON RESECTION) Section, Gallbladder Respiratory: No Cardiac: No Neurological: No Genitourinary: No Gastrointestinal: Yes Gastroesophageal Reflux, Obstructive Bowel Musculoskeletal: No Endocrine: No HEENT: No Cancer: Yes Cervical Did You Recieve Any Treatments: No Psychosocial: Yes Anxiety, Depression Integumentary: No Blood Disorders: No Adverse Reaction/Blood Tranf: No Family Medical History Reviewed Nursing Family Hx Heart Disease, Cancer, Diabetes Physical Exam Vital Signs Vital Signs - First Documented 06/05/19 08:15 Temp 36.3 Pulse 104 Resp 16 B/P (MAP) 107/83 (91) Pulse Ox 95 O2 Delivery Room Air Capillary Refill : Less Than 3 Seconds Height/Weight/BMI Height: 5'8.00" Weight: 116lbs. 0oz. 52.433297kd; 15.00 BMI Method:Stated General Appearance: no apparent distress Exam Comments This is an elderly, cachectic and chronically ill-appearing older female appearing nontoxic and in no acute distress. Head is normocephalic and atraumatic. Neck is supple and nontender. Oropharynx is tacky. Lungs are clear to auscultation in all stations. Appropriate air movement is appreciated in all gates without adventitious sounds noted. There is a normal S1 and S2 without rubs or gallops and capillary refill is appropriate, less than 2 seconds globally. Abdomen is soft, nondistended and with mild generalized tenderness to palpation which seems worst sebastian- and infraumbilically. Skin is warm and dry without cyanosis, clubbing or edema. Psychiatrically, the patient demonstrates appropriate mood and affect and is alert. Progress/Results/Core Measures Results/Orders Lab Results Laboratory Tests Test 06/05/19 08:25 06/05/19 09:00 Range/Units White Blood Count 10.3 4.3-11.0 10^3/uL Red Blood Count 5.44 4.35-5.85 10^6/uL Hemoglobin 16.6 H 11.5-16.0 G/DL Hematocrit 50 35-52 % Mean Corpuscular Volume 92 80-99 FL Mean Corpuscular Hemoglobin 31 25-34 PG Mean Corpuscular Hemoglobin Concent 33 32-36 G/DL Red Cell Distribution Width 13.9 10.0-14.5 % Platelet Count 384 130-400 10^3/uL Mean Platelet Volume 11.1 H 7.4-10.4 FL Neutrophils (%) (Auto) 80 H 42-75 % Lymphocytes (%) (Auto) 9 L 12-44 % Monocytes (%) (Auto) 10 0-12 % Eosinophils (%) (Auto) 0 0-10 % Basophils (%) (Auto) 0 0-10 % Neutrophils # (Auto) 8.3 H 1.8-7.8 X 10^3 Lymphocytes # (Auto) 1.0 1.0-4.0 X 10^3 Monocytes # (Auto) 1.0 0.0-1.0 X 10^3 Eosinophils # (Auto) 0.0 0.0-0.3 10^3/uL Basophils # (Auto) 0.0 0.0-0.1 10^3/uL Prothrombin Time 14.0 12.2-14.7 SEC INR Comment 1.0 0.8-1.4 Activated Partial Thromboplast Time 29 24-35 SEC Sodium Level 129 L 135-145 MMOL/L Potassium Level 5.4 H 3.6-5.0 MMOL/L Chloride Level 78 L 98-107 MMOL/L Carbon Dioxide Level 26 21-32 MMOL/L Anion Gap 25 H 5-14 MMOL/L Blood Urea Nitrogen 80 H 7-18 MG/DL Creatinine 4.62 H 0.60-1.30 MG/DL Estimat Glomerular Filtration Rate 9 BUN/Creatinine Ratio 17 Glucose Level 157 H 70-105 MG/DL Calcium Level 10.2 H 8.5-10.1 MG/DL Corrected Calcium 8.5-10.1 MG/DL Magnesium Level 2.7 H 1.6-2.4 MG/DL Total Bilirubin 1.1 H 0.1-1.0 MG/DL Aspartate Amino Transf (AST/SGOT) 115 H 5-34 U/L Alanine Aminotransferase (ALT/SGPT) 129 H 0-55 U/L Alkaline Phosphatase 175 H 40-136 U/L Troponin I < 0.30 <0.30 NG/ML Total Protein 10.0 H 6.4-8.2 GM/DL Albumin 5.3 H 3.2-4.5 GM/DL Lipase 36 8-78 U/L Urine Color YELLOW Urine Clarity SLT CLOUDY Urine pH 6.0 5-9 Urine Specific [place] >=1.030 1.016-1.022 Urine Protein 2+ H NEGATIVE Urine Glucose (UA) NEGATIVE NEGATIVE Urine Ketones TRACE H NEGATIVE Urine Nitrite NEGATIVE NEGATIVE Urine Bilirubin NEGATIVE NEGATIVE Urine Urobilinogen 0.2 NORMAL MG/DL Urine Leukocyte Esterase NEGATIVE NEGATIVE Urine RBC (Auto) 2+ H NEGATIVE Urine RBC RARE /HPF Urine WBC 0-2 /HPF Urine Squamous Epithelial Cells 5-10 /HPF Urine Crystals NONE /LPF Urine Bacteria MODERATE H /HPF Urine Casts NONE /LPF Urine Mucus NONE /LPF Urine Culture Indicated YES My Orders Orders - BRIAN RUBALCAVA MD Cbc With Automated Diff (06/05/19 08:24) Comprehensive Metabolic Panel (06/05/19 08:24) Lipase (06/05/19 08:24) Troponin I Fs (06/05/19 08:24) Ekg Tracing (06/05/19 08:24) Magnesium (06/05/19 08:24) Ondansetron Injection (Zofran Injectio (06/05/19 08:30) Lactated Ringers (Lr 1000 Ml Iv Solution (06/05/19 08:24) Protime With Inr (06/05/19 08:27) Partial Thromboplastin Time (06/05/19 08:27) Ct Abdomen/Pelvis Wo (06/05/19 08:30) Chest 1 View Ap/Pa Only (06/05/19 08:41) Albuterol/Ipra Inhalation Soln (Duoneb I (06/05/19 08:45) Svn Small Volume Nebulizer (06/05/19 08:41) Fentanyl Injection (Sublimaze Injection (06/05/19 08:45) Ua Culture If Indicated (06/05/19 08:54) Urine Culture (06/05/19 09:00) Ed Iv/Invasive Line Start (06/05/19 09:24) Ns Iv 1000 Ml (Sodium Chloride 0.9%) (06/05/19 09:24) Ng Tube Insert & Assessment (06/05/19 09:24) Medications Given in ED Current Medications Medications Dose Ordered Sig/Bhavna Route Start Time Stop Time Status Last Admin Dose Admin Albuterol/ Ipratropium 3 ml ONCE ONCE INH 06/05/19 08:45 06/05/19 08:46 DC 06/05/19 09:08 3 ML Fentanyl Citrate 50 mcg ONCE ONCE IVP 06/05/19 08:45 06/05/19 08:46 DC 06/05/19 09:08 50 MCG Ondansetron HCl 4 mg ONCE ONCE IVP 06/05/19 08:30 06/05/19 08:31 DC 06/05/19 09:08 4 MG Vital Signs/I&O 06/05/19 08:15 Temp 36.3 Pulse 104 Resp 16 B/P (MAP) 107/83 (91) Pulse Ox 95 O2 Delivery Room Air Blood Pressure Mean: 91 Progress Progress Note : Time: 08:50 Progress Note Older female who presents with copious vomiting, acute 2 days in association with minimal watery diarrhea and generalized abdominal pain, worst lower. Symptoms seem suspicious for recurrent bowel obstruction and patient does appear dehydrated. We will place IV and give IV fluids and medication for symptomatic management as per nursing flow sheet and we will check labs and EKG and a CT scan of the abdomen and pelvis without contrast given what is apparently a severe contrast reaction in the past. Patient and family understand and agree with this plan of care. Update 0930: Patient with high-grade mechanical small bowel obstruction with transition point noted on CT imaging. Chemistries significantly deranged, worse than previously with prior SBOs, with acute renal insufficiency and some minimal LFT derangements in addition to hemoconcentration noted. We will proceed with admission to stepdown under Dr. Christiansen at this time who graciously accepted the patient for admission. Case is discussed with Dr. Grimaldo who agrees to see the patient urgently in consultation. NG tube will be placed prior to transfer to [facility]. Patient has received 2L IVF rehydration and medication for discomfort and nausea and is feeling rather better on reassessment. Patient and family understand and agree with the plan of care. EKG : Comment Sinus rhythm, rate 93, no acute ST elevation or depression, AR 138, QRS 84, QTC 435, EP interpretation. Diagnostic Imaging Comments CT ABDOMEN/PELVIS WO PROCEDURE: CT abdomen and pelvis without contrast. TECHNIQUE: Multiple contiguous axial images were obtained through the abdomen and pelvis without the use of intravenous contrast. Auto Exposure Controls were utilized during the CT exam to meet ALARA standards for radiation dose reduction. INDICATION: Generalized abdominal pain with nausea and vomiting and diarrhea for 2 days. Patient has frequent history of small bowel obstructions. Correlation is made with prior CT from 01/25/2019. FINDINGS: Nodular densities in the lung bases appear stable. No discrete liver mass is identified. Gallbladder is surgically absent. No biliary ductal dilatation is seen. Visualized pancreas and spleen are unremarkable. No adrenal mass is detected. No definite renal calculi or hydronephrosis is seen. Aorta is partially calcified but nonaneurysmal. There is fluid-filled distention to the stomach. There are also numerous fluid-filled and moderately distended small bowel loops throughout the abdomen and pelvis. The colon is entirely decompressed on today's study. There appear to be entirely decompressed distal small bowel loops in the right lower quadrant. Features are concerning for high-grade small bowel obstruction. No definite bowel wall thickening or pneumatosis is seen. There is no free air. No free fluid or loculated fluid collection is identified. IMPRESSION: There is significant fluid-filled small bowel and gastric distention with transition distally, suggestive of a high-grade small bowel obstruction. The colon is entirely decompressed. Etiology is indeterminate. No free fluid, fluid collection or free air is identified. Dictated on workstation # [id number] XR chest: nonacute per radiology read Departure Impression Primary Impression: Abdominal pain Additional Impressions: Vomiting Small bowel obstruction Acute renal failure Transaminitis Dehydration Disposition: ADMITTED INPATIENT Condition: Stable Departure-Patient Inst. Referrals: NEYDA ANDRES MD (PCP/Family) Primary Care Physician BRIAN RUBALCAVA MD Jun 05, 2019 08:50
--- NOTE | 2019-06-05 09:06 | Diagnostic Imaging Report ---
INDICATION: Generalized abdominal pain with nausea and emesis. Upright AP view of the chest is obtained. Comparison is made to the study of 03/13/2019. FINDINGS: Heart size and pulmonary vascularity are within normal limits, and the lungs are clear, bilaterally. There is a persistent densely calcified nodule in the left lower lobe. IMPRESSION: Unremarkable chest. Dictated by: Dictated on workstation # [id number]
[2019-06-05 09:10] LABS: COLOR,URINE YELLOW
[2019-06-05 09:11] LABS: BILIRUBIN,URINE NEGATIVE (NEGATIVE); CLARITY,URINE SLT CLOUDY; GLUCOSE, URINE (UA) NEGATIVE (NEGATIVE); KETONES,URINE TRACE (NEGATIVE); LEUKOCYTE ESTERASE ,URINE NEGATIVE (NEGATIVE); NITRITE,URINE NEGATIVE (NEGATIVE); PROTEIN,URINE 2+ (NEGATIVE); UROBILINOGEN,URINE 0.2 MG/DL (NORMAL)
[2019-06-05 09:12] LABS: BACTERIA,URINE MODERATE /HPF; RBC,URINE RARE /HPF; WBC,URINE 0-2 /HPF
[2019-06-05 09:15] LABS: BILIRUBIN,TOTAL 1.1 MG/DL (0.1-1.0); BUN/CREATININE RATIO 17; CALCIUM 10.2 MG/DL (8.5-10.1); CARBON DIOXIDE 26 MMOL/L (21-32); CHLORIDE 78 MMOL/L (98-107); CREATININE SERUM 4.62 MG/DL (0.60-1.30); GFR ESTIMATED 9; GLUCOSE 157 MG/DL (70-105); MAGNESIUM 2.7 MG/DL (1.6-2.4); POTASSIUM 5.4 MMOL/L (3.6-5.0); SODIUM 129 MMOL/L (135-145)
[2019-06-05 09:16] LABS: ALANINE AMINOTRANSFERASE 129 U/L (0-55); ALBUMIN 5.3 GM/DL (3.2-4.5); ALKALINE PHOSPHATASE 175 U/L (40-136)
[2019-06-05 09:17] LABS: LIPASE 36 U/L (8-78)
--- NOTE | 2019-06-05 09:19 | Diagnostic Imaging Report ---
PROCEDURE: CT abdomen and pelvis without contrast. TECHNIQUE: Multiple contiguous axial images were obtained through the abdomen and pelvis without the use of intravenous contrast. Auto Exposure Controls were utilized during the CT exam to meet ALARA standards for radiation dose reduction. INDICATION: Generalized abdominal pain with nausea and vomiting and diarrhea for 2 days. Patient has frequent history of small bowel obstructions. Correlation is made with prior CT from 01/25/2019. FINDINGS: Nodular densities in the lung bases appear stable. No discrete liver mass is identified. Gallbladder is surgically absent. No biliary ductal dilatation is seen. Visualized pancreas and spleen are unremarkable. No adrenal mass is detected. No definite renal calculi or hydronephrosis is seen. Aorta is partially calcified but nonaneurysmal. There is fluid-filled distention to the stomach. There are also numerous fluid-filled and moderately distended small bowel loops throughout the abdomen and pelvis. The colon is entirely decompressed on today's study. There appear to be entirely decompressed distal small bowel loops in the right lower quadrant. Features are concerning for high-grade small bowel obstruction. No definite bowel wall thickening or pneumatosis is seen. There is no free air. No free fluid or loculated fluid collection is identified. IMPRESSION: There is significant fluid-filled small bowel and gastric distention with transition distally, suggestive of a high-grade small bowel obstruction. The colon is entirely decompressed. Etiology is indeterminate. No free fluid, fluid collection or free air is identified. Dictated by: Dictated on workstation # [id number]
[2019-06-05] MEDS ORDERED: NS IV 1000 ML 1,000 ML IV SCH ×2 (09:24→13:15)
[2019-06-05] MEDS ORDERED: CATHETER FLUSH 10 ML SYR IV PRN (12:30)
[2019-06-05] MEDS ORDERED: D5 1/2 NS 1000 ML IV SOLUTION 1,000 ML IV SCH (12:30)
[2019-06-05] MEDS ORDERED: ACETAMINOPHEN 650 MG SUPP (TYLENOL) PR PRN (13:15)
[2019-06-05] MEDS: fentaNYL INJECTION 100 MCG/2 ML AMP IVP PRN ×5 (13:36→23:26)
[2019-06-05] MEDS ORDERED: MELA3TAB PO (13:43)
[2019-06-05] MEDS ORDERED: CHOL4PAC16 PO (13:43)
[2019-06-05] MEDS ORDERED: ALPR0.254 PO (13:43)
[2019-06-05] MEDS ORDERED: CLON0.252 PO (13:43)
[2019-06-05] MEDS ORDERED: POTA10TA36 PO (13:43)
[2019-06-05] MEDS ORDERED: MAGN400T39 PO (13:43)
[2019-06-05] MEDS ORDERED: HYDR30CR71 RC (13:43)
[2019-06-05] MEDS ORDERED: FLUT1AER IH (13:43)
[2019-06-05] MEDS ORDERED: MENT71OI TP (13:43)
[2019-06-05] MEDS ORDERED: HYDR28.487 RC (13:48)
[2019-06-05] MEDS ORDERED: TOLN113. TP (13:48)
--- NOTE | 2019-06-05 13:48 | NUR ---
UPDATED MED REC WITH PHARMACY ORDERS FROM [facility].
[2019-06-05] MEDS: NS IV 1000 ML 1,000 ML IV SCH ×2 (14:48→20:39)
--- NOTE | 2019-06-05 15:59 | Consultation - Surgery ---
History of Present Illness History of Present Illness Patient Consulted On(cherry/time) 06/05/19 15:49 Time Seen by Provider: 15:11 History of Present Illness Surgery asked to consult regarding Small Bowel Obstruction HPI per ED: The patient is a 69-year-old female who resides in a nursing facility and has a history of hypertension, hyperlipidemia, history of DVT on Eliquis, COPD, irritable bowel syndrome and recurrent small bowel obstructions over the last year. She presents with concern for acute onset of copious nonbloody vomiting over the last 2 days, with greater than 10 episodes each day. Associated minimal watery diarrhea as well. Associated generalized achy mid-abdo pamela discomfort. Patient states that symptoms feel very similar to prior episodes of bowel obstruction. Patient reports some mild dysuria as well as decreased urination recently. No associated fevers, chest pain, flank pain, back pain, recent antibiotic use. Patient is alert and oriented and appropriately interactive and in no significant distress upon initial evaluation in the e mergency department. Mucous membranes appear quite dry. Pt states her pain was a 10 out of 10 when it was bad, its only a 6 now. Pt is a poor historian and cannot say whether she has been having this problem; she stated that the pain and diarrhea occurs at least monthly, but can't explain what that means. She also talked about seeing blood with her BM's. She had surgery in January for the same problems she is having now. Had NGT placed in ER and they got out 900ml. Allergies and Home Medications Allergies Coded Allergies: codeine (Verified Allergy, Mild, N/V, PT HAS RECEIVED MORPHINE WITHOUT ISSUE, 12/31/18) PER [facility] (ICU) PT HAS RECEIVED MORPHINE WITHOUT PROBLEMS red (food color) (Verified Allergy, Mild, Shortness of Breath, 01/04/19) Iodinated Contrast Media (Verified Allergy, Unknown, 12/31/18) Penicillins (Verified Allergy, Unknown, 12/31/18) Sulfa (Sulfonamide Antibiotics) (Verified Allergy, Unknown, 12/31/18) cephalexin (Verified Allergy, Unknown, 12/31/18) citalopram (Verified Allergy, Unknown, 01/16/06) diazepam (Unverified Allergy, Unknown, 06/05/19) diphenhydramine (Verified Allergy, Unknown, 01/16/06) hydrocodone (Verified Allergy, Unknown, 12/31/18) levofloxacin (Verified Allergy, Unknown, 01/16/06) loratadine (Verified Allergy, Unknown, 12/31/18) lorazepam (Unverified Allergy, Unknown, 06/05/19) metronidazole (Verified Allergy, Unknown, 01/16/06) morphine (Verified Allergy, Unknown, 01/01/19) nitrofurantoin (Verified Allergy, Unknown, 01/16/06) prochlorperazine (Verified Allergy, Unknown, 01/16/06) pseudoephedrine (Verified Allergy, Unknown, 01/16/06) soybean (Unverified Allergy, Unknown, 01/14/19) FROM UNCODED ALLERGIES zinc acetate (Verified Allergy, Unknown, 01/16/06) Home Medications Acetaminophen 325 Mg Tablet, 650 MG PO Q4H PRN for PAIN-MILD, (Reported) TAKES 2 (325MG) TABLETS Alprazolam 0.25 Mg Tablet, 0.25 MG PO Q4H PRN for ANXIETY, (Reported) Apixaban 5 Mg Tablet, 5 MG PO 1800, (Reported) B Complex with Vitamin C 1 Each Tablet.er, 1 TAB PO DAILY, (Reported) Cholestyramine (with Sugar) 4 Gm Powd.pack, 4 GM PO TID PRN for DIARRHEA, (Reported) Clonazepam 0.25 Mg Tab.rapdis, 0.5 MG PO 1999, (Reported) TAKES 2 (0.25MG) TABLETS Cyanocobalamin (Vitamin B-12) 1,000 Mcg Tablet, 1,000 MCG PO DAILY, (Reported) Famotidine 20 Mg Tablet, 20 MG PO 1900, (Reported) Fluticasone/Vilanterol 1 Each Blst.w.dev, 1 PUFF IH DAILY, (Reported) Folic Acid 1 Mg Tablet, 1 MG PO DAILY, (Reported) Hydrocortisone 30 Gm Cream..g., RC TID PRN for HEMORRHOIDS, (Reported) Hydrocortisone 28.4 Gm Cream..g., RC QID, (Reported) CLEAN ANAL AREA 4 TIMES DAILY THEN APPLY HYTONE 1% CREAM TO THE AREA THEN FOLLOW WITH ANTIFUNGAL POWDER 4 TIMES DAILY Mag Hydrox/Al Hydrox/Simeth 30 Ml Oral.susp, 15 ML PO Q8H PRN for STOMACH UPSET, (Reported) Magnesium Oxide 400 Mg Tablet, 400 MG PO BID, (Reported) Melatonin 3 Mg Tablet, 6 MG PO HS PRN for SLEEP, (Reported) Menthol/Lanolin/Calamine/Znox 71 Gm Oint, TP BID PRN for COCYX, (Reported) Metoprolol Tartrate 25 Mg Tablet, 12.5 MG PO BID, (Reported) TAKES 1/2 (25MG) TABLET Multivitamin 1 Each Tablet, 1 TAB PO 1200, (Reported) Ondansetron HCl 4 Mg Tab, 4 MG PO Q8H PRN for NAUSEA/VOMITING-1ST LINE, (Reported) Potassium Chloride 20 Meq Tab.er.prt, 20 MEQ PO DAILY, (Reported) Potassium Chloride 10 Meq Tab.er.prt, 10 MEQ PO HS, (Reported) Tolnaftate 113.3 Gm Aero.powd, TP QID, (Reported) CLEAN ANAL AREA 4 TIMES DAILY THEN APPLY HYTONE 1% CREAM TO THE AREA THEN FOLLOW WITH ANTIFUNGAL POWDER 4 TIMES DAILY Patient Home Medication List Home Medication List Reviewed: Yes Past Lepgejv-Dbilja-Wlrbfl Hx Patient Social History Alcohol Use: Denies Use Recreational Drug Use: No Smoking Status: Never a Smoker 2nd Hand Smoke Exposure: No Recent Foreign Travel: No Contact w/Someone Who Travel: No Recent Infectious Disease Expo: No Recent Hopitalizations: Yes Seasonal Allergies Seasonal Allergies: No Surgeries History of Surgeries: Yes (ORAL, COLON RESECTION) Surgeries: Section, Gallbladder Respiratory History of Respiratory Disorde: No Cardiovascular History of Cardiac Disorders: No Neurological History of Neurological Disord: No Genitourinary History of Genitourinary Disor: No Gastrointestinal History of Gastrointestinal Di: Yes Gastrointestinal Disorders: Gastroesophageal Reflux, Obstructive Bowel Musculoskeletal History of Musculoskeletal Dis: No Endocrine History of Endocrine Disorders: No HEENT History of HEENT Disorders: No Cancer History of Cancer: Yes Cancer: Cervical Psychosocial History of Psychiatric Problem: Yes Behavioral Health Disorders: Anxiety, Depression Integumentary History of Skin or Integumenta: No Blood Transfusions History of Blood Disorders: No Adverse Reaction to a Blood Tr: No Family Medical History Significant Family History: Heart Disease, Cancer, Diabetes Review of Systems-General Constitutional: chills, malaise, weakness EENTM: No mouth pain, No mouth swelling, No epistaxis Respiratory: No hemoptysis, No short of breath, No stridor Cardiovascular: No edema, No palpitations Gastrointestinal: abdominal pain, diarrhea, loss of appetite, nausea, vomiting Genitourinary: No dysuria, No frequency, No hematuria Musculoskeletal: joint pain, joint swelling, muscle stiffness Skin: No change in color, No change in hair/nails Psychiatric/Neurological: Anxiety, Depressed; Denies Seizure, Denies Tingling Other pt denies hx of abnormal bleeding or bruising Physical Exam-General Problems Physical Exam Vital Signs Vital Signs - First Documented 06/05/19 08:15 Temp 36.3 Pulse 104 Resp 16 B/P (MAP) 107/83 (91) Pulse Ox 95 O2 Delivery Room Air Capillary Refill : Less Than 3 Seconds General Appearance: mild distress, cachetic Eyes: Bilateral Eye PERRL, Bilateral Eye EOMI HEENT: pharynx normal; No scleral icterus (R), No scleral icterus (L) Neck: non-tender, full range of motion Respiratory: chest non-tender, lungs clear, normal breath sounds, no respiratory distress, no accessory muscle use Cardiovascular: regular rate, rhythm, no edema, no murmur Gastrointestinal: soft, no organomegaly, no pulsatile mass; No guarding, No rebound Back: no CVA tenderness, no vertebral tenderness Extremities: no pedal edema, no calf tenderness, normal capillary refill Neurologic/Psychiatric: cook helper juice II-XII nml as tested, no motor/sensory deficits, oriented x 3 Skin: normal color, warm/dry Lymphatic: no adenopathy (neck, axilla or groin) Data Review Labs Laboratory Tests 06/05/19 08:25: White Blood Count 10.3, Red Blood Count 5.44, Hemoglobin 16.6H, Hematocrit 50, Mean Corpuscular Volume 92, Mean Corpuscular Hemoglobin 31, Mean Corpuscular Hemoglobin Concent 33, Red Cell Distribution Width 13.9, Platelet Count 384, Mean Platelet Volume 11.1H, Neutrophils (%) (Auto) 80H, Lymphocytes (%) (Auto) 9L, Monocytes (%) (Auto) 10, Eosinophils (%) (Auto) 0, Basophils (%) (Auto) 0, Neutrophils # (Auto) 8.3H, Lymphocytes # (Auto) 1.0, Monocytes # (Auto) 1.0, Eosinophils # (Auto) 0.0, Basophils # (Auto) 0.0, Prothrombin Time 14.0, INR Comment 1.0, Activated Partial Thromboplast Time 29, Sodium Level 129L, Potassium Level 5.4H, Chloride Level 78L, Carbon Dioxide Level 26, Anion Gap 25H , Blood Urea Nitrogen 80H, Creatinine 4.62H, Estimat Glomerular Filtration Rate 9, BUN/Creatinine Ratio 17, Glucose Level 157H, Calcium Level 10.2H, Corrected Calcium , Magnesium Level 2.7H, Total Bilirubin 1.1H, Aspartate Amino Transf (AST/SGOT) 115H, Alanine Aminotransferase (ALT/SGPT) 129H, Alkaline Phosphatase 175H, Troponin I < 0.30, Total Protein 10.0H, Albumin 5.3H, Lipase 36 06/05/19 09:00: Urine Color YELLOW, Urine Clarity SLT CLOUDY, Urine pH 6.0, Urine Specific [place] >=1.030, Urine Protein 2+H, Urine Glucose (UA) NEGATIVE, Urine Ketones TRACEH, Urine Nitrite NEGATIVE, Urine Bilirubin NEGATIVE, Urine Urobilinogen 0.2, Urine Leukocyte Esterase NEGATIVE, Urine RBC (Auto) 2+H, Urine RBC RARE, Urine WBC 0-2, Urine Squamous Epithelial Cells 5-10, Urine Crystals NONE, Urine Bacteria MODERATEH, Urine Casts NONE, Urine Mucus NONE, Urine Culture Indicated YES Assessment/Plan Assessment/Plan Assessment/Plan PSBO Acute on Chronic Renal Failure Hyperkalemia Plan is NGT, NPO but can moisten mouth, IVF, anti-emetics, pain control. NGT has already gotten out a lot of fluid and her belly is soft; will monitor and do non-surgical management. Pt is a poor surgical candidate and was refusing surgery before I even told her my plan was to avoid surgery. Fluids for hydration should help electrolyte abnormality and renal function; pt probably mostly just dehydrated. Clinical Quality Measures DVT/VTE Risk/Contraindication: Risk Factor Score Per Nursin RFS Level Per Nursing on Admit: 3=High LEXIS HURTADO DO Jun 05, 2019 15:59
[2019-06-06] VITALS (7 sets, daily range): BP systolic 98–154; BP diastolic 57–90
[2019-06-06 03:31] LABS: BASOPHILS % (AUTO) 0 % (0-10); EOSINOPHILS % (AUTO) 0 % (0-10); HEMATOCRIT 39 % (35-52); HEMOGLOBIN 12.7 G/DL (11.5-16.0); LYMPHOCYTES # (AUTO) 1.1 X 10^3 (1.0-4.0); LYMPHOCYTES % (AUTO) 14 % (12-44); MEAN CORPUSCULAR HEMOGLOBIN 30 PG (25-34); MEAN CORPUSCULAR HGB CONC 33 G/DL (32-36); MEAN CORPUSCULAR VOLUME 92 FL (80-99); MEAN PLATELET VOLUME 10.7 FL (7.4-10.4); MONOCYTES # (AUTO) 1.2 X 10^3 (0.0-1.0); MONOCYTES % (AUTO) 14 % (0-12); NEUTROPHILS # (AUTO) 5.9 X 10^3 (1.8-7.8); NEUTROPHILS % (AUTO) 72 % (42-75); PLATELET COUNT 278 10^3/uL (130-400); RED CELL DISTRIBUTION WIDTH 14.4 % (10.0-14.5); WHITE BLOOD COUNT 8.3 10^3/uL (4.3-11.0)
[2019-06-06] MEDS: fentaNYL INJECTION 100 MCG/2 ML AMP IVP PRN ×7 (03:40→23:40)
[2019-06-06 03:58] LABS: ALBUMIN 3.9 GM/DL (3.2-4.5); BILIRUBIN,TOTAL 0.8 MG/DL (0.1-1.0); CALCIUM 8.6 MG/DL (8.5-10.1); CREATININE SERUM 3.59 MG/DL (0.60-1.30); POTASSIUM 4.2 MMOL/L (3.6-5.0); TOTAL PROTEIN 6.7 GM/DL (6.4-8.2)
[2019-06-06] MEDS: NS IV 1000 ML 1,000 ML IV SCH ×4 (05:21→22:50)
--- NOTE | 2019-06-06 10:05 | NUR ---
REC'D PER BED FROM ICU. SEE ASSESSMENT.
--- NOTE | 2019-06-06 10:45 | NUR ---
FENTANYL 50 IV FOR PAIN.
--- NOTE | 2019-06-06 11:00 | NUR ---
NG CLAMPED. STARTED ON CLEAR LIQUIDS.
--- NOTE | 2019-06-06 13:13 | History & Physical-Hospitalist ---
History of Present Illness HPI/Chief Complaint CC: Small bowel obstruction with acute renal failure HPI: This is a 69yoWF pt known to me from prior hospital stays for high small bowel obstruction who presented to [facility] ER with vomiting found to be in acute renal failure with creatinine of 5.0 with profound dehydration and a high small bowel obstruction. Dr. Grimaldo has been consulted and agrees to manage this patient with me. Cardiac step down unit will be required due to acute renal failure. Patient feels much better today and NG tube was clamped and she will be given clear liquid diet. She has been on her call light 14 times last 2 hours. Anxiety is an issue. Had a little bit of diarrhea today. Source: patient, RN/MD, old records Exam Limitations: no limitations Date Seen 06/06/19 Time Seen by a Provider: 12:00 Attending Physician Leeann Macdonald DO PCP Self,Js GONZALEZ Referring Physician Date of Admission Jun 05, 2019 at 10:20 Home Medications & Allergies Home Medications Reviewed patient Home Medication Reconciliation performed by pharmacy medication reconciliations engineering technician and/or nursing. Patients Allergies have been reviewed. Allergies Allergies Coded Allergies codeine (Verified Allergy, Mild, N/V, PT HAS RECEIVED MORPHINE WITHOUT ISSUE, 12/31/18) PER [facility] (ICU) PT HAS RECEIVED MORPHINE WITHOUT PROBLEMS red (food color) (Verified Allergy, Mild, Shortness of Breath, 01/04/19) Iodinated Contrast Media (Verified Allergy, Unknown, 12/31/18) Penicillins (Verified Allergy, Unknown, 12/31/18) Sulfa (Sulfonamide Antibiotics) (Verified Allergy, Unknown, 12/31/18) cephalexin (Verified Allergy, Unknown, 12/31/18) citalopram (Verified Allergy, Unknown, 01/16/06) diazepam (Unverified Allergy, Unknown, 06/05/19) diphenhydramine (Verified Allergy, Unknown, 01/16/06) hydrocodone (Verified Allergy, Unknown, 12/31/18) levofloxacin (Verified Allergy, Unknown, 01/16/06) loratadine (Verified Allergy, Unknown, 12/31/18) lorazepam (Unverified Allergy, Unknown, 06/05/19) metronidazole (Verified Allergy, Unknown, 01/16/06) morphine (Verified Allergy, Unknown, 01/01/19) nitrofurantoin (Verified Allergy, Unknown, 01/16/06) prochlorperazine (Verified Allergy, Unknown, 01/16/06) pseudoephedrine (Verified Allergy, Unknown, 01/16/06) soybean (Unverified Allergy, Unknown, 01/14/19) FROM UNCODED ALLERGIES zinc acetate (Verified Allergy, Unknown, 01/16/06) Past Ilenqic-Hendxn-Nefjvi Hx Past Med/Social Hx: Reviewed Nursing Past Med/Soc Hx, Reviewed and Corrections made Patient Social History Marrital Status: single Employed/Student: retired Alcohol Use: Denies Use Recreational Drug Use: No Smoking Status: Never a Smoker 2nd Hand Smoke Exposure: No Recent Foreign Travel: No Contact w/other who traveled: No Recent Hopitalizations: Yes Recent Infectious Disease Expo: No Seasonal Allergies Seasonal Allergies: No Past Medical History Surgeries: Abdominal (SBO), Section, Gallbladder Cardiac: Deep Vein Thrombosis Gastrointestinal: Gastroesophageal Reflux, Obstructive Bowel Cancer: Cervical Did You Recieve Any Treatments: No Psychosocial: Anxiety, Depression History of Blood Disorders: No Adverse Reaction to Blood Duarte: No Family History Reviewed Nursing Family Hx Heart Disease, Cancer, Diabetes Review of Systems Constitutional: see HPI Gastrointestinal: abdominal pain, diarrhea, loss of appetite, nausea, vomiting Physical Exam Physical Exam Vital Signs Vital Signs - First Documented 06/05/19 08:15 Temp 36.3 Pulse 104 Resp 16 B/P (MAP) 107/83 (91) Pulse Ox 95 O2 Delivery Room Air Capillary Refill : Less Than 3 SecondsLess Than 3 Seconds Height, Weight, BMI Height: 5'8.00" Weight: 116lbs. 0oz. 52.656085dg; 15.82 BMI Method:Stated General Appearance: WD/WN, Anxious, Chronically ill, Cachetic, Mild Distress, Thin Eyes: Right Eye Normal Inspection, Right Eye PERRL HEENT: PERRL/EOMI, Normal ENT Inspection, Pharynx Normal, Moist Mucous Membranes Neck: Full Range of Motion, Normal Inspection, Non Tender Respiratory: Chest Non Tender, Lungs Clear, Normal Breath Sounds, No Accessory Muscle Use, No Respiratory Distress Cardiovascular: Regular Rate, Rhythm, No Edema, No Gallop, No JVD, No Murmur, Normal Peripheral Pulses Gastrointestinal: Normal Bowel Sounds, No Organomegaly, No Pulsatile Mass, Non Tender, Soft Back: Normal Inspection, No CVA Tenderness, No Vertebral Tenderness Extremity: Normal Capillary Refill, Normal Inspection, Normal Range of Motion, Non Tender, No Calf Tenderness, No Pedal Edema Neurologic/Psychiatric: Alert, Oriented x3, No Motor/Sensory Deficits, Normal Mood/Affect, director global sales II-XII Norm as Tested Skin: Normal Color, Warm/Dry Lymphatic: No Adenopathy Results Results/Procedures Labs Laboratory Tests 06/05/19 08:25 06/06/19 03:25 Patient resulted labs reviewed. Assessment/Plan Admission Diagnosis Assessment: Small bowel obstruction recurrent and type Anxiety Acute renal failure Dehydration History of DVT Plan: Appreciate general surgery IV fluids Monitor creatinine Admission Status: Inpatient Order (span 2 midnights) Reason for Inpatient Admission: SBO requires 3 days Diagnosis/Problems Diagnosis/Problems (1) Small bowel obstruction Status: Acute (2) Dehydration Status: Acute (3) Acute renal failure Status: Acute (4) Transaminitis Status: Acute (5) Abdominal pain Status: Acute (6) Vomiting Status: Acute (7) Hyperlipidemia Status: Chronic (8) COPD (chronic obstructive pulmonary disease) Status: Chronic (9) Hypertension Status: Chronic (10) Anxiety Status: Chronic (11) History of DVT (deep vein thrombosis) Status: Chronic (12) Frailty Status: Chronic Clinical Quality Measures DVT/VTE Risk/Contraindication: Risk Factor Score Per Nursin RFS Level Per Nursing on Admit: 3=High LEEANN MACDONALD DO Jun 06, 2019 13:13
--- NOTE | 2019-06-06 13:23 | Progress Note - Surgery ---
Subjective Time Seen by a Provider: 11:31 Subjective/Events-last exam Pt seen and examined, she states abdominal pain is the same but she wants to eat. She also would like to get the NGT out. Review of Systems General: No Chills, No Night Sweats Pulmonary: No Dyspnea, No Cough Cardiovascular: No: Palpitations Gastrointestinal: Abdominal Pain; No: Nausea, Vomiting Objective Exam Vital Signs Date Time Temp Pulse Resp B/P (MAP) Pulse Ox O2 Delivery O2 Flow Rate FiO2 06/06/19 12:00 35.8 82 16 138/90 (106) 95 Room Air 06/06/19 10:37 Room Air 06/06/19 10:15 36.5 85 14 120/78 (92) 92 Room Air 06/06/19 09:00 94 Room Air 06/06/19 08:00 37.5 89 16 115/66 (82) Room Air 06/06/19 08:00 Room Air 06/06/19 07:00 94 06/06/19 04:00 Room Air 06/06/19 04:00 95 19 108/63 (78) Room Air 06/06/19 01:00 69 06/06/19 00:00 Room Air 06/06/19 00:00 80 16 98/57 (71) Room Air 06/05/19 21:00 94 Room Air 06/05/19 20:00 84 16 129/74 (92) Room Air 06/05/19 20:00 37.7 06/05/19 20:00 Room Air 06/05/19 19:00 86 06/05/19 18:00 90 9 118/74 (89) Room Air 06/05/19 17:00 89 9 136/78 (97) Room Air 06/05/19 16:35 95 Room Air 06/05/19 16:00 94 9 127/74 (91) Room Air 06/05/19 16:00 37.4 06/05/19 15:00 78 11 113/58 (76) 98 Room Air 06/05/19 14:10 36.5 77 9 148/88 97 Room Air 06/05/19 14:00 79 12 112/60 (77) 100 Room Air 06/05/19 13:45 77 9 148/88 (108) 97 Room Air I & O 06/06/19 07:00 Intake Total 4100 ml Output Total 2100 ml Balance 2000 ml Capillary Refill : Less Than 3 SecondsLess Than 3 Seconds General Appearance: No Apparent Distress, Cachetic Respiratory: Chest Non Tender, Lungs Clear, Normal Breath Sounds, No Accessory Muscle Use, No Respiratory Distress Cardiovascular: Regular Rate, Rhythm, No Murmur Gastrointestinal: soft, no organomegaly, no pulsatile mass; No guarding, No rebound Results Lab Laboratory Tests 06/06/19 03:25: White Blood Count 8.3, Red Blood Count 4.20L, Hemoglobin 12.7#, Hematocrit 39, Mean Corpuscular Volume 92, Mean Corpuscular Hemoglobin 30, Mean Corpuscular Hemoglobin Concent 33, Red Cell Distribution Width 14.4, Platelet Count 278, Mean Platelet Volume 10.7H, Neutrophils (%) (Auto) 72, Lymphocytes (%) (Auto) 14, Monocytes (%) (Auto) 14H, Eosinophils (%) (Auto) 0, Basophils (%) (Auto) 0, Neutrophils # (Auto) 5.9, Lymphocytes # (Auto) 1.1, Monocytes # (Auto) 1.2H, Eosinophils # (Auto) 0.0, Basophils # (Auto) 0.0, Sodium Level 136, Potassium Level 4.2, Chloride Level 94L, Carbon Dioxide Level 28, Anion Gap 14, Blood Urea Nitrogen 87H, Creatinine 3.59#H, Estimat Glomerular Filtration Rate 13, BUN/Creatinine Ratio 24, Glucose Level 109H, Calcium Level 8.6, Corrected Calcium 8.7, Total Bilirubin 0.8, Aspartate Amino Transf (AST/SGOT) 47H, Alanine Aminotransferase (ALT/SGPT) 71H, Alkaline Phosphatase 127, Total Protein 6.7, Albumin 3.9 Microbiology 06/05/19 Urine Culture - Final, Complete 3 or more isolates Assessment/Plan Assessment/Plan Assessment/Plan PSBO Acute on Chronic Renal Failure Hyperkalemia Plan will be clamp NGT and try ensure clears; will then hook back up and see how much residual pt has come out. Continue IVF, anti-emetics, pain control; will continue to monitor and do non-surgical management. Pt is a poor surgical candidate and was refusing surgery before I even told her my plan was to avoid surgery. Fluids for hydration should help electrolyte abnormality and renal function; pt probably mostly just dehydrated. Clinical Quality Measures DVT/VTE Risk/Contraindication: Risk Factor Score Per Nursin RFS Level Per Nursing on Admit: 3=High LEXIS HURTADO DO Jun 06, 2019 13:23
[2019-06-06] MEDS ORDERED: LORazepam INJ 2 MG/ML (ATIVAN) VIAL ONE (14:40)
[2019-06-06] MEDS ORDERED: LORazepam INJ 2 MG/ML (ATIVAN) VIAL IVP PRN (14:45)
--- NOTE | 2019-06-06 14:50 | NUR ---
FENTANYL 50 IV FOR C/O ABD PAIN 11/16.
--- NOTE | 2019-06-06 14:58 | NUR ---
PT VERY ANXIOUS AND CALLING FOR STAFF EVERY 3-[address] MACDONALD NOTIFIED AND ORDERED ATIVAN. PT STATES IT MAKES HER SICK TO HER STOMACH. DC'D BY AND ORDER FOR PO XANAX. WASTED DRAWN UP ATIVAN WITH SEBAS LOPEZ.
[2019-06-06] MEDS ORDERED: ALPRAZolam 0.25 MG (XANAX) TAB ONE (15:00)
[2019-06-06] MEDS: ALPRAZolam 0.25 MG (XANAX) TAB PO PRN (15:02)
--- NOTE | 2019-06-06 15:02 | NUR ---
XANAX .25MG PO FOR ANXIETY.
--- NOTE | 2019-06-06 16:44 | NUR ---
C/O NAUSEA. TEARFUL. DR. HURTADO NOTIFIED. NG CONNECTED TO INT WALL SUCTION AND FLAT PLATE ABD ORDERED. ZOFRAN IV ORDERED.
[2019-06-06] MEDS: ONDANSETRON 4 MG/2 ML (SDV) Z0FRAN IVP PRN ×2 (16:51→23:17)
--- NOTE | 2019-06-06 16:56 | NUR ---
1500 CC GOLD COLORED GASTRIC CONTENTS WHEN NG CONNECTED TO SUCTION. DR. HURTADO NOTIFIED.
--- NOTE | 2019-06-06 18:15 | NUR ---
HAS HAD APPROXIMATELY 2L OUT OF NG SINCE RECONNECTED TO SUCTION. VERY ANXIOUS. CALLING OUT FREQUENTLY AND REQUESTING PO AFTER IT HAS BEEN EXPLAINED NUMEROUS TIMES THAT SHE IS NPO R/T LARGE AMOUNT FROM NG.
--- NOTE | 2019-06-06 18:17 | NUR ---
FENTANYL 50 IV FOR ABD PAIN.
--- NOTE | 2019-06-06 18:54 | Diagnostic Imaging Report ---
INDICATION: Abdominal pain. COMPARISON: CT abdomen and pelvis from 06/05/2019. TECHNIQUE: Single view of the abdomen was obtained. FINDINGS: There remain multiple air-filled and dilated loops of small bowel in the central abdomen measuring up to 4.5 cm. No features of free intraperitoneal air, though assessment is limited on supine imaging. Cholecystectomy. Stable regional skeleton. IMPRESSION: Stable bowel gas pattern suggestive of small bowel obstruction. Dictated by: Dictated on workstation # [id number]
[2019-06-07] VITALS (7 sets, daily range): BP systolic 109–184; BP diastolic 55–95
--- NOTE | 2019-06-07 00:03 | NUR ---
O2 SAT ON ROOM AIR 82%, PLACED ON 2L NOW 92% DR. MACDONALD NOTIFIED, NEW ORDERS TO DECREASE IVF TO 70MLS/HR
[2019-06-07] MEDS: ONDANSETRON 4 MG/2 ML (SDV) Z0FRAN IVP PRN (03:53)
[2019-06-07 05:14] LABS: BASOPHILS % (AUTO) 0 % (0-10); EOSINOPHILS % (AUTO) 0 % (0-10); HEMATOCRIT 38 % (35-52); HEMOGLOBIN 12.1 G/DL (11.5-16.0); LYMPHOCYTES # (AUTO) 1.1 X 10^3 (1.0-4.0); LYMPHOCYTES % (AUTO) 15 % (12-44); MEAN CORPUSCULAR HEMOGLOBIN 30 PG (25-34); MEAN CORPUSCULAR HGB CONC 32 G/DL (32-36); MEAN CORPUSCULAR VOLUME 96 FL (80-99); MEAN PLATELET VOLUME 10.9 FL (7.4-10.4); MONOCYTES # (AUTO) 0.9 X 10^3 (0.0-1.0); MONOCYTES % (AUTO) 13 % (0-12); NEUTROPHILS # (AUTO) 5.2 X 10^3 (1.8-7.8); NEUTROPHILS % (AUTO) 72 % (42-75); PLATELET COUNT 229 10^3/uL (130-400); WHITE BLOOD COUNT 7.3 10^3/uL (4.3-11.0)
[2019-06-07 05:41] LABS: ALBUMIN 3.9 GM/DL (3.2-4.5); BILIRUBIN,TOTAL 0.8 MG/DL (0.1-1.0); CALCIUM 9.2 MG/DL (8.5-10.1); CREATININE SERUM 1.69 MG/DL (0.60-1.30); TOTAL PROTEIN 6.7 GM/DL (6.4-8.2)
--- NOTE | 2019-06-07 09:35 | Progress Note - Hospitalist ---
Subjective HPI/CC On Admission Date Seen by Provider: Jun 07, 2019 Time Seen by Provider: 08:30 CC: Small bowel obstruction with acute renal failure HPI: This is a 69yoWF pt known to me from prior hospital stays for high small bowel obstruction who presented to [facility] with vomiting found to be in acute renal failure with creatinine of 5.0 with profound dehydration and a high small bowel obstruction. Dr. Grimaldo has been consulted and agrees to manage this patient with me. Cardiac step down unit will be required due to acute renal failure. Patient feels much better today and NG tube was clamped and she will be given clear liquid diet. She has been on her call light 14 times last 2 hours. Anxiety is an issue. Had a little bit of diarrhea today. Subjective/Events-last exam Patient doing much better but upset that she cannot get ice chips Creatinine much improved responding to IV fluids Pain is much improved Overall more stable every day BMI of 17 Cachexia and poor reserve may require patient to go to the group home instead of assisted living this time Check meds and labs Conferred with personal computer network engineer of Systems Gastrointestinal: Abdominal Pain Objective Exam Vital Signs Vital Signs Date Time Temp Pulse Resp B/P (MAP) Pulse Ox O2 Delivery O2 Flow Rate FiO2 06/07/19 11:39 37.3 89 20 161/92 (115) 93 Nasal Cannula 2.00 Capillary Refill : Less Than 3 SecondsLess Than 3 Seconds General Appearance: No Apparent Distress, WD/WN, Chronically ill, Cachetic, Thin Respiratory: Chest Non Tender, Lungs Clear, Normal Breath Sounds, No Accessory Muscle Use, No Respiratory Distress Cardiovascular: Regular Rate, Rhythm, No Edema, No Gallop, No JVD, No Murmur, Normal Peripheral Pulses Gastrointestinal: Abnormal Bowel Sounds, Distended Neurologic/Psychiatric: Alert, Oriented x3, No Motor/Sensory Deficits, Normal Mood/Affect Results/Procedures Lab Laboratory Tests 06/07/19 04:47 Patient resulted labs reviewed. Assessment/Plan Assessment and Plan Assess & Plan/Chief Complaint Assessment: Small bowel obstruction recurrent and type Anxiety Acute renal failure Dehydration History of DVT Plan: Appreciate general surgery IV fluids Monitor creatinine Diagnosis/Problems Diagnosis/Problems (1) Small bowel obstruction Status: Acute (2) Dehydration Status: Acute (3) Acute renal failure Status: Acute (4) Transaminitis Status: Acute (5) Abdominal pain Status: Acute (6) Vomiting Status: Acute (7) Hyperlipidemia Status: Chronic (8) COPD (chronic obstructive pulmonary disease) Status: Chronic (9) Hypertension Status: Chronic (10) Anxiety Status: Chronic (11) History of DVT (deep vein thrombosis) Status: Chronic (12) Frailty Status: Chronic Clinical Quality Measures DVT/VTE Risk/Contraindication: Risk Factor Score Per Nursin RFS Level Per Nursing on Admit: 3=High ELVA MACDONALD DO Jun 07, 2019 09:35
[2019-06-07] MEDS: hydrOXYzine (ATARAX) 10 MG TAB PO PRN ×2 (09:49→21:37)
--- NOTE | 2019-06-07 09:49 | NUR ---
PT REQUEST SOMETHING FOR ANXIETY. PT GIVEN PRN PO ATARAX AT THIS TIME. NG TUBE CLAMPED.
--- NOTE | 2019-06-07 09:55 | NUR ---
PT CALLED THIS RN TO ROOM STATING SHE FEELS MORE NERVOUS AND THAT SHE DOESN'T LIKE THE WAY THE ATARAX IS MAKING HER FEEL. PT INFORMED THAT IS HAS BEEN 6 MINUTES SINCE MED WAS ADMINISTERED AND THAT IT COULD TAKE 30-60 MINUTES FOR A PO MED TO START TO TAKE EFFECT. NO S/S OF DISTRESS NOTED AT THIS TIME.
--- NOTE | 2019-06-07 11:02 | Progress Note - Surgery ---
MARKOS WOODALL,MED STUDENT 06/07/19 1102: Subjective Date Seen by a Provider: Jun 07, 2019 Time Seen by a Provider: 08:15 Subjective/Events-last exam Mrs. Rocha states she is feeling worse today but is unable to quantify what is worsening or her symptoms. She states she felt nauseous yesterday but is feeling fine now. She also admits to some abdominal pain but states it is similar to the last few days. She is very agitated and anxious this morning stating she would like to have water but she is currently NPO. The nurse states she has tried to get out of bed to drink from the sink. Upon exam she was adamant about wanting to drink and wanting to be transferred to . She states she feels dehydrated and complains of mouth pain at this time. Review of Systems General: Fatigue, Malaise Pulmonary: No Dyspnea, No Cough Cardiovascular: No: Chest Pain Gastrointestinal: Nausea, Abdominal Pain; No: Vomiting, Diarrhea, Constipation Genitourinary: No Dysuria, No Retention Neurological: Weakness; No: Confusion Objective Exam Vital Signs Date Time Temp Pulse Resp B/P (MAP) Pulse Ox O2 Delivery O2 Flow Rate FiO2 06/07/19 08:00 37.3 82 16 159/79 (105) 93 Nasal Cannula 2.00 06/07/19 07:30 Room Air 06/07/19 04:00 37.2 87 14 142/82 (102) 97 Nasal Cannula 2.00 06/07/19 00:00 93 Nasal Cannula 2.00 06/07/19 00:00 37.3 80 12 109/55 (73) 81 06/06/19 20:53 Room Air 06/06/19 20:00 37.6 80 115/66 (82) 91 06/06/19 16:00 36.9 78 154/78 (103) 95 NIV CPAP 06/06/19 12:00 35.8 82 16 138/90 (106) 95 Room Air I & O 06/07/19 07:00 Intake Total 2350 ml Output Total 4550 ml Balance -2200 ml Capillary Refill : Less Than 3 SecondsLess Than 3 Seconds General Appearance: WD/WN, Anxious, Chronically ill, Cachetic HEENT: PERRL/EOMI, Moist Mucous Membranes, Other (no lesions or sores seen on tongue ) Neck: No Lymphadenopathy (L), No Lymphadenopathy (R) Respiratory: Chest Non Tender, Lungs Clear, Normal Breath Sounds, No Respiratory Distress Cardiovascular: Regular Rate, Rhythm, No Murmur Peripheral Pulses: 2+ Radial Pulses (R), 2+ Radial Pulses (L) Gastrointestinal: normal bowel sounds, non tender, soft; No guarding, No rebound Extremity: No Calf Tenderness, No Pedal Edema Neurologic/Psychiatric: Alert, Oriented x3 Skin: Normal Color, Warm/Dry Results Lab Laboratory Tests 06/07/19 04:47: White Blood Count 7.3, Red Blood Count 4.01L, Hemoglobin 12.1, Hematocrit 38, Mean Corpuscular Volume 96, Mean Corpuscular Hemoglobin 30, Mean Corpuscular Hemoglobin Concent 32, Red Cell Distribution Width 14.0, Platelet Count 229, Mean Platelet Volume 10.9H, Neutrophils (%) (Auto) 72, Lymphocytes (%) (Auto) 15, Monocytes (%) (Auto) 13H, Eosinophils (%) (Auto) 0, Basophils (%) (Auto) 0, Neutrophils # (Auto) 5.2, Lymphocytes # (Auto) 1.1, Monocytes # (Auto) 0.9, Eosinophils # (Auto) 0.0, Basophils # (Auto) 0.0, Sodium Level 143, Potassium Level 3.0L, Chloride Level 94L, Carbon Dioxide Level 38H, Anion Gap 11, Blood Urea Nitrogen 56H, Creatinine 1.69H, Estimat Glomerular Filtration Rate 30, BUN/Creatinine Ratio 33, Glucose Level 111H, Calcium Level 9.2, Corrected Calcium 9.3, Total Bilirubin 0.8, Aspartate Amino Transf (AST/SGOT) 36H, Alanine Aminotransferase (ALT/SGPT) 50, Alkaline Phosphatase 115, Total Protein 6.7, Albumin 3.9 Microbiology 06/05/19 Urine Culture - Final, Complete 3 or more isolates Assessment/Plan Assessment/Plan Assessment/Plan PSBO Acute on Chronic Renal Failure Dehydration Patients NGT was clamped yesterday then restarted with 2L of fluid out at that time. Continue NPO, IVF, anti-emetics, and pain control as needed. Patient state s an allergy to IV contrast and is refusing both contrast and benadryl for small bowl follow through at this time. Continue IVF for dehydration and ARF. Clinical Quality Measures DVT/VTE Risk/Contraindication: Risk Factor Score Per Nursin RFS Level Per Nursing on Admit: 3=High KOBE GRIMALDO DO 06/07/19 1236: Subjective Time Seen by a Provider: 12:28 Subjective/Events-last exam Pt states her stomach hurts because she is hungry and thirsty. Assessment/Plan Assessment/Plan Assessment/Plan Will continue NGT, pt can have small amt of water with sponge to wet her mouth, dulcolax supp. Supervisory-Addendum Brief Verification & Attestation Participated in pt care: history, MDM, physical Personally performed: exam, history, MDM Care discussed with: Medical Student Procedures: n/a Verification and Attestation of Medical Student E/M Service A medical student performed and documented this service in my presence. I reviewed and verified all information documented by the medical student and made modifications to such information, when appropriate. I personally performed the physical exam and medical decision making. Kobe Grimaldo, Jun 07, 2019,12:35 MARKOS WOODALL,MED STUDENT Jun 07, 2019 11:02 KOBE GRIMALDO DO Jun 07, 2019 12:36
--- NOTE | 2019-06-07 11:10 | NUR ---
PT REQUESTING SOMETHING TO DRINK. PT REMINDED AGAIN THAT SHE IS NOTHING BY MOUTH. PT C/O PAIN IN HER ABD 06/18 AND REQUESTING PAIN MEDS. PT GIVEN 50MCG FENTANYL PRN ORDERED. PT ANXIOUS AND UNABLE TO GET AHOLD OF HER DAUGHTER. PT ASSISTED IN DIALING PHONE TO ATTEMPT TO CONTACT DAUGHTER, NO ANSWER AT THIS TIME.
[2019-06-07] MEDS: fentaNYL INJECTION 100 MCG/2 ML AMP IVP PRN ×2 (11:14→15:05)
--- NOTE | 2019-06-07 11:29 | NUR ---
PT DROWSY BUT AWAKENS EASILY TO NAME, PT REPORTING PAIN AT 8/10 IN HER ABD. UNABLE TO COMPLETE BOWEL FOLLOW THROUGH D/T PT REPORTING ANANAPHYLAXIS ALLERGY TO IODINE/CONTRAST. DR HURTADO MADE AWARE AT THIS TIME BY MEDICAL STUDENTS. RADIOLOGY UPDATED.
[2019-06-07] MEDS: NS IV 1000 ML 1,000 ML IV SCH (11:31)
[2019-06-07] MEDS ORDERED: BISACODYL 10 MG SUPP (DULCOLAX) PR ONE ×2 (12:45→20:15)
--- NOTE | 2019-06-07 13:00 | NUR ---
PT REFUSING SUPPOSITORY AND HEPARIN INJECTIONS AT THIS TIME.
[2019-06-07] MEDS ORDERED: RT-ALBUTEROL SULF 2.5 MG/3 ML PRE-MIX VIAL INH PRN (17:45)
[2019-06-07] MEDS ORDERED: RT-ALBUTEROL/IPRATROPIUM 3 ML (DUONEB) VIAL ONE (18:45)
[2019-06-07] MEDS: RT-ALBUTEROL SULF 2.5 MG/3 ML PRE-MIX VIAL INH PRN (18:47)
[2019-06-07] MEDS ORDERED: BISACODYL 10 MG SUPP (DULCOLAX) ONE (20:00)
[2019-06-07] MEDS ORDERED: cloNIDine 0.1 MG (CATAPRES) TAB PO PRN (21:30)
[2019-06-07] MEDS ORDERED: cloNIDine 0.1 MG (CATAPRES) TAB ONE (21:33)
[2019-06-07] MEDS: ALPRAZolam 0.25 MG (XANAX) TAB PO PRN (21:37)
--- NOTE | 2019-06-07 21:40 | NUR ---
BP 184/95, HR 94 DR. MACDONALD NOTIFIED, NEW ORDERS RECEIVED: CLONIDINE 0.1MG PO Q4HRS PRN SBP >170 WILL CONTINUE TO MONITOR.
[2019-06-08] MEDS: NS IV 1000 ML 1,000 ML IV SCH (01:52)
[2019-06-08] MEDS: hydrOXYzine (ATARAX) 10 MG TAB PO PRN ×3 (03:56→20:37)
[2019-06-08] MEDS: ALPRAZolam 0.25 MG (XANAX) TAB PO PRN ×4 (03:56→20:37)
[2019-06-08 06:03] LABS: BASOPHILS % (AUTO) 0 % (0-10); EOSINOPHILS % (AUTO) 0 % (0-10); HEMATOCRIT 42 % (35-52); HEMOGLOBIN 12.6 G/DL (11.5-16.0); LYMPHOCYTES # (AUTO) 1.2 X 10^3 (1.0-4.0); LYMPHOCYTES % (AUTO) 18 % (12-44); MEAN CORPUSCULAR HEMOGLOBIN 30 PG (25-34); MEAN CORPUSCULAR HGB CONC 30 G/DL (32-36); MEAN CORPUSCULAR VOLUME 100 FL (80-99); MONOCYTES # (AUTO) 0.8 X 10^3 (0.0-1.0); MONOCYTES % (AUTO) 12 % (0-12); NEUTROPHILS # (AUTO) 4.8 X 10^3 (1.8-7.8); NEUTROPHILS % (AUTO) 69 % (42-75); PLATELET COUNT 224 10^3/uL (130-400); RED CELL DISTRIBUTION WIDTH 14.2 % (10.0-14.5); WHITE BLOOD COUNT 6.9 10^3/uL (4.3-11.0)
[2019-06-08 06:28] LABS: BILIRUBIN,TOTAL 0.6 MG/DL (0.1-1.0); CALCIUM 9.3 MG/DL (8.5-10.1); CREATININE SERUM 1.49 MG/DL (0.60-1.30); POTASSIUM 3.1 MMOL/L (3.6-5.0); TOTAL PROTEIN 7.4 GM/DL (6.4-8.2)
[2019-06-08 08:00] VITALS: BP 193/84
[2019-06-08] MEDS: POTASSIUM CL 10MEQ/50ML IVPB 50 ML IV SCH ×6 (09:51→22:00)
[2019-06-08 11:20] LABS: CALCIUM 9.5 MG/DL (8.5-10.1); CREATININE SERUM 1.46 MG/DL (0.60-1.30); POTASSIUM 2.7 MMOL/L (3.6-5.0)
[2019-06-08] MEDS: meTOprolol TARTRATE 25 MG (LOPRESSOR) TABLET PO SCH ×2 (12:17→20:35)
[2019-06-08] MEDS: D5W 1000 ML IV SOLUTION 1,000 ML IV SCH ×3 (12:50→23:47)
--- NOTE | 2019-06-08 13:29 | NUR ---
RD ASSESSMENT PMHx: GERD; SBO; DVT PT INTERACTION: Pt was awake and pleasant during consult for MST score. Pt states current appetite is poor, and has been for awhile. Pt states no recent issues with nausea or vomiting at this time. Pt states some issues with constipation (Note current admit for SBO), but no diarrhea. Note last BM was 06/07, per chart review. Pt asked several times during consult for something to drink. RD stated that pt was still currently NPO. Pt states some recent weight loss over past few days. Note unable to determine recent wt hx, per chart review. Upon visual exam, pt appears cachectic with visible signs of muscle wasting along clavicles and temporal region. Pt also exhibits suborbital fat pad loss in the facial region. Given poor PO intake and visible signs of wasting, pt meets criteria for acute severe malnutrition, per ASPEN guidelines. ABNORMAL LAB VALUES: Na 155 (H); K 3.1 (L); Cl 96 (L); BUN 51 (H); cr 1.49 (H) Est. kcal needs: 6036-6115 kcal (30-35 kcal/kg) Est. Pro needs: 61-76 g Pro (1.2-1.5 g Pro/kg) PES STATEMENT: Inadequate oral intake related to NPO status as evidenced by SBO diagnosis INTERVENTION: Advance to clear liquid diet, when medically able. Pt may benefit from nutrition supplementation to meet protein needs. Pt may benefit from MVI supplementation. MONITOR/EVALUATE: Diet Advancement PO Intake Hydration Status Weight Status Lab values Susan Hernandez, MS, RD [phone]
--- NOTE | 2019-06-08 15:01 | NUR ---
Pastoral care visit.
[2019-06-08 16:03] LABS: CALCIUM 9.6 MG/DL (8.5-10.1); CREATININE SERUM 1.43 MG/DL (0.60-1.30); POTASSIUM 3.2 MMOL/L (3.6-5.0)
[2019-06-08 16:04] VITALS: BP 160/84
--- NOTE | 2019-06-08 17:03 | Progress Note ---
Subjective Subjective/Events-last exam Pt is anxious and concerned if she is going to get better and wants to eat. Objective Exam Last Set of Vital Signs Vital Signs Date Time Temp Pulse Resp B/P (MAP) Pulse Ox O2 Delivery O2 Flow Rate FiO2 06/08/19 16:04 37.2 90 20 160/84 (109) 97 Nasal Cannula 2.00 Capillary Refill : Less Than 3 SecondsLess Than 3 Seconds I&O Intake and Output 06/08/19 00:00 Intake Total 0 ml Output Total 2950 ml Balance -2950 ml Intake Oral 0 ml Output Urine Total 500 ml Gastric Drainage Total 2450 ml # Voids 7 # Bowel Movements 1 General: Alert, Mild Distress Lungs: Clear to Auscultation, Normal Air Movement Heart: Regular Rate, No Murmurs Abdomen: Other (mild distension, NG in place) Neuro: Normal Speech Psych/Mental Status: Other (anxious) Results/Procedures Lab Laboratory Tests 06/08/19 05:44: White Blood Count 6.9, Red Blood Count 4.20L, Hemoglobin 12.6, Hematocrit 42, M darion Corpuscular Volume 100H, Mean Corpuscular Hemoglobin 30, Mean Corpuscular Hemoglobin Concent 30L, Red Cell Distribution Width 14.2, Platelet Count 224, Mean Platelet Volume 11.0H, Neutrophils (%) (Auto) 69, Lymphocytes (%) (Auto) 18, Monocytes (%) (Auto) 12, Eosinophils (%) (Auto) 0, Basophils (%) (Auto) 0, Neutrophils # (Auto) 4.8, Lymphocytes # (Auto) 1.2, Monocytes # (Auto) 0.8, Eosinophils # (Auto) 0.0, Basophils # (Auto) 0.0, Sodium Level 155H, Potassium Level 3.1L, Chloride Level 96L, Carbon Dioxide Level 40H, Anion Gap 19H, Blood Urea Nitrogen 51H, Creatinine 1.49H, Estimat Glomerular Filtration Rate 35, BUN/Creatinine Ratio 34, Glucose Level 102, Calcium Level 9.3, Corrected Calcium 9.3, Total Bilirubin 0.6, Aspartate Amino Transf (AST/SGOT) 30, Alanine Aminotransferase (ALT/SGPT) 43, Alkaline Phosphatase 95, Total Protein 7.4, Albumin 4.0 06/08/19 10:50: Sodium Level 156H, Potassium Level 2.7L, Chloride Level 96L, Carbon Dioxide Level 42H, Anion Gap 18H, Blood Urea Nitrogen 48H, Creatinine 1.46H, Estimat Glomerular Filtration Rate 35, BUN/Creatinine Ratio 33, Glucose Level 102, Calcium Level 9.5 06/08/19 15:40: Sodium Level 154H, Potassium Level 3.2L, Chloride Level 97L, Carbon Dioxide Level 42H, Anion Gap 15H, Blood Urea Nitrogen 49H, Creatinine 1.43H, Estimat Glomerular Filtration Rate 36, BUN/Creatinine Ratio 34, Glucose Level 108H, Calcium Level 9.6 Microbiology 06/05/19 Urine Culture - Final, Complete 3 or more isolates Assessment/Plan Assessment/Plan (1) Small bowel obstruction Status: Acute Assessment & Plan: NG in place, Surgery consulted, appreciate recommendations. (2) Acute kidney injury Status: Acute Assessment & Plan: Improving, continue IVF. (3) Hypernatremia Status: Acute Assessment & Plan: Change IVF to D5 and check Na q2-3 hours. (4) Hypokalemia Assessment & Plan: Replace and recheck. (5) High anion gap metabolic acidosis Status: Acute Assessment & Plan: IVF, treat GEMINI as noted above. (6) COPD (chronic obstructive pulmonary disease) Status: Chronic (7) Anxiety Status: Chronic Assessment & Plan: Increase alprazolam to 0.5 mg given persistent severe anxiety, was on clonazepam as well at home, hesitant to mix benzodiazepines. (8) Hypertension Status: Chronic Qualifiers: Qualified Codes: I10 - Essential (primary) hypertension (9) DVT prophylaxis Status: Acute Assessment & Plan: Heparin Clinical Quality Measures DVT/VTE Risk/Contraindication: Risk Factor Score Per Nursin RFS Level Per Nursing on Admit: 3=High ALONSO VASQUEZ MD Jun 08, 2019 17:03
[2019-06-08] MEDS: fentaNYL INJECTION 100 MCG/2 ML AMP IVP PRN ×2 (19:05→20:44)
[2019-06-08] MEDS: ONDANSETRON 4 MG/2 ML (SDV) Z0FRAN IVP PRN ×2 (19:05→20:43)
[2019-06-08 19:23] LABS: BILIRUBIN,URINE NEGATIVE (NEGATIVE); CLARITY,URINE CLEAR; COLOR,URINE YELLOW; GLUCOSE, URINE (UA) NEGATIVE (NEGATIVE); KETONES,URINE 4+ (NEGATIVE); LEUKOCYTE ESTERASE ,URINE 2+ (NEGATIVE); NITRITE,URINE NEGATIVE (NEGATIVE); PH,URINE 8 (5-9); PROTEIN,URINE 2+ (NEGATIVE); UROBILINOGEN,URINE NORMAL (NORMAL)
[2019-06-08 19:30] LABS: BACTERIA,URINE FEW /HPF; RBC,URINE 0-2 /HPF
--- NOTE | 2019-06-08 19:33 | CONSULTATION REPORT ---
DATE OF SERVICE: 06/08/2019 ADMITTING PHYSICIAN: Leeann Christiansen DO. ATTENDING PRIMARY CARE PHYSICIAN: Dr. Js Gamino. HISTORY OF PRESENT ILLNESS: The patient is a 69-year-old female, known to us. She was initially seen by us on 01/18/2019, for a crampy abdominal pain, distention as well as nausea and vomiting. One week previously, she had similar symptoms and was treated conservatively typically with nasogastric decompression and bowel rest and she did have abdominal decompression and was able to have bowel movements. She then returned with similar symptoms and a CT scan did show a transition point as well as dilated loops of small bowel. She is also status post open colon resection from what she reports as some type of iatrogenic perforation from what sounds to be a colonoscopy requiring a colon resection around 2016. She has a lower midline laparotomy incision done in [place]. The patient continued to have symptoms despite conservative measures and we then proceeded with a diagnostic laparoscopy on 01/15/2019. She was found to have an intra-abdominal adhesions as well as an internal hernia from a large defect in the small bowel mesentery from what appears to be some form of previous bowel resection. She then underwent lysis of adhesions and a laparoscopic reduction and repair of internal mesenteric herniation. She did well postoperatively and was sent home. She returned to the Emergency Department with similar symptoms of crampy abdominal pain, nausea and vomiting. CT scan was performed, which did show again multiple dilated loops of small bowel as well as possible transition point. Since this recent admission, she has been treated conservatively with nasogastric decompression. She has had bowel movements; however, she continues to have issues with nausea and vomiting. She does not report any fever or chills. She does report that at times, she has noticed a small amount of blood per rectum. PAST MEDICAL HISTORY: Gastroesophageal reflux disease, anxiety, depression, and hypertension. PAST SURGICAL HISTORY: section, laparoscopic cholecystectomy, open partial colon resection, diagnostic laparoscopy with lysis of adhesions and closure of internal reduction and closure of internal small bowel herniation. ALLERGIES: CODEINE, IODINATED CONTRAST, PENICILLIN, SULFA, CEPHALEXIN, CIPROFLOXACIN, CITALOPRAM, DIAZEPAM, DIPHENHYDRAMINE, HYDROCODONE, LEVOFLOXACIN, LORATADINE, LORAZEPAM, METRONIDAZOLE, MORPHINE, NITROFURANTOIN, PROCHLORPERAZINE, PSEUDOEPHEDRINE, ZINC ACETATE. MEDICATIONS: Alprazolam 0.25 mg b.i.d. p.r.n., lisinopril 10 mg daily. SOCIAL HISTORY: Negative smoke, negative alcohol. FAMILY HISTORY: Mother with heart disease, diabetes. Vital signs - temperature is 37.2, blood pressure 160/84, pulse 90, respirations 20, and pulse ox 97% on 2 liters nasal cannula. REVIEW OF SYSTEMS: A slightly thin-appearing female who is having intermittent episodes of nausea and vomiting. She does also report some crampy abdominal pain. She has had several bowel movements on this admission. No red blood per rectum, no dark tarry stools. No fever or chills, no recent inadvertent weight loss. PHYSICAL EXAMINATION: CHEST: Clear. Good breath sounds bilaterally. HEART: Regular, no murmurs. EXTREMITIES: No lower extremity edema, negative Homans sign. HEENT: No scleral icterus. NECK: No cervical lymphadenopathy. ABDOMEN: Soft, mild distention. There is mild crampy abdominal pain. No peritoneal signs. No hernias. SKIN: Warm, dry. ASSESSMENT AND PLAN: A 69-year-old female with recurrent partial small-bowel obstruction. We are unsure of the etiology of this; however, this may be related to adhesion tissue. She is having bowel movements and this does not appear to be a complete small bowel obstruction; however, she does have continued episodes of nausea and vomiting. We will again continue with conservative management. We will add a PPI acid book agent for potential gastritis as well as Carafate and proceed with a trial of dexamethasone given simultaneously with Zofran to help with her nausea. If she continues to have issues with nausea and vomiting, we will then proceed with a Gastrografin small bowel follow through. Job ID: [id number] DocumentID: [id number] Dictated Date: 06/08/2019 19:13:32 Stock Parts Fabricator Date: 06/08/2019 19:32:32 Dictated By: YESICA GODINEZ MD
[2019-06-08] MEDS: SUCRALFATE 1 GM (CARAFATE) TAB PO SCH (20:33)
[2019-06-08] MEDS ORDERED: PANTOPRAZOLE 40 MG (PROTONIX) VIAL IV NR (21:00)
[2019-06-08] MEDS: DEXAMETHASONE 4 MG/ML SDV (DECADRON) IV SCH (22:08)
--- NOTE | 2019-06-09 02:00 | NUR ---
191 ng tube removed per verbal order from dr chaudhari
[2019-06-09 05:14] LABS: BASOPHILS % (AUTO) 0 % (0-10); EOSINOPHILS % (AUTO) 0 % (0-10); HEMATOCRIT 37 % (35-52); HEMOGLOBIN 11.3 G/DL (11.5-16.0); LYMPHOCYTES # (AUTO) 1.2 X 10^3 (1.0-4.0); LYMPHOCYTES % (AUTO) 12 % (12-44); MEAN CORPUSCULAR HEMOGLOBIN 30 PG (25-34); MEAN CORPUSCULAR HGB CONC 31 G/DL (32-36); MEAN CORPUSCULAR VOLUME 99 FL (80-99); MEAN PLATELET VOLUME 11.9 FL (7.4-10.4); MONOCYTES # (AUTO) 0.8 X 10^3 (0.0-1.0); MONOCYTES % (AUTO) 7 % (0-12); NEUTROPHILS # (AUTO) 8.5 X 10^3 (1.8-7.8); NEUTROPHILS % (AUTO) 81 % (42-75); PLATELET COUNT 178 10^3/uL (130-400); RED CELL DISTRIBUTION WIDTH 14.1 % (10.0-14.5); WHITE BLOOD COUNT 10.5 10^3/uL (4.3-11.0)
[2019-06-09 05:32] LABS: CALCIUM 8.8 MG/DL (8.5-10.1); CREATININE SERUM 1.38 MG/DL (0.60-1.30); POTASSIUM 3.6 MMOL/L (3.6-5.0)
[2019-06-09] MEDS: DEXAMETHASONE 4 MG/ML SDV (DECADRON) IV SCH ×3 (06:07→21:29)
[2019-06-09] MEDS: ONDANSETRON 4 MG/2 ML (SDV) Z0FRAN IVP PRN ×4 (06:07→21:29)
[2019-06-09] MEDS: D5W 1000 ML IV SOLUTION 1,000 ML IV SCH (06:14)
[2019-06-09] MEDS: SUCRALFATE 1 GM (CARAFATE) TAB PO SCH ×4 (06:31→21:34)
[2019-06-09 07:47] VITALS: BP 142/64
[2019-06-09] MEDS: meTOprolol TARTRATE 25 MG (LOPRESSOR) TABLET PO SCH ×2 (08:12→21:27)
[2019-06-09] MEDS: PANTOPRAZOLE 40 MG (PROTONIX) VIAL IV SCH (08:12)
[2019-06-09] MEDS: NS IV 1000 ML 1,000 ML IV SCH ×2 (08:49→17:55)
[2019-06-09] MEDS: ALPRAZolam 0.25 MG (XANAX) TAB PO PRN ×3 (08:49→21:28)
[2019-06-09 09:00] VITALS: BP 140/70
[2019-06-09] MEDS: RT-ALBUTEROL SULF 2.5 MG/3 ML PRE-MIX VIAL INH PRN (09:21)
[2019-06-09] MEDS: fentaNYL INJECTION 100 MCG/2 ML AMP IVP PRN ×2 (13:35→15:51)
--- NOTE | 2019-06-09 14:13 | Progress Note ---
Subjective Date Seen by a Provider: Jun 09, 2019 Time Seen by a Provider: 14:00 Subjective/Events-last exam doing ok. tolerating clears. no episodes nausea/vomiting. Objective Exam Vital Signs Date Time Temp Pulse Resp B/P (MAP) Pulse Ox O2 Delivery O2 Flow Rate FiO2 06/09/19 09:22 98 Nasal Cannula 2.00 06/09/19 09:00 36.6 140/70 (93) 06/09/19 09:00 98 Nasal Cannula 2.00 06/09/19 07:47 36.6 66 20 142/64 (90) 96 Nasal Cannula 2.00 06/08/19 21:00 97 Nasal Cannula 2.00 06/08/19 20:00 36.6 06/08/19 16:04 37.2 90 20 160/84 (109) 97 Nasal Cannula 2.00 I & O 06/09/19 07:00 Intake Total 4250 ml Output Total 1200 ml Balance 3050 ml Capillary Refill : Less Than 3 SecondsLess Than 3 Seconds General Appearance: No Apparent Distress HEENT: PERRL/EOMI Respiratory: Chest Non Tender, Lungs Clear, Normal Breath Sounds Gastrointestinal: normal bowel sounds, non tender, soft Extremity: Normal Capillary Refill Neurologic/Psychiatric: Alert, Oriented x3 Skin: Normal Color Lymphatic: No Adenopathy Results Lab Laboratory Tests 06/08/19 15:40: Sodium Level 154H, Potassium Level 3.2L, Chloride Level 97L, Carbon Dioxide Level 42H, Anion Gap 15H, Blood Urea Nitrogen 49H, Creatinine 1.43H, Estimat Glomerular Filtration Rate 36, BUN/Creatinine Ratio 34, Glucose Level 108H, Calcium Level 9.6 06/08/19 17:58: Urine Color YELLOW, Urine Clarity CLEAR, Urine pH 8, Urine Specific [place] 1.015L, Urine Protein 2+H, Urine Glucose (UA) NEGATIVE, Urine Ketones 4+H, Urine Nitrite NEGATIVE, Urine Bilirubin NEGATIVE, Urine Urobilinogen NORMAL, Urine Leukocyte Esterase 2+H, Urine RBC (Auto) NEGATIVE, Urine RBC 0-2, Urine WBC 5- 10H, Urine Squamous Epithelial Cells 5-10, Urine Crystals NONE, Urine Bacteria FEWH, Urine Casts NONE, Urine Mucus NEGATIVE, Urine Culture Indicated YES 06/09/19 04:20: Sodium Level 140, Potassium Level 3.6, Chloride Level 92L, Carbon Dioxide Level 38H, Anion Gap 10, Blood Urea Nitrogen 46H, Creatinine 1.38H, Estimat Glomerular Filtration Rate 38, BUN/Creatinine Ratio 33, Glucose Level 144H, Calcium Level 8.8, White Blood Count 10.5, Red Blood Count 3.74L, Hemoglobin 11.3L, Hematocrit 37, Mean Corpuscular Volume 99, Mean Corpuscular Hemoglobin 30, Mean Corpuscular Hemoglobin Concent 31L, Red Cell Distribution Width 14.1, Platelet Count 178, Mean Platelet Volume 11.9H, Neutrophils (%) (Auto) 81H, Lymphocytes (%) (Auto) 12, Monocytes (%) (Auto) 7, Eosinophils (%) (Auto) 0, Basophils (%) (Auto) 0, Neutrophils # (Auto) 8.5H, Lymphocytes # (Auto) 1.2, Monocytes # (Auto) 0.8, Eosinophils # (Auto) 0.0, Basophils # (Auto) 0.0 Microbiology 06/05/19 Urine Culture - Final, Complete 3 or more isolates Assessment/Plan Assessment/Plan Assess & Plan/Chief Complaint PSBO with gastritis. seems to be resolving. had BM yesterday and tolerating clears. will advance to dys3 diet. Clinical Quality Measures DVT/VTE Risk/Contraindication: Risk Factor Score Per Nursin RFS Level Per Nursing on Admit: 3=High YESICA GODINEZ MD Jun 09, 2019 14:12
--- NOTE | 2019-06-09 14:26 | Progress Note ---
Subjective Subjective/Events-last exam Afebrile, doing fairly well. Has NG out. Objective Exam Last Set of Vital Signs Vital Signs Date Time Temp Pulse Resp B/P (MAP) Pulse Ox O2 Delivery O2 Flow Rate FiO2 06/09/19 09:22 98 Nasal Cannula 2.00 06/09/19 09:00 36.6 140/70 (93) 06/09/19 07:47 66 20 Capillary Refill : Less Than 3 SecondsLess Than 3 Seconds I&O Intake and Output 06/09/19 00:00 Intake Total 5050 ml Output Total 2000 ml Balance 3050 ml Intake Oral 1800 ml IV Total 3250 ml Output Urine Total 300 ml Gastric Drainage Total 1700 ml # Voids 7 # Bowel Movements 1 General: Alert, No Acute Distress Lungs: Clear to Auscultation, Normal Air Movement Heart: Regular Rate, No Murmurs Abdomen: Normal Bowel Sounds, Soft, Other (ttp diffusely) Psych/Mental Status: Other (anxious) Results/Procedures Lab Laboratory Tests 06/08/19 15:40: Sodium Level 154H, Potassium Level 3.2L, Chloride Level 97L, Carbon Dioxide Level 42H, Anion Gap 15H, Blood Urea Nitrogen 49H, Creatinine 1.43H, Estimat Glomerular Filtration Rate 36, BUN/Creatinine Ratio 34, Glucose Level 108H, Calcium Level 9.6 06/08/19 17:58: Urine Color YELLOW, Urine Clarity CLEAR, Urine pH 8, Urine Specific [place] 1.015L, Urine Protein 2+H, Urine Glucose (UA) NEGATIVE, Urine Ketones 4+H, Urine Nitrite NEGATIVE, Urine Bilirubin NEGATIVE, Urine Urobilinogen NORMAL, Urine Angelito kocyte Esterase 2+H, Urine RBC (Auto) NEGATIVE, Urine RBC 0-2, Urine WBC 5-10H, Urine Squamous Epithelial Cells 5-10, Urine Crystals NONE, Urine Bacteria FEWH, Urine Casts NONE, Urine Mucus NEGATIVE, Urine Culture Indicated YES 06/09/19 04:20: Sodium Level 140, Potassium Level 3.6, Chloride Level 92L, Carbon Dioxide Level 38H, Anion Gap 10, Blood Urea Nitrogen 46H, Creatinine 1.38H, Estimat Glomerular Filtration Rate 38, BUN/Creatinine Ratio 33, Glucose Level 144H, Calcium Level 8.8, White Blood Count 10.5, Red Blood Count 3.74L, Hemoglobin 11.3L, Hematocrit 37, Mean Corpuscular Volume 99, Mean Corpuscular Hemoglobin 30, Mean Corpuscular Hemoglobin Concent 31L, Red Cell Distribution Width 14.1, Platelet Count 178, Mean Platelet Volume 11.9H, Neutrophils (%) (Auto) 81H, Lymphocytes (%) (Auto) 12, Monocytes (%) (Auto) 7, Eosinophils (%) (Auto) 0, Basophils (%) (Auto) 0, Neutrophils # (Auto) 8.5H, Lymphocytes # (Auto) 1.2, Monocytes # (Auto) 0.8, Eosinophils # (Auto) 0.0, Basophils # (Auto) 0.0 Microbiology 06/05/19 Urine Culture - Final, Complete 3 or more isolates Assessment/Plan Assessment/Plan (1) Small bowel obstruction Status: Acute Assessment & Plan: NG taken out, start clear liquids, Surgery consulted, appreciate recommendations. (2) Acute kidney injury Status: Acute Assessment & Plan: Improving, continue IVF. (3) Hypernatremia Status: Resolved Assessment & Plan: Change IVF to D5 and check Na q2-3 hours. 06/09 resolved, change fluid back to NS, anticipate d/c IVF soon when taking adequate oral (4) Hypokalemia Status: Resolved Assessment & Plan: Replace and recheck. (5) High anion gap metabolic acidosis Status: Resolved Assessment & Plan: IVF, treat GEMINI as noted above. (6) COPD (chronic obstructive pulmonary disease) Status: Chronic (7) Anxiety Status: Chronic Assessment & Plan: Increase alprazolam to 0.5 mg given persistent severe anxiety, was on clonazepam as well at home, hesitant to mix benzodiazepines. (8) Hypertension Status: Chronic Qualifiers: Qualified Codes: I10 - Essential (primary) hypertension (9) DVT prophylaxis Status: Acute Assessment & Plan: Heparin Clinical Quality Measures DVT/VTE Risk/Contraindication: Risk Factor Score Per Nursin RFS Level Per Nursing on Admit: 3=High ALONSO VASQUEZ MD Jun 09, 2019 14:26
--- NOTE | 2019-06-09 15:16 | Physical Therapy Progress Note ---
Therapy Progress Note Eval order received and attempted but patient refused. She doesn't want to get out of bed and ambulate and refuses to get into a chair. Patient states that she is sick, nurse aide/sitter says she has been sick all day. Will try back in the morning. HERI MCCARTNEY PT Jun 09, 2019 15:16
[2019-06-09] MEDS: hydrOXYzine (ATARAX) 10 MG TAB PO PRN (15:51)
[2019-06-09 15:57] VITALS: BP 167/76
[2019-06-09 21:17] VITALS: BP 154/66
[2019-06-10] MEDS: SUCRALFATE 1 GM (CARAFATE) TAB PO SCH ×4 (05:17→19:58)
[2019-06-10] MEDS: DEXAMETHASONE 4 MG/ML SDV (DECADRON) IV SCH ×3 (05:18→19:51)
[2019-06-10] MEDS: ONDANSETRON 4 MG/2 ML (SDV) Z0FRAN IVP PRN ×3 (05:18→14:27)
[2019-06-10] MEDS: NS IV 1000 ML 1,000 ML IV SCH ×3 (05:18→23:34)
[2019-06-10 06:05] LABS: HEMOGLOBIN 12.4 G/DL (11.5-16.0); RED CELL DISTRIBUTION WIDTH 13.7 % (10.0-14.5); WHITE BLOOD COUNT 10.3 10^3/uL (4.3-11.0)
[2019-06-10 06:21] LABS: CALCIUM 8.5 MG/DL (8.5-10.1); CREATININE SERUM 0.93 MG/DL (0.60-1.30); POTASSIUM 2.9 MMOL/L (3.6-5.0)
--- NOTE | 2019-06-10 08:22 | Physical Therapy Progress Note ---
Therapy Progress Note Evaluation attempted but patient refused again. Sitter states she has been vomiting all night long. Patient states that her stomach hurts and doesn't want to do PT right now. Will try back this afternoon. HERI MCCARTNEY PT Jun 10, 2019 08:22
[2019-06-10 08:24] VITALS: BP 179/90
[2019-06-10] MEDS ORDERED: ACETAMINOPHEN 325 MG TABLET ONE (08:37)
[2019-06-10] MEDS: PANTOPRAZOLE 40 MG (PROTONIX) VIAL IV SCH (08:39)
[2019-06-10] MEDS: meTOprolol TARTRATE 25 MG (LOPRESSOR) TABLET PO SCH ×3 (08:39→19:57)
[2019-06-10] MEDS ORDERED: ACETAMINOPHEN 325 MG TABLET PO PRN (08:45)
[2019-06-10] MEDS: fentaNYL INJECTION 100 MCG/2 ML AMP IVP PRN ×2 (08:52→17:24)
--- NOTE | 2019-06-10 10:35 | NUR ---
DR VASQUEZ NOTIFIED OF PT NAUSEATED AND DRY HEAVING. PRN NAUSEA MEDICATION WAS GIVEN AT 0856.
[2019-06-10] MEDS: POTASSIUM CL 10MEQ/50ML IVPB 50 ML IV SCH ×4 (11:46→18:37)
[2019-06-10 12:00] VITALS: BP 152/71
[2019-06-10] MEDS: hydrOXYzine (ATARAX) 10 MG TAB PO PRN ×2 (14:27→20:31)
--- NOTE | 2019-06-10 14:46 | Progress Note ---
Subjective Subjective/Events-last exam Afebrile, continues to have a lot of abdominal pain and has vomited in last 24 hours, had one small BM. Objective Exam Last Set of Vital Signs Vital Signs Date Time Temp Pulse Resp B/P (MAP) Pulse Ox O2 Delivery O2 Flow Rate FiO2 06/10/19 12:00 36.9 85 18 152/71 (98) 98 Room Air 06/09/19 21:00 1.00 Capillary Refill : Less Than 3 SecondsLess Than 3 Seconds I&O Intake and Output 06/10/19 00:00 Intake Total 2595 ml Output Total 200 ml Balance 2395 ml Intake Oral 1220 ml IV Total 1375 ml Output Urine Total 200 ml # Voids 6 # Bowel Movements 1 # Emeses 100 General: Alert, Mild Distress Lungs: Clear to Auscultation, Normal Air Movement Heart: Regular Rate, No Murmurs Abdomen: Normal Bowel Sounds, Soft, Other (diffuse ttp) Extremities: No Edema Neuro: Normal Speech Results/Procedures Lab Laboratory Tests 06/10/19 05:35: White Blood Count 10.3, Red Blood Count 4.11L, Hemoglobin 12.4, Hematocrit 38, Mean Corpuscular Volume 93, Mean Corpuscular Hemoglobin 30, Mean Corpuscular Hemoglobin Concent 32, Red Cell Distribution Width 13.7, Platelet Count 174, Mean Platelet Volume 12.0H, Sodium Level 139, Potassium Level 2.9L, Chloride Level 94L, Carbon Dioxide Level 32, Anion Gap 13, Blood Urea Nitrogen 39H, Creatinine 0.93, Estimat Glomerular Filtration Rate 60, BUN/Creatinine Ratio 42, Glucose Level 131H, Calcium Level 8.5 Microbiology 06/08/19 Urine Culture - Final, Complete 3 or more isolates Assessment/Plan Assessment/Plan (1) Small bowel obstruction Status: Acute Assessment & Plan: NG taken out, start clear liquids, Surgery consulted, appreciate recommendations. (2) Acute kidney injury Status: Resolved Assessment & Plan: Improving, continue IVF. (3) Hypernatremia Status: Resolved Assessment & Plan: Change IVF to D5 and check Na q2-3 hours. 06/09 resolved, change fluid back to NS, anticipate d/c IVF soon when taking adequate oral (4) Hypokalemia Status: Acute Assessment & Plan: Replace and recheck. (5) High anion gap metabolic acidosis Status: Resolved Assessment & Plan: IVF, treat GEMINI as noted above. (6) COPD (chronic obstructive pulmonary disease) Status: Chronic (7) Anxiety Status: Chronic Assessment & Plan: Increase alprazolam to 0.5 mg given persistent severe anxiety, was on clonazepam as well at home, hesitant to mix benzodiazepines. (8) Hypertension Status: Chronic Qualifiers: Qualified Codes: I10 - Essential (primary) hypertension (9) DVT prophylaxis Status: Acute Assessment & Plan: Heparin Clinical Quality Measures DVT/VTE Risk/Contraindication: Risk Factor Score Per Nursin RFS Level Per Nursing on Admit: 3=High ALONSO VASQUEZ MD Jun 10, 2019 14:45
--- NOTE | 2019-06-10 15:10 | Physical Therapy Evaluation ---
PT Evaluation-General Medical Diagnosis Admission Date Jun 05, 2019 at 10:20 Medical Diagnosis: Small bowel obstruction with acute renal failure Onset Date: Jun 05, 2019 Therapy Diagnosis Therapy Diagnosis: impaired mobility, ,strength, endurance Height/Weight Height (Feet): 5 Height (Inches): 8.00 Weight (Pounds): 116 Weight (Ounces): 0 Precautions Precautions/Isolations: Fall Prevention, Standard Precautions Weight Bear Status Right Lower Extremity: Right Weight Bearing/Tolerated Left Lower Extremity: Left Weight Bearing/Tolerated Referral Physician: Bala Reason for Referral: Evaluation/Treatment Medical History Additional Medical History Past Medical History Surgeries: Abdominal (SBO), Section, Gallbladder Cardiac: Deep Vein Thrombosis Gastrointestinal: Gastroesophageal Reflux, Obstructive Bowel Cancer: Cervical Did You Recieve Any Treatments: No Psychosocial: Anxiety, Depression History of Blood Disorders: No Adverse Reaction to Blood Duarte: No Social History Current Living Status: Alone Entry Into Home: Level Entry Prior Prior Level of Function Therapy Quality Codes: 6 Independent with activity with or without an assistive device 5 Patient requires set up or clean up by helper. Patient completes activity by themselves 4 Supervision or touching assist (CGA). [place] provide cues , steadying assist 3 The helper provides less than half the effort to complete the activity 2 The helper provides more than half the effort to complete the activity 1 Dependent. The helper does all the effort to complete an activity 7 Patient refused to complete or attempt activity 9 The patient did not perform the activity before the current illness or injury 88 Not attempted due to Medical conditions or safety concerns unknown PT Evaluation-Current Subjective Patient in bed pre tx, agrees to PT reluctantly and needs a lot of encouragement to participate, patient is angry and doesn't want to answer questions and will only ambulate. Pt/Family Goals none stated Objective Patient Orientation: Person Attachments: IV ROM/Strength ROM Lower Extremities WNL Sensory Vision: Functional Hearing: Functional Transfers Roll Left to Right (QC): 4 Sit to Lying (QC): 4 Lying to Sitting/Side of Bed(Q: 4 Sit to Stand (QC): 4 Chair/Iuk-xh-Bfmem Xfer(QC): 4 SBA Gait Does the Patient Walk?: Yes Mode of Locomotion: Walk Anticipated Mode of Locomotion: Walk Walk 10 feet (QC): 4 Walk 50 ft with 2 Turns(QC): 4 Distance: 100' Gait Persons Needed: 1 Gait Assistive Device: FWW Comments/Gait Description SBA, slumped posture Assessment/Needs Patient has impaired mobility, strength, endurance. Patient BTB post tx with nurse call, phone, tray, all needs met. Rehab Potential: Guarded PT Short Term Goals Short Term Goals Time Frame: Jun 17, 2019 Gait Distance Comment: 150' Gait Assistive Device: FWW (SBA) Additional Short Term Goals bed mobility and transfers mod I PT Plan Problem List Problem List: Activity Tolerance, Functional Strength, Safety, Balance, Gait, Transfer, Bed Mobility Treatment/Plan Treatment Plan: Continue Plan of Care Treatment Plan: Bed Mobility, Education, Functional Activity Cheri, Functional Strength, Gait, Safety, Therapeutic Exercise, Transfers Treatment Duration: Jun 17, 2019 Frequency: 6 times per week Estimated Hrs Per Day: .25 hour per day Patient and/or Family Agrees t: Yes Safety Risks/Education Patient Education: Gait Training, Transfer Techniques, Correct Positioning, Safety Issues Teaching Recipient: Patient Teaching Methods: Demonstration, Discussion Response to Teaching: Reinforcement Needed Discharge Recommendations Plan Patient will perform bed mobility and transfer training, balance and endurance training, functional strengthening, gait training, and education to improve functional mobility and independence at home. Therapy Discharge Recommendati: Other, See Comments (penitentiary) Time/GCodes Time In: 1453 Time Out: 1503 Total Billed Treatment Time: 10 Total Billed Treatment 1 visit HERI ROMERO PT Jun 10, 2019 15:10
--- NOTE | 2019-06-10 16:22 | Progress Note ---
Subjective Date Seen by a Provider: Jun 10, 2019 Time Seen by a Provider: 16:00 Subjective/Events-last exam having daily BM's and abd soft/non-dist, however still has intermittent episodes nausea/vomiting. no abd pain. no fever/chills. Objective Exam Vital Signs Date Time Temp Pulse Resp B/P (MAP) Pulse Ox O2 Delivery O2 Flow Rate FiO2 06/10/19 12:00 36.9 85 18 152/71 (98) 98 Room Air 06/10/19 10:43 90 Room Air 06/10/19 09:00 Room Air 06/10/19 08:24 37.5 95 18 179/90 (119) 94 Room Air 06/09/19 21:17 37.1 77 16 154/66 (95) 94 Room Air 06/09/19 21:00 Nasal Cannula 1.00 06/09/19 19:35 98 Room Air I & O 06/10/19 07:00 Intake Total 2495 ml Balance 2495 ml Capillary Refill : Less Than 3 SecondsLess Than 3 Seconds General Appearance: No Apparent Distress Neck: Full Range of Motion Respiratory: Chest Non Tender, Lungs Clear Cardiovascular: Regular Rate, Rhythm Gastrointestinal: normal bowel sounds, non tender, soft Extremity: Normal Capillary Refill Neurologic/Psychiatric: Alert, Oriented x3 Skin: Normal Color Lymphatic: No Adenopathy Results Lab Laboratory Tests 06/10/19 05:35: White Blood Count 10.3, Red Blood Count 4.11L, Hemoglobin 12.4, Hematocrit 38, Mean Corpuscular Volume 93, Mean Corpuscular Hemoglobin 30, Mean Corpuscular Hemoglobin Concent 32, Red Cell Distribution Width 13.7, Platelet Count 174, Mean Platelet Volume 12.0H, Sodium Level 139, Potassium Level 2.9L, Chloride Level 94L, Carbon Dioxide Level 32, Anion Gap 13, Blood Urea Nitrogen 39H, Creatinine 0.93, Estimat Glomerular Filtration Rate 60, BUN/Creatinine Ratio 42, Glucose Level 131H, Calcium Level 8.5 Microbiology 06/08/19 Urine Culture - Final, Complete 3 or more isolates Assessment/Plan Assessment/Plan Assess & Plan/Chief Complaint PSBO with gastritis. tolerating diet for the most part however continues to have intermittent episodes nasuea and vomiting. abd soft and having BM's daily. does not fit the picture of a bowel obstruction. patient s/p cholecystectomy as well. will proceed with SBFT tomorrow. Clinical Quality Measures DVT/VTE Risk/Contraindication: Risk Factor Score Per Nursin RFS Level Per Nursing on Admit: 3=High YESICA GODINEZ MD Jun 10, 2019 16:22
[2019-06-10] MEDS: ALPRAZolam 0.25 MG (XANAX) TAB PO PRN ×2 (17:24→22:15)
[2019-06-10] MEDS ORDERED: morphine IMMEDIATE RELEASE 15 MG TABLET PO PRN (19:15)
[2019-06-10] MEDS ORDERED: ONDANSETRON 4 MG (ZOFRAN) ORAL DISSOLVE TAB PO PRN (19:15)
[2019-06-10 21:00] VITALS: BP 174/96
[2019-06-11] MEDS: SUCRALFATE 1 GM (CARAFATE) TAB PO SCH ×4 (04:04→20:56)
[2019-06-11] MEDS: DEXAMETHASONE 4 MG/ML SDV (DECADRON) IV SCH ×3 (04:04→21:56)
[2019-06-11 05:02] LABS: HEMOGLOBIN 13.1 G/DL (11.5-16.0); MEAN PLATELET VOLUME 12.4 FL (7.4-10.4); RED CELL DISTRIBUTION WIDTH 13.8 % (10.0-14.5)
[2019-06-11 05:26] LABS: CALCIUM 8.7 MG/DL (8.5-10.1); CREATININE SERUM 0.97 MG/DL (0.60-1.30)
[2019-06-11 07:28] VITALS: BP 93/57
--- NOTE | 2019-06-11 07:34 | NUR ---
PER REPORT FROM [employer] RN -- PT HAS NO IV ACCESS AND THE IV K+ THAT WAS ORDERED DID NOT ALL GET GIVEN-- DR ALANIS Orta IS AWARE - ORDER FOR MID LINE WAS PLACED LATE YESTERDAY -- PER REPORT -- PT TO HAVE SMALL BOWEL FOLLOW THROUGH AND GET MID PLACE TODAY --
[2019-06-11] MEDS: meTOprolol TARTRATE 25 MG (LOPRESSOR) TABLET PO SCH ×2 (08:20→20:57)
[2019-06-11] MEDS ORDERED: KCL 20 MEQ TAB (K-DUR) PO NR (09:15)
[2019-06-11] MEDS: NS IV 1000 ML 1,000 ML IV SCH ×2 (09:20→20:52)
--- NOTE | 2019-06-11 10:40 | Physical Therapy Progress Note ---
Therapy Progress Note Patient having a procedure this blank PT will attempt in p.m. EMIR COVARRUBIAS PT Jun 11, 2019 10:40
[2019-06-11] MEDS ORDERED: BARIUM SUSPENSION 60% (LIQUID EZ PAQUE) 240 ML DOSE PO ONE (11:00)
[2019-06-11] MEDS: PANTOPRAZOLE 40 MG (PROTONIX) VIAL IV SCH (13:49)
--- NOTE | 2019-06-11 13:57 | Physical Therapy Progress Note ---
Therapy Progress Note Patient is unavailable due to procedure. PT will attempt in EMIR Clay PT Jun 11, 2019 13:57
--- NOTE | 2019-06-11 14:20 | Progress Note ---
Subjective Subjective/Events-last exam Afebrile, continues to have a lot of pain. IV went bad, not able to get all her potassium in, is NPO for small bowel follow through so cannot take oral this am either. Objective Exam Last Set of Vital Signs Vital Signs Date Time Temp Pulse Resp B/P (MAP) Pulse Ox O2 Delivery O2 Flow Rate FiO2 06/11/19 09:00 Nasal Cannula 1.00 06/11/19 07:28 37.4 97 18 93/57 (69) 95 Capillary Refill : Less Than 3 SecondsLess Than 3 Seconds I&O Intake and Output 06/11/19 00:00 Intake Total 1085 ml Balance 1085 ml Intake Oral 1085 ml # Voids 6 # Urine Diapers 3 General: Alert, Mild Distress Lungs: Clear to Auscultation, Normal Air Movement Heart: Regular Rate, No Murmurs Abdomen: Normal Bowel Sounds, Soft, Other (diffuse ttp) Extremities: No Edema Results/Procedures Lab Laboratory Tests 06/11/19 04:35: White Blood Count 7.0, Red Blood Count 4.34L, Hemoglobin 13.1, Hematocrit 40, Mean Corpuscular Volume 92, Mean Corpuscular Hemoglobin 30, Mean Corpuscular Hemoglobin Concent 33, Red Cell Distribution Width 13.8, Platelet Count 181, Mean Platelet Volume 12.4H, Sodium Level 137, Potassium Level 3.0L, Chloride Level 96L, Carbon Dioxide Level 31, Anion Gap 10, Blood Urea Nitrogen 41H, Creatinine 0.97, Estimat Glomerular Filtration Rate 57, BUN/Creatinine Ratio 42, Glucose Level 123H, Calcium Level 8.7 Microbiology 06/08/19 Urine Culture - Final, Complete 3 or more isolates Assessment/Plan Assessment/Plan (1) Small bowel obstruction Status: Acute Assessment & Plan: NG taken out, start clear liquids, Surgery consulted, appreciate recommendations. 06/11 small bowel follow through today (2) Acute kidney injury Status: Resolved Assessment & Plan: Improving, continue IVF. (3) Hypernatremia Status: Resolved Assessment & Plan: Change IVF to D5 and check Na q2-3 hours. 06/09 resolved, change fluid back to NS, anticipate d/c IVF soon when taking adequate oral (4) Hypokalemia Status: Acute Assessment & Plan: Replace and recheck. (5) High anion gap metabolic acidosis Status: Resolved Assessment & Plan: IVF, treat GEMINI as noted above. (6) COPD (chronic obstructive pulmonary disease) Status: Chronic (7) Anxiety Status: Chronic Assessment & Plan: Increase alprazolam to 0.5 mg given persistent severe anxiety, was on clonazepam as well at home, hesitant to mix benzodiazepines. (8) Hypertension Status: Chronic Qualifiers: Qualified Codes: I10 - Essential (primary) hypertension (9) DVT prophylaxis Status: Acute Assessment & Plan: Heparin Clinical Quality Measures DVT/VTE Risk/Contraindication: Risk Factor Score Per Nursin RFS Level Per Nursing on Admit: 3=High ALONSO VASQUEZ MD Jun 11, 2019 14:20
--- NOTE | 2019-06-11 15:45 | Progress Note ---
Subjective Date Seen by a Provider: Jun 11, 2019 Time Seen by a Provider: 15:30 Subjective/Events-last exam Patient seen with Dr. Weston. Patient lying in bed sleeping. Patient is currently undergoing small bowel follow through test. Patient reports abdominal pain and nausea, but reports that pain is mild. Patient keeps falling asleep during exam and when abdomen examined patient did not awaken and complain of any discomfort. Patient has been having BMs. Objective Exam Vital Signs Date Time Temp Pulse Resp B/P (MAP) Pulse Ox O2 Delivery O2 Flow Rate FiO2 06/11/19 09:00 Nasal Cannula 1.00 06/11/19 08:42 Room Air 06/11/19 07:28 37.4 97 18 93/57 (69) 95 Room Air 06/10/19 21:00 36.9 85 16 174/96 (122) 98 Nasal Cannula 1.00 06/10/19 21:00 Nasal Cannula 1.00 06/10/19 20:17 Room Air I & O 06/11/19 07:00 Intake Total 985 ml Balance 985 ml Capillary Refill : Less Than 3 SecondsLess Than 3 Seconds General Appearance: No Apparent Distress, WD/WN, Thin Neck: Full Range of Motion, Normal Inspection, Supple Respiratory: Lungs Clear, Normal Breath Sounds, No Accessory Muscle Use, No Respiratory Distress Cardiovascular: Regular Rate, Rhythm, No Edema Gastrointestinal: normal bowel sounds, non tender, soft Extremity: Normal Capillary Refill, Normal Inspection, Normal Range of Motion Neurologic/Psychiatric: Alert, Oriented x3 Skin: Normal Color, Warm/Dry Results Lab Laboratory Tests 06/11/19 04:35: White Blood Count 7.0, Red Blood Count 4.34L, Hemoglobin 13.1, Hematocrit 40, Mean Corpuscular Volume 92, Mean Corpuscular Hemoglobin 30, Mean Corpuscular Hemoglobin Concent 33, Red Cell Distribution Width 13.8, Platelet Count 181, Mean Platelet Volume 12.4H, Sodium Level 137, Potassium Level 3.0L, Chloride Level 96L, Carbon Dioxide Level 31, Anion Gap 10, Blood Urea Nitrogen 41H, Creatinine 0.97, Estimat Glomerular Filtration Rate 57, BUN/Creatinine Ratio 42, Glucose Level 123H, Calcium Level 8.7 Microbiology 06/08/19 Urine Culture - Final, Complete 3 or more isolates Assessment/Plan Assessment/Plan Assess & Plan/Chief Complaint A 69 year old female with PSBO with gastritis. Has been tolerating diet for the most part however continues to have intermittent episodes nasuea and vomiting. Has had bowel movements during admission. Currently undergoing small bowel follow through. If there is any abnormalities identified on test, then will proceed with scheduling patient for diagnostic laparoscopy, possible lysis of adhesions, possible small bowel resection. Will need to be NPO at 0200 on 06/12/19 if so. Clinical Quality Measures DVT/VTE Risk/Contraindication: Risk Factor Score Per Nursin RFS Level Per Nursing on Admit: 3=High CHARLOTTE TAYLOR [employer] INSTRUCTOR Jun 11, 2019 15:45
--- NOTE | 2019-06-11 17:06 | Diagnostic Imaging Report ---
EXAMINATION: Upper GI exam with small bowel follow-through. INDICATION: Abdominal pain and vomiting. FINDINGS: There are no prior studies available for comparison. This exam was technically difficult to perform due to the patient's weakened condition. She was able to swallow a small amount of oral barium without difficulty however. There is a prominent air-fluid level within the stomach and there does appear to be a fair amount of residual dilute particulate matter within the stomach. There is no obvious gastric mass or ulceration and there is no sign of reflux. When the patient was placed in the right lateral decubitus position, the contrast did extend from the stomach into the proximal small bowel; however, delayed imaging of the small bowel up to 4 hours and 45 minutes shows that most of the contrast is still within the stomach and proximal small bowel. I suspect that this appearance is due to a high-grade small bowel obstruction most likely involving the ileum. If further imaging is desired, then CT will be recommended. IMPRESSION: 1. The findings would be consistent with a high-grade small bowel obstruction. If further imaging is desired, then CT will be recommended. 2. These results were discussed with Dr. Weston at the time of this dictation. CRITICAL FINDING Dictated by: Dictated on workstation # [id number]
[2019-06-11 20:25] VITALS: BP 102/69
[2019-06-11] MEDS: fentaNYL INJECTION 100 MCG/2 ML AMP IVP PRN (20:52)
--- NOTE | 2019-06-11 21:16 | Progress Note-Pre Operative ---
Pre-Operative Progress Note H&P Reviewed The H&P was reviewed, patient examined and no changes noted. Date Seen by Provider: Jun 11, 2019 Time Seen by Provider: 21:00 Date H&P Reviewed: Jun 11, 2019 Time H&P Reviewed: 21:00 Pre-Operative Diagnosis: high grade small bowel obstruction YESICA GODINEZ MD Jun 11, 2019 21:16
[2019-06-11] MEDS: ONDANSETRON 4 MG/2 ML (SDV) Z0FRAN IVP PRN (21:56)
[2019-06-12] VITALS (16 sets, daily range): BP systolic 51–253; BP diastolic 30–198
[2019-06-12] MEDS: SUCRALFATE 1 GM (CARAFATE) TAB PO SCH ×4 (05:27→22:58)
[2019-06-12] MEDS: DEXAMETHASONE 4 MG/ML SDV (DECADRON) IV SCH (05:34)
[2019-06-12] MEDS: ONDANSETRON 4 MG/2 ML (SDV) Z0FRAN IVP PRN (05:34)
[2019-06-12] MEDS: fentaNYL INJECTION 100 MCG/2 ML AMP IVP PRN (05:35)
[2019-06-12] MEDS ORDERED: ceFAZolin INJECTION 1,000 MG in WATER (STERILE) FOR INJECTION 10 ML IV ONE (06:00)
[2019-06-12] MEDS ORDERED: VANCOMYCIN INJECTION 1,000 MG in NS (IVPB) 250 ML IV NR (06:00)
[2019-06-12] MEDS: NS IV 1000 ML 1,000 ML IV SCH ×2 (06:37→16:02)
--- NOTE | 2019-06-12 07:50 | Progress Note ---
Subjective Subjective/Events-last exam Having a lot of abdominal pain this morning. Objective Exam Last Set of Vital Signs Vital Signs Date Time Temp Pulse Resp B/P (MAP) Pulse Ox O2 Delivery O2 Flow Rate FiO2 06/11/19 21:00 Room Air 06/11/19 20:25 36.8 97 20 102/69 (80) 96 06/11/19 09:00 1.00 Capillary Refill : Less Than 3 SecondsLess Than 3 Seconds I&O Intake and Output 06/12/19 00:00 Intake Total 1400 ml Balance 1400 ml Intake Oral 400 ml IV Total 1000 ml # Voids 6 # Urine Diapers 2 General: Alert, Mild Distress Lungs: Clear to Auscultation, Normal Air Movement Heart: Regular Rate, No Murmurs Abdomen: Other (distended, diffusely ttp) Extremities: No Edema Neuro: Normal Speech Results/Procedures Lab Microbiology 06/08/19 Urine Culture - Final, Complete 3 or more isolates Assessment/Plan Assessment/Plan (1) Small bowel obstruction Status: Acute Assessment & Plan: NG taken out, start clear liquids, Surgery consulted, ap preciate recommendations. 06/11 small bowel follow through today 06/12 SBFT yesterday consistent with high grade SBO, plan per Dr. Weston (2) Acute kidney injury Status: Resolved Assessment & Plan: Improving, continue IVF. (3) Hypernatremia Status: Resolved Assessment & Plan: Change IVF to D5 and check Na q2-3 hours. 06/09 resolved, change fluid back to NS, anticipate d/c IVF soon when taking adequate oral (4) Hypokalemia Status: Acute Assessment & Plan: Replace and recheck. (5) High anion gap metabolic acidosis Status: Resolved Assessment & Plan: IVF, treat GEMINI as noted above. (6) COPD (chronic obstructive pulmonary disease) Status: Chronic (7) Anxiety Status: Chronic Assessment & Plan: Increase alprazolam to 0.5 mg given persistent severe anxiety, was on clonazepam as well at home, hesitant to mix benzodiazepines. (8) Hypertension Status: Chronic Qualifiers: Qualified Codes: I10 - Essential (primary) hypertension (9) DVT prophylaxis Status: Acute Assessment & Plan: Heparin Clinical Quality Measures DVT/VTE Risk/Contraindication: Risk Factor Score Per Nursin RFS Level Per Nursing on Admit: 3=High ALONSO VASQUEZ MD Jun 12, 2019 07:50
[2019-06-12 08:09] LABS: HEMOGLOBIN 13.2 G/DL (11.5-16.0); MEAN PLATELET VOLUME 12.5 FL (7.4-10.4); RED CELL DISTRIBUTION WIDTH 14.5 % (10.0-14.5); WHITE BLOOD COUNT 4.8 10^3/uL (4.3-11.0)
[2019-06-12 08:27] LABS: CALCIUM 8.7 MG/DL (8.5-10.1); CREATININE SERUM 2.85 MG/DL (0.60-1.30); POTASSIUM 3.4 MMOL/L (3.6-5.0)
[2019-06-12] MEDS: meTOprolol TARTRATE 25 MG (LOPRESSOR) TABLET PO SCH ×2 (09:34→17:14)
[2019-06-12] MEDS: PANTOPRAZOLE 40 MG (PROTONIX) VIAL IV SCH (09:34)
--- NOTE | 2019-06-12 09:51 | Physical Therapy Daily Note ---
PT Daily Note-Current Subjective Patient repeats, "Can I have some water?" Agrees to up in recliner Mental Status Patient Orientation: Confused Attachments: IV Transfers Therapy Quality Codes: 6 Independent with activity with or without an assistive device 5 Patient requires set up or clean up by helper. Patient completes activity by themselves 4 Supervision or touching assist (CGA). [place] provide cues , steadying assist 3 The helper provides less than half the effort to complete the activity 2 The helper provides more than half the effort to complete the activity 1 Dependent. The helper does all the effort to complete an activity 7 Patient refused to complete or attempt activity 9 The patient did not perform the activity before the current illness or injury 88 Not attempted due to Medical conditions or safety concerns Transfers (B, C, W/C): 4 Roll Left to Right (QC): 5 Sit to Lying (QC): 5 Sit to Stand (QC): 4 Chair/Etf-ku-Mmkmg Xfer(QC): 4 Weight Bearing Right Lower Extremity: Right Weight Bearing/Tolerated Left Lower Extremity: Left Weight Bearing/Tolerated Exercises Seated Therapy Exercises: Ankle pumps, Long arc quads Seated Reps: 15 (AAROM bilaterally due to confusion) Assessment Patient tolerated treatment and is up in recliner with chair alarm activated. Patient to have surgery on this date. PT Short Term Goals Short Term Goals Time Frame: Jun 17, 2019 Gait Distance Comment: 150' Gait Assistive Device: FWW (SBA) PT Plan Treatment/Plan Treatment Plan: Continue Plan of Care Treatment Plan: Bed Mobility, Education, Functional Activity Cheri, Functional Strength, Gait, Safety, Therapeutic Exercise, Transfers Treatment Duration: Jun 17, 2019 Frequency: 6 times per week Estimated Hrs Per Day: .25 hour per day Patient and/or Family Agrees t: Yes Time/GCodes Time In: 900 Time Out: 908 Total Billed Treatment Time: 8 Total Billed Treatment 1 visit FA 8 min EMIR COVARRUBIAS PT Jun 12, 2019 09:51
[2019-06-12] MEDS ORDERED: BUP/EPI 0.25% 1:200,000 (MARCAINE) 10 ML VIAL IJ ONE (10:25)
--- NOTE | 2019-06-12 10:50 | NUR ---
PT TAKEN DOWN TO [facility] -- IV VANCOMYCIN ONE GRAM SENT DOWN WITH PT -- ADVISED PRE[facility] THAT PT HAD SOME VOMITING -- CLEAR BROWN (30ML)
[2019-06-12] MEDS: LACTATED RINGERS 1,000 ML IV PRN ×3 (11:00→12:58)
[2019-06-12] MEDS ORDERED: ROCURONIUM 10 MG/ML 5 ML SYRINGE IV ONE (11:04)
[2019-06-12] MEDS ORDERED: MIDAZOLAM 2 MG/2 ML (VERSED) VIAL ONE (11:04)
[2019-06-12] MEDS ORDERED: ONDANSETRON 4 MG/2 ML (SDV) Z0FRAN ONE (11:04)
[2019-06-12] MEDS ORDERED: SEVOFLURANE (ULTANE) 15 ML INHAL SOLN ONE ×10 (11:04→13:26)
[2019-06-12] MEDS ORDERED: DEXAMETHASONE 10 MG/ML (DECADRON) 1 ML VIAL ONE (11:04)
[2019-06-12] MEDS ORDERED: proPOfol 200 MG/20 ML (DIPRIVAN) VIAL IV ONE (11:04)
[2019-06-12] MEDS ORDERED: GLYCOPYRROLATE 0.2 MG/ML (ROBINUL) 2 ML VIAL ONE (11:04)
[2019-06-12] MEDS ORDERED: NEOSTIGMINE 3 MG/3 ML VIAL ONE (11:04)
[2019-06-12] MEDS ORDERED: fentaNYL INJECTION 100 MCG/2 ML AMP ONE (11:04)
[2019-06-12] MEDS ORDERED: LIDOCAINE PF 2% 5 ML (XYLOCAINE) VIAL ONE (11:04)
[2019-06-12] MEDS ORDERED: NS (IVPB) 250 ML ONE ×2 (11:51→14:58)
[2019-06-12] MEDS ORDERED: PHENYLEPHRINE 100 MCG/ML 10 ML (ANESTHESIA) SYR ONE ×3 (11:51→15:50)
[2019-06-12] MEDS ORDERED: PHENYLEPHRINE INJ 10 MG/ML (FOR DRIP KITS ONLY) ONE ×2 (11:51→12:46)
[2019-06-12] MEDS ORDERED: ONDANSETRON 4 MG/2 ML (SDV) Z0FRAN IVP PRN (12:15)
[2019-06-12] MEDS ORDERED: fentaNYL INJECTION 100 MCG/2 ML AMP IVP ONE (12:15)
[2019-06-12] MEDS ORDERED: NS (IVPB) 100 ML ONE ×4 (12:43→22:14)
[2019-06-12] MEDS ORDERED: SUCCINYLCHOLINE INJ 100 MG/5 ML SYR ONE (12:48)
[2019-06-12] MEDS ORDERED: BUPIVACAINE 0.5% 30 ML (SENSORCAINE) VIAL ONE (12:54)
[2019-06-12] MEDS ORDERED: HEParin (CENTRAL IV FLUSH) 500 UNIT/5 ML SYR ONE (13:13)
--- NOTE | 2019-06-12 13:57 | NUR ---
FLOOR WAS CALLED PT WILL GO TO ICU BED 11-- THIS RN GAVE REPORT TO EMERGENCY OPERATOR
[2019-06-12] MEDS ORDERED: PROPOFOL DRIP (ICU) 100 ML IV ONE (14:57)
[2019-06-12 14:58] LABS: ABG BASE EXCESS -5.3 MMOL/L (-2.5-2.5); ABG OXYGEN SATURATION 100 % (94-100); ABG PCO2 42 MMHG (35-45); ABG PO2 386 MMHG (79-93); ABG TCO2 21.4 MMOL/L (21.0-31.0)
[2019-06-12] MEDS ORDERED: NOREPINEPHRINE 4 MG/4 ML (LEVOPHED) AMP IV ONE (14:58)
[2019-06-12] MEDS ORDERED: PROPOFOL DRIP (ICU) 100 ML IV SCH (15:00)
[2019-06-12 15:02] LABS: ALLENS TEST POSITIVE; INSPIRED O2 100%; PATIENT TEMP 36.7; VENTILATOR YES
--- NOTE | 2019-06-12 15:17 | OPERATIVE REPORT ---
DATE OF SERVICE: 06/12/2019 ADMITTING PHYSICIAN: Leeann Christiansen DO ATTENDING PRIMARY CARE PHYSICIAN: Dr. Gamino. PREOPERATIVE DIAGNOSIS: Persistent small-bowel obstruction. POSTOPERATIVE DIAGNOSIS: Chronic terminal ileal stricture with dilated small bowel and perforation at the level of the stricture as well as the mid small bowel. Infraumbilical reducible ventral abdominal incisional hernia. PROCEDURES PERFORMED: Diagnostic laparoscopy, exploratory laparotomy, segmental resection of mid small bowel with anastomosis, ileocolonic resection with anastomosis, ventral abdominal incisional hernia repair, and placement of left subclavian central venous catheter. SURGEON: Magi Weston MD. ANESTHESIA: General endotracheal. ESTIMATED BLOOD LOSS: 100 mL. FINDINGS: Chronic stricture with dilated small bowel and perforation at the level of the stricture as well as the mid small bowel. Ventral abdominal incisional hernia DISPOSITION: The patient tolerated the procedure well. INDICATIONS: The patient is a 69-year-old female who we have seen before in the past. We had seen her in 01/2019 for crampy abdominal pain as well as intermittent nausea and vomiting. She resides in [place] and has had intermittent symptoms for years. She and her daughter reported that she has had crampy abdominal pain as well as weight loss and intermittent episodes of nausea for years. Her symptoms were more severe and she had a CT scan performed in 01/2019 consistent with a partial small-bowel obstruction. She underwent a diagnostic laparoscopy and found to have an internal hernia, which was reduced and repaired. She did well with that surgery and was sent home; however, she has had recurrent episodes of crampy abdominal pain since that time. She was able to tolerate foods; however, not enough to sustain her weight and she has lost weight. She also continues to have bowel movements on a daily basis, which is usually loose. She was again admitted for similar type of symptoms with this initial CT scan showing dilated loops of small bowel. We proceeded with conservative therapy with bowel rest and she was able to have bowel movements on a daily basis. She was also afebrile and had a normal white count. She continued to have intermittent episodes of nausea and vomiting after trying to advance her diet to a Dys 3 diet. She is allergic to many different medications as well as IODINATED CONTRAST and she underwent a thin barium upper GI as well as small bowel follow through and the report was slow transit throughout the stomach and small bowel; however, the contrast would hang up in the small bowel for greater than 5 hours. This was consistent with a high-grade bowel obstruction. Again, her abdomen was soft with no peritoneal signs. She was having bowel movements with a normal white count and afebrile. DESCRIPTION OF PROCEDURE: The patient was brought to the operating room, laid supine on the table. After adequate IV pain and sedative medications and general endotracheal intubation, the abdomen was prepped and draped in standard surgical fashion. A 0.5% Marcaine with epinephrine was then used to anesthetize overlying skin in the right upper abdominal quadrant and a transverse skin incision made using 15-blade. An #0 silk suture was applied to the medial aspect incision for retraction and a Veress needle inserted with a low opening pressure of 0 mmHg and the abdomen was then insufflated to 15 mmHg pressure. Veress needle removed and a 5 mm Xcel trocar placed followed by a 5 mm 45-degree angle laparoscope. There was a bilious content identified immediately which did indicate either an abscess versus a perforation. We tried to identify the perforation thinking initially that this was a perforated peptic ulcer disease and we placed a supraumbilical 5 mm port under direct visualization. Once the stomach and duodenum were examined and no perforation was identified, it was decided to proceed with conversion to an open procedure. We made a skin incision with a 10-blade and the peritoneal lining and fascia were then opened to the length of the incision using electrocautery. A 4-quadrant abdominal exploration was performed. We did open up the lesser sac and there were no posterior gastric ulcers identified. There was a significantly dilated small bowel which appeared to be chronic in nature. There were 2 perforations identified of the mid small bowel. At the terminal ileum, a chronic stricture identified. At this level of chronic stricture, there was a distended small bowel proximally and decompressed distal ileum and colon distally. There was also a perforation proximal to the stricture. We then proceeded with a segmental resection of the perforated portions of the mid small bowel using FOSTER-60 mm stapler. The mesentery was then cauterized and cut using a Sonicision close to the bowel. We then proceeded with side to side anastomosis after fully decompressing the small bowel with a pool suction. The enterotomy opening from the stapler was then reapproximated using 3-0 silk sutures and then stapled using the same stapler. We then proceeded with an ileocolonic resection. The white lines of Toldt were then taken down using electrocautery as well as blunt dissection. We then proceeded to open up the mesentery to the terminal ileum and the cecum using the Sonicision close to the bowel. We then proceeded with resection of the ascending colon and the terminal ileum to a good vascularized area using the same FOSTER-60 mm blue load stapler. We then proceeded with a tefi-wn-zoxk anastomosis of the ileum and the ascending colon using the same stapler. The open enterotomy from the stapler was then reapproximated using 3-0 silk sutures and staple together using the same stapler. There was also significant size incisional hernia identified. This was dissected out using cautery. We then proceeded to 6 liters of warm irrigation throughout the entire peritoneal cavity and suctioned this out until this was relatively clear. Two 19-Faroese [place]-Person drains were placed, one towards the pelvis and one towards the subphrenic region. These were sutured to the skin using 3-0 nylon interrupted sutures. The fascia was then closed encompassing the hernia defect from the previous midline infraumbilical laparotomy incision approximating the entirety of the fascia using #1 looped PDS suture starting proximally and distally and tied in the middle encompassing and repairing the hernia simultaneously. This was then tied in the middle. Skin was reapproximated loosely using skin francesca. We then proceeded with placement of left subclavian central venous catheter. The chest and neck were prepped and draped in standard surgical fashion. This left subclavian vein was then cannulated with drawing of venous blood. The guidewire was then inserted without any resistance and the cannulating needle removed and a skin incision made using 11-blade. A tract was then created with a venous dilator and a triple lumen central venous catheter was then placed over the guidewire using the Seldinger technique and the guidewire removed. All three ports charmaine venous blood and heparinized saline pushed in without any resistance. The catheter was then sutured to the skin using 3-0 silk sutures. The catheter was then cleaned and covered with Op-Site. The patient tolerated the procedure well. We will continue with NG tube decompression and monitor her urine output as well as IV fluid status and perfusion. We will also start IV antibiotics with Zosyn as well as antifungals with Diflucan and await bowel function. Due to the peritonitis, she will most likely develop an ileus. She is also weak and malnourished and we will start with TPN. After she is able to have bowel function and tolerate food due to her weakness and general debility and malnutrition, she may need further assistance senior care. Job ID: [id number] DocumentID: [id number] Dictated Date: 06/12/2019 14:36:44 Deputy Clerk Date: 06/12/2019 15:16:48 Dictated By: MAGI WESTON MD MTDD
--- NOTE | 2019-06-12 15:25 | Diagnostic Imaging Report ---
PATIENT HISTORY: Central line placement, post intubation. TECHNIQUE: Frontal view of the chest COMPARISON: 06/11/2019 FINDINGS: The endotracheal tube is 4 cm above the homero, along the right lateral wall. The left central line tip projects over the upper SVC. An enteric tube projects over the stomach. There is contrast in the stomach. Lung volumes are large. No focal consolidation is seen. There is no pleural effusion or pneumothorax. The cardiac silhouette is normal in size. IMPRESSION: 1. Line and tubes as described above. 2. Large lung volumes with no acute pulmonary abnormality seen. Dictated by: Dictated on workstation # [id number]
--- NOTE | 2019-06-12 15:49 | Occ Therapy Progress Note ---
Therapy Progress Note Order received for OT eval and treat. Chart review completed. Pt is currently on ventilator. Will continue to monitor and initiate occupational therapy services when pt able to participate. CORDELIA GARCIA OT Jun 12, 2019 15:49
--- NOTE | 2019-06-12 15:52 | NUR ---
VENT CHANGES PER ROSE ROMERO , RR 18, PEEP 5, 40% Addendum: 06/12/19 at 1553 by EMIR EDOUARD RT Amended: Links added.
[2019-06-12] MEDS ORDERED: NOREPINEPHRINE 4 MG in NS (IVPB) 250 ML IV SCH (16:30)
--- NOTE | 2019-06-12 16:34 | Anesthesia-Procedure Note ---
Procedures/Interventions Procedure Start/Stop/Diagnosis Date of Procedure: Jun 12, 2019 Start Time: 15:15 Stop Time: 16:20 Arterial Line Arterial Line Catheter: 20G Type: Brachial Location: Right Procedure: prepped, draped in sterile fashion, good wave-form was obtained, patient tolerated procedure well, no immediate complications, post procedure area cleaned, post procedure dressing applied Additional Procedures Procedures Multiple A-line attempts in both radial sites. After multiple attempts in each radial site the US was used to help identify the artery. Minimal and irregular blood flow was ID'd . US used to ID at Right Brachial site 20 Gauge A-line placed without difficulty. ISMAEL AQUINO CRNA Jun 12, 2019 16:34
[2019-06-12] MEDS ORDERED: VASOPRESSIN INJECTION 20 UNIT/ML VIAL ONE (17:49)
[2019-06-12] MEDS ORDERED: VASOPRESSIN INJECTION 20 UNIT in NS (IVPB) 100 ML IV SCH (18:00)
[2019-06-12] MEDS ORDERED: SODIUM BICARB 8.4% 50 MEQ/50 ML VIAL ONE (20:15)
[2019-06-12] MEDS ORDERED: ALBUMIN 5% 12.5 GM/250 ML 500 ML IV ONE ×2 (20:16→23:45)
[2019-06-12] MEDS ORDERED: ALBUMIN 5% 12.5 GM/250 ML 500 ML IV NR (20:30)
[2019-06-12] MEDS ORDERED: SODIUM BICARB 8.4% 50 MEQ/50 ML (ABBOTT) SYR IV NR (20:30)
[2019-06-12] MEDS ORDERED: NS (IVPB) 50 ML ONE ×2 (20:56→22:13)
[2019-06-12 20:59] LABS: CALCIUM 6.9 MG/DL (8.5-10.1); CREATININE SERUM 2.81 MG/DL (0.60-1.30); MAGNESIUM 1.5 MG/DL (1.6-2.4); POTASSIUM 3.4 MMOL/L (3.6-5.0)
[2019-06-12] MEDS: NOREPINEPHRINE 8 MG in NS (IVPB) 250 ML IV SCH ×2 (21:08→22:25)
--- NOTE | 2019-06-12 21:08 | Progress Note-Post Operative ---
Post-Operative Progess Note Surgeon (s)/Regional Facilities Specialist (s) Surgeon YESICA GODINEZ MD Regional Facilities Specialist: none Pre-Operative Diagnosis high grade small bowel obstruction Post-Operative Diagnosis chronic terminal ileal stricure, proximal terminal ileal perforation, mid-small bowel perforation x2 within 15cm distance, no perforated PUD, no colonic obstruction, infraumbilical ventral abd incisional hernia(4cm), no obvious tumors/malignancy. Procedure & Operative Findings Date of Procedure 06/12/19 Procedure Performed/Findings diagnostic laparoscopy, exploratory laparotomy, mid-small bowel segmental resection and anastomosis, iliocolonic resection and anastomosis, primary ventral abd incisional hernia repair, placement left SC central venous catheter, 19Fr drain placement x2. Anesthesia Type get Estimated Blood Loss Estimated blood loss (mL): 100ml Specimens/Packing Specimens Removed mid-small bowel segment, terminal ileum and ascending colon. YESICA GODINEZ MD Jun 12, 2019 21:08
[2019-06-12] MEDS ORDERED: FLUCONAZOLE 200 MG/100 ML 100 ML IV ONE (21:15)
[2019-06-12] MEDS ORDERED: D5W 100 ML IVPB 100 ML IV ONE (21:22)
[2019-06-12] MEDS ORDERED: AMIODARONE (OMNICELL DRIP KIT) 150 MG/3 ML IV ONE (21:22)
[2019-06-12] MEDS ORDERED: AMIODARONE 450 MG/9 ML (CORDARONE) VIAL IV ONE ×2 (21:25→21:27)
[2019-06-12] MEDS ORDERED: D5W IV SOLUTION (EXCEL) 250 ML IV ONE (21:28)
[2019-06-12] MEDS ORDERED: AMIODARONE 150 MG/D5W 100 ML BOLUS IV ONE ×2 (21:30)
[2019-06-12] MEDS ORDERED: DEXMEDETOMIDINE INJECTION 200 MCG in NS (IVPB) 50 ML IV SCH (21:30)
[2019-06-12] MEDS ORDERED: AMIODARONE 450 MG/250 ML D5W EXCEL IV SCH ×2 (21:30)
[2019-06-12] MEDS ORDERED: fentaNYL (OMNICELL DRIP KIT ONLY) 250 MCG/5 ML AMP ONE (21:31)
[2019-06-12] MEDS: POTASSIUM CL 10 MEQ/50 ML IVPB (PRE-MIX) IV SCH ×2 (21:35→22:05)
[2019-06-12] MEDS: MAGNESIUM 1 GM/100 ML IVPB IV SCH ×4 (21:35→22:20)
--- NOTE | 2019-06-12 21:42 | Diagnostic Imaging Report ---
INDICATION: Dyspnea and hypotension. EXAMINATION: Frontal chest was obtained at 9:27 p.m. COMPARISON: Same day at 3:03 p.m. FINDINGS: ET tube tip overlies the mid trachea. NG tube tip overlies the stomach. There is some residual contrast in the gastric fundus. Left subclavian central catheter is unchanged with tip overlying the SVC. There is mild central vascular congestion which is similar to the prior study. There is no pneumothorax, gross pleural fluid or new infiltrate. There is some minimal linear atelectatic change in the left base. IMPRESSION: Central vascular congestion with some minimal left basilar atelectasis. No discrete consolidation, pneumothorax or pleural fluid. Life support lines as above. Dictated by: Dictated on workstation # [id number]
[2019-06-12] MEDS ORDERED: ACETAMINOPHEN 650 MG SUPP (TYLENOL) PR ONE (21:45)
[2019-06-12] MEDS ORDERED: HYDROCORTISONE 100 MG/2 ML (Solu-CORTEF) VIAL IV SCH (22:00)
[2019-06-12] MEDS ORDERED: PIPERACILLIN/TAZO 4.5 GM VIAL (ZOSYN) IV ONE (22:13)
[2019-06-12] MEDS ORDERED: PIPERACILLIN/TAZO 4.5 GM/NS 100 ML IV ONE ×2 (22:30)
[2019-06-12] MEDS: fentaNYL 1,250 MCG/NS 250 ML DRIP IV SCH ×2 (23:03)
--- NOTE | 2019-06-13 02:12 | NUR ---
Timeline Nursing Note Below 06/12/19 at 2008- This RN notified EICU of pt's continued hypotension despite Levophed and Vasopressin gtt's, decreased urine output of 5ml since arrival to ICU at 1500, tachycardia, informed Dr. Kathleen that no antibiotics ordered at this time due to patient allergy list. New orders received at this time, see order history. 06/12/19 at 2030- This RN notified EICU of pt's continued hypotension despite infusing Levophed at max rate of 1 mcg/kg/min (per facility protocol) and Vasopressin at max rate of 0.04 unit/min (per facility protocol). New orders received at this time, see order history. 06/12/19 at 2049- This RN notified EICU of pt's continued hypotension despite infusing Levophed at ordered max rate of 2 mcg/kg/min (per Dr. Kathleen) and Vasopressin at max rate of 0.04 unit/min. New orders received at this time, see order history. 06/12/19 at 2058- This RN notified EICU of critical Lactic Acid of 3.23. 06/12/19 at 2115- This RN attempted to call Dr. Mckenna due to patient's declining status. 06/12/19 at 2119- This RN called Dr. Christiansen to give update on patient's declining status, Dr. Christiansen deferred to EICU at this time. Dr. Kathleen consult with family at this time via EICU bedside video conference. Angela, the patient's DPOA decided to change patient's status to DNR at this time. 06/12/19 at 2311- This RN notified Dr. Kathleen of Critical Lactic Acid 6.87, continued decreased hypotension despite current vasopressors infusing at max rate (see eMAR). New orders received at this time, see order history. 06/12/19 at 2338- Pt Asystole via bedside monitor, faint pulses palpated at left and right carotid artery. Notified EICU at this time, Dr. Kathleen on bedside video conference at this time. Family at bedside and updated on patient status. 06/12/19 at 2340- RT notified at this time. 06/12/19 at 2342- TOD announced, verified by this RN, Lelo RN, and Rosy RN. All life sustaining measures removed at this time. 06/12/19 at 2350- [facility] notified. 06/13/19 at 0015- Worm Sorter Jill present with DPOA Angela, who verbally stated [facility] in [place], [place], as mortuary of choice. 06/13/19 at 0040- Postmortem care provided at this time. Lelo MIRANDA present and terminally extubated patient at this time. 06/13/19 at 0058- [facility] notified. 06/13/19 at 0207- Zach RN and Rosy RN received verbal consent via telephone from Angela the patient's DPOA to [facility] body [facility]. Family left facility before consent could be signed. 06/13/19 at 0213- Dr. Christiansen notified at this time.
[2019-06-13] MEDS ORDERED: PIPERACILLIN/TAZO 4.5 GM/NS 100 ML IV SCH ×2 (05:00)
[2019-06-13] MEDS ORDERED: POTASSIUM CL 10MEQ/50ML IVPB 50 ML IV SCH (06:00)
[2019-06-13] MEDS ORDERED: MAGNESIUM 1 GM/100 ML IVPB 100 ML IV SCH (06:00)
[2019-06-13] MEDS ORDERED: KCL 20 MEQ TAB (K-DUR) PO SCH (06:00)
[2019-06-13] MEDS ORDERED: fentaNYL INJECTION 500 MCG in NS (IVPB) 100 ML IV SCH (06:15)
[2019-06-13] MEDS: fentaNYL 1,250 MCG/NS 250 ML DRIP IV SCH ×2 (06:16)
[2019-06-13] MEDS ORDERED: ATROPINE INJ 0.4 MG/ML SDV ONE (06:30)
[2019-06-13] MEDS ORDERED: DOPamine DRIP 250 ML IV ONE (06:34)
[2019-06-13] MEDS ORDERED: HEParin DRIP 25000 UNIT/500ML (FULL THERAPY) IV SCH (07:00)
[2019-06-13] MEDS ORDERED: HEParin 1000 UNIT/ML BOLUS (FULL THERAPY) IV PRN (07:00)
[2019-06-13] MEDS ORDERED: PANTOPRAZOLE 40 MG (PROTONIX) VIAL IV SCH (07:00)
[2019-06-13] MEDS ORDERED: PIPERACILLIN/TAZOBACTAM (BULK) 4.5 GM in NS (IVPB) 100 ML IV SCH (09:00)
[2019-06-13] MEDS ORDERED: FLUCONAZOLE 200 MG/100 ML 50 ML, EMPTY IV BAG (PVC) 1 EA IV SCH ×2 (09:00)
--- NOTE | 2019-06-13 11:03 | Discharge Summary ---
Discharge Summary Hospital Course Was the Problem List Reviewed?: Yes Problems/Dx: (1) Small bowel obstruction Status: Acute (2) Dehydration Status: Acute (3) Acute renal failure Status: Acute (4) Transaminitis Status: Acute (5) Abdominal pain Status: Acute (6) Vomiting Status: Acute (7) Hyperlipidemia Status: Chronic (8) COPD (chronic obstructive pulmonary disease) Status: Chronic (9) Hypertension Status: Chronic Qualifiers: Qualified Codes: I10 - Essential (primary) hypertension (10) Anxiety Status: Chronic (11) History of DVT (deep vein thrombosis) Status: Chronic (12) Frailty Status: Chronic Hospital Course Date of Admission: Jun 05, 2019 at 10:20 Admission Diagnosis : Family Physician/Provider: Js Gamino MD Date of Discharge: 06/13/19 Discharge Diagnosis: SBO, Frail status, cachexia Hospital Course: Hospital course: Patient had a lengthy hospital course when I admitted the patient for recurrent small bowel obstruction. Conservative management ensued and she actually improved but BMI of 17 precluded anything but a poor prognosis long-term. She had significant complications during the week requiring Dr. Weston to perform urgent surgery which was uncomplicated but postoperatively she was placed in the ICU for recovery had significant decline in status family notified the eICU Dr. patient was deemed DNR and patient quickly into asystole after comfort care measures initiated. Labs and Pending Lab Test: Laboratory Tests 06/12/19 14:43: Hemoglobin 10.0#L, Hematocrit 31L 06/12/19 14:52: Blood Gas Puncture Site RIGHT BRACHIAL, Blood Gas Patient Temperature 36.7, Arterial Blood pH 7.30*L, Arterial Blood Partial Pressure CO2 42, Arterial Blood Partial Pressure O2 386H, Arterial Blood HCO3 20L, Arterial Blood Total CO2 21.4, Arterial Blood Oxygen Saturation 100, Arterial Blood Base Excess -5.3L, [place] Test POSITIVE, Blood Gas Ventilator Setting YES, Blood Gas Inspired Oxygen 100% 06/12/19 18:21: Glucometer 66L 06/12/19 20:30: Hemoglobin 9.9L, Sodium Level 142, Potassium Level 3.4L, Chloride Level 104, Carbon Dioxide Level 26, Anion Gap 12, Blood Urea Nitrogen 80H, Creatinine 2.81H , Estimat Glomerular Filtration Rate 17, BUN/Creatinine Ratio 28, Glucose Level 96, Lactic Acid Level 3.23*H, Calcium Level 6.9L, Ionized Calcium (Measured) [Pending], Ionized Calcium pH [Pending], Ionized Calcium (Corrected) [Pending], Magnesium Level 1.5L, Troponin I 0.078H 06/12/19 22:50: Lactic Acid Level 6.87*H Microbiology 06/12/19 Gram Stain - Final, Resulted 06/12/19 Sputum Culture, Resulted Pending 06/08/19 Urine Culture - Final, Complete 3 or more isolates Home Meds Active Reported Antifungal (Tolnaftate) 113.3 Gm Aero.powd TP QID CLEAN ANAL AREA 4 TIMES DAILY THEN APPLY HYTONE 1% CREAM TO THE AREA THEN FOLLOW WITH ANTIFUNGAL POWDER 4 TIMES DAILY Hydrocortisone 28.4 Gm Cream..g. RC QID CLEAN ANAL AREA 4 TIMES DAILY THEN APPLY HYTONE 1% CREAM TO THE AREA THEN FOLLOW WITH ANTIFUNGAL POWDER 4 TIMES DAILY Questran Packet (Cholestyramine (with Sugar)) 4 Gm Powd.pack 4 Gm PO TID PRN Anusol-Hc (Hydrocortisone) 30 Gm Cream..g. RC TID PRN Calmoseptine Ointment (Menthol/Lanolin/Calamine/Znox) 71 Gm Oint TP BID PRN Alprazolam 0.25 Mg Tablet 0.25 Mg PO Q4H PRN Breo Ellipta 100-25 Mcg INH (Fluticasone/Vilanterol) 1 Each Blst.w.dev 1 Puff IH DAILY Magnesium (Magnesium Oxide) 400 Mg Tablet 400 Mg PO BID Clonazepam 0.25 Mg Tab.rapdis 0.5 Mg PO 2000 TAKES 2 (0.25MG) TABLETS Potassium Chloride 10 Meq Tab.er.prt 10 Meq PO HS Melatonin 3 Mg Tablet 6 Mg PO HS PRN Tylenol (Acetaminophen) 325 Mg Tablet 650 Mg PO Q4H PRN TAKES 2 (325MG) TABLETS Zofran (Ondansetron HCl) 4 Mg Tab 4 Mg PO Q8H PRN Mylanta Suspension (Al Hydrox/Mg Hydrox/Simethicone) 30 Ml Oral.susp 15 Ml PO Q8H PRN Vitamin B-12 (Cyanocobalamin (Vitamin B-12)) 1,000 Mcg Tablet 1,000 Mcg PO DAILY Folic Acid 1 Mg Tablet 1 Mg PO DAILY Multivitamins (Multivitamin) 1 Each Tablet 1 Tab PO 1200 Potassium Chloride 20 Meq Tab.er.prt 20 Meq PO DAILY Famotidine 20 Mg Tablet 20 Mg PO 1900 Metoprolol Tartrate 25 Mg Tablet 12.5 Mg PO BID TAKES 1/2 (25MG) TABLET Vitamin B-Complex & C (B Complex with Vitamin C) 1 Each Tablet.er 1 Tab PO DAILY Eliquis (Apixaban) 5 Mg Tablet 5 Mg PO 1800 Assessment/Pt Instructions Discharge Planning: <30 minutes discharge planning Discharge Instructions Discharge Diet: No Restrictions Pneumonia Vaccine Order Indica: Yes Discharge Physical Examination Vital Signs Vital Signs Date Time Temp Pulse Resp B/P (MAP) Pulse Ox O2 Delivery O2 Flow Rate FiO2 06/12/19 23:00 142 26 85/66 (72) 94 Mechanical Ventilator 100.00 06/12/19 22:35 36.6 06/12/19 21:55 100 Allergies: Coded Allergies: codeine (Verified Allergy, Mild, N/V, PT HAS RECEIVED MORPHINE WITHOUT I SSUE, 12/31/18) PER [facility] (ICU) PT HAS RECEIVED MORPHINE WITHOUT PROBLEMS red (food color) (Verified Allergy, Mild, Shortness of Breath, 01/04/19) Iodinated Contrast Media (Verified Allergy, Unknown, 12/31/18) Penicillins (Verified Allergy, Unknown, 12/31/18) Sulfa (Sulfonamide Antibiotics) (Verified Allergy, Unknown, 12/31/18) cephalexin (Verified Allergy, Unknown, 12/31/18) citalopram (Verified Allergy, Unknown, 01/16/06) diazepam (Unverified Allergy, Unknown, 06/05/19) diphenhydramine (Verified Allergy, Unknown, 01/16/06) hydrocodone (Verified Allergy, Unknown, 12/31/18) levofloxacin (Verified Allergy, Unknown, 01/16/06) loratadine (Verified Allergy, Unknown, 12/31/18) lorazepam (Unverified Allergy, Unknown, 06/05/19) metronidazole (Verified Allergy, Unknown, 01/16/06) morphine (Verified Allergy, Unknown, 01/01/19) nitrofurantoin (Verified Allergy, Unknown, 01/16/06) prochlorperazine (Verified Allergy, Unknown, 01/16/06) pseudoephedrine (Verified Allergy, Unknown, 01/16/06) soybean (Unverified Allergy, Unknown, 01/14/19) FROM UNCODED ALLERGIES zinc acetate (Verified Allergy, Unknown, 01/16/06) Discharge Summary Date of Admission Jun 05, 2019 at 10:20 Date of Discharge Jun 13, 2019 at 03:05 Admission Diagnosis Assessment: Small bowel obstruction recurrent and type Anxiety Acute renal failure Dehydration History of DVT Plan: Appreciate general surgery IV fluids Monitor creatinine Discharge Diagnosis Assessment: Small bowel obstruction recurrent and type Anxiety Acute renal failure Dehydration History of DVT Plan: Appreciate general surgery IV fluids Monitor creatinine (1) Small bowel obstruction Status: Acute (2) Dehydration Status: Acute (3) Acute renal failure Status: Acute (4) Transaminitis Status: Acute (5) Abdominal pain Status: Acute (6) Vomiting Status: Acute (7) Hyperlipidemia Status: Chronic (8) COPD (chronic obstructive pulmonary disease) Status: Chronic (9) Hypertension Status: Chronic Qualifiers: Qualified Codes: I10 - Essential (primary) hypertension (10) Anxiety Status: Chronic (11) History of DVT (deep vein thrombosis) Status: Chronic (12) Frailty Status: Chronic Clinical Quality Measures DVT/VTE Risk/Contraindication: Risk Factor Score Per Nursin RFS Level Per Nursing on Admit: 3=High ELVA MACDONALD DO Jun 13, 2019 11:03
== END 2019-06-13 03:05 | disposition expired | DRG 329 ==
LOC: EDUNIT# 08:06 → ER FS 08:08 → ICU 10:20 → 4TH 06-06 10:39 → ICU 06-12 14:58
PROVIDERS: ADMIT Internal Medicine; ATTEND Internal Medicine
PROC: 0DBB0ZZ Excision of Ileum, Open Approach (ICD-10-PCS; 2019-06-12)
PROC: 0DBK0ZZ Excision of Ascending Colon, Open Approach (ICD-10-PCS; 2019-06-12)
PROC: 0WQF0ZZ Repair Abdominal Wall, Open Approach (ICD-10-PCS; 2019-06-12)
PROC: 0DJW4ZZ Inspection of Peritoneum, Percutaneous Endoscopic Approach (ICD-10-PCS; 2019-06-12)
PROC: 0DB80ZZ Excision of Small Intestine, Open Approach (ICD-10-PCS; principal; 2019-06-12 11:07)
DX: K56.690 Other partial intestinal obstruction (principal); K63.1 Perforation of intestine (nontraumatic); N17.9 Acute kidney failure, unspecified; R64 Cachexia; E87.0 Hyperosmolality and hypernatremia; E87.2 Acidosis; K29.70 Gastritis, unspecified, without bleeding; Z51.5 Encounter for palliative care; Z66 Do not resuscitate; K43.2 Incisional hernia without obstruction or gangrene; I12.9 Hypertensive chronic kidney disease with stage 1 through stage 4 chronic kidney disease, or unspecified chronic kidney disease; N18.9 Chronic kidney disease, unspecified; E86.0 Dehydration; E87.5 Hyperkalemia; F41.9 Anxiety disorder, unspecified; F32.9 Major depressive disorder, single episode, unspecified; K58.9 Irritable bowel syndrome, unspecified; J44.9 Chronic obstructive pulmonary disease, unspecified; E78.5 Hyperlipidemia, unspecified; K21.9 Gastro-esophageal reflux disease without esophagitis; R30.0 Dysuria; R74.0 Nonspecific elevation of levels of transaminase and lactic acid dehydrogenase [LDH]; R54 Age-related physical debility; Z85.41 Personal history of malignant neoplasm of cervix uteri; Z86.718 Personal history of other venous thrombosis and embolism; Z79.01 Long term (current) use of anticoagulants; Z53.31 Laparoscopic surgical procedure converted to open procedure
CPT/HCPCS: 36415; 71045; 74018; 74176; 74249; 80048; 80053; 81000; 82330; 82805; 82962; 83605; 83690; 83735; 84478; 84484; 85014; 85018; 85025; 85027; 85610; 85730; 86850; 86900; 86901; 87070; 87077; 87088; 87186; 87205; 93005; 94002; 94640; 94760; 94799; 96361; 96374; 96375